=== PATIENT | female | born 1955 | race Caucasian/White ===

== ENCOUNTER 2020-04-16 13:37 | Outpatient (REF) | payer MEDICARE, MEDICAID, SELFPAY ==
[2020-04-16 15:30] LABS: Blood Urea Nitrogen 8 mg/dL (9-16); Estimated Glomerular Filt Rate > 60
== END 2020-04-16 13:38 | disposition home or self-care (01) ==
LOC: HO.LAB 13:37
PROVIDERS: PCP Pediatrics; Visit Provider Psychiatry & Neurology Neurology
DX: G50.0 Trigeminal neuralgia (principal)
CPT/HCPCS: 36415; 82565; 84520

== ENCOUNTER 2020-04-22 13:12 | Outpatient (REF) | payer MEDICARE, MEDICAID, SELFPAY ==
--- NOTE | ~2020-04-22 | MR_ITS ---
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 COMPARISON: None TECHNIQUE: Multiplanar, multisequence MRI of the brain was obtained before and after the intravenous administration of 6 mL Gadavist. FINDINGS: The brainstem is normal in morphology and signal intensity, with a normal appearance to the trigeminal root exit zones. The cisternal and cavernous portions of the trigeminal nerves are well visualized bilaterally and demonstrate no mass lesions or abnormal enhancement. Meckel's caves appear within normal limits. The cavernous sinuses enhance normally and symmetrically, with a normal appearance to the orbital apices and fissures, with a normal appearance to the pterygopalatine fossa bilaterally. The trigeminal fat pads are within normal limits. No abnormal enhancement. The jugular foramina demonstrate no evidence for mass lesion or abnormal enhancement. Flow artifact is noted in the jugular foramina bilaterally. No restricted diffusion is seen. Specifically, there is no evidence for recent or acute ischemic event. The brain parenchyma demonstrates normal morphology and signal intensity accounting for some artifacts on the FLAIR images with motion noted. There is a small developmental venous anomaly in the anterior right frontal lobe. Otherwise, there is no evidence for mass lesion, abnormal enhancement, space-occupying process, or mass effect. The ventricular system and subarachnoid spaces appear within normal limits without hydrocephalus. Normal signal voids are seen in the visualized major intracranial vessels. The included visualized upper neck soft tissues appear unremarkable. There is nasal septal deviation to the left with mild mucosal thickening and a small retention cyst in the left maxillary sinus. Bilateral lens removals are noted in the orbits. MR/MR head/brain wo/w con IMPRESSION: 1. Unremarkable appearance to the trigeminal nerve pathways and 9th cranial nerve pathways. No mass lesions or abnormal enhancement are identified. 2. Essentially unremarkable MRI of the brain without and with contrast. 3. Mild mucosal thickening and a small retention cyst in the left maxillary sinus and nasal septal deviation to the left.
== END 2020-04-22 13:13 | disposition home or self-care (01) ==
LOC: HO.MRI 13:12
PROVIDERS: Visit Provider Psychiatry & Neurology Neurology
DX: G50.0 Trigeminal neuralgia (principal); G52.1 Disorders of glossopharyngeal nerve
CPT/HCPCS: 70553; A9585

== ENCOUNTER 2020-11-06 11:44 | Outpatient (REF) | payer MEDICARE, MEDICAID, SELFPAY ==
--- NOTE | ~2020-11-06 | MM_ITS ---
EXAMINATION: MM SCREENING DIGITAL BREAST TOMOSYNTHESIS, BILATERAL CLINICAL INFORMATION: Screening. Asymptomatic. The lifetime risk of breast cancer based on the Tyrer-Cuzick Model is 5%. COMPARISON: Mammography: 09/27/2019, 09/11/2018, 08/02/2017 TECHNIQUE: Digital breast tomosynthesis is performed in both the craniocaudal and mediolateral oblique views along with computer-aided detection (CAD). Synthesized 2D images are generated from the tomosynthesis. FINDINGS: The breasts are extremely dense, which lowers the sensitivity of mammography (ACR BI-RADS breast composition Category d). There are no significant masses, abnormal calcifications, or other abnormalities. Parenchymal pattern is similar to prior studies and borders on heterogeneously dense. There is a biopsy clip marker again noted posterior 1:00 left breast. There is no developing density. The axilla and skin contours are unremarkable. No significant changes. MM/MM tomosynthesis screening BI IMPRESSION: No mammographic evidence of malignancy. ASSESSMENT: BI-RADS 1: Negative RECOMMENDATION: Routine annual mammography screening. This patient's information was entered into a reminder system with a target due date for their next mammogram.
== END 2020-11-06 11:45 | disposition home or self-care (01) ==
LOC: HO.MAMMO 11:44
PROVIDERS: PCP Pediatrics; Visit Provider Pediatrics
DX: Z12.31 Encounter for screening mammogram for malignant neoplasm of breast (principal)
CPT/HCPCS: 77063; 77067

== ENCOUNTER 2021-11-10 11:54 | Outpatient (REF) | payer MEDICARE, MEDICAID, SELFPAY ==
--- NOTE | ~2021-11-10 | MM_ITS ---
EXAMINATION: MM SCREENING DIGITAL BREAST TOMOSYNTHESIS, BILATERAL CLINICAL INFORMATION: Screening. Asymptomatic. The lifetime risk of breast cancer based on the Tyrer-Cuzick Model is 5%. COMPARISON: Mammography: 11/06/2020, 09/17/2019, 09/11/2018 TECHNIQUE: Digital breast tomosynthesis is performed in both the craniocaudal and mediolateral oblique views along with computer-aided detection (CAD). Synthesized 2D images are generated from the tomosynthesis. FINDINGS: The breasts are extremely dense, which lowers the sensitivity of mammography (ACR BI-RADS breast composition Category d). Breast tissue composition borders on heterogeneously dense. Parenchymal pattern is similar to prior studies. There is a biopsy clip marker again seen posterior 1:00 left breast. There is no developing density or architectural abnormality or abnormal calcifications. The axilla and skin contours are unremarkable. No significant changes. MM/MM tomosynthesis screening BI IMPRESSION: No mammographic evidence of malignancy. ASSESSMENT: BI-RADS 1: Negative RECOMMENDATION: Routine annual mammography screening. This patient's information was entered into a reminder system with a target due date for their next mammogram.
== END 2021-11-10 11:55 | disposition home or self-care (01) ==
LOC: HO.MAMMO 11:54
PROVIDERS: PCP Pediatrics; Visit Provider Pediatrics
DX: Z12.31 Encounter for screening mammogram for malignant neoplasm of breast (principal)
CPT/HCPCS: 77063; 77067

== ENCOUNTER 2021-11-16 09:36 | Outpatient (REF) | payer MEDICARE, MEDICAID, SELFPAY ==
--- NOTE | ~2021-11-16 | XR_ITS ---
EXAMINATION: XR FOOT, RIGHT CLINICAL INFORMATION: S90.31XA - Contusion of right foot, initial encounter COMPARISON: Radiographs right foot 01/01/2008 TECHNIQUE: AP, lateral, and oblique views of the right foot. FINDINGS: There is nondisplaced transverse fracture base fifth metatarsal. The remainder of the bony structures appear intact. There is no dislocation or destructive process. There are moderate posterior and plantar calcaneal spurs. Retrocalcaneal recess is preserved. Mild narrowing DIP joints. No erosive changes. XR/XR foot RT min 3V IMPRESSION: -Fracture base fifth metatarsal.
== END 2021-11-16 09:37 | disposition home or self-care (01) ==
LOC: HO.HMGCX 09:36
PROVIDERS: Visit Provider Internal Medicine
DX: S90.31XA Contusion of right foot, initial encounter (principal); X58.XXXA Exposure to other specified factors, initial encounter; Y93.9 Activity, unspecified; Y92.9 Unspecified place or not applicable; Y99.9 Unspecified external cause status
CPT/HCPCS: 73630

== ENCOUNTER 2022-04-06 10:39 | Outpatient (REF) | payer MEDICARE, MEDICAID, SELFPAY ==
--- NOTE | ~2022-04-06 | MM_ITS ---
EXAMINATION: BONE DENSITOMETRY CLINICAL INDICATION: Osteoporosis. COMPARISON: Previous BD dated 06/02/2015 and baseline BD dated 10/12/2007. TECHNIQUE: Using a [employer] DXA System (software version: 13.1) manufactured by [employer], dual-energy x-ray absorptiometry was performed of the lumbar spine and left hip. The images are of good technical quality. Summary results are attached. FINDINGS: AP SPINE L1-L4: Current: BMD 1.096 g/cm2, Z-score 1.0, T-score -0.7, normal, 6.2% increase from previous, 7.7% decrease from baseline (<5% change is not significant). Prior: BMD 1.032 g/cm2. Baseline: BMD 1.187 g/cm2. LEFT FEMUR, NECK: Current: BMD 0.762 g/cm2, Z-score -0.4, T-score -2.0, osteopenia. Prior: BMD 0.823 g/cm2. Baseline: BMD 0.815 g/cm2. LEFT FEMUR, TOTAL: Current: BMD 0.895 g/cm2, Z-score 0.4, T-score -0.9, normal, 0.9% decrease from previous, 7.2% decrease from baseline (<5% change is not significant). Prior: BMD 0.903 g/cm2. Baseline: BMD 0.964 g/cm2. IDENTIFIED RISK FACTORS: Low calcium intake. Secondary osteoporosis (early menopause). HISTORY OF FRACTURE: Elbow. MEDICATIONS: Calcium supplement or multivitamin. Vitamin D. MM/XR DEXA axial skeleton IMPRESSION: 1. DIAGNOSIS: Osteopenia based on the lowest T-score value of -2.0 in the femoral neck applying World Health Organization criteria. 2. 10-YEAR FRACTURE RISK PREDICTION, FRAX: Major osteoporotic fracture (clinical spine, forearm, hip or shoulder) 17.7%. Hip fracture 2.7%. 3. Treatment Recommendations: NOF guidelines recommend consideration for treatment in postmenopausal women and men age 50 and older presenting with the following: -A hip or vertebral (clinical or morphometric) fracture. -T-score less than or equal to -2.5 at the femoral neck or spine after appropriate evaluation to exclude secondary causes. -Low bone mass at the hip or spine and a 10-year fracture probability by FRAX of greater than or equal to 3% for hip fracture or greater than or equal to 20% for major osteoporotic fracture based on the [place] adapted WHO algorithm. 4. Other Recommendations: All treatment decisions require clinical judgment and consideration of individual patient factors, including patient preferences, comorbidities, previous drug use, risk factors not captured in the FRAX model (e.g. frailty, falls, vitamin D deficiency, increased bone turnover, interval significant decline in bone density) and possible under or overestimation of fracture risk by FRAX. Additional medical evaluation for secondary cause of low bone mineral density may be appropriate. FUTURE SCAN RECOMMENDATION: People with diagnosed cases of osteoporosis or at high risk for fracture should have regular bone mineral density tests. For patients eligible for Medicare, routine testing is allowed once every 2 years. The testing frequency can be increased to one year for patients who have rapidly progressing disease, those who are receiving or discontinuing medical therapy to restore bone mass, or have additional risk factors.
== END 2022-04-06 10:40 | disposition home or self-care (01) ==
LOC: HO.MAMMO 10:39
PROVIDERS: PCP Pediatrics; Visit Provider Pediatrics
DX: Z13.820 Encounter for screening for osteoporosis (principal); Z78.0 Asymptomatic menopausal state; M81.0 Age-related osteoporosis without current pathological fracture
CPT/HCPCS: 77080

== ENCOUNTER 2022-08-01 12:31 | Outpatient (REF) | payer OTHER, SELFPAY ==
--- NOTE | ~2022-08-01 | XR_ITS ---
EXAMINATION: XR CHEST CLINICAL INFORMATION: Shortness of breath and intermittent asthma COMPARISON: Previous chest x-ray December 2018 TECHNIQUE: 2 views of the chest were obtained. FINDINGS: The cardiac and mediastinal contours are normal. The lungs are clear. No pleural effusion or pneumothorax. Old left anterior sixth rib fracture. No acute bone abnormality. XR/XR chest 2V IMPRESSION: No evidence for acute disease in the chest.
== END 2022-08-01 12:32 | disposition home or self-care (01) ==
LOC: HO.HHCX 12:31
PROVIDERS: Visit Provider Nurse Practitioner Family
DX: J45.20 Mild intermittent asthma, uncomplicated (principal)
CPT/HCPCS: 71046

== ENCOUNTER 2022-11-16 11:34 | Outpatient (REF) | payer OTHER, SELFPAY ==
--- NOTE | ~2022-11-16 | MM_ITS ---
EXAMINATION: MM SCREENING DIGITAL BREAST TOMOSYNTHESIS, BILATERAL CLINICAL INFORMATION: Screening. Asymptomatic. COMPARISON: Mammography: This study is compared with prior exams dating back to 2018. TECHNIQUE: Digital breast tomosynthesis is performed in both the craniocaudal and mediolateral oblique views along with computer-aided detection (CAD). Synthesized 2D images are generated from the tomosynthesis. FINDINGS: The breasts are heterogeneously dense, which may obscure small masses (ACR BI-RADS breast composition Category c). There are no significant masses, abnormal calcifications, or other abnormalities. There is a tissue marker in the upper outer quadrant of the left breast from prior benign percutaneous biopsy. MM/MM tomosynthesis screening BI IMPRESSION: No mammographic evidence of malignancy. ASSESSMENT: BI-RADS BI-RADS 2 - Benign Findings RECOMMENDATION: Routine annual mammography screening. 1 year F/U This examination should not preclude the clinical evaluation of a suspicious palpable abnormality. This patient's information was entered into a reminder system with a target due date for their next mammogram.
== END 2022-11-16 11:35 | disposition home or self-care (01) ==
LOC: HO.MAMMO 11:34
PROVIDERS: PCP Pediatrics; Visit Provider Pediatrics
DX: Z12.31 Encounter for screening mammogram for malignant neoplasm of breast (principal)
CPT/HCPCS: 77063; 77067

== ENCOUNTER → 2022-11-16 11:45 | Outpatient (BNV) | payer OTHER, SELFPAY | PROVIDERS: PCP Pediatrics; Visit Provider Radiology Diagnostic Radiology | DX: Z12.31 Encounter for screening mammogram for malignant neoplasm of breast (principal) | CPT/HCPCS: 77063; 77067 ==

== ENCOUNTER 2023-02-22 11:32 | Outpatient (REF) | payer OTHER, SELFPAY ==
[2023-02-22 13:09] LABS: C Reactive Protein < 0.10 mg/dL (< or = 0.50)
[2023-02-22 13:25] LABS: TSH reflex Free T4 1.15 uIU/mL (0.32-4.0)
[2023-02-22 13:36] LABS: Vitamin B12 875 pg/mL (200-900)
[2023-02-26 15:44] LABS: Vitamin D 25-OH, D2 <4 ng/mL; Vitamin D 25-OH, D3 45 ng/mL; Vitamin D 25-OH, Total 45 ng/mL (30-100)
== END 2023-02-22 11:33 | disposition home or self-care (01) ==
LOC: HO.LAB 11:32
PROVIDERS: PCP Pediatrics; Visit Provider Nurse Practitioner Family
DX: K58.2 Mixed irritable bowel syndrome (principal); K59.1 Functional diarrhea; K59.02 Outlet dysfunction constipation; E55.9 Vitamin D deficiency, unspecified
CPT/HCPCS: 36415; 82306; 82607; 82746; 84443; 86140; 99202

== ENCOUNTER 2023-02-22 11:32 | Outpatient (AMB) | payer OTHER, SELFPAY ==
[2023-02-22 11:37] VITALS: BP 116/66; PULSE 91; BMI 20.5
--- NOTE | 2023-02-22 11:37 | MHC.OFFVIS ---
Intake Vital Signs 02/22/23 11:37 Height 5 ft 2 in Weight 111 lb 15.917 oz BMI 20.5 BP 116/66 Blood Pressure Location Lt brachial Position Sitting Pulse 91 Pulse Source Pulse Oximeter Intake Visit Reasons: Colonoscopy Screening Intake Note: Pt presents to the office today for a colonoscopy screening. Pt states she is feeling well but states she has a hiatal hernia, constipation and diarrhea.Pt states there are times where she has episodes of constipation and then will have episodes of diarrhea. Pt denies any nausea or vomiting. Allergies shellfish Allergy (Mild, Uncoded 02/22/23 11:39) Diarrhea, stomach problems HPI Colonoscopy Screening HPI Details 67 year old? female here today for pre colonoscopy screening.? Patient was sent to us by her PCP.? Patient reports that she had colonoscopy over 5 years ago at [facility]. Patient reports she had no polyps. Currently patient is suffering with symptoms of loose stools and occasionally she will be constipated. Recently treated for dental abscess with antibiotics. Patient believes that diarrhea was caused by antibiotics. ? Denies any personal or family history of gastrointestinal disease, colon polyps, or cancer.? Patient reports that she has been dealing with her bowels for sometimes. Patient states that she will be constipated and then she will have loose stools. Patient occasionally reports postprandial abdominal bloating. Unsure if any food is causing her having those symptoms. Patient denies any family history of inflammatory bowel disease. Patient denies any dyspepsia, dysphagia or odynophagia. Denies melena, hematochezia, unintentional weight loss or ribbon like stools. Denies history of difficulty with sedation or anesthesia in the past.? PFSH Surgical History (Updated 02/22/23 @ 11:46 by Xuan Pierre MA) H/O colonoscopy Family History Mother Lung cancer Father Diabetes Social History Household Members: None Housing: Condominium Alcohol intake: current Alcohol intake frequency: holidays/special occasions only Patient Tobacco Use Status: Former Tobacco user Substance Use Type: Marijuana Physical Exam Vital Signs: Last Vital Signs Pulse 91 02/22/23 11:37 BP 116/66 02/22/23 11:37 BMI result Body Mass Index 20.5 Const General: healthy appearing, no acute distress and well developed Nutritional Appearance: well nourished Orientation/consciousness: patient oriented x3 HEENT Head: Yes normal to inspection, Yes normocephalic and Yes atraumatic Face and sinus: Yes normal facial exam Mouth: Normal oral and palatal mucosa present Throat: Yes posterior oropharynx normal, Yes tonsils normal and Yes uvula midline Eyes General: appearance normal, both eyes and all related structures Neck Neck: Yes normal visual inspection, Yes full ROM and Yes trachea midline Thyroid: Thyroid normal Resp Effort & Inspection: normal respiratory effort, able to speak in complete sentences, no tracheal deviation and symmetric chest movement Auscultation: clear to auscultation bilaterally Cardio Rate: regular rate GI Inspection: Yes normal to inspection and No distended Palpation (GI): Soft to palpation, not firm, nontender and No hepatosplenomegaly present Auscultation: normal bowel sounds General: Yes no CVA tenderness Back/Spine/Pelvis Back: no CVA tenderness Skin General skin exam: elasticity normal, turgor normal and dry skin Neuro General: patient oriented x3 Psych Appearance: grossly normal Mental Status: mental status grossly normal Assessment & Plan Assessment & Plan (1) Screen for colon cancer: Code(s): Z12.11 - Encounter for screening for malignant neoplasm of colon (2) Irritable bowel syndrome with both constipation and diarrhea: Code(s): K58.2 - Mixed irritable bowel syndrome (3) Diarrhea: Code(s): R19.7 - Diarrhea, unspecified Qualifiers: Diarrhea type: functional diarrhea Qualified Code(s): K59.1 - Functional diarrhea (4) Constipation: Code(s): K59.00 - Constipation, unspecified Qualifiers: Constipation type: outlet dysfunction constipation Qualified Code(s): K59.02 - Outlet dysfunction constipation Plan Patient denies any cardiac or respiratory symptoms.? Denies any issues with anesthesia in the past.? Denies any history of sleep apnea.? No history infectious diseases in the past or present.? Not on any anticoagulation therapy.? No family or personal history of colon cancer or polyps.? Patient denies melena, hematochezia, unintentional weight loss or ribbon like stools.? Patient however reports to have alternating bowels with constipation then diarrhea. Patient denies any family history of IBD. However rule out with CRP, will check her thyroid study, vitamin-D, B12, folate. Patient will start taking Citrucel in the morning and senna in the evening. Patient will try to follow FODMAP diet. List of food recommended as well as list of food to avoid given to patient. Patient will return in 3 months, sooner on as needed basis. Please call [facility] for her last colonoscopy results. Patient believes she had one 5 years ago and had no polyps. Patient is agreeable to this plan and verbalizes understanding of instructions. She was given the opportunity to ask questions and all questions answered. Thank you for allowing me to participate in her care Orders: Orders Vitamin B12 and Folate Today R19.7 - Diarrhea, unspecified Vitamin D 25-OH (D2 and D3) Today E55.9 - Vitamin D deficiency, unspecified TSH reflex Free T4 Today K59.00 - Constipation, unspecified C Reactive Protein Today K58.9 - Irritable bowel syndrome without diarrhea Medications: New methylcellulose (laxative) (Citrucel) take it with full glass of water 500 mg PO DAILY 90 tabs 2RF K59.00 - Constipation, unspecified sennosides (Natural Senna Laxative) 17.2 mg (2 x 8.6 mg) PO BEDTIME 60 tabs 3RF constipation K59.00 - Constipation, unspecified Coding Level of Care Code New Pt Level 4 (12521) Diagnoses Screen for colon cancer Z12.11 Irritable bowel syndrome with both constipation and diarrhea K58.2 Functional diarrhea K59.1 Diarrhea type: functional diarrhea Constipation due to outlet dysfunction K59.02 Constipation type: outlet dysfunction constipation Time Spent (min) 45 Comment 30 minutes spent with patient and additional 15 minutes spent reviewing her records
== END 2023-02-22 13:06 | disposition home or self-care (01) ==
PROVIDERS: PCP Pediatrics; Visit Provider Nurse Practitioner Family
DX: K58.2 Mixed irritable bowel syndrome (principal); Z12.11 Encounter for screening for malignant neoplasm of colon
CPT/HCPCS: 99204

== ENCOUNTER 2023-04-24 09:35 | Outpatient (REF) | payer OTHER, SELFPAY ==
[2023-04-24 15:01] LABS: Alanine Aminotransferase 18 U/L (0-31); Albumin Level 4.2 g/dL (3.5-5.0); Alkaline Phosphatase 69 U/L (39-117); Aspartate Amino Transferase 19 U/L (5-31); Bilirubin Direct < 0.2 mg/dL (0.0-0.5); Bilirubin Total 0.2 mg/dL (0.0-1.0); Cholesterol 164 mg/dL (<200); HDL Cholesterol 45 mg/dL (>40); LDL Cholesterol Calculated 86 mg/dL (<100); Total Protein 6.7 g/dL (6.5-8.0); Triglycerides 169 mg/dL (<150)
== END 2023-04-24 09:36 | disposition home or self-care (01) ==
LOC: HO.CHCLDS 09:35
PROVIDERS: Visit Provider Pediatrics
DX: E78.5 Hyperlipidemia, unspecified (principal)
CPT/HCPCS: 36415; 80061; 80076; 82550

== ENCOUNTER 2023-06-05 11:19 | Outpatient (REF) | payer MEDICARE, SELFPAY ==
[2023-06-05 14:41] LABS: Hemoglobin 13.6 g/dl (12.0-16.0); Mean Corpuscular Hemoglobin 29.7 pg (27.0-33.0); Mean Corpuscular Volume 87.3 fL (80.0-98.0); Mean Platelet Volume 9.9 fL (9.4-12.3); Platelet Count 225 X10*3/uL (160-400); Red Blood Count 4.58 X10*6/uL (4.20-5.50); Red Cell Distribution Width 12.5 % (11.0-16.0); White Blood Count 7.6 X10*3/uL (4.8-10.8)
== END 2023-06-05 11:20 | disposition home or self-care (01) ==
LOC: HO.LAB 11:19
PROVIDERS: PCP Pediatrics; Visit Provider Nurse Practitioner Family
DX: K21.9 Gastro-esophageal reflux disease without esophagitis (principal); K58.2 Mixed irritable bowel syndrome; K59.1 Functional diarrhea; K59.01 Slow transit constipation; K44.9 Diaphragmatic hernia without obstruction or gangrene; R10.13 Epigastric pain
CPT/HCPCS: 36415; 85027; 99212

== ENCOUNTER 2023-06-05 11:19 | Outpatient (AMB) | payer OTHER, SELFPAY ==
--- NOTE | 2023-06-05 11:23 | MHC.OFFVIS ---
Intake Vital Signs 06/05/23 11:30 Height 5 ft 2 in Weight 110 lb BMI 20.1 BP 113/79 Blood Pressure Location Lt brachial Position Sitting Pulse 75 Pulse Source Pulse Oximeter Pulse Oximetry (%) 99 Oxygen Delivery Method Room Air Intake Visit Reasons: 2 month follow up Intake Note: Pt here for 2 months follow up, no concerns Information Interpreted: non-clinical & clinical Accompanied by: Self / Same As Patient Allergies shellfish Allergy (Mild, Uncoded 06/05/23 11:26) Diarrhea, stomach problems HPI 2 month follow up HPI Details LAST VISIT: Screen for colon cancer Irritable bowel syndrome with both constipation and diarrhea Diarrhea Constipation Plan Patient denies any cardiac or respiratory symptoms.? Denies any issues with anesthesia in the past.? Denies any history of sleep apnea.? No history infectious diseases in the past or present.? Not on any anticoagulation therapy.? No family or personal history of colon cancer or polyps.? Patient denies melena, hematochezia, unintentional weight loss or ribbon like stools.? Patient however reports to have alternating bowels with constipation then diarrhea. Patient denies any family history of IBD. However rule out with CRP, will check her thyroid study, vitamin-D, B12, folate. Patient will start taking Citrucel in the morning and senna in the evening. Patient will try to follow FODMAP diet. List of food recommended as well as list of food to avoid given to patient. Patient will return in 3 months, sooner on as needed basis. Please call [facility] for her last colonoscopy results. Patient believes she had one 5 years ago and had no polyps. Patient is agreeable to this plan and verbalizes understanding of instructions. She was given the opportunity to ask questions and all questions answered. ? Thank you for allowing me to participate in her care Orders Orders Vitamin B12 and Folate Today R19.7 Vitamin D 25-OH (D2 and D3) Today E55.9 TSH reflex Free T4 Today K59.00 C Reactive Protein Today K58.9 Medications New methylcellulose (laxative) (Citrucel) take it with full glass of water 500 mg PO DAILY 90 tabs 2RF K59.00 sennosides (Natural Senna Laxative) 17.2 mg (2 x 8.6 mg) PO BEDTIME 60 tabs 3RF constipation K59.00: TODAY'S VISIT Patient is here today for follow-up and to discuss going for colonoscopy. Patient reports that she is doing much better now that she is taking Citrucel and senna. However patient does report that occasionally she will still have postprandial loose stools. Reports occasional epigastric pain. Takes famotidine with good effect. Patient denies dyspepsia, dysphagia or odynophagia. Denies melena, hematochezia, unintentional weight loss or ribbon like stools. As mentioned above patient had colonoscopy at [facility] over 5 years ago. All of her lab work came back normal. Results discussed with patient. Patient denies any issues with anesthesia before. No history of sleep apnea. Not on any anticoagulation medication. Patient denies any cardiac or respiratory symptoms. FORMERLY [facility], [facility] Medical History (Updated 06/05/23 @ 11:56 by Jessica Patel [facility]) Hiatal hernia Surgical History H/O colonoscopy Family History Mother Lung cancer Father Diabetes Social History Household Members: None [facility] Alcohol intake: current Alcohol intake frequency: holidays/special occasions only Patient Tobacco Use Status: Former Tobacco user Substance Use Type: Marijuana Review of Systems Const Denies weight gain and Denies weight loss ENT Reports no additional complaints, Denies dysphagia and Denies odynophagia Card Reports no additional complaints Resp Reports no additional complaints GI Reports abdominal pain (Occasional abdominal cramping), Denies belching, Denies melena, Reports bloating, Denies change in bowel habits, Denies dysphagia, Denies excessive flatus, Denies dyspepsia, Denies heartburn, Denies diarrhea, Denies loose stools, Denies nausea, Denies odynophagia and Denies vomiting Reports no additional complaints Musc Reports no additional complaints Neuro Reports no additional complaints Psych Reports no additional complaints Endo Reports no additional complaints Physical Exam Vital Signs: Last Vital Signs Pulse 75 06/05/23 11:30 BP 113/79 06/05/23 11:30 Pulse Ox 99 06/05/23 11:30 Oxygen Delivery Method Room Air 06/05/23 11:30 BMI result Body Mass Index 20.1 Const General: healthy appearing, no acute distress and well developed Nutritional Appearance: well nourished Orientation/consciousness: patient oriented x3 Resp Effort & Inspection: normal respiratory effort, able to speak in complete sentences, no tracheal deviation and symmetric chest movement Auscultation: clear to auscultation bilaterally Cardio Rate: regular rate GI Inspection: Yes normal to inspection and No distended Palpation (GI): Soft to palpation, not firm, nontender and No hepatosplenomegaly present Auscultation: normal bowel sounds General: Yes no CVA tenderness Back/Spine/Pelvis Back: no CVA tenderness Skin General skin exam: elasticity normal, turgor normal and dry skin Neuro General: patient oriented x3 Psych Appearance: grossly normal Mental Status: mental status grossly normal Results Reviewed Results Reviewed: Laboratory Tests 02/22/23 02/22/23 04/24/23 12:31 12:31 09:36 AST 19 ALT 18 C-Reactive Protein < 0.10 Vitamin B12 875 25-OH Vitamin D Total 45 Folate 16.0 TSH 1.15 Assessment & Plan Assessment & Plan (1) Screen for colon cancer: Code(s): Z12.11 - Encounter for screening for malignant neoplasm of colon (2) Irritable bowel syndrome with both constipation and diarrhea: Code(s): K58.2 - Mixed irritable bowel syndrome (3) Diarrhea: Code(s): R19.7 - Diarrhea, unspecified Qualifiers: Diarrhea type: functional diarrhea Qualified Code(s): K59.1 - Functional diarrhea (4) Constipation: Code(s): K59.00 - Constipation, unspecified Qualifiers: Constipation type: slow transit constipation Qualified Code(s): K59.01 - Slow transit constipation (5) Hiatal hernia: Code(s): K44.9 - Diaphragmatic hernia without obstruction or gangrene (6) Postprandial epigastric pain: Code(s): R10.13 - Epigastric pain (7) GERD (gastroesophageal reflux disease): Code(s): K21.9 - Gastro-esophageal reflux disease without esophagitis Qualifiers: Esophagitis presence: esophagitis presence not specified Qualified Code(s): K21.9 - Gastro-esophageal reflux disease without esophagitis Plan Occasional postprandial epigastric pain. Patient can continue taking famotidine at bedtime. Avoid dietary triggers and late night snacking. Patient will be sent for upper endoscopy to rule out gastritis, esophagitis, duodenitis, gastric or peptic ulcers. Low FODMAP diet discussed with patient. List of food recommended as well as list of food to avoid given to patient. Patient had negative workup. Most likely IBS. I will send patient for ultrasound. Patient has pain in the upper right and left quadrant. Negative exam for tenderness or rebound tenderness. Patient will also go for colonoscopy. Last colonoscopy over 5 years ago. What to expect before during and after procedure discussed with patient. The importance of good bowel prep and clear liquid diet day before procedure discussed with her. Patient should stop Citrucel 1 week before the procedure. Split MiraLax prep with Dulcolax ordered. Orders: Orders US abdomen complete 06/05/23 R10.9 - Unspecified abdominal pain Complete Blood Count no Diff 06/05/23 K21.9 - Gastro-esophageal reflux disease without esophagitis Medications: New bisacodyl (Dulcolax (bisacodyl)) take 4 tabs at noon the day before your colonoscopy 20 mg (4 x 5 mg) PO ONCE 1 day 4 tabs 0RF Z12.11 - Encounter for screening for malignant neoplasm of colon polyethylene glycol 3350 (Miralax) As directed by gastroenterology department at [facility] 238 grams PO ONCE 238 grams 0RF Z12.11 - Encounter for screening for malignant neoplasm of colon Coding Level of Care Code Est Pt Level 4 (33701) Diagnoses Screen for colon cancer Z12.11 Irritable bowel syndrome with both constipation and diarrhea K58.2 Functional diarrhea K59.1 Diarrhea type: functional diarrhea Slow transit constipation K59.01 Constipation type: slow transit constipation Hiatal hernia K44.9 Postprandial epigastric pain R10.13 Gastroesophageal reflux disease, unspecified whether esophagitis present K21.9 Esophagitis presence: esophagitis presence not specified Time Spent (min) 35 Comment 20 minutes spent with patient and additional 15 minutes spent reviewing her records
[2023-06-05 11:30] VITALS: BP 113/79; PULSE 75; O2SAT 99; BMI 20.1
== END 2023-06-05 12:06 | disposition home or self-care (01) ==
PROVIDERS: PCP Pediatrics; Visit Provider Nurse Practitioner Family
DX: K21.9 Gastro-esophageal reflux disease without esophagitis (principal); K58.2 Mixed irritable bowel syndrome; K44.9 Diaphragmatic hernia without obstruction or gangrene; Z12.11 Encounter for screening for malignant neoplasm of colon
CPT/HCPCS: 99214

== ENCOUNTER 2023-06-15 07:47 | Outpatient (REF) | payer MEDICARE, SELFPAY ==
--- NOTE | ~2023-06-15 | US_ITS ---
EXAMINATION: US ABDOMEN COMPLETE CLINICAL INFORMATION: Unspecified abdominal pain. COMPARISON: None available. TECHNIQUE: Real-time imaging of the abdominal viscera. Limited visualization due to bowel gas. FINDINGS: PANCREAS: Limited visualization of pancreatic tail and head. Imaged portion of pancreatic body is unremarkable. ABDOMINAL AORTA: Atherosclerosis. INFERIOR VENA CAVA: Imaged portion is unremarkable LIVER: Mildly increased hepatic parenchymal heterogeneity could be associated with hepatocellular disease and limits visualization. Correlation with liver function tests and clinical exam recommended to determine further management. GALLBLADDER: No gallstones. No gallbladder wall thickening. COMMON BILE DUCT: Normal in caliber measuring 0.6 cm in diameter. RIGHT KIDNEY: Mild fullness right renal pelvis. Renal calculi. Limited visualization. The kidney measures 10.9 cm in maximum dimension. LEFT KIDNEY: No hydronephrosis. No renal calculi. Limited visualization. The kidney measures 10.1 cm in maximum dimension. SPLEEN: Normal. The spleen measures 8.5 cm in maximum dimension. FREE FLUID: None. US/US abdomen complete IMPRESSION: 1. Mildly increased hepatic parenchymal heterogeneity could be associated with hepatocellular disease and limits visualization. Correlation with liver function tests and clinical exam recommended to determine further management. 2. Mild fullness right renal pelvis. No renal calculi. 3. Atherosclerosis in the abdominal aorta.
== END 2023-06-15 07:48 | disposition home or self-care (01) ==
LOC: HO.US 07:47
PROVIDERS: PCP Pediatrics; Visit Provider Nurse Practitioner Family
DX: R10.9 Unspecified abdominal pain (principal)
CPT/HCPCS: 76700

== ENCOUNTER 2023-09-04 09:46 | Outpatient (REF) | payer MEDICARE, SELFPAY ==
[2023-09-04 10:59] LABS: MANUAL DIFF FLAG NO
[2023-09-04 12:41] LABS: Basophils Absolute Auto 0.1 X10*3/uL (0.0-0.2); Basophils Percent Auto 0.8 % (0-2); Eosinophils Absolute Auto 0.1 X10*3/uL (0.0-0.4); Eosinophils Percent Auto 1.6 % (0-4); Hemoglobin 14.8 g/dl (12.0-16.0); Imm Gran Abs Auto 0.02 X10*3/uL (0.00-0.03); Imm Gran Pct Auto 0.3 % (0.0-0.4); Lymphocytes Absolute Auto 2.4 X10*3/uL (1.2-4.9); Lymphocytes Percent Auto 31.4 % (20-40); Mean Corpuscular HGB Conc 34.4 g/dl (31.0-35.0); Mean Corpuscular Hemoglobin 30.1 pg (27.0-33.0); Mean Corpuscular Volume 87.4 fL (80.0-98.0); Mean Platelet Volume 9.9 fL (9.4-12.3); Monocytes Absolute Auto 0.6 X10*3/uL (0.1-1.2); Monocytes Percent Auto 7.2 % (2-11); Neutrophils Absolute Auto 4.5 x10*3/uL (2.0-8.3); Neutrophils Percent Auto 58.7 % (45-73); Platelet Count 216 X10*3/uL (160-400); Red Blood Count 4.92 X10*6/uL (4.20-5.50); Red Cell Distribution Width 12.3 % (11.0-16.0); White Blood Count 7.6 X10*3/uL (4.8-10.8)
[2023-09-04 13:08] LABS: Appearance Urine Clear; Color Urine Yellow; Glucose Urine UA Negative (Negative); Leukocyte Esterase Urine Small (1+) (Negative); Nitrite Urine Negative (Negative); PH 6.5 (5.0-9.0); Specific Gravity - Urine 1.025 (1.005-1.025); UMIC TRIGGER UA YES; Urine Blood Trace (Negative); Urine Ketones Trace mg/dL (Negative); Urine Protein 30 (1+) mg/dL (Neg-Trace)
[2023-09-04 13:23] LABS: Bacteria Urine Trace (None Seen); Hyaline Casts Urine 0-2 /LPF (0-2); RBC Urine 0-2 /HPF (0-2); Squamous Epithelial Cell Urine 0-2 /HPF (0-2); WBC Urine 0-5 /HPF (0-5)
[2023-09-04 13:37] LABS: Alanine Aminotransferase 22 U/L (0-31); Albumin Level 4.6 g/dL (3.5-5.0); Alkaline Phosphatase 82 U/L (39-117); Anion Gap 11 (12-20); Aspartate Amino Transferase 22 U/L (5-31); Bilirubin Total 0.2 mg/dL (0.0-1.0); Blood Urea Nitrogen 15 mg/dL (9-16); Calcium 9.9 mg/dL (8.4-10.2); Carbon Dioxide 29 mmol/L (22-29); Chloride 105 mmol/L (96-108); Estimated Glomerular Filt Rate > 60; Glucose Random 74 mg/dL (60-115); Potassium 3.8 mmol/L (3.3-5.1); Sodium 141 mmol/L (135-145); Total Protein 7.2 g/dL (6.5-8.0)
[2023-09-04 13:55] LABS: Creatinine Urine 155.27 mg/dL; Total Protein Urine Random 25 mg/dL (<12)
== END 2023-09-04 09:47 | disposition home or self-care (01) ==
LOC: HO.LAB 09:46
PROVIDERS: PCP Pediatrics; Referring Provider Nurse Practitioner Family; Visit Provider Internal Medicine Hypertension Specialist
DX: N18.9 Chronic kidney disease, unspecified (principal)
CPT/HCPCS: 36415; 80053; 81001; 82570; 84156; 85025; 99202

== ENCOUNTER 2023-09-04 09:46 | Outpatient (AMB) | payer MEDICARE, SELFPAY ==
[2023-09-04 09:45] VITALS: BP 120/78; PULSE 89; O2SAT 97; BMI 20.7
--- NOTE | 2023-09-04 09:45 | HO.NEPHOV ---
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 Accompanied by: Self / Same As Patient Allergies shellfish Allergy (Mild, Uncoded 06/05/23 11:26) Diarrhea, stomach problems Medication List - Last Reconciled 09/04/23 by Anurag Blanchard MD albuterol sulfate 90 mcg/actuation 2 puffs inhalation Q6H PRN albuterol sulfate 2.5 mg (3 mL) inhalation Q4-6H PRN atorvastatin 40 mg PO DAILY calcium carbonate 600 mg PO QAM calcium polycarbophil (Fiber Therapy (ca polycarbophil)) 625 mg PO DAILY carbamazepine 200 mg PO BID cetirizine 10 mg PO QAM cholecalciferol (vitamin D3) 50 mcg PO famotidine 20 mg PO fluticasone propionate 110 mcg/actuation (Flovent HFA) 0 mcg inhalation gabapentin 300 mg PO lidocaine 5% topical BID PRN meloxicam 7.5 mg PO DAILY PRN methylcellulose (laxative) (Citrucel) 500 mg PO DAILY montelukast 10 mg PO BEDTIME polyethylene glycol 3350 (Miralax) 238 grams PO ONCE sennosides (Natural Senna Laxative) 17.2 mg (2 x 8.6 mg) PO BEDTIME trazodone 50 mg PO BEDTIME HPI Comments Details: Zoey is a pleasant 68-year-old woman who has been referred for renal evaluation. 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 BUN was 109 creatinine 4.7 with a EGFR of 11 mL/minute. [place] [address]. She underwent plasmapheresis. No kidney biopsy was done. The renal function improved and did not require any dialysis. Since then renal function has been stable. Recently she was being evaluated for a colonoscopy. Abdominal ultrasonogram was done which showed mild fullness on the right side and the patient requested renal evaluation and hence this referral. At present she has no history of any nausea or vomiting. No hematuria. No polyuria polydipsia. She has weight loss. No history of smoking she uses occasional marijuana. [facility] Medical History (Updated 09/04/23 @ 10:07 by Anurag Blanchard MD) Hiatal hernia Surgical History H/O colonoscopy Family History Mother Lung cancer Father Diabetes Social History Household Members: None Housing: Condominium Alcohol intake: current Alcohol intake frequency: holidays/special occasions only Patient Tobacco Use Status: Former Tobacco user Substance Use Type: Marijuana Review of Systems Const Denies fever(s) Card Denies chest pain Resp Denies cough and Denies hemoptysis GI Denies abdominal pain, Denies diarrhea and Denies nausea Musc Denies back pain Neuro Denies focal weakness Physical Exam Vital Signs: Last Vital Signs Pulse 89 09/04/23 09:45 BP 120/78 09/04/23 09:45 Pulse Ox 97 09/04/23 09:45 Oxygen Delivery Method Room Air 09/04/23 09:45 BMI result Body Mass Index 20.7 Const General: comfortable; No acute distress Orientation/consciousness: patient oriented x3 Eyes General: appearance normal, both eyes and all related structures Visual Jaramillo: normal visual jaramillo by confrontation Neck Neck: Yes supple and Yes no JVD Resp Effort & Inspection: normal respiratory effort and respiratory effort not decreased Auscultation: rhonchi Cardio Palpation: no palpable S3 and no palpable S4 Heart sounds: no rubs GI Inspection: Yes normal to inspection Palpation (GI): Soft to palpation Percussion: Yes normal to percussion Auscultation: normal bowel sounds General: Yes no CVA tenderness Back/Spine/Pelvis Back: no CVA tenderness Skin General skin exam: no petechiae and no purpura Neuro General: patient oriented x3 and no focal motor deficits Extrem General: No clubbing and No edema Results Reviewed Nephrology Results: Hgb 13.6 g/dl (12.0-16.0) 06/05/23 WBC 7.6 X10*3/uL (4.8-10.8) 06/05/23 Plt Count 225 X10*3/uL (160-400) 06/05/23 Assessment & Plan Assessment & Plan (1) CKD (chronic kidney disease): Code(s): N18.9 - Chronic kidney disease, unspecified Category: Medical Plan: 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 She has a history of atypical HUS. History of MINISTERIO but did not require hemodialysis. History of plasmapheresis for atypical HS in 2009 At present renal function stable. I have initiated a basic screening workup including urine studies and urine protein creatinine ratio. Obtain renal ultrasonogram to re-evaluate the fullness on the right kidney. At this time blood pressure is well controlled. Renal function has been stable over the last 10 years. Continue to avoid nephrotoxic agents including NSAIDs. We will continue to monitor the renal function and hemoglobin platelet count periodically. I have reassured her. She will return to office once the basic workup is completed Orders: Orders Comprehensive Met. Panel Today N18.9 - Chronic kidney disease, unspecified Total Protein Urine Random Today N18.9 - Chronic kidney disease, unspecified US renal BI Today N18.9 - Chronic kidney disease, unspecified UA and rflx microscopic Today N18.9 - Chronic kidney disease, unspecified Creatinine Urine Today N18.9 - Chronic kidney disease, unspecified Complete Blood Count Auto Diff Today N18.9 - Chronic kidney disease, unspecified Coding Level of Care Code New Pt Level 4 (54289) Diagnoses CKD (chronic kidney disease) N18.9
== END 2023-09-04 10:11 | disposition home or self-care (01) ==
PROVIDERS: PCP Pediatrics; Referring Provider Nurse Practitioner Family; Visit Provider Internal Medicine Hypertension Specialist
DX: N18.9 Chronic kidney disease, unspecified (principal)
CPT/HCPCS: 99204

== ENCOUNTER 2023-09-11 13:21 | Outpatient (REF) | payer MEDICARE, SELFPAY ==
--- NOTE | ~2023-09-11 | US_ITS ---
EXAMINATION: US RETROPERITONEAL LIMITED (RENAL ONLY) CLINICAL INFORMATION: Chronic kidney disease, unspecified. COMPARISON: Ultrasound abdomen 06/15/2023. TECHNIQUE: Real-time imaging of the kidneys. FINDINGS: RIGHT KIDNEY: 9.9 x 3.5 x 5.8 cm (SAG x AP x TRV). The kidney is normal in size, contour, and echogenicity. Renal cortical thickness is normal. No renal calculi or focal parenchymal lesions. Mild hydronephrosis versus fullness of the renal pelvis, similar to the prior abdominal ultrasound of 06/15/2023. LEFT KIDNEY: 10.1 x 5.1 x 4.8 cm (SAG x AP x TRV). The kidney is normal in size, contour, and echogenicity. Renal cortical thickness is normal. No calculi or focal parenchymal lesions. No hydronephrosis. US/US renal BI IMPRESSION: 1. Mild hydronephrosis versus fullness of the right renal pelvis, similar to the prior abdominal ultrasound of . 2. Normal appearance of the left kidney.
== END 2023-09-11 13:22 | disposition home or self-care (01) ==
LOC: HO.US 13:21
PROVIDERS: PCP Pediatrics; Visit Provider Internal Medicine Hypertension Specialist
DX: N18.9 Chronic kidney disease, unspecified (principal)
CPT/HCPCS: 76775

== ENCOUNTER 2023-10-02 11:20 | Day surgery (SDC) | payer MEDICARE, SELFPAY ==
--- NOTE | 2023-10-02 12:47 | MHC.SHP ---
Pre-Procedural Eval Section A - 24 Hr Update-Section A only Date of Service: 10/02/23 The patient is an INPATIENT: No The patient has been examined within 24 hours of the surgical procedure. The History & Physical has been completed within 30 days and I have reviewed it.: No Section B - Complete if H&P > 30 days Chief Complaint: Screening, postprandial abd pain and diarrhea Relevant Family History (Specify if Yes): No Relevant Social History: Tobacco Use (Former smoker) Present Medications: see Short Stay Collaborative assessment Medical History: Significant History (Hiatal hernia) History of Previous Operations: Relevant previous surgery/procedure and date(s) (History of colonoscopy) Allergies: Allergies Allergy/AdvReac Type Severity Reaction Status Date / Time shellfish Allergy Mild Diarrhea, Uncoded 06/05/23 11:26 stomach problems Review of Systems Sugical H&P ROS: Negative: Constitution, Cardiovascular, Respiratory and Gastrointestinal Exam Surgical H&P Exam: Normal: Heart, Normal: Lungs, Normal: Extremities and Normal: Abdomen Plan Diagnosis/Plan: Unchanged I have reviewed the history and physical and performed a pertinent physical examination on my patient. No changes have occurred unless specified. Time Spent With Patient Time: Total time managing care of this patient today ____ minutes.
--- NOTE | 2023-10-02 12:54 | HO.ANESPROP2 ---
[facility] Active Problems Active Problems: All Active Problems CKD (chronic kidney disease) (Acute) Hiatal hernia (Acute) Acute viral bronchitis (Acute) Contusion of foot, right (Acute) Past Medical History Medical History (Updated 09/04/23 @ 10:07 by Anurag Blanchard MD) Hiatal hernia Family History Family History Mother Lung cancer Father Diabetes Family history of problems with anesthesia: No Surgical History Surgical History H/O colonoscopy History of Problems with Anesthesia: No Social History Social History [facility]hold Members: None [facility] Alcohol intake: current Alcohol intake frequency: holidays/special occasions only Patient Tobacco Use Status: Former Tobacco user Substance Use Type: Marijuana Advance Directives: No Advance Directives Information Provided: Yes Meds Allergies Allergy/AdvReac Type Severity Reaction Status Date / Time shellfish Allergy Mild Diarrhea, Uncoded 10/02/23 12:53 stomach problems Home Medications ?Medication ?Instructions ?Recorded ?Confirmed ?Last Taken ?Type atorvastatin 40 mg tablet 40 mg PO DAILY 11/16/21 09/04/23 Unknown History calcium carbonate 600 mg PO QAM 11/16/21 09/04/23 Unknown History carbamazepine 200 mg tablet 200 mg PO BID 11/16/21 09/04/23 Unknown History cetirizine 10 mg tablet 10 mg PO QAM 11/16/21 09/04/23 Unknown History cholecalciferol (vitamin D3) 50 50 mcg PO 11/16/21 09/04/23 Unknown History mcg (2,000 unit) capsule famotidine 20 mg tablet 20 mg PO 11/16/21 09/04/23 Unknown History fluticasone propionate 110 0 mcg inhalation 11/16/21 09/04/23 Unknown History mcg/actuation HFA aerosol inhaler (Flovent HFA) gabapentin 300 mg capsule 300 mg PO 11/16/21 09/04/23 Unknown History lidocaine 5 % topical ointment topical BID PRN 11/16/21 09/04/23 Unknown History montelukast 10 mg tablet 10 mg PO BEDTIME 11/16/21 09/04/23 Unknown History trazodone 50 mg tablet 50 mg PO BEDTIME 07/29/22 09/04/23 Unknown History calcium polycarbophil 625 mg 625 mg PO DAILY 09/04/23 09/04/23 Unknown History tablet (Fiber Therapy (ca polycarbophil)) meloxicam 7.5 mg tablet 7.5 mg PO DAILY PRN 09/04/23 09/04/23 Unknown History Exam Airway Mallampati Class: II TM Dist: >3cm Neck ROM: Full Heart: rrr Lungs: cts Assessment and Plan Assessment Anesthesia Assessment: Anesthesia Plan Discussed and Chart Reviewed Final Anesthetic Review Family History of Problems with Anesthesia: No History of Problems with Anesthesia: No NPO: Yes ASA Class: II Final Preanesthetic Review: No Changes in Pt Med Stat, Meds/Allgs Chart Reviewed and Consent Obtained/Reviewed Patient Risk: Intermediate Procedure Risk: Intermediate Anesthetic Plan Anesthetic Plan: MAC: Disposition: Standard PACU
[2023-10-02 13:14] VITALS: BP 111/66; PULSE 54; RESP 16; TEMP 36.7; O2SAT 97; BMI 20.3
--- NOTE | 2023-10-02 15:14 | P.OPN-COLO_ITS ---
Colonoscopy Operative Note Operative Note Date of Service: 10/02/23 Narrative: FLEXIBLE TRANSORAL UPPER GASTROINTESTINAL ENDOSCOPY WITH BIOPSIES AND COLONOSCOPY TILL CECUM WITH BIOPSIES AND SNARE POLYPECTOMY Pre-op diagnosis: Colon cancer screening, GERD, postprandial pain and diarrhea Post-op diagnosis: GERD, Gastritis, Duodenal nodule/polyp, Colon Polyps, Diverticulosis, hemorrhoids Endoscopist:? Sharif Ledesma MD Anesthesia:?MAC UPPER ENDOSCOPY Consent: Indications for the procedure and potential complications of bleeding, perforation, reaction to medications and missed diagnosis were discussed with the patient and informed consent was obtained. Instrument: Olympus GIF H 190 mid size upper endoscope Monitoring: Vital signs and clinical assessment, continuous EKG monitoring, Pulse oximetry, Carbon Dioxide monitoring and blood pressure monitoring were done throughout the procedure. Procedure: The patient was placed in the left lateral decubitis position and pre-procedure medications were administered and a bite block was placed. The endoscope was inserted into the mouth and advanced under direct vision to the third part of duodenum. A careful inspection was made as the upper endoscope was withdrawn including a retroflexed examination of the proximal stomach; Findings and interventions are described below. Findings: Larynx: Normal Esophagus: GE junction at 35 cms. Irregular Z line GE junction. No esophagitis or Keen's. Stomach: Moderate diffuse gastric erythema - biopsies were obtained from the body and antrum. Grade 2 flap valve on retroflexed examination of the cardia. Duodenum: Three 5 to 10 mm benign appearing nodules in the apex of the bulb - biopsied. Normal descending duodenum Biopsies were obtained from descending duodenum to check for celiac sprue Intervention: Biopsies as noted above COLONOSCOPY PROCEDURE NOTE Instrument: Olympus PCF H 190 L variable stiffness pediatric colonoscope Monitoring: Vital signs and clinical assessment, intermittent blood pressure monitoring, continuous EKG monitoring, Pulse oximetry and Carbon Dioxide monitoring were done throughout the procedure. Please see anesthesia flowsheet. Colon withdrawl time was 22 minutes. Procedure: The patient was placed in the left lateral decubitis position and pre-procedure medications were administered. After a digital rectal examination of the ano-rectum, the video colonoscope was inserted into the rectum and advanced through the colon to the cecum. The colonoscope was slowly withdrawn in a retrograde panoramic fashion and the colon mucosa was carefully examined including a retroflexed view of the rectum. Findings and interventions are described below. Procedure Difficulty: without difficulty Findings: Terminal Ileum: Not evaluated Cecum: Normal Ascending Colon: Normal Transverse Colon: Normal Descending Colon: Moderate diverticulosis Sigmoid Colon: A 12-15 mm sessile polyp - removed with a hot snare. A 10-12 mm sessile polyp - removed with a hot snare. Severe diverticulosis with luminal narrowing. Rectum: Normal Ano-rectum: Moderate internal hemorrhoids Colon preparation: Good after some irrigation. [place] Bowel Preparation Scale Right colon; 2 Transverse colon: 2 Left colon; 2 (0 = Unprepared colon segment with mucosa not seen due to solid stool that cannot be cleared. 1 = Portion of mucosa of the colon segment seen, but other areas of the colon segment not well seen due to staining, residual stool and/or opaque liquid. 2 = Minor amount of residual staining, small fragments of stool and/or opaque liquid, but mucosa of colon segment seen well. 3 = Entire mucosa of colon segment seen well with no residual staining, small fragments of stool or opaque liquid) Impression and Post Procedure Diagnosis: Endoscopy Findings: ESOPHAGUS: Irregular Z line GE junction - biopsied to check for Keen's. STOMACH: Moderate diffuse gastric erythema DUODENUM: Three benign appearing nodules in the apex of the bulb - biopsied. Normal descending duodenum - Biopsies were obtained from descending duodenum to check for celiac sprue Colonoscopy Findings: Two medium sized polyps were removed Moderate to severe diverticulosis seen in the left colon Moderate hemorrhoids on retroflexed exam. Plan: Pt has a FU appointment on 10/16/23 with Isadora Patel NP Repeat Colonoscopy in 3-5 years if polyps are adenomatous and 10 year if polyps are hyperplastic. Above findings were reviewed with the patient and relevant handouts were given and the discharge area. BIOPSIES SHOWED: A. Small bowel, biopsy: Duodenal mucosa within normal limits; negative for celiac disease. B. Duodenum, nodule, biopsy: Small superficial fragment of duodenal mucosa within normal limits. C. Stomach, antrum, biopsy: Antral-type and oxyntic mucosa with superficial hyperplastic changes; otherwise within normal limits; no Helicobacter organisms seen. D. Stomach, body, biopsy: Oxyntic mucosa within normal limits; no Helicobacter organisms seen. E. GE junction, biopsy: - Cardiofundic-type mucosa with moderate chronic, focally active, inflammation; no intestinal metaplasia seen. - Squamous mucosa within normal limits. F. Colon, right, biopsy: Colonic mucosa within normal limits; negative for microscopic colitis. G. Colon, sigmoid, polypectomies (2): - Tubular adenoma; negative for high-grade dysplasia or carcinoma. - Hyperplastic mucosal polyp. H. Colon, left, biopsy: Colonic mucosa within normal limits; negative for microscopic colitis.
[2023-10-02 15:17] VITALS: BP 129/65; PULSE 60; RESP 16; TEMP 36.1; O2SAT 100
[2023-10-02 15:32] VITALS: BP 136/64; PULSE 61; RESP 18; TEMP 36.1; O2SAT 100
== END 2023-10-02 16:07 | disposition home or self-care (01) ==
PROVIDERS: PCP Pediatrics; Visit Provider Internal Medicine Gastroenterology
PROC: (CPT 45385; principal; 2023-10-02 12:50)
DX: Z12.11 Encounter for screening for malignant neoplasm of colon (principal); D12.5 Benign neoplasm of sigmoid colon; K57.30 Diverticulosis of large intestine without perforation or abscess without bleeding; K64.8 Other hemorrhoids; K58.2 Mixed irritable bowel syndrome; K21.9 Gastro-esophageal reflux disease without esophagitis; K29.50 Unspecified chronic gastritis without bleeding; K31.7 Polyp of stomach and duodenum; K44.9 Diaphragmatic hernia without obstruction or gangrene; Z87.891 Personal history of nicotine dependence
CPT/HCPCS: 45385; 45380; 43239; 88305; 88313; 88342; J2704

== ENCOUNTER → 2023-10-02 11:20 | Outpatient (BNV) | payer MEDICARE, SELFPAY | PROVIDERS: PCP Pediatrics; Visit Provider Internal Medicine Gastroenterology | DX: Z12.11 Encounter for screening for malignant neoplasm of colon (principal); R19.7 Diarrhea, unspecified; D12.5 Benign neoplasm of sigmoid colon; K57.90 Diverticulosis of intestine, part unspecified, without perforation or abscess without bleeding; K64.8 Other hemorrhoids; K21.9 Gastro-esophageal reflux disease without esophagitis; R10.84 Generalized abdominal pain; K29.70 Gastritis, unspecified, without bleeding | CPT/HCPCS: 43239; 45380; 45385 ==

== ENCOUNTER 2023-10-03 12:46 | Outpatient (AMB) | payer MEDICARE, SELFPAY ==
--- NOTE | 2023-10-03 12:47 | A.OFFVIS_ITS ---
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 Required: No Allergies shellfish Allergy (Mild, Uncoded 10/02/23 12:53) Diarrhea, stomach problems Medication List - Last Reconciled 10/03/23 by Gilberto Villalobos MD albuterol sulfate 90 mcg/actuation 2 puffs inhalation Q6H PRN albuterol sulfate 2.5 mg (3 mL) inhalation Q4-6H PRN atorvastatin 40 mg PO DAILY calcium carbonate 600 mg PO QAM calcium polycarbophil (Fiber Therapy (ca polycarbophil)) 625 mg PO DAILY carbamazepine 200 mg PO BID cetirizine 10 mg PO QAM cholecalciferol (vitamin D3) 50 mcg PO DAILY famotidine 20 mg PO DAILY fluticasone propionate 110 mcg/actuation (Flovent HFA) 0 mcg inhalation gabapentin 300 mg PO BID lidocaine 5% topical BID PRN meloxicam 7.5 mg PO DAILY PRN methylcellulose (laxative) (Citrucel) 500 mg PO DAILY montelukast 10 mg PO BEDTIME sennosides (Natural Senna Laxative) 17.2 mg (2 x 8.6 mg) PO BEDTIME trazodone 50 mg PO BEDTIME HPI Comments Details: Zoey was referred here because of recent findings of abdominal aortic atherosclerosis on abdominal ultrasound done for GI symptoms. This was an incidental finding. Patient is referred here for further evaluation. She has significant risk factors with prior history of smoking, COPD, hyperlipidemia with last LDL of 86 mg/dL on 40 mg of atorvastatin. She was to have symptoms of severe retrosternal chest discomfort which was subsequently been treated with anti acids. She now sleeps in a reclining bed and says has not had chest pressure for a long time. She remains active would occasionally gets exertional shortness of breath. No orthopnea, PND, leg edema. Denies any claudication symptoms PFSH Medical History Hiatal hernia Surgical History H/O colonoscopy Family History Mother Lung cancer Father Diabetes Social History Household Members: None Housing: Condominium Alcohol intake: current Alcohol intake frequency: holidays/special occasions only Patient Tobacco Use Status: Former Tobacco user Substance Use Type: Marijuana Review of Systems Const Denies chills, Denies daytime sleepiness, Denies fatigue, Denies fever(s), Denies frequent falls, Denies poor appetite, Denies snoring, Denies stops breathing during sleep, Denies weakness, Denies weight gain and Denies weight loss Eyes Denies loss of vision ENT Denies dizziness and Denies hearing loss Card Denies chest pain, Denies claudication, Denies leg edema, Denies lightheade dness, Denies palpitations, Denies dyspnea, Denies dyspnea on exertion and Denies orthopnea Resp Denies cough, Denies excessive phlegm production, Denies dyspnea, Denies dyspnea on exertion, Denies snoring and Denies wheezing GI Denies abdominal pain, Denies hematochezia, Denies change in bowel habits, Denies nausea and Denies vomiting Denies urinary frequency and Denies dysuria Musc Denies arthralgias, Denies muscle weakness, Denies numbness and Denies other (frequent falls) Skin/Breast Denies nail changes and Denies rash Neuro Denies Abnormal speech present, Denies dizziness, Denies frequent falls, Denies loss of vision, Denies memory loss, Denies numbness and Denies weakness Psych Denies depression and Denies memory loss Endo Denies fatigue and Denies palpitations Bobby/Lymph Reports easy bruising and Reports other (anemia) Aller/Immun Denies wheezing Physical Exam Vital Signs: Last Vital Signs Pulse 69 10/03/23 12:51 BP 120/76 10/03/23 12:51 BMI result Body Mass Index 20.6 Const General: cooperative, comfortable, no acute distress, alert, awake and Physically active Nutritional Appearance: thin Orientation/consciousness: patient oriented x3 Limitations: no limitations HEENT Head: Yes normocephalic and Yes atraumatic Neck Neck: Yes trachea midline, Yes supple and Yes no JVD Resp Effort & Inspection: normal respiratory effort Auscultation: clear to auscultation bilaterally Cardio Jugular venous distension: no JVD Palpation: normal PMI Rate: regular rate Rhythm: regular rhythm Heart sounds: S1 normal heart sound present, S2 normal heart sound present, no click, no gallops, no murmurs and no rubs Bruits: no carotid bruits GI Auscultation: normal bowel sounds Skin General skin exam: no rashes or lesions noted Neuro General: patient oriented x3 and no focal motor deficits Speech: No Abnormal speech present Extrem General: Yes no clubbing, cyanosis or edema Psych Appearance: grossly normal Office Procedures EKG Details: EKG shows normal sinus rhythm with low-voltage QRS with nonspecific T-wave changes. [id number], Complete Assessment & Plan Assessment & Plan (1) Abdominal aortic atherosclerosis: Code(s): I70.0 - Atherosclerosis of aorta Category: Medical Plan: Abdominal aortic atherosclerosis which was noted as incidental finding but he is suggestive of systemic atherosclerosis. She does have exertional shortness of breath which to me appears to be related to a pulmonary issues although this is intermittent and atypical for myocardial ischemia would suggest given her multiple risk factors to evaluate with a treadmill stress test. If she has good workload capacity with negative EKG likelihood of obstructive CAD is low and this was discussed with her. I would continue aggressive medical management. LDL is not well optimized systemic atherosclerosis and would target goal LDL less than 70 mg/dL. Consider either increasing atorvastatin to 80 mg daily or adding Zetia 10 mg to regimen. Blood pressure is well optimized. Continue maintain activity level as tolerated. Will follow up in the clinic if need be. Thank you for allowing me to partake in the care Orders: Orders CA stress test Today I70.0 - Atherosclerosis of aorta, R06.02 - Shortness of breath Coding Level of Care Code New Pt Level 4 (97658) Diagnoses Abdominal aortic atherosclerosis I70.0 CPT Codes EKG - CPT: 56649-[id number], Complete ([id number])
[2023-10-03 12:51] VITALS: BP 120/76; PULSE 69; BMI 20.6
== END 2023-10-03 13:17 | disposition home or self-care (01) ==
PROVIDERS: PCP Pediatrics; Visit Provider Internal Medicine Cardiovascular Disease
DX: I70.0 Atherosclerosis of aorta (principal)
CPT/HCPCS: 93010; 99204

== ENCOUNTER → 2023-10-03 12:46 | Outpatient (BNVA) | payer MEDICARE, SELFPAY | PROVIDERS: PCP Pediatrics; Visit Provider Internal Medicine Cardiovascular Disease | DX: I70.0 Atherosclerosis of aorta (principal); Z79.899 Other long term (current) drug therapy | CPT/HCPCS: 93005; 99202 ==

== ENCOUNTER → 2023-10-09 13:36 | Outpatient (BNVA) | payer MEDICARE, SELFPAY | PROVIDERS: PCP Pediatrics; Visit Provider Internal Medicine Hypertension Specialist | DX: N18.9 Chronic kidney disease, unspecified (principal) | CPT/HCPCS: 99212 ==

== ENCOUNTER 2023-10-16 11:54 | Outpatient (AMB) | payer OTHER, SELFPAY ==
--- NOTE | 2023-10-16 12:09 | MHC.OFFVIS ---
Vital Signs 10/16/23 12:14 Height 5 ft 2 in Weight 112 lb BMI 20.5 BP 113/63 Blood Pressure Location Lt brachial Position Sitting Pulse 82 Intake Visit Reasons: s/p egd/colon Intake Note: Patient follow up for EGD/Colonoscopy results Patient cc: LLQ pain on and off, between diarrhea and constipation, acid reflex on and off. Denies any other GI issues. 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 Patient can continue taking famotidine at bedtime. Avoid dietary triggers and late night snacking. Patient will be sent for upper endoscopy to rule out gastritis, esophagitis, duodenitis, gastric or peptic ulcers. Low FODMAP diet discussed with patient. List of food recommended as well as list of food to avoid given to patient. Patient had negative workup. Most likely IBS. I will send patient for ultrasound. Patient has pain in the upper right and left quadrant. Negative exam for tenderness or rebound tenderness. Patient will also go for colonoscopy. Last colonoscopy over 5 years ago. What to expect before during and after procedure discussed with patient. The importance of good bowel prep and clear liquid diet day before procedure discussed with her. Patient should stop Citrucel 1 week before the procedure. Split MiraLax prep with Dulcolax ordered. Orders Orders US abdomen complete 06/05/23 R10.9 Complete Blood Count no Diff 06/05/23 K21.9 Medications New bisacodyl (Dulcolax (bisacodyl)) take 4 tabs at noon the day before your colonoscopy 20 mg (4 x 5 mg) PO ONCE 1 day 4 tabs 0RF Z12.11 polyethylene glycol 3350 (Miralax) As directed by gastroenterology department at [facility] 238 grams PO ONCE 238 grams 0RF Z12.11 UPPER ENDOSCOPY AND COLONOSCOPY Endoscopy Findings: Larynx: Normal Esophagus: GE junction at 35 cms. Irregular Z line GE junction. No esophagitis or Keen's. Stomach: Moderate diffuse gastric erythema - biopsies were obtained from the body and antrum. Grade 2 flap valve on retroflexed examination of the cardia. Duodenum: Three 5 to 10 mm benign appearing nodules in the apex of the bulb - biopsied. Normal descending duodenum Biopsies were obtained from descending duodenum to check for celiac sprue Intervention: Biopsies as noted above Colonoscopy Findings: Terminal Ileum: Not evaluated Cecum: Normal Ascending Colon: Normal Transverse Colon: Normal Descending Colon: Moderate diverticulosis Sigmoid Colon: A 12-15 mm sessile polyp - removed with a hot snare. A 10-12 mm sessile polyp - removed with a hot snare. Severe diverticulosis with luminal narrowing. Rectum: Normal Ano-rectum: Moderate internal hemorrhoids Colon preparation: Good after some irrigation. Furman Bowel Preparation Scale Right colon; 2 Transverse colon: 2 Left colon; 2 (0 = Unprepared colon segment with mucosa not seen due to solid stool that cannot be cleared. 1 = Portion of mucosa of the colon segment seen, but other areas of the colon segment not well seen due to staining, residual stool and/or opaque liquid. 2 = Minor amount of residual staining, small fragments of stool and/or opaque liquid, but mucosa of colon segment seen well. 3 = Entire mucosa of colon segment seen well with no residual staining, small fragments of stool or opaque liquid) Impression and Post Procedure Diagnosis: Endoscopy Findings: ESOPHAGUS: Irregular Z line GE junction - biopsied to check for Keen's. STOMACH: Moderate diffuse gastric erythema DUODENUM: Three benign appearing nodules in the apex of the bulb - biopsied. Normal descending duodenum - Biopsies were obtained from descending duodenum to check for celiac sprue Colonoscopy Findings: Two medium sized polyps were removed Moderate to severe diverticulosis seen in the left colon Moderate hemorrhoids on retroflexed exam. Plan: Pt has a FU appointment on 10/16/23 with Isadora Patel NP Repeat Colonoscopy in 3-5 years if polyps are adenomatous and 10 year if polyps are hyperplastic. Above findings were reviewed with the patient and relevant handouts were given and the discharge area. BIOPSIES SHOWED: A. Small bowel, biopsy: Duodenal mucosa within normal limits; negative for celiac disease. B. Duodenum, nodule, biopsy: Small superficial fragment of duodenal mucosa within normal limits. C. Stomach, antrum, biopsy: Antral-type and oxyntic mucosa with superficial hyperplastic changes; otherwise within normal limits; no Helicobacter organisms seen. D. Stomach, body, biopsy: Oxyntic mucosa within normal limits; no Helicobacter organisms seen. E. GE junction, biopsy: - Cardiofundic-type mucosa with moderate chronic, focally active, inflammation; no intestinal metaplasia seen. - Squamous mucosa within normal limits. F. Colon, right, biopsy: Colonic mucosa within normal limits; negative for microscopic colitis. G. Colon, sigmoid, polypectomies (2): - Tubular adenoma; negative for high-grade dysplasia or carcinoma. - Hyperplastic mucosal polyp. H. Colon, left, biopsy: Colonic mucosa within normal limits; negative for microscopic colitis. TODAY'S VISIT Patient is here today for follow-up to discuss upper endoscopy results as well as colonoscopy results. Patient also had ultrasound done which we discussed with patient over the phone after the results came back. Patient was found to have a hepatic steatosis right kidney fullness and aortic stenosis. 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 Patient denies any family history of liver disease. Patient is eating healthy. Upper endoscopy and colonoscopy results discussed with patient. Tubular adenoma without high-grade dysplasia or carcinoma found. No H pylori, moderate active inflammation in the GE junction. Currently patient is not taking any PPI. Patient denies any ill effects from the prep, anesthesia or procedure itself. Patient reports that she has been having occasional loose stools depending on what she eats and sometimes constipation. Occasional abdominal bloating. Patient denies any melena, hematochezia. Denies any family history of colorectal cancer [facility] Medical History (Updated 10/16/23 @ 20:49 by Jessica Patel, [facility]) Diverticulosis large intestine w/o perforation or abscess w/bleeding Tubular adenoma of colon Hiatal hernia Surgical History H/O colonoscopy Family History Mother Lung cancer Father Diabetes Social History Household Members: None Housing: Condominium Alcohol intake: current Alcohol intake frequency: holidays/special occasions only Patient Tobacco Use Status: Former Tobacco user Substance Use Type: Marijuana Review of Systems Const Denies weight gain and Denies weight loss ENT Reports no additional complaints, Denies dysphagia and Denies odynophagia Card Reports no additional complaints Resp Reports no additional complaints GI Denies abdominal pain, Denies belching, Denies melena, Reports bloating, Reports constipation, Denies dysphagia, Denies excessive flatus, Denies dyspepsia, Denies heartburn, Denies diarrhea, Reports loose stools, Denies nausea, Denies odynophagia and Denies vomiting Reports no additional complaints Musc Reports no additional complaints Neuro Reports no additional complaints Psych Reports no additional complaints Endo Reports no additional complaints Physical Exam Vital Signs: Last Vital Signs Pulse 82 10/16/23 12:14 BP 113/63 10/16/23 12:14 BMI result Body Mass Index 20.5 Const General: healthy appearing, no acute distress and well developed Nutritional Appearance: well nourished Orientation/consciousness: patient oriented x3 Resp Effort & Inspection: normal respiratory effort, able to speak in complete sentences, no tracheal deviation and symmetric chest movement Auscultation: clear to auscultation bilaterally Cardio Rate: regular rate GI Inspection: Yes normal to inspection and No distended Palpation (GI): Soft to palpation, not firm, nontender and No hepatosplenomegaly present Auscultation: normal bowel sounds General: Yes no CVA tenderness Back/Spine/Pelvis Back: no CVA tenderness Skin General skin exam: elasticity normal, turgor normal and dry skin Neuro General: patient oriented x3 Psych Appearance: grossly normal Mental Status: mental status grossly normal Results Reviewed Results Reviewed: US of ABDOMEN FINDINGS: PANCREAS: Limited visualization of pancreatic tail and head. Imaged portion of pancreatic body is unremarkable. ABDOMINAL AORTA: Atherosclerosis. INFERIOR VENA CAVA: Imaged portion is unremarkable LIVER: Mildly increased hepatic parenchymal heterogeneity could be associated with hepatocellular disease and limits visualization. Correlation with liver function tests and clinical exam recommended to determine further management. GALLBLADDER: No gallstones. No gallbladder wall thickening. COMMON BILE DUCT: Normal in caliber measuring 0.6 cm in diameter. RIGHT KIDNEY: Mild fullness right renal pelvis. Renal calculi. Limited visualization. The kidney measures 10.9 cm in maximum dimension. LEFT KIDNEY: No hydronephrosis. No renal calculi. Limited visualization. The kidney measures 10.1 cm in maximum dimension. SPLEEN: Normal. The spleen measures 8.5 cm in maximum dimension. FREE FLUID: None. US/US abdomen complete IMPRESSION: 1. Mildly increased hepatic parenchymal heterogeneity could be associated with hepatocellular disease and limits visualization. Correlation with liver function tests and clinical exam recommended to determine further management. 2. Mild fullness right renal pelvis. No renal calculi. 3. Atherosclerosis in the abdominal aorta. Assessment & Plan Assessment & Plan (1) Hiatal hernia: Code(s): K44.9 - Diaphragmatic hernia without obstruction or gangrene Category: Medical (2) Tubular adenoma of colon: Code(s): D12.6 - Benign neoplasm of colon, unspecified Category: Medical (3) Irritable bowel syndrome with both constipation and diarrhea: Code(s): K58.2 - Mixed irritable bowel syndrome (4) Diarrhea: Code(s): R19.7 - Diarrhea, unspecified Qualifiers: Diarrhea type: functional diarrhea Qualified Code(s): K59.1 - Functional diarrhea (5) Constipation: Code(s): K59.00 - Constipation, unspecified Qualifiers: Constipation type: slow transit constipation Qualified Code(s): K59.01 - Slow transit constipation (6) Postprandial epigastric pain: Code(s): R10.13 - Epigastric pain (7) GERD (gastroesophageal reflux disease): Code(s): K21.9 - Gastro-esophageal reflux disease without esophagitis Qualifiers: Esophagitis presence: without esophagitis Qualified Code(s): K21.9 - Gastro-esophageal reflux disease without esophagitis (8) Status post colonoscopy: Code(s): Z98.890 - Other specified postprocedural states (9) Diverticulosis large intestine w/o perforation or abscess w/bleeding: Code(s): K57.31 - Diverticulosis of large intestine without perforation or abscess with bleeding Category: Medical Plan Upper endoscopy and colonoscopy discussed with patient. Discuss results of the procedure and biopsies. Patient will increase fluid intake and activity to promote better bowel motility. Increase fiber and may take probiotics daily. Tubular adenoma colonoscopy in 3-5 years, sooner if clinically necessary. Patient has active inflammation at the GE junction will start her on pantoprazole. Kidney function stable. Avoid dietary triggers and late night snacking. Staying upright for minimum 3 hours after meals discussed with patient. Hiatal hernia not seen on upper endoscopy. Patient was reassured. Currently no symptoms. Patient will need to move her bowels better and eliminate them. Patient will follow-up in the office in 4 months, sooner on as needed basis. Patient is agreeable to this plan and verbalizes understanding of instructions. She was given the opportunity to ask questions and all questions answered. Thank you for allowing me to participate in her care Medications: New pantoprazole 20 mg PO DAILY 90 tabs 1RF Coding Level of Care Code Est Pt Level 4 (72876) Diagnoses Hiatal hernia K44.9 Tubular adenoma of colon D12.6 Irritable bowel syndrome with both constipation and diarrhea K58.2 Functional diarrhea K59.1 Diarrhea type: functional diarrhea Slow transit constipation K59.01 Constipation type: slow transit constipation Postprandial epigastric pain R10.13 Gastroesophageal reflux disease without esophagitis K21.9 Esophagitis presence: without esophagitis Status post colonoscopy Z98.890 Diverticulosis large intestine w/o perforation or abscess w/bleeding K57.31 Time Spent (min) 35 Comment 20 minutes spent with patient and additional 15 minutes spent reviewing her records
[2023-10-16 12:14] VITALS: BP 113/63; PULSE 82; BMI 20.5
== END 2023-10-16 12:38 | disposition home or self-care (01) ==
PROVIDERS: PCP Pediatrics; Visit Provider Nurse Practitioner Family
DX: K44.9 Diaphragmatic hernia without obstruction or gangrene (principal); D12.6 Benign neoplasm of colon, unspecified; K58.2 Mixed irritable bowel syndrome; K59.1 Functional diarrhea; K59.01 Slow transit constipation; R10.13 Epigastric pain; K21.9 Gastro-esophageal reflux disease without esophagitis; Z98.890 Other specified postprocedural states; K57.31 Diverticulosis of large intestine without perforation or abscess with bleeding
CPT/HCPCS: 99214

== ENCOUNTER → 2023-10-16 11:54 | Outpatient (BNVA) | payer OTHER, SELFPAY | PROVIDERS: PCP Pediatrics; Visit Provider Nurse Practitioner Family | DX: K21.9 Gastro-esophageal reflux disease without esophagitis (principal); K44.9 Diaphragmatic hernia without obstruction or gangrene; K57.31 Diverticulosis of large intestine without perforation or abscess with bleeding; K59.1 Functional diarrhea; K58.2 Mixed irritable bowel syndrome; D12.6 Benign neoplasm of colon, unspecified; K59.01 Slow transit constipation; R10.13 Epigastric pain; Z98.890 Other specified postprocedural states; Z79.899 Other long term (current) drug therapy | CPT/HCPCS: 99212 ==

== ENCOUNTER 2023-10-30 10:21 | Outpatient (REF) | payer OTHER, SELFPAY ==
[2023-10-30 14:43] LABS: Alanine Aminotransferase 19 U/L (0-31); Alkaline Phosphatase 71 U/L (39-117); Aspartate Amino Transferase 20 U/L (5-31); Bilirubin Direct < 0.2 mg/dL (0.0-0.5); Bilirubin Total 0.2 mg/dL (0.0-1.0); Cholesterol 167 mg/dL (<200); HDL Cholesterol 58 mg/dL (>40); LDL Cholesterol Calculated 80 mg/dL (<100); Total Protein 6.4 g/dL (6.5-8.0); Triglycerides 147 mg/dL (<150)
== END 2023-10-30 10:22 | disposition home or self-care (01) ==
LOC: HO.CHCLDS 10:21
PROVIDERS: Visit Provider Pediatrics
DX: E78.2 Mixed hyperlipidemia (principal)
CPT/HCPCS: 36415; 80061; 80076

== ENCOUNTER → 2023-11-17 09:18 | Outpatient (REF) | payer OTHER, SELFPAY ==
--- NOTE | 2023-11-17 09:21 | CA_ITS ---
Acquisition Time: 2023-11-17 09:21:17 Total Exercise Time: 00:08:29 Test Indications: Chest Pain Medications: Protocol: JAMEE Max HR: 131 BPM 85% of Pred: 154 BPM Max BP: 156/074 mmHG Max Work Load: 10.1 METS Exercise stress test with exercise 8 min 29 sec of Jamee protocol, achieving 85% MPHR, 10.1 METs, with mild sob, no chest discomfort, without arrythmia, with normotensive response to exercise, without EKG changes meeting criteria for ischemia. Test reviewed with Dr Gan Referred By: Gilberto Villalobos Overread By: AZIZA MONTES DE OCA
== END ==
LOC: HO.CARD 09:18
PROVIDERS: PCP Pediatrics; Visit Provider Internal Medicine Cardiovascular Disease
DX: I70.0 Atherosclerosis of aorta (principal); R06.02 Shortness of breath
CPT/HCPCS: 93017

== ENCOUNTER → 2023-11-17 09:21 | Outpatient (BNV) | payer OTHER, SELFPAY | PROVIDERS: PCP Pediatrics; Visit Provider Nurse Practitioner Family | DX: R06.02 Shortness of breath (principal) | CPT/HCPCS: 93016; 93018 ==

== ENCOUNTER 2023-11-22 11:16 | Outpatient (REF) | payer OTHER, SELFPAY ==
--- NOTE | ~2023-11-22 | MM_ITS ---
EXAMINATION: MM SCREENING DIGITAL BREAST TOMOSYNTHESIS, BILATERAL CLINICAL INFORMATION: Screening. Asymptomatic. COMPARISON: Mammography: Comparison is made with available priors TECHNIQUE: Digital breast mammography with tomosynthesis is performed in both the craniocaudal and mediolateral oblique views along with computer-aided detection (CAD). FINDINGS: The breasts are extremely dense, which lowers the sensitivity of mammography (ACR BI-RADS breast composition Category d). Left breast marker clip. There are no significant masses, abnormal calcifications, or other abnormalities. MM/MM tomosynthesis screening BI IMPRESSION: No mammographic evidence of malignancy. ASSESSMENT: BI-RADS BI-RADS 2 - Benign Findings RECOMMENDATION: Routine annual mammography screening. 1 year F/U This examination should not preclude the clinical evaluation of a suspicious palpable abnormality. This patient's information was entered into a reminder system with a target due date for their next mammogram. Electronically signed by: Yola Hanna DO 12/06/2023 10:21 AM EDT
== END 2023-11-22 11:17 | disposition home or self-care (01) ==
LOC: HO.MAMMO 11:16
PROVIDERS: PCP Pediatrics; Visit Provider Pediatrics
DX: Z12.31 Encounter for screening mammogram for malignant neoplasm of breast (principal)
CPT/HCPCS: 77063; 77067

== ENCOUNTER → 2023-11-22 11:30 | Outpatient (BNV) | payer OTHER, SELFPAY | PROVIDERS: PCP Pediatrics; Visit Provider Internal Medicine | DX: Z12.31 Encounter for screening mammogram for malignant neoplasm of breast (principal) | CPT/HCPCS: 77063; 77067 ==

== ENCOUNTER 2024-01-29 11:53 | Outpatient (REF) | payer OTHER, SELFPAY ==
--- NOTE | ~2024-01-29 | XR_ITS ---
EXAMINATION: XR CHEST CLINICAL INFORMATION: Chronic cough for over 8 weeks. CXR for further eval. COMPARISON: August 01, 2022 TECHNIQUE: 2 views of the chest were obtained. FINDINGS: No significant abnormality is noted involving the heart, lungs, mediastinum, bony thorax or soft tissues. XR/XR chest 2V IMPRESSION: Unremarkable examination. Electronically signed by: Josse Levi MD 01/29/2024 03:36 PM [facility] [place], [place]
[2024-01-29 13:06] LABS: TSH reflex Free T4 1.28 uIU/mL (0.32-4.0)
[2024-02-01 10:04] LABS: TS Negative Control Passed; TS Panel A 0; TS Panel B 0; TS Positive Control Passed; TSpotTB Negative (Negative)
== END 2024-01-29 11:54 | disposition home or self-care (01) ==
LOC: HO.XRAY 11:53
PROVIDERS: PCP Pediatrics; Visit Provider Registered Nurse
DX: R05.3 Chronic cough (principal)
CPT/HCPCS: 36415; 71046; 84443; 86481

== ENCOUNTER 2024-02-19 11:38 | Outpatient (AMB) | payer OTHER, SELFPAY ==
[2024-02-19 11:41] VITALS: BP 134/82; PULSE 86; O2SAT 98; BMI 20.8
--- NOTE | 2024-02-19 11:41 | A.OFFVIS_ITS ---
Vital Signs 02/19/24 11:41 Height 5 ft 2 in Weight 113 lb 12.136 oz BMI 20.8 BP 134/82 Blood Pressure Location Rt brachial Position Sitting Pulse 86 Pulse Source Pulse Oximeter Pulse Oximetry (%) 98 Oxygen Delivery Method Room Air Intake Visit Reasons: 4 month follow up Intake Note: ESTABLISHED PATIENT Zoey presents in office today for a scheduled 4 mos FUV. Meds reviewed? Y Allergies reviewed? Y No recent surgeries? None Any significant concerns or new changes? Pt would like to discuss effectiveness of pantoprazole. Pt has not noticed a great improvement. Pt would also like to discuss diet suggestions for fatty liver. Pt has previously seen church worker but has not seen them for a little while. Pharmacy verified? [facility] Sample Hand Required: No Allergies shellfish derived Adverse Reaction (Intermediate, Verified 02/19/24 11:42) Nausea and Vomiting HPI HPI 4 month follow up: Details: LAST VISIT Hiatal hernia Tubular adenoma of colon Irritable bowel syndrome with both constipation and diarrhea Diarrhea Constipation Postprandial epigastric pain GERD (gastroesophageal reflux disease) Status post colonoscopy Diverticulosis large intestine w/o perforation or abscess w/bleeding Plan Upper endoscopy and colonoscopy discussed with patient. Discuss results of the procedure and biopsies. Patient will increase fluid intake and activity to promote better bowel motility. Increase fiber and may take probiotics daily. Tubular adenoma colonoscopy in 3-5 years, sooner if clinically necessary. Patient has active inflammation at the GE junction will start her on pantoprazole. Kidney function stable. Avoid dietary triggers and late night snacking. Staying upright for minimum 3 hours after meals discussed with patient. Hiatal hernia not seen on upper endoscopy. Patient was reassured. Currently no symptoms. Patient will need to move her bowels better and eliminate them. Patient will follow-up in the office in 4 months, sooner on as needed basis. Patient is agreeable to this plan and verbalizes understanding of instructions. She was given the opportunity to ask questions and all questions answered. ? Thank you for allowing me to participate in her care Medications New pantoprazole 20 mg PO DAILY 90 tabs 1RF TODAY'S VISIT Patient is here today for follow-up. Patient reports that she continues to have occasional reflux. Currently on pantoprazole, not sure if it has good effect as patient continues to have acid reflux. Patient denies dyspepsia, dysphagia or odynophagia. Reports that she is moving her bowels better now, however she does not feel like she empties them completely. Currently taking Senokot. Patient tried taking probiotics with fiber and had looser stools. Patient denies melena, hematochezia, unintentional weight loss or ribbon like stools. Patient denies any other GI concerning symptoms. Patient is asking for diet sample or sample of a menu that she can follow for fatty liver [facility] Medical History (Updated 10/16/23 @ 20:49 by Jessica Patel, [facility]) Diverticulosis large intestine w/o perforation or abscess w/bleeding Tubular adenoma of colon Hiatal hernia Surgical History H/O colonoscopy Family History Mother Lung cancer Father Diabetes Social History Household Members: None Housing: Condominium Alcohol intake: current Alcohol intake frequency: holidays/special occasions only Patient Tobacco Use Status: Former Tobacco user Substance Use Type: Marijuana Review of Systems Const Denies weight gain and Denies weight loss ENT Reports no additional complaints, Reports dysphagia and Denies odynophagia Card Reports no additional complaints Resp Reports no additional complaints GI Denies abdominal pain, Denies belching, Denies melena, Denies bloating, Denies change in bowel habits, Reports constipation (occasional), Reports dysphagia, De nies excessive flatus, Denies dyspepsia, Reports heartburn, Denies diarrhea, Denies loose stools, Denies nausea, Denies odynophagia and Denies vomiting Reports no additional complaints Musc Reports no additional complaints Neuro Reports no additional complaints Psych Reports no additional complaints Endo Reports no additional complaints Physical Exam Vital Signs: Last Vital Signs Pulse 86 02/19/24 11:41 BP 134/82 02/19/24 11:41 Pulse Ox 98 12/09/24 11:41 Oxygen Delivery Method Room Air 12/09/24 11:41 BMI result Body Mass Index 20.8 Const General: healthy appearing, no acute distress and well developed Nutritional Appearance: well nourished Orientation/consciousness: patient oriented x3 Resp Effort & Inspection: normal respiratory effort, able to speak in complete sentences, no tracheal deviation and symmetric chest movement Auscultation: clear to auscultation bilaterally Cardio Rate: regular rate GI Inspection: Yes normal to inspection and No distended Palpation (GI): Soft to palpation, not firm, nontender and No hepatosplenomegaly present Auscultation: normal bowel sounds General: Yes no CVA tenderness Back/Spine/Pelvis Back: no CVA tenderness Skin General skin exam: elasticity normal, turgor normal and dry skin Neuro General: patient oriented x3 Psych Appearance: grossly normal Mental Status: mental status grossly normal Assessment & Plan Assessment & Plan (1) Hiatal hernia: Code(s): K44.9 - Diaphragmatic hernia without obstruction or gangrene Category: Medical (2) Tubular adenoma of colon: Code(s): D12.6 - Benign neoplasm of colon, unspecified Category: Medical (3) Diverticulosis large intestine w/o perforation or abscess w/bleeding: Code(s): K57.31 - Diverticulosis of large intestine without perforation or abscess with bleeding Category: Medical (4) Irritable bowel syndrome with both constipation and diarrhea: Code(s): K58.2 - Mixed irritable bowel syndrome (5) Constipation: Code(s): K59.00 - Constipation, unspecified Qualifiers: Constipation type: slow transit constipation Qualified Code(s): K59.01 - Slow transit constipation (6) Postprandial epigastric pain: Code(s): R10.13 - Epigastric pain (7) GERD (gastroesophageal reflux disease): Code(s): K21.9 - Gastro-esophageal reflux disease without esophagitis Qualifiers: Esophagitis presence: without esophagitis Qualified Code(s): K21.9 - Gastro-esophageal reflux disease without esophagitis (8) Nonalcoholic fatty liver: Code(s): K76.0 - Fatty (change of) liver, not elsewhere classified Plan Patient continues to have acid reflux at times. Will send her for upper GI series with barium swallow. Will change pantoprazole to Nexium. Patient will stop taking Senokot and will start taking Dulcolax. Increase fluid intake and activity to promote better bowel motility. Meal plan for patients with fatty liver given to patient. Discussed with her low-salt, low sugar and low-fat diet. Patient will follow-up in 4 months, sooner on as needed basis. She is agreeable to this plan of care and verbalizes understanding of instructions. She was given the opportunity to ask questions and all questions answered. Thank you for allowing me to participate in her care Orders: Orders [place] upper GI w Ba Swallow Today K21.9 - Gastro-esophageal reflux disease without esophagitis Medications: New esomeprazole magnesium (Nexium) 40 mg PO DAILY 30 caps 5RF K21.9 - Gastro- esophageal reflux disease without esophagitis bisacodyl (Dulcolax (bisacodyl)) 10 mg (2 x 5 mg) PO BEDTIME 180 tabs 4RF Discontinued methylcellulose (laxative) (Citrucel) take it with full glass of water Discontinued Reason: Doctor's Order 500 mg PO DAILY 90 tabs 2RF K59.00 - Constipation, unspecified pantoprazole Discontinued Reason: Doctor's Order 20 mg PO DAILY 90 tabs 1RF sennosides (Natural Senna Laxative) Discontinued Reason: Doctor's Order 17.2 mg (2 x 8.6 mg) PO BEDTIME 60 tabs 3RF constipation K59.00 - Constipation, unspecified Coding Level of Care Code Est Pt Level 4 (99358) Complex EM visit Add On G2211 Diagnoses Hiatal hernia K44.9 Tubular adenoma of colon D12.6 Diverticulosis large intestine w/o perforation or abscess w/bleeding K57.31 Irritable bowel syndrome with both constipation and diarrhea K58.2 Slow transit constipation K59.01 Constipation type: slow transit constipation Postprandial epigastric pain R10.13 Gastroesophageal reflux disease without esophagitis K21.9 Esophagitis presence: without esophagitis Nonalcoholic fatty liver K76.0 Time Spent (min) 35 Comment 25 minutes spent with patient and additional 10 minutes spent reviewing her records
== END 2024-02-19 12:19 | disposition home or self-care (01) ==
PROVIDERS: PCP Pediatrics; Visit Provider Nurse Practitioner Family
DX: K44.9 Diaphragmatic hernia without obstruction or gangrene (principal); D12.6 Benign neoplasm of colon, unspecified; K57.31 Diverticulosis of large intestine without perforation or abscess with bleeding; K58.2 Mixed irritable bowel syndrome; K59.01 Slow transit constipation; R10.13 Epigastric pain; K21.9 Gastro-esophageal reflux disease without esophagitis; K76.0 Fatty (change of) liver, not elsewhere classified
CPT/HCPCS: 99214; G2211

== ENCOUNTER → 2024-02-19 11:38 | Outpatient (BNVA) | payer OTHER, SELFPAY | PROVIDERS: PCP Pediatrics; Visit Provider Nurse Practitioner Family | DX: K44.9 Diaphragmatic hernia without obstruction or gangrene (principal); K57.31 Diverticulosis of large intestine without perforation or abscess with bleeding; K58.2 Mixed irritable bowel syndrome; K59.01 Slow transit constipation; K21.9 Gastro-esophageal reflux disease without esophagitis; K76.0 Fatty (change of) liver, not elsewhere classified; R10.13 Epigastric pain; D12.6 Benign neoplasm of colon, unspecified | CPT/HCPCS: 99212 ==

== ENCOUNTER 2024-05-03 07:56 | Outpatient (REF) | payer MEDICARE, MEDICAID, SELFPAY ==
--- NOTE | ~2024-05-03 | FL_ITS ---
EXAMINATION: XR FLUOROSCOPY UPPER GI WITH AIR CLINICAL INFORMATION: Dysphagia. Reflux. COMPARISON: None TECHNIQUE: Fluoroscopic air contrast upper GI examination was performed utilizing standard techniques with thin and thick barium and effervescent granules. Numerous spot images were obtained. FINDINGS: Lateral cine images of the oropharynx and hypopharynx demonstrate normal swallow mechanism with normal epiglottic inversion and soft palate elevation. No tracheal penetration, glottic or subglottic aspiration identified. No nasopharyngeal reflux present. Hypopharyngeal structures appear normal without evidence of mass or diverticulum. There is mild cricopharyngeal achalasia. Dual and single contrast images of the esophagus demonstrate a normal caliber and contour. The esophageal mucosa has a granular appearance, suggestive of esophagitis. No masses, or ulcerations are seen. There is mild narrowing of the GE junction, that likely represents achalasia or a benign stricture. There is to and fro motion of the barium column, with nonpropulsive tertiary contractions noted throughout the esophagus. A very small type I hiatal hernia is present. No significant gastroesophageal reflux was seen during the course of the examination and on reflux views. Dual contrast and single contrast images of the stomach demonstrated a normal contour. The areae gastricae in the gastric rugal folds have a thickened appearance, suggestive of gastritis. No masses or ulcerations are seen. Contrast freely passed into the gastric antrum and duodenal bulb without delay. Single and air-contrast images of the duodenal bulb demonstrate no abnormality. The duodenal sweep has a normal appearance, course, and mucosal fold appearance. The imaged proximal jejunum has a normal fold pattern and caliber. FLUOROSCOPY TIME: 3 minutes 54 seconds Number of Spot Images: 7 Number of Cine: 15 DOSE AREA PRODUCT: 1715 uGy-m2 (microgray-meter squared) FL/FL upper GI w air w Ba Swallow IMPRESSION: 1. Granular appearance of the esophageal mucosa, suggestive of esophagitis. 2. Mild narrowing of the GE junction that likely represents achalasia. A benign stricture cannot be ruled out. 3. Severe esophageal dysmotility. 4. Small type I hiatal hernia. 5. Thickened appearance of the gastric rugal folds and the areae gastricae, suggestive of gastritis. 6. Mild cricopharyngeal achalasia. This procedure was performed by Dominguez Blankenship PA-C, and supervised by Dr. Gatica Electronically signed by: Antonio Gatica MD 05/03/2024 03:16 PM FAITH
--- OUTSIDE RECORDS SUMMARY | 2024-05-03 08:00 | XMS_ITS | Encounter Summary ---
Author Organization [employer] Address [address] [facility] 7 [place] [address] Care Team Providers Care Mining Analyst Name Role Phone Charisma Stinson MD Primary Care Provider [phone] Reason for Visit * Reason Onset Date Comments Triage 08/05/2022 Encounter Details Date Type Department Care Team ([facility] Contact Info) Description 08/05/2022 Telephone C [facility] [address] [place], [place] [phone] Charisma Stinson MD [address] [place] [address] Triage Social History Tobacco Use Types Packs/Day Years Used Date Smoking Tobacco: Never Passive Smoke Exposure: Never Smokeless Tobacco: Never Alcohol Use Standard Drinks/Week Comments Yes 1 (1 standard drink = 0.6 oz pur e alcohol) Depression Answer Date Recorded Patient Health Questionnaire-9 Score 2 03/24/2022 Depression Answer Date Recorded Patient Health Questionnaire-2 Score 0 03/24/2022 Comments Unknown Sex and Gender Information Value Date Recorded Sex Assigned at Female 01/10/2022 10:17 AM EDT Legal Sex Female 10:17 AM EDT Gender Identity Female 01/10/2022 10:17 AM EDT Sexual Orientation Straight 01/10/2022 10 :17 AM EDT COVID-19 Exposure Response Date Recorded In the last 10 days, have yo u been in contact with someone who was confirmed or suspected to have Coronavirus/COVID-19? No / Unsure 08/04/2022 9:17 AM EDT documented as of this encounter Miscellaneous Notes * Telephone Encounter - Toya Shetty RN - 08/05/2022 12:52 PM EDT Consulted with PCP regarding below. Advised pt take one of the antibiotics. Call to pt. Per pt, experienced sharp abdominal pain and diarrhea after taking meds yesterday. RN informed pt of PCP recommendation. Per pt, stopped the amoxicillin. Took one tab of the azithromycin about 45 min ago. States she ate crackers which she has been able to keep down. Also toleratingfluids PO. Per pt, diarrhea stopped. States she will continue taking only the azithromycin. Pt reports experiencing a pain under the right rib cage and abd discomfort which started after taking the antibiotics. States that last night the pain was sharp and constant. Now only present when palpating. Per pt, unsure of pain related to her hernia. RN advised pt continue to monitor symptoms and f/u sooner if symptoms persist or worsen. Advised on s/s that require immediate medical attention.Pt agrees. * Telephone Encounter - Toya Shetty RN - 08/05/2022 9:46 AM EDT Please review triage note below and advise. Thank you. * Telephone Encounter - Vandana Antonio RN - 08/05/2022 9:32 AM EDT called pt to triage, spoke to pt. pt states has been having lung infection symptoms for a while now, almost 3 weeks. pt was seen in the walk in center, and then again yesterday with PCP for same. pt states prescribed two antibiotics and started yesterday. pt states since starting, has had strong stomach aches, mild loose stools and inability to eat much. pt denies fevers, vomiting, severe or constant diarrhea, or other associated symptoms. pt does not want to keep taking these antibiotics due to the side effects. advised will task to team nurses to follow up per PCP and call back with any recommendations. advised home care: rest, fluids, dry crackers, dry toast, clear soups, lie down, and call back as needed. pt understands and agrees with plan. Protocol Used: Medication Question Call (Adult) Protocol-Based Disposition: See in Office or Video Visit within 3 Days Positive Triage Question: * Prescription request for new medicine (not a refill) * All higher-acuity triage questions were negative Care Advice Discussed: * Reasons To Call Back - You become worse * Telephone Encounter - Josie Linder - 08/05/2022 8:41 AM EDT Symptom: Medication Reaction Outcome: Schedule an urgent appointment (within 1 hour) or talk to a nurse or provider soon Reason: Caller denied all higher acuity questions The caller accepted this outcome Please contact pt at [phone] documented in this encounter Plan of Treatment Upcoming Encounters Date Type Department Care Team ([facility] Contact Info) Description 05/15/2024 11:00 AM EST Office Visit [facility] [address] [place] [address] Troy Ruth documented as of this encounter Visit Diagnoses Not on filedocumented in this encounter Additional Health Concerns Assessment Noted Time PHQ-9 Depression Total Score: 2 03/24/19 23 9:26 AM EST documented as of this encounter Care Teams Mining Analyst Relationship Specialty Start Date End Date Charisma Stinson MD [address] [place] [address] PCP - General Family Medicine 03/13/18 documented as of this encounter
--- OUTSIDE RECORDS SUMMARY | 2024-05-03 08:00 | XMS_ITS | Data Portability ---
Author Organization [place] [facility], All[facility] Address [address] [place] [address] Care Team Providers Care Blood Bank Laboratory Professional Name Role Phone WILLY ARAUJO Primary Care Provider Assessment Encounter Date Assessment Date Assessment LastModified by Organization Details LastModified Time 03/14/2024 03/14/2024 68-year-old female presents for cerumen removal. Cerumen impaction removed bilaterally. Bilateral tympanic membranes are intact with aerated middle ear spaces. Updated audiometric testing was offered today, but patient declined. She will follow-up in 6 months for cerumen removal, or sooner with concerns. paola Not available 03/14/2024 12:19:57 Plan of Treatment Reminders Order Date Submit Date Provider Last Modified By Organization Details Last Modified Time Details Appointments Establish ed 15 2024 11:30A M CRISTINA DE JESUS PA-C Not available Not available Not available Lab None recorded. Referral None recorded. Procedures None recorded. Surgeries None recorded. Imaging None recorded. Medication Orders None recorded. Patient TargetsNo targets recorded. Patient InstructionsNo instructions recorded. Reason for Referral None Reported. 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; Note: Date Diagnosed : 2019 11:29 AM (J38.2) Not Available [facility] 4 02:48:01 Allergic rhinitis 71196281 Active 2015 Allergic rhinitis, unspecifi ed; Note: Date Diagnosed : 08/06/2015 2:15 PM (J30.9) Not Available [facility] 4 02:47:57 Impacted cerumen 52696113 Active 2018 Impacted cerumen; Note: Date Diagnosed : 11/21/2018 11:38 AM (380.4) Not Available [facility] 4 02:47:56 Dysphagia 75246159 Active 2019 Other dysphagia ; Note: Date Diagnosed : 2019 11:29 AM (R13.19) Not Available [facility] 4 02:48:01 Acute pharyngit is 725582797 Active 2020 Sore throat (acute) NOS; Note: Date Diagnosed : 10/01/2020 4:50 PM (J02.9) Not Available [facility] 4 02:47:56 Gastroeso phageal reflux disease without esophagit is 883391933 Active 2014 Gastro-es ophageal reflux disease without esophagit is; Note: Date Diagnosed : 5 2:46 PM (K21.9) Not Available [facility] 4 02:47:53 Impacted cerumen of bilateral ears [id number] 02335 Active 2018 Impacted cerumen, bilateral ; Note: Date Diagnosed : 11/08/2018 9:42 AM (H61.23) Not Available [facility] 4 02:47:59 Sensorine ural hearing loss of bilateral ears 361029529 Active 2018 Sensorine ural hearing loss, bilateral ; Note: Date Diagnosed : 01/16/2019 10:17 AM (H90.3) Not Available [facility] 4 02:47:59 Abnormal weight loss 943860608 Active 2020 Abnormal weight loss; Note: Date Diagnosed : 10/01/2020 4:50 PM (R63.4) Not Available [facility] 4 02:47:57 Problem Notes None recorded. Procedures Surgical History Date Name Laterality Status Provider Name and Address Organization Details Recorded Time 5 Cerumen removal without microscope bilat completed CRISTINA DE JESUS PA-C [address] [place] [address],[address], [phone], [facility] - [facility] 03/14/2024 12:19:25 Imaging Results None recorded. Procedure Notes None recorded. Medical Equipment None Reported. Allergies No known drug allergies Medications Name Sig Start Date Stop Date Status Note LastModified by Organization Details LastModified Time medbox status USE DIRECTED active Not Available Not Available No t Available atorvasta tin 40 mg tablet TAKE ONE TABLET EVERY NIGHT AT BEDTIME active Not Available Not Available No t Available cetirizin e 10 mg tablet TAKE ONE TABLET EVERY MORNING active Not Available Not Available No t Available azithromy jason 250 mg tablet 10/19 completed Medicati on ID: [id number] Du ration Value: 5 Reason: () Brand Name: cari ycin Sen d Method: E-Prescr ibed Sub s Allowed: subs OK Speci al Instruct ion: take 2 tablets by mouth today then take 1 tablet DAILY FOR 4 DAYS Med icationG enericNa me: azithrom ycin Not Available Not Available Not Available ranitidin e 300 mg tablet 11/26 completed Medicati on ID: [id number] Du ration Value: 30 Reason: () Brand Name: ranitidi ne HCl Send Method: E-Prescr ibed Sub s Allowed: subs OK Medic ationGen ericName : ranitidi ne HCl Not Available Not Available Not Available senna 8.6 mg tablet TAKE TWO TABLETS EVERY DAY AT BEDTIME FOR CONSTIPA TION active Not Available Not Available No t Available sucralfat e 1 gram tablet 03/13 completed Medicati on ID: [id number] D uration Value: 90 Brand Name: sucralfa te Send Method: E-Prescr ibed Sub s Allowed: subs OK Speci al Instruct ion: take 1 tablet by mouth three times a day ON AN EMPTY STOMACH 1 HOUR BE FORE MEALS AND AT BEDTIME Medicati onGeneri cName: sucralfa te Not Available Not Available Not Available prednison e 20 mg tablet 10/19 completed Medicati on ID: [id number] Du ration Value: 4 Reason: () Brand Name: predniso ne Send Method: E-Prescr ibed Sub s Allowed: subs OK Speci al Instruct ion: take 2 tablets by mouth once daily Me dication GenericN corrine: predniso ne Not Available Not Available Not Available fluoroura cil 5 % topical cream Apply twice daily to affected areas on nose, cheeks and temples/ forehead FOR TWO WEEKS,. MAY cause redness AND irritati on. AVOID sun exposure ] active Not Available Not Available No t Available aspirin 81 mg tablet,de layed release TAKE ONE TABLET EVERY MORNING active Not Available Not Available No t Available pantopraz ole 20 mg tablet,de layed release TAKE ONE TABLET EVERY MORNING active Not Available Not Available No t Available carbamaze pine 200 mg tablet TAKE ONE TABLET TWICE DAILY IN THE MORNING AND AT BEDTIME active Not Available Not Available No t Available calcium 600 mg (as calcium carbonate 1,500 mg) tablet TAKE ONE TABLET EVERY MORNING active Not Available Not Available No t Available famotidin e 20 mg tablet 1 tablet twice a day by oral route. active Not Available Not Available No t Available esomepraz ole magnesium 40 mg capsule,d elayed release TAKE ONE CAPSULE EVERY MORNING active Not Available Not Available No t Available ranitidin e 150 mg tablet 1 tablet by mouth 03/13 completed Medicati on ID: [id number] P rescribe d By Name: Toi Rodriguez MD Brand Name: ranitidi ne HCl Send Method: E-Prescr ibed Sub s Allowed: subs OK Medic ationGen ericName : ranitidi ne HCl Not Available Not Available Not Available Guaifenes in AC 10 mg-100 mg/5 mL oral liquid 10/19 completed Medicati on ID: [id number] Du ration Value: 1 Reason: () Brand Name: Guaifene sin AC Send Method: E-Prescr ibed Sub s Allowed: subs OK Speci al Instruct ion: take 10 millilit ers by mouth every 4 hours if needed M edicatio nGeneric Name: Guaifene sin AC Not Available Not Available Not Available gabapenti n 300 mg capsule TAKE ONE CAPSULE TWICE DAILY IN THE MORNING AND AT BEDTIME active Not Available Not Available No t Available monteluka st 10 mg tablet 1 tablet every day by oral route. active Not Available Not Available No t Available bisacodyl 5 mg tablet,de layed release TAKE TWO TABLETS EVERY DAY AT BEDTIME active Not Available Not Available No t Available ranitidin e 150 mg capsule 1 capsule by mouth 11/26 completed Medicati on ID: [id number] D uration Value: 30 Prescri bed By Name: Toi Rodriguez MD Brand Name: ranitidi ne HCl Send Method: E-Prescr ibed Sub s Allowed: subs OK Medic ationGen ericName : ranitidi ne HCl Not Available Not Available Not Available ibuprofen 600 mg tablet TAKE ONE TABLET THREE TIMES DAILY FOR 10 DAYS active Not Available Not Available No t Available polyethyl anthony glycol 3350 17 gram/dose oral powder MIX DIRECTED AND TAKE DIRECTED by gastroen terology active Not Available Not Available No t Available estradiol 0.01% (0.1 mg/gram) vaginal cream INSERT ONE gram VAGINALL Y EVERY THREE DAYS active Not Available Not Available No t Available fluticaso ne propionat e 50 mcg/actua tion nasal spray,iván pension INHALE 1 SPRAY IN EACH NOSTRIL ONCE DAILY active Not Available Not Available No t Available loratadin e 10 mg tablet 03/13 completed Medicati on ID: [id number] Du ration Value: 30 Brand Name: loratadi ne Send Method: E-Prescr ibed Sub s Allowed: subs OK Medic ationGen ericName : loratadi ne Not Available Not Available Not Available amoxicill in 875 mg-potass ium clavulana te 125 mg tablet TAKE ONE TABLET TWICE DAILY UNTIL FINISHED 03/14 completed Not Available Not Available Not Available Ventolin HFA 90 mcg/actua tion aerosol inhaler INHALE TWO PUFFS EVERY 6 HOURS NEEDED FOR WHEEZING active Not Available Not Available No t Available bisacodyl 5 mg tablet Take 2 tablets every day by oral route. 03/14 completed Not Available Not Available Not Available Flovent HFA 110 mcg/actua tion aerosol inhaler INHALE 1 PUFF TWICE DAILY. RINSE MOUTH AFTER USE active Not Available Not Available No t Available Fiber (calcium polycarbo dileep) 625 mg tablet TAKE ONE TABLET EVERY MORNING WITH a full GLASS of WATER active Not Available Not Available No t Available cholecalc iferol (vitamin D3) 50 mcg (2,000 unit) capsule TAKE ONE CAPSULE TWICE DAILY IN THE MORNING AND AT BEDTIME active Not Available Not Available No t Available Certavite -Antioxid ant 18 mg-400 mcg tablet 1 tablet every day by oral route. active Not Available Not Available No t Available Asmanex HFA 200 mcg/actua tion aerosol inhaler INHALE ONE PUFF TWICE DAILY, RINSE MOUTH AFTER USE active Not Available Not Available No t Available Fluarix Quad (PF) 60 mcg (15 mcg x 4)/0.5 mL IM syringe 10/19 completed Medicati on ID: [id number] Du ration Value: 1 Reason: () Brand Name: Fluarix Quad 6 (PF) Sen d Method: E-Prescr ibed Sub s Allowed: subs OK Speci al Instruct ion: inject 0.5 millilit er intramus cularly Medicati onGeneri cName: Fluarix Quad 6 (PF) Not Available Not Available Not Available Adult Aspirin Regimen active Not Available Not Available Not Available Vitals None Recorded Social History None recorded. Functional Status None recorded. Mental Status None recorded. Family History Nothing Reported. Medical History Condition Response High Cholesterol Y GERD/Reflux Y Gynecological HistoryNo gynecological history recorded. Obstetrics History GPAL:G 0 P 0 0 0 0 Past Encounters Encounter ID Performer Location Encounter Start Date Encounter Closed Date Diagnosis/Indication Diagnosis SNOMED-CT Code Diagnosis ICD10 Code Diagnosis Note [id number] STEVEN WOO MD [facility] [address] [phone] 03/14/2024 11:23:37 03/14/2024 12:18:10 Impacted cerumen of bilateral ears [id number] 900572 H61.23 Health Concerns Section Related Observation LastModified by Organization Detai ls LastModified Time None Recorded Concern Status LastModified by Organization Details LastModified Time None Recorded Advance Directives Directive None Recorded Payers Encounter Date Sequence Insurance Name Policy Number Policy Goodwin Covered Member ID Goodwin Member ID Guarantor Name 03/14/2024 1 [employer] - MEDICARE ADVANTAGE PLAN (MEDICARE REPLACEMENT HMO) [id number] Zoey Erwin Jillian [id number] Zoey Walsh 03/14/2024 2 [place] [id number] Zoey J Jillian [id number] Zoey Walsh Notes Date Note Type Note Provider Name and Address Organization Details Recorded Time 03/14/2024 text/html 68-year-old female presents for an ear cleaning. Feels like ears are blocked and hearing is decreased bilaterally. Denies otalgia and otorrhea. STEVEN WOO MD [address] [place] [address], [phone] - [facility] 03/14/2024 17:35:24 OBGyn Episode No OBEpisode recorded.
--- OUTSIDE RECORDS SUMMARY | 2024-05-03 08:00 | XMS_ITS | Encounter Summary ---
Author Organization [employer] Address [address] [place] [address] Care Team Providers Care Straight Slicing Machine Operator Name Role Phone Charisma Stinson MD Primary Care Provider [phone] Reason for Visit * Reason Onset Date Comments more medication 01/27/2023 Encounter Details Date Type Department Care Team ([facility] st Contact Info) Description 01/27/2023 Telephone C [facility] [address] [place] [address] Yordan Mcgowan, DDS [address] [place] [address] more medication Social History Tobacco Use Types Packs/Day Years [...] Orientation Straight 01/10/2022 10 :17 AM EDT documented as of this encounter Miscellaneous Notes * Telephone Encounter - Neha Infantes - 01/27/2023 8:49 AM EST Patient came in for RCT with Dr. Simon and was scripted amox for infection. She states the swelling has gone down but still feels infection and some dull ache. She states the Had told her that if the antibiotic doesn't work, a strong script can be sent in. She is concerned with weekend coming up she is going to be out by Monday which is her last day. Can another script be sent in? documented in this encounter Plan of Treatment Upcoming Encounters Date Type Department Care Team (Late st Contact Info) Description 05/15/2024 11:00 AM EST Office Visit [facility] ADULT DENTAL [address] [place] [address] Troy Ruth documented as of this encounter Visit Diagnoses Not on filedocumented in this encounter Additional Health Concerns Assessment Noted Time PHQ-9 Depression Total Score: 2 03/24/19 23 9:26 AM EST documented as of this encounter Care Teams Straight Slicing Machine Operator Relationship Specialty Start Date End Date Charisma Stinson MD [address] [place] [address] PCP - General Family Medicine 03/13/18 documented as of this encounter
--- OUTSIDE RECORDS SUMMARY | 2024-05-03 08:00 | XMS_ITS | Encounter Summary ---
Author Organization [employer] Address [address] [facility] 7t [place] [address] Care Team Providers Care Gang Tailer Name Role Phone Charisma Stinson MD Primary Care Provider [phone] Encounter Details Date Type Department Care Team (Late st Contact Info) Description 02/08/2023 Abstract [facility] ADULT DENTAL [address] [place] [address] Yordan Mcgowan DDS [address] [place], [place] [phone] Social History Tobacco Use Types Packs/Day Years [...] AM EDT documented as of this encounter Plan of Treatment Upcoming Encounters Date Type Department Care Team (Late st Contact Info) Description 05/15/2024 11:00 AM EST Office Visit [facility] [address] [place] [address] Troy Ruth documented as of this encounter Visit Diagnoses Not on filedocumented in this encounter Additional Health Concerns Assessment Noted Time PHQ-9 Depression Total Score: 2 03/24/19 23 9:26 AM EST documented as of this encounter Care Teams Gang Tailer Relationship Specialty Start Date End Date Charisma Stinson MD [address] [place] [address] PCP - General Family Medicine 03/13/18 documented as of this encounter
--- OUTSIDE RECORDS SUMMARY | 2024-05-03 08:00 | XMS_ITS | Clinical Summary ---
Author Organization [employer] Address 75 [facility] 7t [place] [address] Care Team Providers Care Communications Operator Name Role Phone Charisma Stinson MD Primary Care Provider [phone] Allergies Active Allergy Reactions Criticality Noted Date Comments Dust Mite Extract 08/12/2022 Gramineae Pollens 08/12/2022 Shellfish Allergy 08/12/2022 Other reaction(s): hives, puffy Shellfish-Derived Products 5 Medications gabapentin (Neurontin) 300 MG capsule 02/17/20 22 Active carBAMazepine (TEGretol) 200 MG tablet 02/17/20 22 Active estradiol (Estrace) 0.1 MG/GM vaginal creamIndications:P ostmenopausal atrophic vaginitis Apply 1 gm intra vaginally every 3 days 42.5 g 11 03/24/19 23 Active meloxicam (Mobic) 7.5 MG tabletIndications: Trigeminal neuralgia Take 1 tab orally twice a day as needed for joint pains 60 tablet 3 05/05/19 23 Active traZODone (Desyrel) 50 MG tabletIndications: Anxiety Take 1 tablet (50 mg) by mouth at bedtime. 30 tablet 11 05/05/19 23 Active albuterol (2.5 MG/3ML) 0.083% nebulizer solution Take 3 mL (2.5 mg) by nebulization every 6 (six) hours if needed for wheezing. 75 mL 11 08/05/19 23 Active atorvastatin (Lipitor) 40 MG tablet Take 40 mg by mouth. 01/03/20 15 Active montelukast (Singulair) 10 MG tablet Take 10 mg by mouth. 07/17/19 22 Active calcium carbonate 1500 (600 Ca) MG tablet Take 600 mg by mouth. 08/08/19 23 Active Mometasone Furoate (Asmanex HFA) 200 MCG/ACT aerosol Inhale 1 puff twice a day 13 g 04/13/19 24 Active albuterol 108 (90 Base) MCG/ACT inhaler Inhale 2 puffs every 6 (six) hours if needed for wheezing. 18 g 04/18/19 24 Active cholecalciferol 50 MCG (2000 UT) capsuleIndications :Age-related osteoporosis without current pathological fracture TAKE ONE CAPSULE BY MOUTH TWICE DAILY IN THE MORNING AND AT BEDTIME 60 capsule 05/08/19 24 Active Multiple Vitamins-Minerals (CertaVite/Antioxi dants) tablet TAKE ONE TABLET BY MOUTH EVERY MORNING 30 tablet 06/05/19 24 Active atorvastatin (Lipitor) 40 MG tablet TAKE ONE TABLET EVERY NIGHT AT BEDTIME 90 tablet 07/06/19 24 Active montelukast (Singulair) 10 MG tablet TAKE ONE TABLET EVERY NIGHT AT BEDTIME 30 tablet 07/06/19 24 Active calcium carbonate 1500 (600 Ca) MG tablet TAKE ONE TABLET EVERY MORNING 30 tablet 07/06/19 24 Active cetirizine (ZyrTEC) 10 MG tablet TAKE ONE TABLET EVERY MORNING 30 tablet 10/06/19 24 Active cetirizine (ZyrTEC) 2.5 MG chewable split tablet 10 mg. 11/17/19 22 Active estradiol (Estrace) 0.1 MG/GM vaginal cream Every 3 days 42.5 g 10/26/19 24 Active fluticasone (Flonase) 50 MCG/ACT nasal spray Administer 1 spray into each nostril Once per day. 16 g 10/26/19 24 Active aspirin 81 MG EC tabletIndications: Mixed hyperlipidemia Take 1 tablet (81 mg) by mouth Once per day. 30 tablet 10/26/19 24 025 Active pantoprazole (ProtoNix) 20 MG EC tablet Take 20 mg by mouth in the morning. 10/16/19 24 Active Calcium Polycarbophil (fiber) 625 MG tablet TAKE ONE TABLET EVERY MORNING WITH a full GLASS of WATER 08/14/19 24 Active famotidine (Pepcid) 20 MG tabletIndications: Gastroesophageal reflux disease without esophagitis TAKE ONE TABLET TWICE DAILY IN THE MORNING AND AT BEDTIME 60 tablet 5 12/11/19 24 Active Active Problems Problem Noted Date Diagnosed Date Viral syndrome 01/29/2024 Chronic cough 01/29/2024 Assessment & Plan (01/29/2024 9:29 PM EST): - Ddx: Post nasal drip vs asthma vs GERD vs med SE (not on ACEi) vs COPD vs bronchitis vs other - Plan: order CXR, labs: T-spot with night sweats, TSH - Rapid FluA&B, COVID negative in office - ED/urgent care precautions reviewed - Follow up with any persistent or worsening of symptoms. Hyperlipidemia 04/16/2015 Mild asthma 04/16/2015 Chronic gastritis 04/16/2015 04/18/2023 Trigeminal neuralgia 07/17/2013 Anxiety 02/06/2012 Dyslipidemia 02/06/2012 Gastroesophageal reflux disease without esophagi tis 02/06/2012 Encounters Date Type Department Care Team Description 04/18/2024 Patient Outreach [facility] [address] [place] [address] Charisma Stinson MD Pre-visit Planning (Pre visit planning LVM ) 04/18/2024 Travel 02/22/2024 2:00 PM EST Clinical Support [facility] [address] [place] [address] Chronic superficial gastritis without bleeding (Primary Dx) 02/22/2024 Travel 02/22/2024 Telephone [facility] [address] [place] [address] Charisma Stinson MD Nurse Triage from Last 3 Months Social History Tobacco Use Types Packs/Day Years Used Date Smoking Tobacco: Never Passive Smoke Exposure: Never Smokeless Tobacco: Never Tobacco Cessation:Counseling Given: Not Answered Alcohol Use Standard Drinks/Week Comments Yes 1 (1 standard drink = 0.6 oz pur e alcohol) Depression Answer Date Recorded Patient Health Questionnaire-9 Score 2 03/24/2022 Housing Stability Answer Date Recorded What is your housing situation today? I have vianca sing 10/19/[address] you li ve. Do you have problems with any of the following? None of the above 10/19/2023 Food Insecurity Answer Date Recorded Within the past 12 months, y ou worried that your food would run out before you got money to buy more: Never True 10/19/2023 Within the past 12 months,th e food you bought just didn't last and you didn't have enough money to get more: Never True 10/2023 Transportation Answer Date Recorded In the past 12 months, has l ack of transportation kept you from medical appts, meetings, work or from getting things needed for daily living? No 10/19/2023 Utilities Answer Date Recorded In the past 12 months, has t he electric, gas, oil or water company threatened to shut off services in your home? No 10/19/2023 Depression Answer Date Recorded Patient Health Questionnaire-2 Score 0 03/24/2022 Internet Access Answer Date Recorded Internet Access Q1 Yes 11/13/2023 Internet Access Q2 Not on file 11/13/2023 Comments Unknown Sex and Gender Information Value Date Recorded Sex Assigned at Female 01/10/2022 10:17 AM EDT Legal Sex Female 10:17 AM EDT Gender Identity Female 01/10/2022 10:17 AM EDT Sexual Orientation Straight 01/10/2022 10 :17 AM EDT Last Filed Vital Signs Vital Sign Reading Time Taken Comments Blood Pressure 124/81 01/29/2024 10:01 AM EST Pulse 81 01/29/2024 10:01 AM EST Temperature 36.8 ??C (98.2 ??F) 01/29/2024 10:[address] Respiratory Rate 18 01/29/2024 10:01 AM EST Oxygen Saturation 99% 01/29/2024 10:01 AM EST Inhaled Oxygen Concentration - - Weight 51.4 kg (113 lb 6.4 oz) 02/26/2024 10:16 AM EST Height 154.9 cm (5' 1 ) 02/26/2024 10:16 AM EST Body Mass Index 21.43 02/26/2024 10:16 AM EST Plan of Treatment Upcoming Encounters Date Type Department Care Team (Late st Contact Info) Description 05/15/2024 11:00 AM EST Office Visit [facility] ADULT DENTAL [address] [place] [address] Troy Ruth Health Maintenance Due Date Last Done Comments CT Colonography 1957 FIT DNA/Cologuard 1957 FIT 1957 FOBT 1955 Sigmoidoscopy 1957 Alcohol/Substance Use Screening 1969 Hepatitis C Screening 1975 Pneumococcal Vaccine: 50+ Years (1 of 2 - PCV) 1976 RSV Patients and Patients Aged 60 years or older (1 - Risk 60-74 years 1-dose series) 2017 Depression Screening 03/24/2023 03/24/2022, 03/24/19 COVID-19 Vaccine ( season) 2023 02/17/2021, 06/25/2020, 05/27/2020 Dental Oral Exam 05/11/2024 11/09/2023, 01/02/2023 Dental Prophylaxis 05/11/2024 11/09/2023, 1 , 07/12/2022 SDOH Screening 10/18/2024 10/19/2023 Dental X-Ray: Bitewings 11/09/2024 11/09/19 24, 07/06/2023, 01/02/2023, Additional history exists Tobacco Screening 01/28/2025 01/29/2024 Mammogram 11/21/2025 11/22/2023, 0908/2022, 11/10/2021, Additional history exists Dental X-Ray: Full Mouth 01/03/2026 01/02/2023 DTaP/Tdap/Td Vaccines (2 - Td or Tdap) 05/22/2027 05/21/2017, 11/06/2007 Colonoscopy 10/04/2033 10/05/2023 Colorectal Cancer Screening 10/04/2033 Hepatitis B Vaccines Completed 03/01/2017, 11/29/2016, 10/06/2016 Cervical Cancer Screening Discontinued Pap Smear Discontinued 06/30/2020 Zoster Vaccines Completed 09/06/2021, 05/12, 07/27/2017, Additional history exists Influenza Vaccine Completed 11/27/2023, , 12/31/2021, Additional history exists HIB Vaccines Aged Out No longer eligi ble based on patient's age to complete this topic HPV Vaccines Aged Out No longer eligi ble based on patient's age to complete this topic HPV/Cotest Discontinued Hepatitis A Vaccines Aged Out No long er eligible based on patient's age to complete this topic IPV Vaccines Aged Out No longer eligi ble based on patient's age to complete this topic Meningococcal Vaccine Aged Out No gonzalo arturo eligible based on patient's age to complete this topic RSV under 20 months Aged Out No longe r eligible based on patient's age to complete this topic Rotavirus Vaccines Aged Out No longer eligible based on patient's age to complete this topic Procedures Procedure Name Priority Date/Time Associated Diagnosis Comments BI MAMMOGRAM SCREENING TOMOSYNTHESIS BILATERAL Routine 11/22/2023 11:30 AM EDT PROPHYLAXIS - ADULT Routine 11/09/2023 1 0:00 AM EDT BITEWING - SINGLE RADIOGRAPHIC IMAGE Routine 11/09/2023 10:00 AM EDT PERIODIC ORAL EVALUATION - ESTABLISHED PATIENT Routine 11/09/2023 10:00 AM EDT HM COLONOSCOPY Routine 10/05/2023 INTRAORAL - COMPLETE SERIES OF RADIOGRAPHIC IMAGES Routine 01/02/2023 1:00 PM EDT THINPREP PAP Routine 06/30/2020 11:19 AM EDT from Last 3 Months or Most Recently Relevant to Health Maintenance Results * BI Mammogram Screening Tomosynthesis Bilateral (11/22/2023 11:30 AM EDT) Anatomical Region Laterality Modality Breast Bilateral Mammography 11/22/2023 11:3 0 AM EDT Narrative 12/06/2023 10:24 AM EDT ? [facility] [place] ? [address] ?[place] [address] ? Mammography Report ? Signed ? Patient: Zoey Walsh ?MR#: [id number] ?? [id number] ? : 1955 ?Acct:[id number] ? Age/Sex: 68 / F ?ADM Date: 11/21/24 ? Loc: HO.MAMMO ? Attending Dr: Charisma Stinson MD ? Ordering Physician: Charisma Stinson MD ?Results: 2Be ?? nign Findings ? Date of Service: 11/22/23 ?Follow Up: 1 Year From Orig ?? inal Mammogram ? Procedure(s): MM tomosynthesis screening BI ?? Accession Number(s): [id number] ? cc: Charisma Stinson MD ? EXAMINATION: ?? MM SCREENING DIGITAL BREAST TOMOSYNTHESIS, BILATERAL ? CLINICAL INFORMATION: ? Screening. Asymptomatic. ? COMPARISON: ?? Mammography: Comparison is made with available priors ? TECHNIQUE: ?? Digital breast mammography with tomosynthesis is performed in both the ?? craniocaudal and mediolateral oblique views along with computer-aided ?? detection (CAD). ? FINDINGS: ?? The breasts are extremely dense, which lowers the sensitivity of ?? mammography (ACR BI-RADS breast composition Category d). ?? Left breast marker clip. ?? There are no significant masses, abnormal calcifications, or other ?? abnormalities. ? MM/MM tomosynthesis screening BI ?? IMPRESSION: ?? No mammographic evidence of malignancy. ? ASSESSMENT: ? BI-RADS BI-RADS 2 - Benign Findings ? RECOMMENDATION: ?? Routine annual mammography screening. ? 1 year F/U ? This examination should not preclude the clinical evaluation of a ?? suspicious palpable abnormality. ? This patient's information was entered into a reminder system with a ?? target due date for their next mammogram. ? Electronically signed by: ??Yola Hanna DO ??12/06/2023 10:21 AM EDT ?? RP ? Dictated By: ?Yola Hanna DO ? Signed By: ?<Electronically signed by Yola Hanna, DO in OV> ? 12/06/23 1021 ? DD/ 1130 ? TD/TT: 11/22/23 1144 ? Billing Representative: ? Procedure Note Donotuseinterpreter, Image - 12/06/2023 [place] [facility] [address] [place] [address] Mammography Report Signed Patient: Zoey Walsh JMR#: [id number] : 8Acct:[id number] Age/Sex: 68 / FADM Date: 11/22/23 Loc: HO.MAMMO Attending Dr: Charisma Stinson MD Ordering Physician: Charisma Stinson MDResults: 2Be nign Findings Date of Service: 11/22/23Follow Up: 1 Year From Orig inal Mammogram Procedure(s): MM tomosynthesis screening BI Accession Number(s): [id number] cc: Charisma Stinson MD EXAMINATION: MM SCREENING DIGITAL BREAST TOMOSYNTHESIS, BILATERAL CLINICAL INFORMATION: Screening. Asymptomatic. COMPARISON: Mammography: Comparison is made with available priors TECHNIQUE: Digital breast mammography with tomosynthesis is performed in both the craniocaudal and mediolateral oblique views along with computer-aided detection (CAD). FINDINGS: The breasts are extremely dense, which lowers the sensitivity of mammography (ACR BI-RADS breast composition Category d). Left breast marker clip. There are no significant masses, abnormal calcifications, or other abnormalities. MM/MM tomosynthesis screening BI IMPRESSION: No mammographic evidence of malignancy. ASSESSMENT: BI-RADS BI-RADS 2 - Benign Findings RECOMMENDATION: Routine annual mammography screening. 1 year F/U This examination should not preclude the clinical evaluation of a suspicious palpable abnormality. This patient's information was entered into a reminder system with a target due date for their next mammogram. Electronically signed by: Yola Hanna DO 12/06/2023 10:21 AM EDT Dictated By: Yola Hanna DO Signed By: <Electronically signed by Yola Hanna DO in OV> 12/06/23 1021 DD/ 1130 TD/TT: 11/22/23 1144 Billing Representative: us Charisma Stinson MD IMG BI PROCEDURES Edited Resu lt - Final * (ABNORMAL) Hm Colonoscopy (10/05/2023) Colonoscopy Abnormal(A ) Normal Impressions Charisma Stinson MD - 10/05/2023 Needs repeat in 3 years us Charisma Stinson MD HEALTH MAINTENANCE Final Resu lt * THINPREP PAP (06/30/2020 11:19 AM EDT) Clinical Information: None given [facility] COMMENT SEE COMMENT [facility] Comment: EXPLANATORY NOTE: ? The Pap is a screening test for cervical cancer. It is ?? not a diagnostic test and is subject to false negative ?? and false positive results. It is most reliable when a ?? satisfactory sample, regularly obtained, is submitted ?? with relevant clinical findings and history, and when ?? the Pap result is evaluated along with historic and ?? current clinical information. ?? Advanced Nursing Professor : SEE COMMENT [facility] Comment: KN, CT(ASCP) CT screening location: [address] ??[address] Interpretation/R esult: Negative for intraepithelial lesion or malignancy. [facility] LMP: NONE GIVEN [facility] Prev. BX: NONE GIVEN [facility] Prev. PAP: NONE GIVEN [facility] SOURCE: None given [facility] Statement Of Adequacy: SEE COMMENT [facility] Comment: Satisfactory for evaluation. Endocervical/transformation zone component present. 06/30/2020 11:1 9 AM EDT us Liliana Zuñiga MD LAB PATHOLOGY ORDERABLES Final R esult [facility] [address] [place] [address], [place] from Last 3 Months or Most Recently Relevant to Health Maintenance Insurance [facility] , [address] [place] [address] [facility] Care Teams Communications Operator Relationship Specialty Start Date End Date Charisma Stinson MD [address] [place] [address] [place] [address] PCP - General Family Medicine 03/13/18
--- OUTSIDE RECORDS SUMMARY | 2024-05-03 08:00 | XMS_ITS | Encounter Summary ---
Author Organization [employer] Address [address] [facility] 7t [place] [address] Care Team Providers Care Structural Test Engineer Name Role Phone Charisma Stinson MD Primary Care Provider [phone] Encounter Details Date Type Department Care Team (Late st Contact Info) Description 01/13/2023 Abstract [facility] ADULT DENTAL [address] [place] [address] Yordan Mcgowan DDS [address] [place], [place] [phone] Social History Tobacco Use Types Packs/Day Years [...] Description 05/15/2024 11:00 AM EST Office Visit [facility] ADULT DENT[facility] [address] [place] [address] Troy Ruth documented as of this encounter Visit Diagnoses Not on filedocumented in this encounter Additional Health Concerns Assessment Noted Time PHQ-9 Depression Total Score: 2 03/24/19 23 9:26 AM EST documented as of this encounter Care Teams Structural Test Engineer Relationship Specialty Start Date End Date Charisma Stinson MD [address] [place] [address] PCP - General Family Medicine 03/13/18 documented as of this encounter
--- OUTSIDE RECORDS SUMMARY | 2024-05-03 08:01 | XMS_ITS | Encounter Summary ---
Author Organization [employer] Address 75 [facility] 7t [place] [address] Care Team Providers Care Painter Drum Name Role Phone Charisma Stinson MD Primary Care Provider [phone] Reason for Visit * Reason Comments Pre-visit Planning Pre visit planning L VM Encounter Details Date Type Department Care Team ([facility] st Contact Info) Description 04/18/2024 Patient Outreach [facility] [address] [place] [address] Charisma Stinson MD [address] [place] [address] Pre-visit Planning (Pre visit planning LVM ) Social History Tobacco Use Types Packs/Day Years Used Date Smoking Tobacco: Never Passive Smoke Exposure: Never Smokeless Tobacco: Never Alcohol Use Standard Drinks/Week Comments Yes 1 (1 standard drink = 0.6 oz pur e alcohol) Depression Answer Date Recorded Patient Health Questionnaire-9 Score 2 03/24/2022 Housing Stability Answer Date Recorded What is your housing situation today? I have vianca reeves 10/19/[address] you li [...] AM EDT documented as of this encounter Progress Notes * Shayy Wolfe - 04/18/2024 2:07 PM EST C Shayy Leo placed outbound call to patient to complete pre-visit planning. No answer at this time. Patient name and were not confirmed. CC left voicemail requesting return call. Direct contact information provided. documented in this encounter Plan of Treatment Upcoming Encounters Date Type Department Care Team ([facility] st Contact Info) Description 05/15/2024 11:00 AM EST Office Visit [facility]ULT [facility] [address] [place] [address] Troy Ruth documented as of this encounter Visit Diagnoses Not on filedocumented in this encounter Additional Health Concerns Assessment Noted Time PHQ-9 Depression Total Score: 2 03/24/19 23 9:26 AM EST documented as of this encounter Care Teams Painter Drum Relationship Specialty Start Date End Date Charisma Stinson MD [address] [place] [address] PCP - General Family Medicine 03/13/18 documented as of this encounter
--- OUTSIDE RECORDS SUMMARY | 2024-05-03 08:01 | XMS_ITS | Encounter Summary ---
Author Organization [employer] Address 75 [facility] 7t [place] [address] Care Team Providers Care Hiv Counselor Name Role Phone Charisma Stinson MD Primary Care Provider [phone] Encounter Details Date Type Department Care Team (Late st Contact Info) Description 01/16/2023 Abstract [facility] [address] [place] [address] Charisma Stinson MD [address] [place], [place] [phone] Social History Tobacco Use Types Packs/Day Years [...] Description 05/15/2024 11:00 AM EST Office Visit [facility] ADULT DENT[facility] [address] [place], [place] [phone] Troy Ruth documented as of this encounter Visit Diagnoses Not on filedocumented in this encounter Additional Health Concerns Assessment Noted Time PHQ-9 Depression Total Score: 2 03/24/19 23 9:26 AM EST documented as of this encounter Care Teams Hiv Counselor Relationship Specialty Start Date End Date Charisma Stinson MD [address] [place] [address] PCP - General Family Medicine 03/13/18 documented as of this encounter
--- OUTSIDE RECORDS SUMMARY | 2024-05-03 08:01 | XMS_ITS | Encounter Summary ---
Author Organization [email or web address] Address [address] [facility] 7t [place] [address] Care Team Providers Care Senior Policy Advisor Name Role Phone Charisma Stinson MD Primary Care Provider [phone] Encounter Details Date Type Department Care Team (Latest Contact Info) Description 12/13/2021 Abstract [facility] CONVERSIONS Dental, Provider, DDS Social History Tobacco Use Types Packs/Day Years Used Date Smoking Tobacco: Never Assessed Comments Unknown Sex and Gender Information Value [...] Description 05/15/2024 11:00 AM EST Office Visit [facility] ADULT DENTAL [address] [place] [address] Troy Ruth documented as of this encounter Visit Diagnoses Not on filedocumented in this encounter Care Teams Senior Policy Advisor Relationship Specialty Start Date End Date Charisma Stinson MD [address] [place] [address] PCP - General Family Medicine 03/13/18 documented as of this encounter
--- OUTSIDE RECORDS SUMMARY | 2024-05-03 08:01 | XMS_ITS | Encounter Summary ---
Author Organization [employer] Address [address] [facility] 7t [place] [address] Care Team Providers Care Director Energy Name Role Phone Charisma Stinson MD Primary Care Provider [phone] Encounter Details Date Type Department Care Team (Late st Contact Info) Description 02/20/2023 Abstract [facility] ADULT DENT[facility] [address] [place] [address] Yordan Mcgowan DDS [address] [place], [place] [phone] Social History Tobacco Use Types Packs/Day Years [...] 05/15/2024 11:00 AM EST Office Visit [facility] ADULT DENT[facility] [address] [place] [address] Troy Ruth documented as of this encounter Visit Diagnoses Not on filedocumented in this encounter Additional Health Concerns Assessment Noted Time PHQ-9 Depression Total Score: 2 03/24/19 23 9:26 AM EST documented as of this encounter Care Teams Director Energy Relationship Specialty Start Date End Date Charisma Stinson MD [address] [place] [address] PCP - General Family Medicine 03/13/18 documented as of this encounter
--- OUTSIDE RECORDS SUMMARY | 2024-05-03 08:01 | XMS_ITS | Encounter Summary ---
Author Organization [employer] Address [address] [facility] 7t [place] [address] Care Team Providers Care Job Training Specialist Name Role Phone Charisma Stinson MD Primary Care Provider [phone] Encounter Details Date Type Department Care Team (Latest Contact Info) Description 03/19/2020 Abstract [facility] CONVERSIONS Dental, Provider, DDS Social History Tobacco [...] 05/15/2024 11:00 AM EST Office Visit [facility] ADULT DENTAL [address] [place] [address] Troy Ruth documented as of this encounter Visit Diagnoses Not on filedocumented in this encounter Care Teams Job Training Specialist Relationship Specialty Start Date End Date Charisma Stinson MD [address] [place] [address] PCP - General Family Medicine 03/13/18 documented as of this encounter
--- OUTSIDE RECORDS SUMMARY | 2024-05-03 08:01 | XMS_ITS | Encounter Summary ---
Author Organization [employer] Address [address] [place] [address] Care Team Providers Care Decorating Inspector Name Role Phone Charisma Stinson MD Primary Care Provider [phone] Encounter Details Date Type Department Care Team (Latest Contact Info) Description 04/18/2024 Travel Social History Tobacco Use Types Packs/Day Years Used Date Smoking Tobacco: Never Passive Smoke Exposure: Never Smokeless Tobacco: Never Alcohol Use Standard Drinks/Week Comments Yes 1 (1 standard drink = 0.6 oz pur e alcohol) Depression Answer Date Recorded Patient Health Questionnaire-9 Score 2 03/24/2022 Housing Stability Answer Date Recorded What is your housing situation today? I have vianca lala 10/19/[address] you li [...] Description 05/15/2024 11:00 AM EST Office Visit [facility] [address] [place] [address] Troy Ruth documented as of this encounter Visit Diagnoses Not on filedocumented in this encounter Additional Health Concerns Assessment Noted Time PHQ-9 Depression Total Score: 2 03/24/19 23 9:26 AM EST documented as of this encounter Care Teams Decorating Inspector Relationship Specialty Start Date End Date Charisma Stinson MD [address] [place] [address] PCP - General Family Medicine 03/13/18 documented as of this encounter
--- OUTSIDE RECORDS SUMMARY | 2024-05-03 08:01 | XMS_ITS | Encounter Summary ---
Author Organization [employer] Address [address] [facility] [address] [place] [address] Care Team Providers Care Oncology Rep Specialist Name Role Phone Charisma Stinson MD Primary Care Provider [phone] Encounter Details Date Type Department Care Team (Latest Contact Info) Description 04/18/2018 Abstract [facility] Dental, Provider, DDS Social History Tobacco [...] Description 05/15/2024 11:00 AM EST Office Visit [facility]ULT [facility] [address] [place] [address] Troy Ruth documented as of this encounter Visit Diagnoses Not on filedocumented in this encounter Care Teams Oncology Rep Specialist Relationship Specialty Start Date End Date Charisma Stinson MD [address] [place] [address] PCP - General Family Medicine 03/13/18 documented as of this encounter
--- OUTSIDE RECORDS SUMMARY | 2024-05-03 08:01 | XMS_ITS | Encounter Summary ---
Author Organization [employer] Address [address] [facility] 7 [place] [address] Care Team Providers Care Looseleaf Binder Coverer Name Role Phone Charisma Stinson MD Primary Care Provider [phone] Reason for Visit * Reason Onset Date Comments Results 06/22/2023 Appointment Request 06/22/2023 Encounter Details Date Type Department Care Team ([facility] st Contact Info) Description 06/22/2023 Telephone [facility] [address] [place] [address] Charisma Stinson MD [address] [place] [address] Results; Appointment Request Social History Tobacco Use Types Packs/Day Years [...] encounter Miscellaneous Notes * Telephone Encounter - Wing Sam RN - 06/23/2023 12:06 PM EDT Tc to pt regarding US. Relayed to pt that US was done by external provider and pt would have to reach out to said provider. Pt stated external provider had called pt and briefly discussed results. Correct pt's misunderstanding when she said the results sowed abdominal aortic aneurysm, it actually said abdominal aortic atherosclerosis. When pt asked about what a fatty liver is, explained to pt that there are various causes and a healthy diet of fish, vegetables, and avocado with a reduction of fast food and red meat are recommended for a fatty liver. Pt st's she does have some abdominal discomfort but reassured that US does not show aneurysm. Advised pt to reach out to external provider if she has continuing concerns with abdominal pain and/or discomfort and then to reach out to us if she does not hear from the external provider. * Telephone Encounter - Jose Manuel Mungiua - 06/23/2023 9:32 AM EDT Tc from patient calling in regards to the message below would like a appt to discuss what are the next steps patient stated is very concerned with result and needs clarification on what is happening * Telephone Encounter - Jami Shetty - 06/22/2023 10:21 AM EDT TC from pt requesting call back regarding Results. (Results scanned into chart) pt reviewed resultson MyChart and has questions in regards to findings/impressions. Type of results: US abdomen complete Date when done: 06/19 Facility: [facility] Please contact pt at [phone] documented in this encounter Plan of Treatment Upcoming Encounters Date Type Department Care Team (Late st Contact Info) Description 05/15/2024 11:00 AM EST Office Visit [facility]ULT D[facility] [address] [place] [address] Troy Ruth documented as of this encounter Visit Diagnoses Not on filedocumented in this encounter Additional Health Concerns Assessment Noted Time PHQ-9 Depression Total Score: 2 03/24/19 23 9:26 AM EST documented as of this encounter Care Teams Looseleaf Binder Coverer Relationship Specialty Start Date End Date Charisma Stinson MD [address] [place] [id number] PCP - General Family Medicine 03/13/18 documented as of this encounter
== END 2024-05-03 07:57 | disposition home or self-care (01) ==
LOC: HO.XRAY 07:56
PROVIDERS: PCP Pediatrics; Visit Provider Nurse Practitioner Family
DX: K21.9 Gastro-esophageal reflux disease without esophagitis (principal)
CPT/HCPCS: 74246

== ENCOUNTER → 2024-05-03 07:58 | Outpatient (BNV) | payer MEDICARE, MEDICAID, SELFPAY | PROVIDERS: PCP Pediatrics; Visit Provider Physician Assistant Surgical | DX: R13.10 Dysphagia, unspecified (principal) | CPT/HCPCS: 74246; 74248 ==

== ENCOUNTER 2024-06-19 12:39 | Outpatient (AMB) | payer MEDICARE, MEDICAID, SELFPAY ==
--- NOTE | 2024-06-19 12:58 | MHC.OFFVIS ---
Vital Signs 06/19/24 12:59 Height 5 ft 2 in Weight 119 lb 7.849 oz BMI 21.9 BP 114/78 Blood Pressure Location Rt brachial Position Sitting Pulse 70 Pulse Source Pulse Oximeter Pulse Oximetry (%) 99 Oxygen Delivery Method Room Air Intake Visit Reasons: GERD,IBS 4 Mo f/u Intake Note: ESTABLISHED PATIENT for GERD + IBS mgmt. Imaging done. Chief Complaint; C/O difficulty with medication schedule. Pt had been taking laxative every day but had frequent loose stools. Pt took med out of med box to take PRN. Having intermittent constipation and regularity of BMs now. Reflux seems OK. No additional concerns. Engraver Seals Required: No Accompanied by: Self / Same As Patient Allergies shellfish derived Adverse Reaction (Intermediate, Verified 06/19/24 12:58) Nausea and Vomiting HPI HPI GERD,IBS 4 Mo f/u: Details: LAST VISIT Hiatal hernia Tubular adenoma of colon Diverticulosis large intestine w/o perforation or abscess w/bleeding Irritable bowel syndrome with both constipation and diarrhea Constipation Postprandial epigastric pain GERD (gastroesophageal reflux disease) Nonalcoholic fatty liver Plan Patient continues to have acid reflux at times. Will send her for upper GI series with barium swallow. Will change pantoprazole to Nexium. Patient will stop taking Senokot and will start taking Dulcolax. Increase fluid intake and activity to promote better bowel motility. Meal plan for patients with fatty liver given to patient. Discussed with her low-salt, low sugar and low-fat diet. Patient will follow-up in 4 months, sooner on as needed basis. She is agreeable to this plan of care and verbalizes understanding of instructions. She was given the opportunity to ask questions and all questions answered. ? Thank you for allowing me to participate in her care Orders Orders FL upper GI w Ba Swallow Today K21.9 Medications New esomeprazole magnesium (Nexium) 40 mg PO DAILY 30 caps 5RF K21.9 bisacodyl (Dulcolax (bisacodyl)) 10 mg (2 x 5 mg) PO BEDTIME 180 tabs 4RF Discontinued methylcellulose (laxative) (Citrucel) take it with full glass of water Discontinued Reason: Doctor's Order 500 mg PO DAILY 90 tabs 2RF K59.00 pantoprazole Discontinued Reason: Doctor's Order 20 mg PO DAILY 90 tabs 1RF sennosides (Natural Senna Laxative) Discontinued Reason: Doctor's Order 17.2 mg (2 x 8.6 mg) PO BEDTIME 60 tabs 3RF constipation K59.00 TODAY'S VISIT Patient is here today for follow-up and to discuss upper GI series results. Patient just recently had upper endoscopy and colonoscopy. Upper GI series with barium swallow showed disorganized esophageal peristalses, possible esophagitis. Patient recently switched to Nexium and reports that she is doing better. Denies having any acid reflux, dyspepsia, dysphagia or odynophagia. Overall patient reports that she has been doing well, however she states that recently was told that she has to change her insurance and her PCP is unable to take this insurance. Unable to see her dietitian. Patient reports that she gained few lb and fell off the wagon with diet. Patient finally was able to get a new PCP and has appointment in October. Was using Dulcolax 2 tablets daily and was causing too many loose stools. Currently patient is using as needed. Denies any melena, hematochezia. [facility] Medical History Diverticulosis large intestine w/o perforation or abscess w/bleeding Tubular adenoma of colon Hiatal hernia Surgical History H/O colonoscopy Family History Mother Lung cancer Father Diabetes Social History Household Members: None Housing: Condominium Alcohol intake: current Alcohol intake frequency: holidays/special occasions only Patient Tobacco Use Status: Former Tobacco user Substance Use Type: Marijuana Review of Systems Const Denies weight gain and Denies weight loss ENT Reports no additional complaints, Denies dysphagia and Denies odynophagia Card Reports no additional complaints Resp Reports no additional complaints GI Denies abdominal pain, Denies belching, Denies melena, Denies bloating, Denies change in bowel habits, Denies dysphagia, Denies excessive flatus, Denies dyspepsia, Denies heartburn, Denies diarrhea, Denies loose stools, Denies nausea, Denies odynophagia and Denies vomiting Musc Reports no additional complaints Neuro Reports no additional complaints Psych Reports no additional complaints Endo Reports no additional complaints Physical Exam Vital Signs: Last Vital Signs Pulse 70 06/19/24 12:59 BP 114/78 06/19/24 12:59 Pulse Ox 99 06/19/24 12:59 Oxygen Delivery Method Room Air 06/19/24 12:59 BMI result Body Mass Index 21.9 Const General: healthy appearing, no acute distress and well developed Nutritional Appearance: well nourished Orientation/consciousness: patient oriented x3 Resp Effort & Inspection: normal respiratory effort, able to speak in complete sentences, no tracheal deviation and symmetric chest movement Auscultation: clear to auscultation bilaterally Cardio Rate: regular rate GI Inspection: Yes normal to inspection and No distended Palpation (GI): Soft to palpation, not firm, nontender and No hepatosplenomegaly present Auscultation: normal bowel sounds General: Yes no CVA tenderness Back/Spine/Pelvis Back: no CVA tenderness Skin General skin exam: elasticity normal, turgor normal and dry skin Neuro General: patient oriented x3 Psych Appearance: grossly normal Mental Status: mental status grossly normal Results Reviewed Results Reviewed: UPPER GI SERIES IMPRESSION: 1. Granular appearance of the esophageal mucosa, suggestive of esophagitis. 2. Mild narrowing of the GE junction that likely represents achalasia. A benign stricture cannot be ruled out. 3. Severe esophageal dysmotility. 4. Small type I hiatal hernia. 5. Thickened appearance of the gastric rugal folds and the areae gastricae, suggestive of gastritis. 6. Mild cricopharyngeal achalasia. Assessment & Plan Assessment & Plan (1) Hiatal hernia: Code(s): K44.9 - Diaphragmatic hernia without obstruction or gangrene Category: Medical (2) Tubular adenoma of colon: Code(s): D12.6 - Benign neoplasm of colon, unspecified Category: Medical (3) Diverticulosis large intestine w/o perforation or abscess w/bleeding: Code(s): K57.31 - Diverticulosis of large intestine without perforation or abscess with bleeding Category: Medical (4) Irritable bowel syndrome with both constipation and diarrhea: Code(s): K58.2 - Mixed irritable bowel syndrome (5) Constipation: Code(s): K59.00 - Constipation, unspecified Qualifiers: Constipation type: slow transit constipation Qualified Code(s): K59.01 - Slow transit constipation (6) Postprandial epigastric pain: Code(s): R10.13 - Epigastric pain (7) GERD (gastroesophageal reflux disease): Code(s): K21.9 - Gastro-esophageal reflux disease without esophagitis Qualifiers: Esophagitis bleeding: without hemorrhage Esophagitis presence: with esophagitis Qualified Code(s): K21.00 - Gastro-esophageal reflux disease with esophagitis, without bleeding (8) Nonalcoholic fatty liver: Code(s): K76.0 - Fatty (change of) liver, not elsewhere classified Plan Patient will continue Nexium daily. Avoid dietary triggers and late night snacking. Staying upright for minimum 3 hours after meals discussed with patient. Patient will continue low FODMAP diet. Avoid dietary triggers and high FODMAP foods. Referral to dietitian sent. Patient gained few lb in the past couple months as she was not eating healthy. Follow-up in 3 months, sooner on as needed basis. Patient is agreeable to this plan and verbalizes understanding of instructions. She was given the opportunity to ask questions and all questions answered. Thank you for allowing me to participate in her care Orders: Referrals Healthcare Specialist Nutrition Referral R63.5 - Abnormal weight gain Coding Level of Care Code Est Pt Level 4 (63787) Complex EM visit Add On G2211 Diagnoses Hiatal hernia K44.9 Tubular adenoma of colon D12.6 Diverticulosis large intestine w/o perforation or abscess w/bleeding K57.31 Irritable bowel syndrome with both constipation and diarrhea K58.2 Slow transit constipation K59.01 Constipation type: slow transit constipation Postprandial epigastric pain R10.13 Gastroesophageal reflux disease with esophagitis without hemorrhage K21.00 Esophagitis bleeding: without hemorrhage Esophagitis presence: with esophagitis Nonalcoholic fatty liver K76.0 Time Spent (min) 35 Comment 20 minutes spent with patient and additional 15 minutes spent reviewing her records
[2024-06-19 12:59] VITALS: BP 114/78; PULSE 70; O2SAT 99; BMI 21.9
--- OUTSIDE RECORDS SUMMARY | 2024-06-19 14:36 | XMS_ITS | Encounter Summary ---
Author Organization [employer] Address [address] [place] [address] [address] [place] [address] Care Team Providers Care House Worker Name Role Phone Charisma Stinson MD Primary Care Provider [phone] Encounter Details Date Type Department Care Team (Late Contact Info) Description 01/13/2023 Abstract [facility] [address] [place], [place] [phone] Yordan Mcgowan DDS [address] [place], [place] [phone] Social History Tobacco Use Types Packs/Day Years [...] Encounters Date Type Department Care Team (Late Contact Info) Description 07/11/2024 2:00 PM EDT Office Visit [facility] [address] [place], [place] [phone] Be Arnold [address] [place], [place] [phone] documented as of this encounter Visit Diagnoses Not on filedocumented in this encounter Additional Health Concerns Assessment Noted Time PHQ-9 Depression Total Score: 2 03/24/19 23 9:26 AM EST documented as of this encounter Care Teams House Worker Relationship Specialty Start Date End Date Charisma Stinson MD [address] [place] [address] PCP - General Family Medicine 03/13/18 documented as of this encounter
--- OUTSIDE RECORDS SUMMARY | 2024-06-19 14:36 | XMS_ITS | Encounter Summary ---
Author Organization [employer] Address [address] [facility] 7t [place] [address] Care Team Providers Care Casing Crew Name Role Phone Charisma Stinson MD Primary Care Provider [phone] Reason for Visit * Reason Comments Med Refill Encounter Details Date Type Department Care Team ([facility] st Contact Info) Description 06/17/2024 Refill [facility] [address] [place], [place] [phone] Charisma Stinson MD [address] [place] [address] Gastroesophageal reflux disease without esophagitis Social History Tobacco Use Types Packs/Day Years [...] Upcoming Encounters Date Type Department Care Team ([facility] st Contact Info) Description 07/11/2024 2:00 PM EDT Office Visit [facility] [address] [place] [address] Be Arnold [address] [place] [address] documented as of this encounter Visit Diagnoses Diagnosis Gastroesophageal reflux disease without esophagitis Esophageal reflux documented in this encounter Additional Health Concerns Assessment Noted Time PHQ-9 Depression Total Score: 2 03/24/19 23 9:26 AM EST documented as of this encounter Care Teams Casing Crew Relationship Specialty Start Date End Date Charisma Stinson MD [address] [place] [address] PCP - General Family Medicine 03/13/18 documented as of this encounter
--- OUTSIDE RECORDS SUMMARY | 2024-06-19 14:36 | XMS_ITS | Encounter Summary ---
Author Organization [employer] Address [address] [facility] 7 [place] [address] Care Team Providers Care Whale Trainer Name Role Phone Charisma Stinson MD Primary Care Provider [phone] Reason for Visit * Reason Onset Date Comments Triage 08/05/2022 Encounter Details Date Type Department Care Team ([facility] Contact Info) Description 08/05/2022 Telephone [facility] [address] [place], [place] [phone] Charisma Stinson MD [address] [place] [address] Triage Social History Tobacco Use Types Packs/Day [...] accepted this outcome Please contact pt at [phone] documented in this encounter Plan of Treatment Upcoming Encounters Date Type Department Care Team ([facility] st Contact Info) Description 07/11/2024 2:00 PM EDT Office Visit [facility] ADULT D[facility] [address] [place] [address] Be Arnold [address] [place] [address] documented as of this encounter Visit Diagnoses Not on filedocumented in this encounter Additional Health Concerns Assessment Noted Time PHQ-9 Depression Total Score: 2 03/24/19 23 9:26 AM EST documented as of this encounter Care Teams Whale Trainer Relationship Specialty Start Date End Date Charisma Stinson MD [address] [place] [address] PCP - General Family Medicine 03/13/18 documented as of this encounter
--- OUTSIDE RECORDS SUMMARY | 2024-06-19 14:36 | XMS_ITS | Clinical Summary ---
Author Organization [employer] Address [address] [facility] 7t [place] [address] Care Team Providers Care Cloth Trimmer Hand Name Role Phone Charisma Stinson MD Primary Care Provider [phone] Allergies Active Allergy Reactions Criticality Noted Date Comments Dust Mite Extract 08/12/2022 Gramineae Pollens 08/12/2022 Shellfish Allergy 08/12/2022 Other reaction(s): hives, puffy Shellfish-Derived Products 5 Medications gabapentin (Neurontin) 300 MG capsule Active carBAMazepine (TEGretol) 200 MG tablet Active estradiol (Estrace) 0.1 MG/GM vaginal creamIndications: Postmenopausal atrophic vaginitis Apply 1 gm intra vaginally every 3 days 42.5 g 11 023 Active meloxicam (Mobic) 7.5 MG tabletIndications :Trigeminal neuralgia Take 1 tab orally twice a day as needed for joint pains 60 tablet 3 023 Active traZODone (Desyrel) 50 MG tabletIndications :Anxiety Take 1 tablet (50 mg) by mouth at bedtime. 30 tablet 11 023 Active albuterol (2.5 MG/3ML) 0.083% nebulizer solution Take 3 mL (2.5 mg) by nebulization every 6 (six) hours if needed for wheezing. 75 mL 11 023 Active atorvastatin (Lipitor) 40 MG tablet Take 40 mg by mouth. Active montelukast (Singulair) 10 MG tablet Take 10 mg by mouth. Active calcium carbonate 1500 (600 Ca) MG tablet Take 600 mg by mouth. Active albuterol 108 (90 Base) MCG/ACT inhaler Inhale 2 puffs every 6 (six) hours if needed for wheezing. 18 g Active Multiple Vitamins-Minerals (CertaVite/Antiox idants) tablet TAKE ONE TABLET BY MOUTH EVERY MORNING 30 tablet Active atorvastatin (Lipitor) 40 MG tablet TAKE ONE TABLET EVERY NIGHT AT BEDTIME 90 tablet Active montelukast (Singulair) 10 MG tablet TAKE ONE TABLET EVERY NIGHT AT BEDTIME 30 tablet Active calcium carbonate 1500 (600 Ca) MG tablet TAKE ONE TABLET EVERY MORNING 30 tablet Active cetirizine (ZyrTEC) 10 MG tablet TAKE ONE TABLET EVERY MORNING 30 tablet Active cetirizine (ZyrTEC) 2.5 MG chewable split tablet 10 mg. Active estradiol (Estrace) 0.1 MG/GM vaginal cream Every 3 days 42.5 g Active fluticasone (Flonase) 50 MCG/ACT nasal spray Administer 1 spray into each nostril Once per day. 16 g Active aspirin 81 MG EC tabletIndications :Mixed hyperlipidemia Take 1 tablet (81 mg) by mouth Once per day. 30 tablet 2024 Active pantoprazole (ProtoNix) 20 MG EC tablet Take 20 mg by mouth in the morning. Active Calcium Polycarbophil (fiber) 625 MG tablet TAKE ONE TABLET EVERY MORNING WITH a full GLASS of WATER Active cholecalciferol VITAMIN D (Vitamin D-3) 50 MCG (2000 UT) capsuleIndication s:Age-related osteoporosis without current pathological fracture TAKE ONE CAPSULE TWICE DAILY IN THE MORNING AND AT BEDTIME 60 capsule Active Mometasone Furoate (Asmanex HFA) 200 MCG/ACT aerosolIndication s:Moderate persistent asthma, unspecified whether complicated INHALE ONE PUFF TWICE DAILY, RINSE MOUTH AFTER USE 1 g Active esomeprazole (NexIUM) [address] capsule 025 Active famotidine (Pepcid) 20 MG tabletIndications :Gastroesophageal reflux disease without esophagitis TAKE ONE TABLET TWICE DAILY IN THE MORNING AND AT BEDTIME 60 tablet 5 025 Active Mometasone Furoate (Asmanex HFA) 200 MCG/ACT aerosol Inhale 1 puff twice a day 13 g 11 024 2024 Discontinued famotidine (Pepcid) 20 MG tabletIndications :Gastroesophageal reflux disease without esophagitis TAKE ONE TABLET TWICE DAILY IN THE MORNING AND AT BEDTIME 60 tablet 5 024 2024 Discontinued Active Problems Problem Noted Date Diagnosed Date [...] Encounters Date Type Department Care Team Description 06/18/2024 11:00 AM EDT Office Visit [facility] ADULT DENTAL [address] [place] [address] Gemma Arnoldricio 06/17/[address] [facility] [address] [place] [address] Charisma Stinson MD Gastroesophageal reflux disease without esophagitis 06/11/2024 Travel 05/27/2024 11:00 AM EDT Office Visit [facility] ADULT D[facility] [address] [place] [address] ClaytonBe gaona Dental calculus (Primary Dx) 05/23/[address] [facility] [address] [place] [address] Charisma Stinson MD Moderate persistent asthma, unspecified whether complicated 05/21/[address] [facility] [address] [facility] [place] [address] Charisma Stinson MD 05/10/[address] [facility] [address] [facility] [address] [facility] [address] [place] [phone] Charisma Stinson MD Age-related osteoporosis without current pathological fracture 05/03/2024 Orders Only [facility] External Provider, [facility] 04/18/[address] [facility] [address] [place], [place] [phone] Charisma Stinson MD Pre-visit Planning (Pre visit planning LVM ) 04/18/2024 Travel from Last 3 Months Social History Tobacco [...] Sign Reading Time Taken Comments Blood Pressure 128/74 06/18/2024 11:10 AM EDT Pulse 65 05/27/2024 11:34 AM EDT Temperature 36.8 ??C (98.2 ??F) 01/29/2024 10:01 [...] Care Team (Late st Contact Info) Description 07/11/2024 2:00 PM EDT Office Visit [facility] ADULT D[facility] [address] [place] [address] Be Arnold [address] [place] [address] Health Maintenance Due Date Last Done Comments CT Colonography 1957 FIT DNA/Cologuard 1957 FIT 1957 FOBT 1955 Sigmoidoscopy 1957 Alcohol/Substance Use Screening 1969 Hepatitis C Screening 1975 Pneumococcal Vaccine: 50+ Years (1 of 2 - PCV) 1976 RSV Patients and Patients Aged 60 years or older (1 - Risk 60-74 years 1-dose series) 2017 Depression Screening 03/24/2023 03/24/2022, 03/24/19 23 COVID-19 Vaccine ( season) 2023 02/17/2021, 06/25/2020, 05/27/2020 SDOH Screening 10/18/2024 10/19/2023 Dental Oral Exam 11/28/2024 05/27/2024, , 01/02/2023 Dental Prophylaxis 11/28/2024 05/27/2024, 0 11/09/2023, 01/02/2023, Additional history exists Dental X-Ray: Bitewings 05/28/2025 05/28/19, 11/09/2023, 07/06/2023, Additional history exists Tobacco Screening 06/18/2025 06/18/2024 Mammogram 11/21/2025 11/22/2023, 08/2022, 11/10/2021, Additional history exists Dental X-Ray: Full [...] Procedure Name Priority Date/Time Associated Diagnosis Comments CASE PRESENTATION, DETAILED AND EXTENSIVE TREATMENT PLANNING Routine 06/18/2024 11:00 AM EDT 4 MOD RESIN-BASED COMPOSITE - 3 SURF, POSTERIOR Routine 06/18/2024 11:00 AM EDT COMPREHENSIVE PERIODONTAL EVALUATION - NEW OR ESTABLISHED PATIENT Routine 05/27/2024 11:00 AM EDT PERIODIC ORAL EVALUATION - ESTABLISHED PATIENT Routine 05/27/2024 11:00 AM EDT INTRAORAL - PERIAPICAL EACH ADDITIONAL RADIOGRAPHIC IMAGE Routine 05/27/2024 11:00 AM EDT INTRAORAL - PERIAPICAL FIRST RADIOGRAPHIC IMAGE Routine 05/27/2024 11:00 AM EDT ORAL HYGIENE INSTRUCTIONS Routine 05/27/2024 11:00 AM EDT BITEWINGS - 4 RADIOGRAPHIC IMAGES Routine 05/27/2024 11:00 AM EDT Full PROPHYLAXIS - ADULT Routine 05/27/2024 11:00 AM EDT CASE PRESENTATION, DETAILED AND EXTENSIVE TREATMENT PLANNING Routine 05/27/2024 11:00 AM EDT FL UPPER GI W AIR W BARIUM SWALLOW Routine 05/03/2024 8:45 AM EST BI MAMMOGRAM SCREENING TOMOSYNTHESIS BILATERAL Routine 11/22/2023 11:30 AM EDT HM COLONOSCOPY Routine 10/05/2023 INTRAORAL - COMPLETE SERIES OF RADIOGRAPHIC IMAGES Routine 01/02/2023 1:00 PM EDT THINPREP PAP Routine 06/30/2020 11:19 AM EDT from Last 3 Months or Most Recently Relevant to Health Maintenance Results * FL Upper GI w/air w/Barium Swallow (05/03/2024 8:45 AM EST) Anatomical Region Laterality Modality Body Radiographic Kathie ging 05/03/2024 8:45 AM EST Narrative 05/03/2024 3:19 PM EST ? [facility] ?[address] ?[place] [address] ? Fluoroscopy Report ? Signed ? Patient: Barsmaryjou,Zoey J ?MR#: [id number] ?? 656 ? : 1955 ?Acct:[id number] ? Age/Sex: 69 / F ?ADM Date: 02/21/25 ? Loc: HO.XRAY ? Attending Dr: Jessica GODWIN ? Ordering Physician: Jessica Patel ?? Date of Service: 05/03/24 ?? Procedure(s): FL upper GI w air w Ba Swallow ?? Accession Number(s): [id number] ? cc: Charisma Stinson MD; Jessica Patel ? EXAMINATION: ?? XR FLUOROSCOPY UPPER GI WITH AIR ? CLINICAL INFORMATION: ?? Dysphagia. Reflux. ? COMPARISON: ?? None ? TECHNIQUE: ?? Fluoroscopic air contrast upper GI examination was performed utilizing ?? standard techniques with thin and thick barium and effervescent ?? granules. Numerous spot images were obtained. ? FINDINGS: ?? Lateral cine images of the oropharynx and hypopharynx demonstrate ?? normal swallow mechanism with normal epiglottic inversion and soft ?? palate elevation. No tracheal penetration, glottic or subglottic ?? aspiration identified. No nasopharyngeal reflux present. Hypopharyngeal ?? structures appear normal without evidence of mass or diverticulum. ?? There is mild cricopharyngeal achalasia. ? Dual and single contrast images of the esophagus demonstrate a normal ?? caliber and contour. The esophageal mucosa has a granular appearance, ?? suggestive of esophagitis. No masses, or ulcerations are seen. There is ?? mild narrowing of the GE junction, that likely represents achalasia or ?? a benign stricture. There is to and fro motion of the barium column, ?? with nonpropulsive tertiary contractions noted throughout the esophagus. ? A very small type I hiatal hernia is present. No significant ?? gastroesophageal reflux was seen during the course of the examination ?? and on reflux views. ? Dual contrast and single contrast images of the stomach demonstrated a ?? normal contour. The areae gastricae in the gastric rugal folds have a ?? thickened appearance, suggestive of gastritis. No masses or ulcerations ?? are seen. Contrast freely passed into the gastric antrum and duodenal ?? bulb without delay. ? Single and air-contrast images of the duodenal bulb demonstrate no ?? abnormality. The duodenal sweep has a normal appearance, course, and ?? mucosal fold appearance. The imaged proximal jejunum has a normal fold ?? pattern and caliber. ? FLUOROSCOPY TIME: ?? 3 minutes 54 seconds ? Number of Spot Images: 7 ?? Number of Cine: 15 ? DOSE AREA PRODUCT: ?? 1715 uGy-m2 (microgray-meter squared) ? FL/FL upper GI w air w Ba Swallow ?? IMPRESSION: ?? 1. Granular appearance of the esophageal mucosa, suggestive of ?? esophagitis. ?? 2. Mild narrowing of the GE junction that likely represents achalasia. ?? A benign stricture cannot be ruled out. ?? 3. Severe esophageal dysmotility. ?? 4. Small type I hiatal hernia. ?? 5. Thickened appearance of the gastric rugal folds and the areae ?? gastricae, suggestive of gastritis. ?? 6. Mild cricopharyngeal achalasia. ? This procedure was performed by Dominguez Blankenship PA-C, and supervised by ?? Dr. Gatica ? Electronically signed by: ??Antonio Gatica MD ??05/03/2024 03:16 PM EST RP ? Dictated By: ?Dominguez Blankenship ? Signed By: ?<Electronically signed by Dominguez Blankenship in OV> ? 05/03/24 1516 ?<Electronically signed by Antonio Gatica MD in OV> ? 05/03/24 1518 ? DD/ 0845 ? TD/TT: 05/03/24 0856 ? Steamer Operator: ? Procedure Note Fauzia, Niko - 05/03/2024 [place] [address] Fluoroscopy Report Signed Patient: Zoey Walsh R#: [id number] 656 : 8Acct:[id number] Age/Sex: 69 / FADM Date: 05/03/24 Loc: HO.XRAY Attending Dr: Jessica GODWIN Ordering Physician: Jessica Patel Date of Service: 05/03/24 Procedure(s): FL upper GI w air w Ba Swallow Accession Number(s): [id number] cc: Charisma Stinson MD; Jessica Patel EXAMINATION: XR FLUOROSCOPY UPPER GI WITH AIR CLINICAL INFORMATION: Dysphagia. Reflux. COMPARISON: None TECHNIQUE: Fluoroscopic air contrast upper GI examination was performed utilizing standard techniques with thin and thick barium and effervescent granules. Numerous spot images were obtained. FINDINGS: Lateral cine images of the oropharynx and hypopharynx demonstrate normal swallow mechanism with normal epiglottic inversion and soft palate elevation. No tracheal penetration, glottic or subglottic aspiration identified. No nasopharyngeal reflux present. Hypopharyngeal structures appear normal without evidence of mass or diverticulum. There is mild cricopharyngeal achalasia. Dual and single contrast images of the esophagus demonstrate a normal caliber and contour. The esophageal mucosa has a granular appearance, suggestive of esophagitis. No masses, or ulcerations are seen. There is mild narrowing of the GE junction, that likely represents achalasia or a benign stricture. There is to and fro motion of the barium column, with nonpropulsive tertiary contractions noted throughout the esophagus. A very small type I hiatal hernia is present. No significant gastroesophageal reflux was seen during the course of the examination and on reflux views. Dual contrast and single contrast images of the stomach demonstrated a normal contour. The areae gastricae in the gastric rugal folds have a thickened appearance, suggestive of gastritis. No masses or ulcerations are seen. Contrast freely passed into the gastric antrum and duodenal bulb without delay. Single and air-contrast images of the duodenal bulb demonstrate no abnormality. The duodenal sweep has a normal appearance, course, and mucosal fold appearance. The imaged proximal jejunum has a normal fold pattern and caliber. FLUOROSCOPY TIME: 3 minutes 54 seconds Number of Spot Images: 7 Number of Cine: 15 DOSE AREA PRODUCT: 1715 uGy-m2 (microgray-meter squared) FL/FL upper GI w air w Ba Swallow IMPRESSION: 1. Granular appearance of the esophageal mucosa, suggestive of esophagitis. 2. Mild narrowing of the GE junction that likely represents achalasia. A benign stricture cannot be ruled out. 3. Severe esophageal dysmotility. 4. Small type I hiatal hernia. 5. Thickened appearance of the gastric rugal folds and the areae gastricae, suggestive of gastritis. 6. Mild cricopharyngeal achalasia. This procedure was performed by Dominguez Blankenship PA-C, and supervised by Dr. Gatica Electronically signed by: Antonio Gatica MD 05/03/2024 03:16 PM EST RP Dictated By: Dominguez Blankenship Signed By: <Electronically signed by Dominguez Blankenship in OV> 05/03/24 1516 <Electronically signed by Antonio Gatica MD in OV> 05/03/24 1518 DD/ 0845 TD/TT: 05/03/24 0856 Steamer Operator: [facility] External Provider IMG FLU OROSCOPY PROCEDURES Final Result * BI Mammogram Screening Tomosynthesis Bilateral (11/22/2023 11:30 AM EDT) Anatomical Region Laterality Modality Breast Bilateral Mammography 11/22/2023 11:3 0 AM EDT Narrative 12/06/2023 10:24 AM EDT ? [facility] ? [address] ?[place] [address] ? Mammography Report ? Signed ? Patient: DanielmaryjozekeZoey ?MR#: [id number] ?? 656 ? : 1955 ?Acct:[id number] ? Age/Sex: 68 / F ?ADM Date: 11/22/23 ? Loc: HO.MAMMO ? Attending Dr: Charisma Stinson MD ? Ordering Physician: Charisma Stinson MD ?Results: 2Be ?? nign Findings ? Date of Service: 11/22/23 ?Follow Up: 1 Year From Orig ?? inal Mammogram ? Procedure(s): MM tomosynthesis screening BI ?? Accession Number(s): [id number] ? cc: Charisma Stinson MD ? EXAMINATION: [...] DD/ 1130 ? TD/TT: 11/22/23 1144 ? Steamer Operator: ? Procedure Note Niko Cage - 12/06/2023 [facility] [address] [place] [address] [place] [address] Mammography Report Signed Patient: Zoey Walsh R#: [id number] 656 : 8Acct:[id number] Age/Sex: 68 / FADM Date: 11/22/23 Loc: HO.MAMMO Attending Dr: Charisma Stinson MD Ordering Physician: Charisma Stinson MDResults: 2Be nign Findings Date of Service: 11/22/23Follow Up: 1 Year From Orig ina Mammogram Procedure(s): MM tomosynthesis screening BI Accession Number(s): [id number] cc: Charisma Stinson MD EXAMINATION: MM SCREENING [...] Yola Hanna DO 12/06/2023 10:21 AM EDT RP Dictated By: Yola Hanna DO Signed By: <Electronically signed by Yola Hanna DO in OV> 12/06/23 1021 DD/ 1130 TD/TT: 11/22/23 1144 Steamer Operator: us Charisma Stinson MD IMG BI PROCEDURES Edited Resu lt - Final * (ABNORMAL) Colonoscopy (10/05/2023) Colonoscopy Abnormal(A ) Normal Impressions [...] historic and ?? current clinical information. ?? Information Receptionist : [facility] Comment: KN, CT(ASCP) CT screening location: [address] ??[address] Interpretation/R esult: Negative for intraepithelial lesion or malignancy. [facility] LMP: NONE [facility]IVEN [facility] Prev. BX: NONE [facility] Prev. PAP: NONE [facility]IV[facility] SOURCE: None given [facility] Statement Of Adequacy: SEE COMMENT [facility] Comment: Satisfactory for evaluation. Endocervical/transformation zone component present. 06/30/2020 11:1 9 AM EDT Liliana Zuñiga MD LAB PATHOLOGY ORDERABLES Final R esult [facility] [address] from Last 3 Months or Most Recently Relevant to Health Maintenance Insurance [facility] D[facility] - HSN FULL (MEDICAID) Care Teams Cloth Trimmer Hand Relationship Specialty Start Date End Date Charisma Stinson MD [address] [place], [place] [address] [address] PCP - General Family Medicine 03/13/18
--- OUTSIDE RECORDS SUMMARY | 2024-06-19 14:36 | XMS_ITS | Encounter Summary ---
Author Organization [employer] Address [address] [place] [address] 7t [place] [address] Care Team Providers Care Retail Business Manager Name Role Phone Charisma Stinson MD Primary Care Provider [phone] Encounter Details Date Type Department Care Team (Late Contact Info) Description 02/08/2023 Abstract [facility] ADULT DENTAL [address] [place], [place] [phone] Yordan Mcgowan DDS [address] [place], [place] [phone] Social History Tobacco Use Types Packs/Day Years [...] Description 07/11/2024 2:00 PM EDT Office Visit [facility] ADULT DENTAL [address] [place], [place] [phone] Be Arnold [address] [place], [place] [phone] documented as of this encounter Visit Diagnoses Not on filedocumented in this encounter Additional Health Concerns Assessment Noted Time PHQ-9 Depression Total Score: 2 03/24/19 23 9:26 AM EST documented as of this encounter Care Teams Retail Business Manager Relationship Specialty Start Date End Date Charisma Stinson MD [address] [place] [address] PCP - General Family Medicine 03/13/18 documented as of this encounter
--- OUTSIDE RECORDS SUMMARY | 2024-06-19 14:36 | XMS_ITS | Encounter Summary ---
Author Organization [employer] Address [address] [facility] [address] [place] [address] Care Team Providers Care Manager Statistical Name Role Phone Charisma Stinson MD Primary Care Provider [phone] Reason for Visit * Reason Onset Date Comments more medication 01/27/2023 Encounter Details Date Type Department Care Team ([facility] st Contact Info) Description 01/27/2023 Telephone [facility] [address] [place] [address] Yordan Mcgowan, DDS [address] [place] [address] more medication Social History Tobacco Use Types [...] Description 07/11/2024 2:00 PM EDT Office Visit [facility] [address] [place] [address] Clayton Be [address] [place] [address] documented as of this encounter Visit Diagnoses Not on filedocumented in this encounter Additional Health Concerns Assessment Noted Time PHQ-9 Depression Total Score: 2 03/24/19 23 9:26 AM EST documented as of this encounter Care Teams Manager Statistical Relationship Specialty Start Date End Date Charisma Stinson MD [address] [place] [address] PCP - General Family Medicine 03/13/18 documented as of this encounter
--- OUTSIDE RECORDS SUMMARY | 2024-06-19 14:36 | XMS_ITS | Encounter Summary ---
Author Organization [employer] Address [address] [facility] 7t [place] [address] Care Team Providers Care Casting Trucker Name Role Phone Charisma Stinson MD Primary Care Provider [phone] Reason for Visit * Reason Comments Filling Encounter Details Date Type Department Care Team ([facility] Contact Info) Description 06/18/2024 11:00 AM EDT Office Visit [facility] ADULT D[facility] [address] [place], [place] [phone] Be Arnold [address] [place] [address] Social History Tobacco Use Types Packs/Day Years [...] AM EDT documented as of this encounter Last Filed Vital Signs Vital Sign Reading Time Taken Comments Blood Pressure 128/74 06/18/2024 11:10 AM EDT Pulse - - Temperature - - Respiratory Rate - - Oxygen Saturation - - Inhaled Oxygen Concentration - - Weight - - Height - - Body Mass Index - - documented in this encounter Progress Notes * Be Arnold - 06/18/2024 11:00 AM EDT Dental procedures in this visit D2393 - RESIN-BASED COMPOSITE - 3 SURF, POSTERIOR 4 MOD (Completed) Service provider: Be Arnold [employer] provider: Aisha Escobar DDS [id number] - CASE PRESENTATION, DETAILED AND EXTENSIVE TREATMENT PLANNING (Completed) Service provider: Be Arnold [employer] provider: Aisha Escobar DDS Patient ID: Zoey Walsh is a 69 y.o. female. Time Out: Date: 06/18/2024 Location: [facility] Tooth: #4 Procedure: Restorationism Verified the above with patient, dental ceramist assistant, and provider. Confirmed via patient's chart, intraorally and by radiographs. Reducing Salon Attendant: not applicable Composite caodaism done on # [address] Be Arnold Risk, benefits, and alternatives discussed with the patient. CONSENT FORM INITIALED & SIGNED BY THE PATIENT AND COUNTERSIGNED BY Dr. Be Arnold Medical history: Reviewed in EHR Vitals: Blood pressure 128/74. Allergies: Reviewed in EHR Medications: Reviewed in EHR ASA 2 - LA: 20% topical benzocaine; Local infiltration with 1 carpule 4% septocaine/articaine 1:100,000 epinephrine - Existing caodaism and recurrent decay removed - Matrix band and wedge used as needed - Desensitizer: Gluma - Etching done using 37% phosphoric acid. - livestock agent applied. - Composite caodaism done using Filtek body/flowable composite, shade A2 - Anatomy and margins adjusted - Proximal contact confirmed with floss. - Occlusion checked with articulating paper - Necessary reductions made. - Restorationism smoothed and polished. - Post op instructions given Patient satisfied, left in stable condition Patient made aware possible post op sensitivity NV: Jacky Provider: Dr. Be Arnold Blintze Roller: Ashley Woo Supervising dentist: Dr. Escobar * Aisha Escobar DDS - 06/18/2024 11:00 AM EDT I have reviewed the documentation and dental procedures completed by the rendering provider, Be Arnold DDS, and approve their chart entries for this visit. KIMBERLY Jones DDS documented in this encounter Plan of Treatment Upcoming Encounters Date Type Department Care Team (Late st Contact Info) Description 07/11/2024 2:00 PM EDT Office Visit [facility] ADULT D[facility] [address] [place] [address] Be Arnold [address] [place] [address] documented as of this encounter Procedures Procedure Name Priority Date/Time Associated Diagnosis Comments 4 MOD RESIN-BASED COMPOSITE - 3 SURF, POSTERIOR Routine 06/18/2024 11:00 AM EDT CASE PRESENTATION, DETAILED AND EXTENSIVE TREATMENT PLANNING Routine 06/18/2024 11:00 AM EDT documented in this encounter Visit Diagnoses Not on filedocumented in this encounter Additional Health Concerns Assessment Noted Time PHQ-9 Depression Total Score: 2 03/24/19 23 9:26 AM EST documented as of this encounter Care Teams Casting Trucker Relationship Specialty Start Date End Date Charisma Stinson MD [address] [place] [address] PCP - General Family Medicine 03/13/18 documented as of this encounter
--- OUTSIDE RECORDS SUMMARY | 2024-06-19 14:37 | XMS_ITS | Encounter Summary ---
Author Organization [employer] Address [address] [place] [address] 7t [place] [address] Care Team Providers Care Lift Manager Name Role Phone Charisma Stinson MD Primary Care Provider [phone] Encounter Details Date Type Department Care Team (Latest Contact Info) Description 12/13/[address] [facility] CONVERSIONS Dental, Provider, DDS Social History Tobacco [...] Description 07/11/2024 2:00 PM EDT Office Visit [facility] ADULT [facility] [address] [place] [address] Be Arnold 505 [place] [address] documented as of this encounter Visit Diagnoses Not on filedocumented in this encounter Care Teams Lift Manager Relationship Specialty Start Date End Date Charisma Stinson MD 505 [place] [address] PCP - General Family Medicine 03/13/18 documented as of this encounter
--- OUTSIDE RECORDS SUMMARY | 2024-06-19 14:37 | XMS_ITS | Encounter Summary ---
Author Organization [employer] Address [address] [facility] 7 [place] [address] Care Team Providers Care Stoker Erector And Servicer Name Role Phone Charisma Stinson MD Primary Care Provider [phone] Reason for Visit * Reason Onset Date Comments Results 06/22/2023 Appointment Request 06/22/2023 Encounter Details Date Type Department Care Team ([facility] st Contact Info) Description 06/22/2023 Telephone [facility] MEDICINE [address] [place] [address] Charisma Stinson MD 505 [place] [address] Results; Appointment Request Social History Tobacco Use [...] provider. * Telephone Encounter - Jose Manuel Munguia - 06/23/2023 9:32 AM EDT Tc from [...] abdomen complete Date when done: 06/19 Facility: [facility] Please contact pt at [phone] documented in this encounter Plan of Treatment Upcoming Encounters Date Type Department Care Team (Late st Contact Info) Description 07/11/2024 2:00 PM EDT Office Visit [facility] ADULT DENTAL 505 [place] [address] Be Arnold 505 [place] [address] documented as of this encounter Visit Diagnoses Not on filedocumented in this encounter Additional Health Concerns Assessment Noted Time PHQ-9 Depression Total Score: 2 03/24/19 23 9:26 AM EST documented as of this encounter Care Teams Stoker Erector And Servicer Relationship Specialty Start Date End Date Charisma Stinson MD [address] [place] [address] PCP - General Family Medicine 03/13/18 documented as of this encounter
--- OUTSIDE RECORDS SUMMARY | 2024-06-19 14:37 | XMS_ITS | Encounter Summary ---
Author Organization [employer] Address [address] [place] [address] 7t [place] [address] Care Team Providers Care Finish Photographer Name Role Phone Charisma Stinson MD Primary Care Provider [phone] Encounter Details Date Type Department Care Team (Late Contact Info) Description 02/20/2023 Abstract [facility] ADULT DENTAL 505 [place], [place] [phone] Yordan Mcgowan DDS 230 [place] [address] Social History Tobacco Use Types Packs/Day Years [...] Description 07/11/2024 2:00 PM EDT Office Visit [facility] ADULT DENTAL 505 [place], [place] [phone] Be Arnold 505 [place], [place] [phone] documented as of this encounter Visit Diagnoses Not on filedocumented in this encounter Additional Health Concerns Assessment Noted Time PHQ-9 Depression Total Score: 2 03/24/19 23 9:26 AM EST documented as of this encounter Care Teams Finish Photographer Relationship Specialty Start Date End Date Charisma Stinson MD 505 [place] [address] PCP - General Family Medicine 03/13/18 documented as of this encounter
--- OUTSIDE RECORDS SUMMARY | 2024-06-19 14:37 | XMS_ITS | Encounter Summary ---
Author Organization [employer] Address [address] [place] [address] 7t [place] [address] Care Team Providers Care Scrap Burner Name Role Phone Charisma Stinson MD Primary Care Provider [phone] Encounter Details Date Type Department Care Team (Latest Contact Info) Description 03/19/2020 Abstract [facility] CONVERSIONS Dental, Provider, DDS Social History Tobacco [...] Visit [facility] ADULT DENTAL 505 [place] [address] Be Arnold 505 [place] [address] documented as of this encounter Visit Diagnoses Not on filedocumented in this encounter Care Teams Scrap Burner Relationship Specialty Start Date End Date Charisma Stinson MD 505 [place] [address] PCP - General Family Medicine 03/13/18 documented as of this encounter
--- OUTSIDE RECORDS SUMMARY | 2024-06-19 14:37 | XMS_ITS | Encounter Summary ---
Author Organization [employer] Address [address] [facility] 7t [place] [address] Care Team Providers Care Watch Guard Gate Name Role Phone Charisma Stinson MD Primary Care Provider [phone] Encounter Details Date Type Department Care Team (Late Contact Info) Description 01/16/2023 Abstract [facility] MEDICINE 230 [place], [place] [phone] Charisma Stinson MD 505 [place], [place] [phone] Social History Tobacco Use Types Packs/Day Years [...] Description 07/11/2024 2:00 PM EDT Office Visit [facility] ADULT DENTAL 505 [place], [place] [phone] Be Arnold 505 [place], [place] [phone] documented as of this encounter Visit Diagnoses Not on filedocumented in this encounter Additional Health Concerns Assessment Noted Time PHQ-9 Depression Total Score: 2 03/24/19 23 9:26 AM EST documented as of this encounter Care Teams Watch Guard Gate Relationship Specialty Start Date End Date Charisma Stinson MD 505 [place] [address] PCP - General Family Medicine 03/13/18 documented as of this encounter
--- OUTSIDE RECORDS SUMMARY | 2024-06-19 14:37 | XMS_ITS | Encounter Summary ---
Author Organization [employer] Address [address] [place] [address] 7t [place] [address] Care Team Providers Care Contact Lens Manufacturer Name Role Phone Charisma Stinson MD Primary Care Provider [phone] Encounter Details Date Type Department Care Team (Latest Contact Info) Description 04/18/2018 Abstract [place] CONVERSIONS Dental, Provider, DDS Social History Tobacco [...] 2:00 PM EDT Office Visit [facility] ADULT DENTAL 505 [place] [address] Be Arnold 505 [place] [address] documented as of this encounter Visit Diagnoses Not on filedocumented in this encounter Care Teams Contact Lens Manufacturer Relationship Specialty Start Date End Date Charisma Stinson MD 505 [place] [address] PCP - General Family Medicine 03/13/18 documented as of this encounter
== END 2024-06-19 13:25 | disposition home or self-care (01) ==
LOC: HO.HGI 12:39
PROVIDERS: PCP Pediatrics; Visit Provider Nurse Practitioner Family
DX: K44.9 Diaphragmatic hernia without obstruction or gangrene (principal); D12.6 Benign neoplasm of colon, unspecified; K57.31 Diverticulosis of large intestine without perforation or abscess with bleeding; K58.2 Mixed irritable bowel syndrome; K59.01 Slow transit constipation; R10.13 Epigastric pain; K21.00 Gastro-esophageal reflux disease with esophagitis, without bleeding; K76.0 Fatty (change of) liver, not elsewhere classified
CPT/HCPCS: 99214; G2211

== ENCOUNTER → 2024-06-19 12:39 | Outpatient (BNVA) | payer MEDICARE, MEDICAID, SELFPAY | PROVIDERS: PCP Pediatrics; Visit Provider Nurse Practitioner Family | DX: K58.2 Mixed irritable bowel syndrome (principal); K57.31 Diverticulosis of large intestine without perforation or abscess with bleeding; K21.00 Gastro-esophageal reflux disease with esophagitis, without bleeding; K59.01 Slow transit constipation; K44.9 Diaphragmatic hernia without obstruction or gangrene; K76.0 Fatty (change of) liver, not elsewhere classified; R10.13 Epigastric pain; D12.6 Benign neoplasm of colon, unspecified | CPT/HCPCS: 99212 ==

== ENCOUNTER 2024-07-15 10:16 | Outpatient (AMB) | payer MEDICARE, MEDICAID, SELFPAY ==
--- NOTE | 2024-07-15 10:43 | A.OFFVIS_ITS ---
VS Expanded 07/15/24 10:47 07/15/24 10:50 Height 5 ft 2 in 5 ft 2 in Weight 121 lb 0.54 oz 121 lb BMI 22.1 22.1 Intake Visit Reasons: Abnormal weight gain Allergies shellfish derived Adverse Reaction (Intermediate, Verified 06/19/24 12:58) Nausea and Vomiting Nutrition Presentation Details: Pt presents for MNT for weight gain Pt reports having lost weight due to omitting foods reducing/cutting out a lot of high fat foods d/t concerns of fatty liver, reaching 104 lbs. She is gradually regaining weight but finds herself eating everything. food frequency fried foods 2-3x/wk fruit 0-1/d fish 2x/wk dairy: 3+ starches> 15 vegetables :2 x/wk eating out 1-2 x/wk beverages: water, low sugar beverages PA: ADL, planning to start exercise routine etoh: occ smoking--- BS Monitoring Most Recent Diabetes Results: Cholesterol 167 mg/dL (<200) 10/30/23 HDL Cholesterol 58 mg/dL (>40) 10/30/23 Triglycerides 147 mg/dL (<150) 10/30/23 AST 20 U/L (5-31) 10/30/23 ALT 19 U/L (0-31) 10/30/23 Total Protein 6.4 g/dL (6.5-8.0) L 10/30/23 Albumin 4.0 g/dL (3.5-5.0) 10/30/23 HGP-[id number]-Id.Jeor Equation Height: 5 ft 2 in Weight: 121 lb Resting Metabolic Rate: 1041.91 Calculated Activity Level: Mild Activity Calories Needed to Maintain Weight: 1432.63 Diagnosis Nutrition problem #1: other COUNTS INCLUDE 234 BEDS AT [facility] Medical History Diverticulosis large intestine w/o perforation or abscess w/bleeding Tubular adenoma of colon Hiatal hernia Surgical History H/O colonoscopy Family History Mother Lung cancer Father Diabetes Social History Household Members: None Housing: Condominium Alcohol intake: current Alcohol intake frequency: holidays/special occasions only Patient Tobacco Use Status: Former Tobacco user Substance Use Type: Marijuana Assessment & Plan Assessment & Plan (1) Weight gain: Code(s): R63.5 - Abnormal weight gain Category: Medical Plan: Nutr Dx: Increased intake of high fat foods as per food recall leading to Increased weight gain. Pt to work on having a variety of foods low in fat. Wt: 55Kg ( 08/04 ) Est kcal needs as per MSJ: 4857-0664 (40% carb, 30% protein/fat) Est fluid needs as per 25-30 ml/d: 1700 Est prot per day as per 1 g/kg bw: 55-60 Recommend fiber intake : 8-10 g per day and gradually increase to 25-28 g per day for women and 35-38 g for men or as tolerated Recommend sodium intake per day : less than 2000 mg Educated patient on: ( R = reviewed V = verbalizes understanding N/R = needs review N/A = not applicable * Food sources of carbohydrate, adequate serving sizes and its role in various health conditions: R V N/R * Differences between complex carbohydrates a simple carbohydrates, role of fiber in diet: R V N/R * Lean protein sources of foods: R V NR * Differences between types of fats and role in diet (mono on saturated fat fatty acids, saturated fatty acids, trans fats): R * Food sources of sodium in salt and healthy modifications for heart health in kidney health: R V R/V * Vitamins and minerals: R V N/R * Healthy plate method concept: R * Physical activity: Benefits a precaution: R * Patient Instructions: see [id number] kimberley meal plan choose low fat food options Coding Level of Care Code Nutr Indiv Intake (78039) Diagnoses Weight gain R63.5 Time Spent (min) 30
[2024-07-15 10:47] VITALS: BMI 22.1
[2024-07-15 10:50] VITALS: BMI 22.1
--- OUTSIDE RECORDS SUMMARY | 2024-07-15 11:34 | XMS_ITS | Encounter Summary ---
Author Organization [employer] Address [address] [facility] 7t [place] [address] Care Team Providers Care Boilermaker Fitter Name Role Phone Charisma Stinson MD Primary Care Provider [phone] Reason for Visit * Reason Comments Filling Encounter Details Date Type Department Care Team ([facility] Contact Info) Description 07/11/2024 2:00 PM EDT Office Visit [facility] ADULT D[facility]AL 505 [place], [place] [phone] Be Arnold 505 [place] [address] Social History Tobacco Use Types Packs/Day Years Used Date Smoking Tobacco: Never Passive Smoke Exposure: Never Smokeless Tobacco: Never Alcohol Use Standard Drinks/Week Comments Yes 1 (1 standard drink = 0.6 oz pur e alcohol) Depression Answer Date Recorded Patient Health Questionnaire-9 Score 2 03/24/2022 Housing Stability Answer Date Recorded What is your housing situation today? I have vianca ereves 10/19/[address] you li [...] Sign Reading Time Taken Comments Blood Pressure 119/74 07/11/2024 2:07 PM EDT Pulse - - Temperature - - Respiratory Rate - - Oxygen Saturation - - Inhaled Oxygen Concentration - - Weight - - Height - - Body Mass Index - - documented in this encounter Progress Notes * Be Arnold - 07/11/2024 2:00 PM EDT Dental procedures in this visit [id number] - RESIN-BASED COMPOSITE - 3 SURF, POSTERIOR 5 MOD (Completed) Service provider: Be Arnold Billing provider: Yordan Mcgowan DDS Patient ID: Zoey Walsh is a 69 y.o. female. Time Out: Date: 07/11/2024 Location: [facility] Tooth: #5 Procedure: Sikhism Verified the above with patient, assistant refinery operator, and provider. Confirmed via patient's chart, intraorally and by radiographs. Supervisor Electronics Inspection: not applicable Composite muslim done on # [address] Be Arnold Risk, benefits, and alternatives discussed with the patient. CONSENT FORM INITIALED & SIGNED BY THE PATIENT AND COUNTERSIGNED BY Dr. Be Arnold Medical history: Reviewed in EHR Vitals: Blood pressure 119/74. Allergies: Reviewed in EHR Medications: Reviewed in EHR ASA 1 - No local anesthetics used - Existing muslim and recurrent decay removed - Matrix band and wedge used as needed - Desensitizer: Gluma - Base: LimeLite - Etching done using 37% phosphoric acid. - revenue enforcement collection agent applied. - Composite muslim done using Filtek body/flowable composite, shade A2 - Anatomy and margins adjusted - Proximal contact confirmed with floss. - Occlusion checked with articulating paper - Necessary reductions made. - Sikhism smoothed and polished. - Post op instructions given Patient satisfied, left in stable condition Patient made aware possible post op sensitivity NV: Jacky Provider: Dr. Be Arnold Power Tong Operator: Ashley Woo Supervising dentist: Dr. Mcgowan * Yordan Mcgowan DDS - 07/11/2024 2:00 PM EDT Reviewed and signed. documented in this encounter Plan of Treatment Upcoming Encounters Date Type Department Care Team (Late st Contact Info) Description 08/06/2024 10:00 AM EDT Office Visit [facility] ADULT D[facility]AL [address] [place] [address] Be Arnold 505 [place] [address] documented as of this encounter Procedures Procedure Name Priority Date/Time Associated Diagnosis Comments 5 MOD RESIN-BASED COMPOSITE - 3 SURF, POSTERIOR Routine 07/11/2024 2:00 PM EDT documented in this encounter Visit Diagnoses Not on filedocumented in this encounter Additional Health Concerns Assessment Noted Time PHQ-9 Depression Total Score: 2 03/24/19 23 9:26 AM EST documented as of this encounter Care Teams Boilermaker Fitter Relationship Specialty Start Date End Date Charisma Stinson MD 505 [place] [address] PCP - General Family Medicine 03/13/18 documented as of this encounter
--- OUTSIDE RECORDS SUMMARY | 2024-07-15 11:34 | XMS_ITS | Encounter Summary ---
Author Organization [employer] Address [address] [facility] 7 [place] [address] Care Team Providers Care Siding Applicator Name Role Phone Charisma Stinson MD Primary Care Provider [phone] Reason for Visit * Reason Onset Date Comments Triage 08/05/2022 Encounter Details Date Type Department Care Team ([facility] Contact Info) Description 08/05/2022 Telephone [facility] [address] [place], [place] [phone] Charisma Stinson MD 505 [place] [address] Triage Social History Tobacco Use Types Packs/Day [...] accepted this outcome Please contact pt at [phone] documented in this encounter Plan of Treatment Upcoming Encounters Date Type Department Care Team ([facility] st Contact Info) Description 08/06/2024 10:00 AM EDT Office Visit [facility] ADULT DENTAL 505 [place] [address] Be Arnold 505 [place] [address] documented as of this encounter Visit Diagnoses Not on filedocumented in this encounter Additional Health Concerns Assessment Noted Time PHQ-9 Depression Total Score: 2 03/24/19 23 9:26 AM EST documented as of this encounter Care Teams Siding Applicator Relationship Specialty Start Date End Date Charisma Stinson MD 505 [place] [address] PCP - General Family Medicine 03/13/18 documented as of this encounter
--- OUTSIDE RECORDS SUMMARY | 2024-07-15 11:34 | XMS_ITS | Encounter Summary ---
Author Organization [email or web address] Address [address] [facility] [facility] [address] 7t [place] [address] Care Team Providers Care Manager Machine Name Role Phone Charisma Stinson MD Primary Care Provider [phone] Reason for Visit * Reason Onset Date Comments more medication 01/27/2023 Encounter Details Date Type Department Care Team ([facility] st Contact Info) Description 01/27/2023 Telephone [facility] ADULT DENTAL [address] [place] [address] Yordan Mcgowan, DDS [address] [place] [address] more medication Social History Tobacco Use Types [...] Miscellaneous Notes * Telephone Encounter - Neha Thomas - 01/27/2023 8:49 AM EST Patient came [...] Description 08/06/2024 10:00 AM EDT Office Visit [facility] ADULT DENTAL [address] [place] [address] Clayton Be 505 [place] [address] documented as of this encounter Visit Diagnoses Not on filedocumented in this encounter Additional Health Concerns Assessment Noted Time PHQ-9 Depression Total Score: 2 03/24/19 23 9:26 AM EST documented as of this encounter Care Teams Manager Machine Relationship Specialty Start Date End Date Charisma Stinson MD 505 [place] [address] PCP - General Family Medicine 03/13/18 documented as of this encounter
--- OUTSIDE RECORDS SUMMARY | 2024-07-15 11:34 | XMS_ITS | Encounter Summary ---
Author Organization [employer] Address [address] [place] [address] 7t [place] [address] Care Team Providers Care Sheet Fed Printer Name Role Phone Charisma Stinson MD Primary Care Provider [phone] Encounter Details Date Type Department Care Team (Late Contact Info) Description 02/20/2023 Abstract [facility] ADULT DENT[facility] 505 [place], [place] [phone] Yordan Mcgowan DDS 230 [place] [address] Social History Tobacco Use Types Packs/Day Years [...] Department Care Team (Late Contact Info) Description 08/06/2024 10:00 AM EDT Office Visit [facility] ADULT DENTAL 505 [place], [place] [phone] Be Arnold 505 [place], [place] [phone] documented as of this encounter Visit Diagnoses Not on filedocumented in this encounter Additional Health Concerns Assessment Noted Time PHQ-9 Depression Total Score: 2 03/24/19 23 9:26 AM EST documented as of this encounter Care Teams Sheet Fed Printer Relationship Specialty Start Date End Date Charisma Stinson MD 505 [place] [address] PCP - General Family Medicine 03/13/18 documented as of this encounter
--- OUTSIDE RECORDS SUMMARY | 2024-07-15 11:34 | XMS_ITS | Encounter Summary ---
Author Organization [employer] Address [address] [place] [address] 7t [place] [address] Care Team Providers Care Paper Cutter Operator Name Role Phone Charisma Stinson MD Primary Care Provider [phone] Encounter Details Date Type Department Care Team (Latest Contact Info) Description 04/18/2018 Abstract [facility] CONVERSIONS Dental, Provider, DDS Social History [...] Description 08/06/2024 10:00 AM EDT Office Visit [facility] ADULT DENTAL 505 [place] [address] Bryon Arnoldio 505 [place] [address] documented as of this encounter Visit Diagnoses Not on filedocumented in this encounter Care Teams Paper Cutter Operator Relationship Specialty Start Date End Date Charisma Stinson MD 505 [place] [address] PCP - General Family Medicine 03/13/18 documented as of this encounter
--- OUTSIDE RECORDS SUMMARY | 2024-07-15 11:34 | XMS_ITS | Encounter Summary ---
Author Organization [employer] Address [address] [place] [address] 7t [place] [address] Care Team Providers Care Farmworker Brooder Farm Name Role Phone Charisma Stinson MD Primary Care Provider [phone] Encounter Details Date Type Department Care Team (Late Contact Info) Description 02/08/2023 Abstract [facility] ADULT DENTAL 505 [place], [place] [phone] Yordan Mcgowan DDS 230 [place] [address] Social History Tobacco Use Types Packs/Day Years [...] Description 08/06/2024 10:00 AM EDT Office Visit [facility] ADULT DENTAL [address] [place], [place] [phone] Be Arnold 505 [place], [place] [phone] documented as of this encounter Visit Diagnoses Not on filedocumented in this encounter Additional Health Concerns Assessment Noted Time PHQ-9 Depression Total Score: 2 03/24/19 23 9:26 AM EST documented as of this encounter Care Teams Farmworker Brooder Farm Relationship Specialty Start Date End Date Charisma Stinson MD [address] [place] [address] PCP - General Family Medicine 03/13/18 documented as of this encounter
--- OUTSIDE RECORDS SUMMARY | 2024-07-15 11:34 | XMS_ITS | Encounter Summary ---
Author Organization [employer] Address [address] [facility] 7t [place] [address] Care Team Providers Care Train Driver Name Role Phone Charisma Stinson MD Primary Care Provider [phone] Encounter Details Date Type Department Care Team (Late Contact Info) Description 01/16/2023 Abstract [facility] MEDICINE [address] [place], [place] [phone] Charisma Stinson MD 505 [place], [place] [phone] Social History Tobacco Use Types Packs/Day Years [...] Description 08/06/2024 10:00 AM EDT Office Visit [facility] ADULT DENTAL 505 [place], [place] [phone] Be Arnold 505 [place], [place] [phone] documented as of this encounter Visit Diagnoses Not on filedocumented in this encounter Additional Health Concerns Assessment Noted Time PHQ-9 Depression Total Score: 2 03/24/19 23 9:26 AM EST documented as of this encounter Care Teams Train Driver Relationship Specialty Start Date End Date Charisma Stinson MD [address] [place] [address] PCP - General Family Medicine 03/13/18 documented as of this encounter
--- OUTSIDE RECORDS SUMMARY | 2024-07-15 11:34 | XMS_ITS | Encounter Summary ---
Author Organization [employer] Address [address] [place] [address] 7t [place] [address] Care Team Providers Care Work Distributor Name Role Phone Charisma Stinson MD Primary Care Provider [phone] Encounter Details Date Type Department Care Team (Late Contact Info) Description 01/13/2023 Abstract [facility] ADULT DENTAL [address] [place], [place] [phone] Yordan Mcgowan DDS 230 [place], [place] [phone] Social History Tobacco Use Types Packs/Day Years [...] Visit [facility] ADULT DENTAL [address] [place], [place] [phone] Be Arnold 505 [place], [place] [phone] documented as of this encounter Visit Diagnoses Not on filedocumented in this encounter Additional Health Concerns Assessment Noted Time PHQ-9 Depression Total Score: 2 03/24/19 23 9:26 AM EST documented as of this encounter Care Teams Work Distributor Relationship Specialty Start Date End Date Charisma Stinson MD 505 [place] [address] PCP - General Family Medicine 03/13/18 documented as of this encounter
--- OUTSIDE RECORDS SUMMARY | 2024-07-15 11:34 | XMS_ITS | Clinical Summary ---
Author Organization [employer] Address [address] [facility] 7t [place] [address] Care Team Providers Care Can Worker Name Role Phone Charisma Stinson MD Primary Care Provider [phone] Allergies Active Allergy Reactions Criticality Noted Date [...] AT BEDTIME 60 tablet 5 025 Active famotidine (Pepcid) 20 MG tabletIndications [...] Encounters Date Type Department Care Team Description 07/13/2024 Refill [facility] MED & PEDS [address] [place] [address] Charisma Stinson MD 07/11/2024 2:00 PM EDT Office Visit [facility] ADULT DENTAL [address] [place] [address] Be Arnold 06/18/2024 11:00 AM EDT Office Visit [facility] ADULT DENTAL [address] [place] [address] Be Arnold 06/17/2024 Refill [facility] MED & PEDS [address] [place] [address] Charisma Stinson MD Gastroesophageal reflux disease without esophagitis 06/11/2024 Travel 05/27/2024 11:00 AM EDT Office Visit [facility] ADULT DENTAL [address] [place] [address] Be Arnold Dental calculus (Primary Dx) 05/23/2024 Refill [facility] MED [facility] PEDS [address] [place] [address] Charisma Stinson MD Moderate persistent asthma, unspecified whether complicated 05/21/2024 Telephone [facility]EDS [address], [place] [phone] Charisma Stinson MD 05/10/2024 Refill [facility] [address], [place] [phone] Charisma Stinson MD Age-related osteoporosis without current pathological fracture 05/03/2024 Orders Only [facility] External Provider, [facility] 04/18/2024 Patient Outreach [facility] MEDICINE [address] [place], [place] [phone] Charisma Stinson MD Pre-visit Planning (Pre visit [...] Pressure 119/74 07/11/2024 2:07 PM EDT Pulse 65 05/27/2024 11:34 AM EDT [...] Description 08/06/2024 10:00 AM EDT Office Visit [facility] ADULT DENTAL [address] [place] [address] Be Arnold [address] [place] [address] Health Maintenance Due Date Last Done Comments [...] 11/09/2023, 07/06/2023, Additional history exists Tobacco Screening 07/11/2025 07/11/2024 Mammogram 11/21/2025 11/22/2023, 09/0 08/2022, 11/10/2021, Additional history exists Dental X-Ray: [...] this topic Meningococcal Vaccine Aged Out No ognzalo arturo eligible based on patient's age to [...] SURF, POSTERIOR Routine 07/11/2024 2:00 PM EDT CASE PRESENTATION, DETAILED AND EXTENSIVE TREATMENT [...] EST Narrative 05/03/2024 3:19 PM EST ? [facility] [place] [facility] ?[address] ?[place] [address] ? Fluoroscopy Report ? Signed ? Patient: Barsalou,Zoey J ?MR#: [id number] ?? 656 ? : 1955 ?Acct:[id number] ? Age/Sex: 69 / F ?ADM Date: 05/03/24 ? Loc: HO.XRAY ? Attending Dr: Jessica GODWIN ? Ordering Physician: Jessica Patel ?? Date of Service: 05/03/24 ?? Procedure(s): FL upper GI w air w Ba Swallow ?? Accession Number(s): [id number] ? cc: Charisma Stinson MD; Jessica Patel [...] Gatica MD ??05/03/2024 03:16 PM EST RP ?? Workstation: [id number] ? Dictated By: ?Dominguez Blankenship ? Signed By: ?<Electronically signed by Dominguez Blankenship in OV> ? 05/03/24 1516 ?<Electronically signed by Antonio Gatica MD in OV> ? 05/03/24 1518 ? DD/ 0845 ? TD/TT: 05/03/24 0856 ? Computer Hardware Designer: ? Procedure Note Niko Cage - 05/03/[address] [address] Fluoroscopy Report Signed Patient: Zoey Walsh JMR#: [id number] 656 : 8Acct:[id number] Age/Sex: 69 / FADM Date: 05/03/24 Loc: G[facility] Attending Dr: Jessica SCHMITT-NASIR Ordering Physician: Jessica Patel Date of Service: 05/03/24 Procedure(s): FL upper GI w air w Ba Swallow Accession Number(s): [id number] cc: Charisma Stinson MD; Jessica Patel [facility] EXAMINATION: XR FLUOROSCOPY UPPER GI WITH AIR [...] Antonio Gatica MD 05/03/2024 03:16 PM EST Dictated By: Dominguez Blankenship Signed By: <Electronically signed by Dominguez Blankenship in OV> 05/03/24 1516 <Electronically signed by Antonio Gatica MD in OV> 05/03/24 1518 DD/ 0845 TD/TT: 05/03/24 0856 Computer Hardware Designer: [facility] External Provider IMG FLU OROSCOPY PROCEDURES Final Result * BI Mammogram Screening Tomosynthesis Bilateral (11/22/2023 11:30 AM EDT) Anatomical Region Laterality Modality Breast Bilateral Mammography 11/22/2023 11:3 0 AM EDT Narrative 12/06/2023 10:24 AM EDT ? [facility] [place] ? [address] ?[place] [address] ? Mammography Report ? Signed ? Patient: Zoey Walsh ?MR#: [id number] ?? 656 ? : 1955 ?Acct:[id number] ? Age/Sex: 68 / F ?ADM Date: 11/21/ ? Loc: HO.MAMMO ? Attending Dr: Charisma Stinson MD ? Ordering Physician: Charisma Stinson MD ?Results: 2Be ?? nign Findings ? Date of Service: 11/22/23 ?Follow Up: 1 Year From Orig ?? inal Mammogram ? Procedure(s): MM tomosynthesis screening BI ?? Accession Number(s): [id number] ? cc: Charisma Stinson MD ? EXAMINATION: [...] DD/ 1130 ? TD/TT: 11/22/23 1144 ? Computer Hardware Designer: ? Procedure Note Fauzia, Image - 12/06/2023 [facility] [address] [place] [place] [address] Mammography Report Signed Patient: Zoey Walsh JMR#: [id number] 656 : 8Acct:[id number] Age/Sex: 68 / FADM Date: 11/22/23 Loc: HO.MAMMO Attending Dr: Charisma Stinson MD Ordering Physician: Charisma Stinson MDResults: 2Be nign Findings Date of Service: 11/22/23Follow Up: 1 Year From Orig inal Mammogram Procedure(s): MM tomosynthesis screening BI Accession Number(s): [id number] cc: Charisma Stinson MD EXAMINATION: MM SCREENING [...] 12/06/23 1021 DD/ 1130 TD/TT: 11/22/23 1144 Computer Hardware Designer: us Charisma Stinson MD IMG BI PROCEDURES [...] historic and ?? current clinical information. ?? Reformatory Attendant : [facility] Comment: KN, CT(ASCP) CT screening location: [address] ??[address] Interpretation/R esult: Negative for intraepithelial lesion or malignancy. [facility] LMP: NONE GIVEN [facility] Prev. BX: NONE [facility]IVEN [facility] Prev. PAP: NONE [facility]IVEN [facility] SOURCE: None given [facility] Statement Of Adequacy: [facility] Comment: Satisfactory for evaluation. Endocervical/transformation zone component present. 06/30/2020 11:1 9 AM EDT us Liliana Zuñiga MD LAB PATHOLOGY ORDERABLES Final R esult [facility] [address] from Last 3 Months or Most Recently Relevant to Health Maintenance Insurance Member Subscriber Plan / Payer (Ef fective 2024-Present) Name:Zoey Walsh Relation to Subscriber:Self Name:Zoey Walsh Payer ID:Not on file Type:Not on file Address: [address] [place] [address], [address] [place] [address] DENTAL - HSN FULL (MEDICAID) Care Teams Can Worker Relationship Specialty Start Date End Date Charisma Stinson MD [address] [place] [address] PCP - General Family Medicine 03/13/18
--- OUTSIDE RECORDS SUMMARY | 2024-07-15 11:34 | XMS_ITS | Encounter Summary ---
Author Organization [employer] Address [address] [facility] 7t [place] [address] Care Team Providers Care Sheet Metal Erector Name Role Phone Charisma Stinson MD Primary Care Provider [phone] Reason for Visit * Reason Comments Med Refill Encounter Details Date Type Department Care Team ([facility] Contact Info) Description 07/13/2024 Refill [facility] MED & PEDS [address] [place], [place] [phone] Charisma Stinson MD [address] [place] [address] Social History Tobacco Use Types Packs/Day Years [...] 10:00 AM EDT Office Visit [facility] [address] [place] [address] Be Arnold [address] [place] [address] documented as of this encounter Visit Diagnoses Not on filedocumented in this encounter Additional Health Concerns Assessment Noted Time PHQ-9 Depression Total Score: 2 03/24/19 23 9:26 AM EST documented as of this encounter Care Teams Sheet Metal Erector Relationship Specialty Start Date End Date Charisma Stinson MD [address] [place] [address] PCP - General Family Medicine 03/13/18 documented as of this encounter
--- OUTSIDE RECORDS SUMMARY | 2024-07-15 11:35 | XMS_ITS | Encounter Summary ---
Author Organization [employer] Address [address] [facility] [address] [place] [address] Care Team Providers Care Material Flow Engineer Name Role Phone Charisma Stinson MD Primary Care Provider [phone] Encounter Details Date Type Department Care Team (Latest Contact Info) Description 03/19/2020 Abstract [facility] CONVERSIONS Dental, Provider, DDS Social History [...] [facility] [address] [place] [address] Be Arnold [address] [place] [address] documented as of this encounter Visit Diagnoses Not on filedocumented in this encounter Care Teams Material Flow Engineer Relationship Specialty Start Date End Date Charisma Stinson MD [address] [place] [address] PCP - General Family Medicine 03/13/18 documented as of this encounter
--- OUTSIDE RECORDS SUMMARY | 2024-07-15 11:35 | XMS_ITS | Encounter Summary ---
Author Organization [employer] Address [address] [facility] 7 [place] [address] Care Team Providers Care English Tutor Name Role Phone Charisma Stinson MD Primary Care Provider Reason for Visit * Reason Onset Date Comments Results 06/22/2023 Appointment Request 06/22/2023 Encounter Details Date Type Department Care Team ([facility] st Contact Info) Description 06/22/2023 Telephone [facility] MEDICINE [address] [place] [address] Charisma Stinson MD [address] [place] [address] Results; Appointment Request Social History Tobacco Use [...] abdomen complete Date when done: 06/19 Facility: [facility] Please contact pt at [phone] documented in this encounter Plan of Treatment Upcoming Encounters Date Type Department Care Team (Late st Contact Info) Description 08/06/2024 10:00 AM EDT Office Visit [facility] ADULT DENTAL [address] [place], [place] [phone] Be Arnold [address] [place] [address] documented as of this encounter Visit Diagnoses Not on filedocumented in this encounter Additional Health Concerns Assessment Noted Time PHQ-9 Depression Total Score: 2 03/24/19 23 9:26 AM EST documented as of this encounter Care Teams English Tutor Relationship Specialty Start Date End Date Charisma Stinson MD [address] [place] [address] PCP - General Family Medicine 03/13/18 documented as of this encounter
--- OUTSIDE RECORDS SUMMARY | 2024-07-15 11:35 | XMS_ITS | Encounter Summary ---
Author Organization [employer] Address [address] [facility] 7t [place] [address] Care Team Providers Care Chute Loader Name Role Phone Charisma Stinson MD Primary Care Provider [phone] Encounter Details Date Type Department Care Team (Latest Contact Info) Description 12/13/2021 Abstract [facility] CONVERSIONS Dental, Provider, DDS Social History [...] 08/06/2024 10:00 AM EDT Office Visit [facility] AD[facility] [address] [place] [address] Bryon Arnoldio [address] [place] [address] documented as of this encounter Visit Diagnoses Not on filedocumented in this encounter Care Teams Chute Loader Relationship Specialty Start Date End Date Charisma Stinson MD [address] [place] [address] PCP - General Family Medicine 03/13/18 documented as of this encounter
== END 2024-07-15 11:24 | disposition home or self-care (01) ==
LOC: HO.ENCR 10:17
PROVIDERS: PCP Pediatrics; Visit Provider Dietitian, Registered
DX: R63.5 Abnormal weight gain (principal)

== ENCOUNTER → 2024-07-15 10:16 | Outpatient (BNVA) | payer MEDICARE, MEDICAID, SELFPAY | PROVIDERS: PCP Pediatrics; Visit Provider Dietitian, Registered | DX: R63.5 Abnormal weight gain (principal); Z71.3 Dietary counseling and surveillance | CPT/HCPCS: 97802 ==

== ENCOUNTER 2024-08-26 10:38 | Outpatient (AMB) | payer MEDICARE, MEDICAID, SELFPAY ==
[2024-08-26 11:15] VITALS: BMI 21.9
--- NOTE | 2024-08-26 11:15 | A.OFFVIS_ITS ---
VS Expanded 08/26/24 11:15 Height 5 ft 2 in Weight 119 lb 14.903 oz BMI 21.9 Intake Visit Reasons: unintentional weight gain Allergies shellfish derived Adverse Reaction (Intermediate, Verified 06/19/24 12:58) Nausea and Vomiting Nutrition Presentation Details: Pt presents for MNT f/u for weight gain Pt reports doing well, working on balancing meals following meal plan provided at last visit Pt has questions regarding sodium PFSH Medical History Diverticulosis large intestine w/o perforation or abscess w/bleeding Tubular adenoma of colon Hiatal hernia Surgical History H/O colonoscopy Family History Mother Lung cancer Father Diabetes Social History Household Members: None Housing: Condominium Alcohol intake: current Alcohol intake frequency: holidays/special occasions only Patient Tobacco Use Status: Former Tobacco user Substance Use Type: Marijuana Assessment & Plan Assessment & Plan (1) Weight gain: Code(s): R63.5 - Abnormal weight gain Category: Medical Plan: Nutr Dx: Increased intake of high fat foods as per food recall leading to Increased weight gain. Pt to work on having a variety of foods low in fat. Pt verbalizes doing well, maintaining wt at 118-121 lbs Wt: 55Kg ( 08/04 ), 54.5 kg (09/04) Est kcal needs as per MSJ: 8580-9544 (40% carb, 30% protein/fat) Est fluid needs as per 25-30 ml/d: 1700 Est prot per day as per 1 g/kg bw: 55-60 Recommend fiber intake : 8-10 g per day and gradually increase to 25-28 g per day for women and 35-38 g for men or as tolerated Recommend sodium intake per day : less than 2000 mg Educated patient on: ( R = reviewed V = verbalizes understanding N/R = needs review N/A = not applicable * Food sources of carbohydrate, adequate serving sizes and its role in various health conditions: R V N/R * Differences between complex carbohydrates a simple carbohydrates, role of fiber in diet: R V N/R * Lean protein sources of foods: R V NR * Differences between types of fats and role in diet (mono on saturated fat fatty acids, saturated fatty acids, trans fats): R * Food sources of sodium in salt and healthy modifications for heart health in kidney health: R * Vitamins and minerals: R V N/R * Healthy plate method concept: R * Physical activity: Benefits a precaution: R * Patient Instructions: Caution with salt /sodium intake - if choosing frozen meals choose those with less than 600 mg or AHA stamp approved) Choose low sodium snack choices (dry cereal vs chip, carrots, celery with low fat cream cheese, fruits , yogurt , unsalted nuts Coding Level of Care Code Nutr Indiv Subseq (85102) Diagnoses Weight gain R63.5 Time Spent (min) 25
--- OUTSIDE RECORDS SUMMARY | 2024-08-26 11:58 | XMS_ITS | Clinical Summary ---
Author Organization [employer] Address [address] [place] [address] 7t [place] [address] Care Team Providers Care Supervisor Esters And Emulsifiers Name Role Phone Charisma Stinson MD Primary Care Provider [phone] Allergies Active Allergy Reactions Criticality Noted Date [...] 600 mg by mouth. 08/08/19 23 Active albuterol 108 (90 Base) MCG/ACT inhaler Inhale 2 puffs every 6 (six) hours if needed for wheezing. 18 g 3 04/18/19 24 Active cetirizine (ZyrTEC) 10 MG tablet TAKE ONE TABLET EVERY MORNING 30 tablet 11 10/06/19 24 Active cetirizine (ZyrTEC) 2.5 MG chewable split tablet 10 mg. 11/17/19 22 Active estradiol (Estrace) 0.1 MG/GM vaginal cream Every 3 days 42.5 g 5 10/26/19 24 Active fluticasone (Flonase) 50 MCG/ACT nasal spray Administer 1 spray into each nostril Once per day. 16 g 10/26/19 24 Active aspirin 81 MG EC tabletIndications: Mixed hyperlipidemia Take 1 tablet (81 mg) by mouth Once per day. 30 tablet 11 10/26/19 24 025 Active pantoprazole (ProtoNix) 20 MG EC tablet Take 20 mg by mouth in the morning. 10/16/19 24 Active Calcium Polycarbophil (fiber) 625 MG tablet TAKE ONE TABLET EVERY MORNING WITH a full GLASS of WATER 08/14/19 24 Active cholecalciferol VITAMIN D (Vitamin D-3) 50 MCG (1999 UT) capsuleIndications :Age-related osteoporosis without current pathological fracture TAKE ONE CAPSULE TWICE DAILY IN THE MORNING AND AT BEDTIME 60 capsule 11 05/10/19 25 Active Mometasone Furoate (Asmanex HFA) 200 MCG/ACT aerosolIndications :Moderate persistent asthma, unspecified whether complicated INHALE ONE PUFF TWICE DAILY, RINSE MOUTH AFTER USE 1 g 1 05/25/19 25 Active esomeprazole (NexIUM) [address] capsule 05/24/19 25 Active famotidine (Pepcid) 20 MG tabletIndications: Gastroesophageal reflux disease without esophagitis TAKE ONE TABLET TWICE DAILY IN THE MORNING AND AT BEDTIME 60 tablet 5 06/18/19 25 Active atorvastatin (Lipitor) 40 MG tablet TAKE ONE TABLET EVERY NIGHT AT BEDTIME 90 tablet 3 07/16/19 25 Active montelukast (Singulair) 10 MG tablet TAKE ONE TABLET EVERY NIGHT AT BEDTIME 30 tablet 11 07/16/19 25 Active calcium carbonate 1500 (600 Ca) MG tablet TAKE ONE TABLET EVERY MORNING 30 tablet 11 07/16/19 25 Active Multiple Vitamins-Minerals (CertaVite/Antioxi dants) tablet TAKE ONE TABLET EVERY MORNING 90 tablet 3 07/18/19 25 Active Active Problems Problem Noted Date Diagnosed [...] Encounters Date Type Department Care Team Description 08/06/2024 10:00 AM EDT Office Visit [facility] ADULT DENTAL [address] [place] [address] Gemma Arnoldricio 07/16/2024 Refill [facility] MED & PEDS [address] [place] [address] Charisma Stinson MD 07/13/2024 Refill [facility] [address] [place] [address] Charisma Stinson MD 07/11/2024 2:00 PM EDT Office Visit [facility]ULT [facility] [address] [place] [address] ClaytonGemma gaonaricio 06/18/2024 11:00 AM EDT Office Visit [facility] [address] [place] [address] ClaytonGemma gaonaricio 06/17/2024 Refill [facility] [address] [place] [address] Charisma Stinson MD Gastroesophageal reflux disease without esophagitis 06/11/2024 Travel 05/27/2024 11:00 AM EDT Office Visit [facility] ADULT D[facility] [address] [place] [address] Be Arnold Dental calculus (Primary Dx) from Last 3 Months Social History Tobacco [...] Sign Reading Time Taken Comments Blood Pressure 118/81 08/06/2024 10:05 AM EDT Pulse 65 05/27/2024 11:34 AM [...] 02/26/2024 10:16 AM EST Plan of Treatment Health Maintenance Due Date Last Done Comments [...] Additional history exists Dental X-Ray: Bitewings 05/28/2025 05/28/19 25, 11/09/2023, 07/06/2023, Additional history exists Tobacco Screening 08/06/2025 08/06/2024 Mammogram 11/21/2025 11/22/2023, 09/0 08/2022, 11/10/2021, Additional [...] patient's age to complete this topic Meningococcal B Vaccine Aged Out No l onger eligible based on patient's age to complete [...] Procedure Name Priority Date/Time Associated Diagnosis Comments 29 MO RESIN-BASED COMPOSITE - 2 SURF, POSTERIOR Routine 08/06/2024 10:00 AM EDT 5 MOD RESIN-BASED COMPOSITE - 3 SURF, [...] TREATMENT PLANNING Routine 05/27/2024 11:00 AM EDT BI MAMMOGRAM SCREENING TOMOSYNTHESIS BILATERAL Routine 11/22/2023 [...] EDT Narrative 12/06/2023 10:24 AM EDT ? [facility] [place] ? [address] ?[place] [address] ? Mammography Report ? Signed ? Patient: Danielmaryjou,Zoey J ?MR#: [id number] ?? 656 ? : 1955 ?Acct:[id number] ? Age/Sex: 68 / F ?ADM Date: 11/22/23 ? Loc: HO.MAMMO ? Attending Dr: Charisma Stinson MD ? Ordering Physician: Charisma Stinson MD ?Results: 2Be ?? nign Findings ? Date of Service: 11/22/23 ?Follow Up: 1 Year From Orig ?? inal Mammogram ? Procedure(s): MM tomosynthesis screening BI ?? Accession Number(s): [id number] ? cc: Charisma Stinson MD ? EXAMINATION: [...] DD/ 1130 ? TD/TT: 11/22/23 1144 ? Assignment Manager: ? Procedure Note Niko Cage - 12/06/2023 [place] [facility] [address] [place] [address] Mammography Report Signed Patient: Zoey Walsh JMR#: [id number] 656 : 8Acct:[id number] Age/Sex: 68 / FADM Date: 11/22/23 Loc: HO.MAMMO Attending Dr: Charisma Stinson MD Ordering Physician: Charisma Stinson MDResults: 2Be nign Findings Date of Service: 11/22/23Follow Up: 1 Year From Orig inal Mammogram Procedure(s): MM tomosynthesis screening BI Accession Number(s): [id number] cc: Charisma Stinson MD EXAMINATION: MM SCREENING [...] 12/06/23 1021 DD/ 1130 TD/TT: 11/22/23 1144 Assignment Manager: Charisma Stinson MD IMG BI PROCEDURES Edited [...] historic and ?? current clinical information. ?? Geothermal Powerplant Mechanic : [facility] Comment: KN, CT(ASCP) CT screening location: [address] ??[address] Interpretation/R esult: Negative for intraepithelial lesion or malignancy. [facility] LMP: NONE GIVEN [facility] [...] R esult [facility] [address] from Last 3 Months or Most Recently Relevant to Health Maintenance Insurance [facility] DENTAL - HSN FULL (MEDICAID) Care Teams Supervisor Esters And Emulsifiers Relationship Specialty Start Date End Date Charisma Stinson MD [address] [place], [place] [address], [place] [address] PCP - General Family Medicine 03/13/18
== END 2024-08-26 11:51 | disposition home or self-care (01) ==
LOC: HO.ENCR 10:39
PROVIDERS: PCP Pediatrics; Visit Provider Dietitian, Registered
DX: R63.5 Abnormal weight gain (principal)

== ENCOUNTER → 2024-08-26 10:38 | Outpatient (BNVA) | payer MEDICARE, MEDICAID, SELFPAY | PROVIDERS: PCP Pediatrics; Visit Provider Dietitian, Registered | DX: Z71.3 Dietary counseling and surveillance (principal); R63.5 Abnormal weight gain | CPT/HCPCS: 97803 ==

== ENCOUNTER 2024-10-16 13:08 | Outpatient (AMB) | payer MEDICARE, MEDICAID, SELFPAY ==
--- NOTE | 2024-10-16 13:09 | A.OFFPC_ITS ---
Vital Signs 10/16/24 13:11 Height 5 ft 2 in Weight 116 lb 6 oz BMI 21.3 BP 130/72 Blood Pressure Location Lt brachial Position Sitting Pulse 88 Pulse Source Pulse Oximeter Pulse Oximetry (%) 98 Oxygen Delivery Method Room Air Intake Visit Reasons: establish care Full Stack Software Developer Required: No Accompanied by: Self / Same As Patient Allergies shellfish derived Adverse Reaction (Intermediate, Verified 10/16/24 13:22) Nausea and Vomiting Medication List - Last Reconciled 10/16/24 by Donna Bertrand PA-C albuterol sulfate 90 mcg/actuation 2 puffs inhalation Q6H PRN albuterol sulfate 2.5 mg (3 mL) inhalation Q4-6H PRN aspirin 81 mg PO DAILY atorvastatin 40 mg PO DAILY bisacodyl (Dulcolax (bisacodyl)) 10 mg (2 x 5 mg) PO BEDTIME calcium carbonate 600 mg PO QAM calcium polycarbophil (Fiber Therapy (ca polycarbophil)) 625 mg PO DAILY carbamazepine 200 mg PO BID cetirizine 10 mg PO QAM cholecalciferol (vitamin D3) 50 mcg PO DAILY esomeprazole magnesium 40 mg PO QAM estradiol 0.01%(0.1mg/gram) vaginal famotidine 20 mg PO BID fluticasone propionate 110 mcg/actuation (Flovent HFA) 0 mcg inhalation fluticasone propionate 50 mcg/actuation 1 spray intranasal DAILY gabapentin 300 mg PO BID lidocaine 5% topical BID PRN meloxicam 7.5 mg PO DAILY PRN mometasone 200 mcg/actuation (Asmanex HFA) inhalation montelukast 10 mg PO BEDTIME gprpyhxirqnn-dmeb-rthnc acid 18-400 mg-mcg (Certavite-Antioxidant) 1 tab PO QAM trazodone 50 mg PO BEDTIME Tobacco use date assessed: 10/16/24 Fall risk assessment: No Falls in past year Last assessed Fall Risk: 10/16/24 Dental Screening Dental Screen Date: 10/16/24 Did you have a dental visit in the last 12 months?: Yes Did you have a dental problem in the last 6 months where you did not have access to dental care?: No Was dental information given to patient?: Patient has dentist HPI establish care HPI Details 69-year-old female with past medical his tory of CKD, abdominal aortic atherosclerosis, diverticulosis coming to the office with the 1st time. In review of the notes, patient is following with environmental safety specialist for weight loss. She is also following with [facility] Gastroenterology last seen 06/2024 continued on Nexium daily and discussed low FODMAP diet with plans to follow up in 3 months. She was last seen by Nephrology 09/2023 stable kidney function with good blood pressure control advised to follow up as needed. She was also seen by Cardiology 09/2023 advised continued aggressive management of cholesterol with LDL goal less than 70 as well as good blood pressure control. Stress test 11/17/2023 within normal limits. Presenting for a comprehensive review of her chronic conditions and preventative care measures. Asthma is currently managed with albuterol inhaler and inhaled corticosteroids. She has a history of atherosclerotic heart disease and is followed yearly by Cardiology with LDL goal less than 70. She has a history of trigeminal neuralgia previously severe now in remission with carbamazepine and follows with neurologist routinely. She does also have a history of peripheral neuropathy particularly at night without clear etiology and improved with gabapentin. She follows with the current specialists:- [facility] Dr. Jean neurology Dr. Blanchard nephrology Dr. Yordan Maurice mammogram: due 11/2024 colonoscopy: UTD following with GI DEXA: due 03/2024 ordered today [facility] Medical History Actinic keratoses Squamous cell carcinoma, face Trigeminal neuralgia Diverticulosis large intestine w/o perforation or abscess w/bleeding Tubular adenoma of colon Hiatal hernia Surgical History H/O colonoscopy Family History Mother Lung cancer Father Diabetes Social History Household Members: None Housing: Condominium Alcohol intake: former Patient Tobacco Use Status: Former Tobacco user e-Cigarette/Vaping Use: Never Used Substance Use Type: Marijuana Female Reproductive History Menstrual control method: none Questionnaire PHQ-9 Over the last 2 weeks, how often have you been bothered by any of the following problems? 1. Little interest or pleasure in doing things: not at all 2. Feeling down, depressed, or hopeless: not at all 3. Trouble falling or staying asleep, or sleeping too much: several days 4. Feeling tired or having little energy: several days 5. Poor appetite or overeating: several days 6. Feeling bad about yourself - or that you are a failure or have let yourself or your family down: not at all 7. Trouble concentrating on things, such as reading the newspaper or watching television: not at all 8. Moving or speaking so slowly that other people could have noticed. Or the opposite - being so fidgety or restless that you have been moving around a lot more than usual: not at all 9. Thoughts that you would be better off or of hurting yourself in some way: not at all Total score: 3 Depression Screening Interpretation: Negative Depression Screening Done: Yes 84792 - PHQ-9 Billing: Yes Source: Developed by Drs. Willem Junior, Suri Crockett, Arturo Cowart and colleagues, with an educational lópez from [employer]. Thrive Questionnaire Date Thrive assessed: 10/16/24 I am a: Patient What is your living situation today?: I have a steady place to live Within the past 12 months, did the food you bought not last and you didn't have the money to get more?: I choose not to answer this question Within the past 12 months, did you worry whether your food would run out before you got money to buy more?: I choose not to answer this question Do you have trouble paying for medicines?: No Do you have trouble getting transportation to medical appointments?: No Do you have trouble paying your heating and electricity bill?: I choose not to answer this question Do you have trouble taking care of your child, family member or friend?: I choose not to answer this question Do you have trouble with day-to-day activities such as bathing, preparing meals, shopping, managing finances, etc.?: No Are you currently unemployed and looking for a job?: No Are you interested in more education?: No Please select the resources that you would like help with: None Currently or been in a relationship where the following occur: No concerns reported THRIVE Score: 0 AUDIT C Alcohol Use Questionnaire (AUDIT-C) 1. How often do you have a drink containing alcohol?: Monthly or less 2. How many drinks containing alcohol do you have on a typical day when you are drinking?: 1 or 2 3. How often do you have six or more drinks on one occasion?: Never Total Score: 1 CELESTE-7 AMB Questionnaire CELESTE-7 Date CELESTE - 7 assessed: 10/16/24 Feeling nervous, anxious, or on edge: 1 = Several days Not being able to stop or control worryin = Not at all Worrying too much about different things: 0 = Not at all Trouble relaxin = Not at all Being so restless that it is hard to sit still: 0 = Not at all Becoming easily annoyed or irritable: 0 = Not at all Feeling afraid as if something awful might happen: 0 = Not at all Total CELESTE-7 score (0-4 normal; 5-9 mild; 10-14 moderate; 15-21 severe): 1 Source: Developed by Drs. Willem Junior, Suri Crockett, Arturo Cowart and colleagues, with an educational lópez from [employer]. CELESTE-7 Assessment Billing CELESTE-7 Assessment Tool: CELESTE-7 Assessment 16270 Review of Systems Const Denies body aches, Denies chills, Denies fever(s), Denies headache(s) and Denies poor appetite Eyes Reports no additional complaints ENT Denies dysphagia, Denies dizziness, Denies headache(s) and Denies odynophagia Card Denies chest pain, Denies edema, Denies lightheadedness and Denies dyspnea Resp Denies cough and Denies dyspnea GI Reports abdominal pain, Reports constipation, Denies dysphagia, Reports diarrhea, Denies nausea, Denies odynophagia and Denies vomiting Reports no additional complaints Musc Reports no additional complaints and Denies abnormal gait Skin/Breast Reports system reviewed and no additional complaints, except as documented Neuro Denies abnormal gait, Denies dizziness and Denies headache(s) Psych Reports no additional complaints Physical exam (Primary Care) Vital Signs: Last Vital Signs Pulse 88 10/16/24 13:11 BP 130/72 10/16/24 13:11 Pulse Ox 98 10/16/24 13:11 Oxygen Delivery Method Room Air 10/16/24 13:11 BMI result Body Mass Index 21.3 Tobacco/Smoking Status: Tobacco use Status Tobacco use date assessed 10/16/24 10/16/24 13:19 Patient Tobacco Use Status Former Tobacco user 10/16/24 13:19 e-Cigarette/Vaping Use Never Used 10/16/24 13:19 PHQ-9: PHQ-9 Score PHQ-9: Total score 3 10/17/24 08:19 Depression Screening Interpretation: Negative Thrive Assessment: Date of Thrive Assessment Date Thrive assessed 10/16/24 10/16/24 13:19 Currently or been in a relationship where the following occur: No concerns reported Const General: cooperative, healthy appearing, comfortable and no acute distress Orientation/consciousness: patient oriented x3 HENMT Head: Yes normocephalic Ears: hearing grossly normal bilaterally General nose exam: Normal external nose present Eyes General: appearance normal, both eyes and all related structures Conjunctivae: conjunctivae normal Neck Neck: Yes full ROM and Yes no lymphadenopathy Resp Effort & Inspection: normal respiratory effort Auscultation: clear to auscultation bilaterally, no crackles, no rales, no rhonchi and no wheezes Cardio Rate: regular rate Rhythm: regular rhythm GI Palpation (GI): Soft to palpation, not firm, nontender, no guarding, not rigid and no masses Skin General skin exam: no rashes or lesions noted Neuro General: patient oriented x3 Gait exam (Neuro): Normal gait present Extrem General: Yes normal to inspection, Yes full ROM and No edema Psych Affect: normal affect Attitude: cooperative Insight: Good insight present (Psych) Judgement: Good judgement present (Psych) Coding Level of Care Code New Pt Level 4 (27627) Diagnoses Abdominal aortic atherosclerosis I70.0 Weight gain R63.5 Diverticulosis large intestine w/o perforation or abscess w/bleeding K57.31 Hiatal hernia K44.9 CKD (chronic kidney disease) N18.9 GERD (gastroesophageal reflux disease) K21.9 Asthma J45.909 Fatty liver K76.0 Neuropathy G62.9 Osteopenia M85.80 Trigeminal neuralgia G50.0 Additional Codes CELESTE-7 Assessment Billing - CELESTE-7 Assessment Tool: CELESTE-7 Assessment 49562 ([id number]) PHQ-9 - 54970 - PHQ-9 Billing: Yes ([id number]) Assessment & Plan Assessment & Plan (1) Abdominal aortic atherosclerosis: Comment: She was also seen by Cardiology 09/2023 advised continued aggressive management of cholesterol with LDL goal less than 70 as well as good blood pressure control. Stress test 11/17/2023 within normal limits. Code(s): I70.0 - Atherosclerosis of aorta Category: Medical Plan: Continue to follow with cardiology yearly. Continue with aggressive management of cholesterol with LDL goal less than 70 and good control of the blood pressure. Continue on aspirin daily as well (2) Weight gain: Code(s): R63.5 - Abnormal weight gain Category: Medical Plan: Healthy diet and regular exercise is encouraged. (3) Diverticulosis large intestine w/o perforation or abscess w/bleeding: Code(s): K57.31 - Diverticulosis of large intestine without perforation or abscess with bleeding Category: Medical Plan: Continue to follow with Gastroenterology up-to-date on colonoscopies (4) Hiatal hernia: Code(s): K44.9 - Diaphragmatic hernia without obstruction or gangrene Category: Medical Plan: Continue to follow with GI. Avoid trigger foods such as citrus, tomato products, soda, caffeine, spicy foods and other foods that may be irritating to your stomach. Avoid laying flat 3-4 hours after eating and elevate the head of the bed 30 degrees to prevent acid from moving into the esophagus. Continue on Nexium (5) CKD (chronic kidney disease): Code(s): N18.9 - Chronic kidney disease, unspecified Category: Medical Plan: Avoid kidney irritants such as ibuprofen and stay well hydrated. Continue to follow with Nephrology yearly (6) GERD (gastroesophageal reflux disease): Code(s): K21.9 - Gastro-esophageal reflux disease without esophagitis Category: Medical Plan: Avoid trigger foods such as citrus, tomato products, soda, caffeine, spicy foods and other foods that may be irritating to your stomach. Avoid laying flat 3-4 hours after eating and elevate the head of the bed 30 degrees to prevent acid from moving into the esophagus. Continue on Nexium (7) Asthma: Code(s): J45.909 - Unspecified asthma, uncomplicated Category: Medical Plan: Asthma currently controlled on present medications. Continue on inhalers. Avoid triggers such as allergies. (8) Fatty liver: Code(s): K76.0 - Fatty (change of) liver, not elsewhere classified Category: Medical Plan: Healthy diet and regular exercise is encouraged. (9) Neuropathy: Code(s): G62.9 - Polyneuropathy, unspecified Category: Medical Plan: Continue to follow with Neurology and continue on gabapentin 300 mg b.i.d. ordered for blood work to look for underlying cause as well (10) Osteopenia: Code(s): M85.80 - Other specified disorders of bone density and structure, unspecified site Category: Medical Plan: Continue with increase dietary intake of calcium and vitamin-D supplementation. (11) Trigeminal neuralgia: Comment: continued on Carbamazepine - Dr. Jean Code(s): G50.0 - Trigeminal neuralgia Category: Medical Plan: Currently following with Dr. Jean from Neurology in the oxcarbazepine has been beneficial for her. Plan The plan includes ordering comprehensive blood work to evaluate cholesterol, kidney and liver function, electrolytes, blood cell counts, thyroid, and vitamin levels, as the last tests were conducted in 2023. A bone density screening is scheduled to assess osteopenia, to be coordinated with the upcoming mammogram in November. The patient is advised to continue calcium and vitamin D supplementation to support bone health, and engage in weight-bearing exercises to maintain bone density. For asthma management, the patient should continue using the albuterol inhaler as needed, with a review of the current medication regimen to ensure optimal control. The patient is encouraged to follow up with her utility driver and neurologist as needed, and maintain regular appointments with her management associate for ongoing management of gastrointestinal issues. This note was constructed using voice recognition software. While every effort has been made to ensure accuracy and accident examiner, still areas may have been included sometimes these areas may affect the content or meeting of the given symptoms. Total time spent caring for the patient today was 30 minutes. This includes time spent before the visit reviewing the chart, time spent during the visit, and time spent after the visit and documentation. Patient was informed and verbally consented to the use of an ambient scribe for clinic note documentation during this visit. Orders: Orders Lipid Panel 10/16/24 E78.00 - Pure hypercholesterolemia, unspecified, I70.0 - Atherosclerosis of aorta Complete Blood Count Auto Diff 10/16/24 K21.9 - Gastro-esophageal reflux disease without esophagitis, Z00.00 - Encounter for general adult medical examination without abnormal findings TSH reflex Free T4 10/16/24 R63.5 - Abnormal weight gain, Z00.00 - Encounter for general adult medical examination without abnormal findings Vitamin D 25-OH Total 10/16/24 R63.5 - Abnormal weight gain, Z13.21 - Encounter for screening for nutritional disorder Vitamin B12 and Folate 10/16/24 R63.5 - Abnormal weight gain, Z13.21 - Encounter for screening for nutritional disorder Comprehensive Met. Panel 10/16/24 N18.9 - Chronic kidney disease, unspecified, Z00.00 - Encounter for general adult medical examination without abnormal findings Free T4 (Free Thyroxine) 10/16/24 R63.5 - Abnormal weight gain, Z00.00 - Encounter for general adult medical examination without abnormal findings XR DEXA axial skeleton 10/16/24 R63.5 - Abnormal weight gain, Z78.0 - Asymptomatic menopausal state
[2024-10-16 13:11] VITALS: BP 130/72; PULSE 88; O2SAT 98; BMI 21.3
--- OUTSIDE RECORDS SUMMARY | 2024-10-16 13:43 | XMS_ITS | Clinical Summary ---
Author Organization [employer] Address [address] [place] [address] [address] [place] [address] Care Team Providers Care Wood Bucker Name Role Phone Unavailable Primary Care Provider Unavailabl e Allergies Active Allergy Reactions Criticality Noted Date [...] each nostril Once per day. 16 g 5 10/26/19 24 Active aspirin 81 MG EC [...] D (Vitamin D-3) 50 MCG (2000 UT) capsuleIndications :Age-related osteoporosis [...] Encounters Date Type Department Care Team Description 10/15/2024 Refill [facility] [address] [place] [address] Charisma Stinson MD Mixed hyperlipidemia 10/11/2024 Refill [facility] [address] [place] [address] Charisma Stinson MD Mixed hyperlipidemia 10/10/2024 Refill [facility] [address] [place] [address] Charisma Stinson MD Moderate persistent asthma, unspecified whether complicated 08/06/2024 10:00 AM EDT Office Visit [facility] ADULT DENTAL [address] [place] [address] Be Arnold 07/16/2024 Refill [facility] [address] [place] [address] Charisma Stinson MD from Last 3 Months Social History Tobacco [...] 67 05/27/2024 11:34 AM EDT Temperature 36.8 C (98.2 F) 01/29/2024 10:01 AM EST Respiratory Rate 18 01/29/2024 10:01 AM EST [...] 02/17/2021, 06/25/2020, 05/27/2020 SDOH Screening 10/18/2024 10/19/2023 Influenza Vaccine (#1) 2024 , 11/22/2022, 12/31/2021, Additional history exists Dental Oral Exam 11/28/2024 05/27/2024, , 01/02/2023 [...] Completed 09/06/2021, 05/12, 07/27/2017, Additional history exists HIB Vaccines Aged Out [...] SURF, POSTERIOR Routine 08/06/2024 10:00 AM EDT Full PROPHYLAXIS - ADULT Routine 05/27/2024 11:00 AM EDT BITEWINGS - 4 RADIOGRAPHIC IMAGES Routine 05/27/2024 11:00 AM EDT PERIODIC ORAL EVALUATION - ESTABLISHED PATIENT Routine 05/27/2024 11:00 AM EDT BI MAMMOGRAM [...] AM EDT Narrative 12/06/2023 10:24 AM EDT [facility] [address] [place] [address] Mammography Report Signed Patient: Zoey Walsh MR#: [id number] 656 : 1955 Acct:[id number] Age/Sex: 68 / F ADM Date: 11/22/23 Loc: HO.MAMMO Attending Dr: Charisma Stinson MD Ordering Physician: Charisma Stinson MD Results: 2Be nign Findings Date of Service: 11/22/23 Follow Up: 1 Year From Orig inal Mammogram Procedure(s): MM tomosynthesis screening BI Accession Number(s): [id number] cc: Charisma Stinson MD EXAMINATION: MM SCREENING [...] 12/06/23 1021 DD/ 1130 TD/TT: 11/22/23 1144 Clinical Quality Assurance Associate: Procedure Note Donotuseinterpreter, Image - 12/06/2023 [facility] [address] [place] [address] Mammography Report Signed Patient: Zoey Walsh JMR#: [id number] 656 : 8Acct:[id number] Age/Sex: 68 / FADM Date: 11/22/23 Loc: HO.MAMMO Attending Dr: Charisma Stinson MD Ordering Physician: Charisma Stinson MDResults: 2Be nign Findings Date of Service: 11/22/23Follow Up: 1 Year From [facility] ina Mammogram Procedure(s): MM tomosynthesis screening BI Accession Number(s): [id number] cc: Charisma Stinson MD EXAMINATION: MM SCREENING [...] 12/06/23 1021 DD/ 1130 TD/TT: 11/22/23 1144 Clinical Quality Assurance Associate: us Charisma Stinson MD IMG BI PROCEDURES [...] [facility] Comment: EXPLANATORY NOTE: The Pap is a screening test for cervical cancer. It is not a diagnostic test and is subject to false negative and false positive results. It is most reliable when a satisfactory sample, regularly obtained, is submitted with relevant clinical findings and history, and when the Pap result is evaluated along with historic and current clinical information. [facility] : SEE COMMENT [facility] Comment: KN, CT(ASCP) CT screening location: [place] [address] Interpretation/R esult: Negative for intraepithelial lesion or malignancy. [facility] LMP: NONE GIVEN [facility] Prev. BX: NONE GIVEN [facility] Prev. PAP: NONE GIVEN [facility] SOURCE: None given [facility] Statement Of Adequacy: SEE COMMENT [facility] Comment: Satisfactory for evaluation. Endocervical/transformation zone component present. 06/30/2020 11:1 9 AM EDT us Liliana Zuñiga MD LAB PATHOLOGY ORDERABLES Final R esult [facility] [address] from Last 3 Months or Most Recently Relevant to Health Maintenance Insurance [facility] , [address] [place] [address] [address] [facility] [address] [facility] [place] [facility] (MEDICAID)
== END 2024-10-16 14:13 | disposition home or self-care (01) ==
LOC: HO.HMCH 13:08
PROVIDERS: PCP Pediatrics
DX: I70.0 Atherosclerosis of aorta (principal); R63.5 Abnormal weight gain; K57.31 Diverticulosis of large intestine without perforation or abscess with bleeding; K44.9 Diaphragmatic hernia without obstruction or gangrene; N18.9 Chronic kidney disease, unspecified; K21.9 Gastro-esophageal reflux disease without esophagitis; J45.909 Unspecified asthma, uncomplicated; K76.0 Fatty (change of) liver, not elsewhere classified; G62.9 Polyneuropathy, unspecified; M85.80 Other specified disorders of bone density and structure, unspecified site; G50.0 Trigeminal neuralgia

== ENCOUNTER → 2024-10-16 13:08 | Outpatient (BNVA) | payer MEDICARE, MEDICAID, SELFPAY | PROVIDERS: PCP Pediatrics | DX: K57.31 Diverticulosis of large intestine without perforation or abscess with bleeding (principal); I70.0 Atherosclerosis of aorta; R63.5 Abnormal weight gain; K44.9 Diaphragmatic hernia without obstruction or gangrene; N18.9 Chronic kidney disease, unspecified; K21.9 Gastro-esophageal reflux disease without esophagitis; J45.909 Unspecified asthma, uncomplicated; K76.0 Fatty (change of) liver, not elsewhere classified; G62.9 Polyneuropathy, unspecified; M85.80 Other specified disorders of bone density and structure, unspecified site; G50.0 Trigeminal neuralgia | CPT/HCPCS: 96127; 99202 ==

== ENCOUNTER 2024-10-18 10:05 | Outpatient (REF) | payer MEDICARE, MEDICAID, SELFPAY ==
--- OUTSIDE RECORDS SUMMARY | 2024-10-18 10:09 | XMS_ITS | Clinical Summary ---
Author Organization [employer] Address [address] [place] [address] 7[address] [place] [address] Care Team Providers Care Bariatric Nurse Name Role Phone Unavailable Primary Care Provider [...] Type Department Care Team Description 10/15/2024 Refill [facility] [address] [place] [address] Charisma Stinson MD Mixed hyperlipidemia 10/11/2024 Refill [facility] [address] [place] [address] Charisma Stinson MD Mixed hyperlipidemia 10/10/2024 Refill [facility] [address] [place] [address] Charisma Stinson MD Moderate persistent asthma, unspecified whether complicated 08/06/2024 10:00 AM EDT Office Visit [facility] AD[facility] [address] [place] [address] Be Arnold from Last 3 Months Social History Tobacco [...] AM EDT Narrative 12/06/2023 10:24 AM EDT [place] [facility] [address] [place] [address] Mammography Report Signed Patient: Zoey Walsh MR#: [id number] 656 : 1955 Acct:[id number] Age/Sex: 68 / F ADM Date: 11/22/23 Loc: HO.MAMMO Attending Dr: Charisma Stinson MD Ordering Physician: Charisma Stinson MD Results: 2Be nign Findings Date of Service: 11/22/23 Follow Up: 1 Year From Orig inal Mammogram Procedure(s): MM tomosynthesis screening BI Accession Number(s): [id number] cc: Charisma Stinson MD EXAMINATION: MM SCREENING [...] 12/06/23 1021 DD/ 1130 TD/TT: 11/22/23 1144 Automotive Lube Technician: Procedure Note Donotuseinterpreter, Image - 12/06/2023 [place] [facility] [address] [place] [address] Mammography Report Signed Patient: Zoey Walsh JMR#: [id number] 656 : 8Acct:[id number] Age/Sex: 68 / FADM Date: 11/22/23 Loc: HO.MAMMO Attending Dr: Charisma Stinson MD Ordering Physician: Charisma Stinson MDResults: 2Be nign Findings Date of Service: 11/22/23Follow Up: 1 Year From Orig ina Mammogram Procedure(s): MM tomosynthesis screening BI Accession Number(s): [id number] cc: Charisma Stinson MD EXAMINATION: MM SCREENING [...] 12/06/23 1021 DD/ 1130 TD/TT: 11/22/23 1144 Automotive Lube Technician: us Charisma Stinson MD IMG BI PROCEDURES [...] along with historic and current clinical information. [employer]ender : SEE COMMENT [facility] Comment: KN, CT(ASCP) CT screening location: [place] [address] Interpretation/R esult: Negative for intraepithelial lesion or malignancy. [facility] LMP: NONE GIVEN [facility] Prev. BX: NONE GIVEN [facility] Prev. PAP: NONE GIVEN [facility] SOURCE: None given [facility] Statement Of Adequacy: SEE COMMENT [facility] Comment: Satisfactory for evaluation. Endocervical/transformation zone component present. 06/30/2020 11:1 9 AM EDT us Liliana Zuñiga MD LAB PATHOLOGY ORDERABLES Final R esult Performing Organization Address City/State/[facility] Co de Phone Number [facility] [address] from Last 3 Months or Most Recently Relevant to Health Maintenance Insurance [facility] , [address] [place] [address] DENTAL - HSN FULL (MEDICAID)
[2024-10-18 10:18] LABS: MANUAL DIFF FLAG NO
[2024-10-18 10:58] LABS: Hematocrit 41.2 % (37.0-47.0); Hemoglobin 14.2 g/dl (12.0-16.0); Imm Gran Abs Auto 0.00 X10*3/uL (0.00-0.03); Imm Gran Pct Auto 0.0 % (0.0-0.4); Lymphocytes Absolute Auto 2.5 X10*3/uL (1.2-4.9); Mean Corpuscular HGB Conc 34.5 g/dl (31.0-35.0); Mean Corpuscular Hemoglobin 30.1 pg (27.0-33.0); Mean Corpuscular Volume 87.3 fL (80.0-98.0); NRBC Abs Auto 0.000 X10*3/uL (0.0-0.012); NRBC Pct Auto 0.0 /100WBC (0.0-0.2); Platelet Count 207 X10*3/uL (160-400); Red Blood Count 4.72 X10*6/uL (4.20-5.50); White Blood Count 5.9 X10*3/uL (4.8-10.8)
[2024-10-18 11:41] LABS: Alanine Aminotransferase 28 U/L (0-31); Albumin Level 4.9 g/dL (3.5-5.0); Alkaline Phosphatase 99 U/L (39-117); Anion Gap 12 (12-20); Aspartate Amino Transferase 30 U/L (5-31); Blood Urea Nitrogen 13 mg/dL (9-16); Calcium 9.5 mg/dL (8.4-10.2); Carbon Dioxide 31 mmol/L (22-29); Chloride 101 mmol/L (96-108); Cholesterol 192 mg/dL (<200); Estimated Glomerular Filt Rate > 60; HDL Cholesterol 59 mg/dL (>40); Potassium 4.1 mmol/L (3.3-5.1); Sodium 140 mmol/L (135-145); Total Protein 7.3 g/dL (6.5-8.0); Triglycerides 119 mg/dL (<150)
[2024-10-18 11:56] LABS: Free T4 (Free Thyroxine) 0.96 ng/dL (0.71-1.85)
[2024-10-18 12:06] LABS: Folate 14.4 ng/mL (> or = 4.0); Vitamin B12 763 pg/mL (200-900)
== END 2024-10-18 10:06 | disposition home or self-care (01) ==
LOC: HO.LAB 10:05
DX: Z00.00 Encounter for general adult medical examination without abnormal findings (principal); E78.00 Pure hypercholesterolemia, unspecified; I70.0 Atherosclerosis of aorta; K21.9 Gastro-esophageal reflux disease without esophagitis; N18.9 Chronic kidney disease, unspecified; Z13.21 Encounter for screening for nutritional disorder; R63.5 Abnormal weight gain
CPT/HCPCS: 36415; 80053; 80061; 82306; 82607; 82746; 84439; 84443; 85025

== ENCOUNTER 2024-11-27 09:00 | Outpatient (AMB) | payer MEDICARE, MEDICAID, SELFPAY ==
[2024-11-27 09:04] VITALS: BP 104/60; PULSE 76; O2SAT 100; BMI 21.4
--- NOTE | 2024-11-27 09:04 | MHC.OFFVIS ---
Vital Signs 11/27/24 09:04 Height 5 ft 2 in Weight 117 lb BMI 21.4 BP 104/60 Blood Pressure Location Rt brachial Position Sitting Pulse 76 Pulse Source Pulse Oximeter Pulse Oximetry (%) 100 Oxygen Delivery Method Room Air Intake Visit Reasons: gerd ibs Intake Note: ESTABLISHED PATIENT for GERD + IBS mgmt. Chief Complaint; C.O. constipation and diarrhea intermittently, BRB per rectum, LLQ pain, and night time reflux and difficulty with sleeping. Advanced Practice Psychiatric Nurse Required: No Accompanied by: Self / Same As Patient Allergies shellfish derived Adverse Reaction (Intermediate, Verified 11/27/24 09:04) Nausea and Vomiting HPI HPI gerd ibs: Details: LAST VISIT: Hiatal hernia Tubular adenoma of colon Diverticulosis large intestine w/o perforation or abscess w/bleeding Irritable bowel syndrome with both constipation and diarrhea Constipation Postprandial epigastric pain GERD (gastroesophageal reflux disease) Nonalcoholic fatty liver Plan Patient will continue Nexium daily. Avoid dietary triggers and late night snacking. Staying upright for minimum 3 hours after meals discussed with patient. Patient will continue low FODMAP diet. Avoid dietary triggers and high FODMAP foods. Referral to dietitian sent. Patient gained few lb in the past couple months as she was not eating healthy. Follow-up in 3 months, sooner on as needed basis. Patient is agreeable to this plan and verbalizes understanding of instructions. She was given the opportunity to ask questions and all questions answered. ? Thank you for allowing me to participate in her care Referrals [employer] [facility] Referral R63. TODAY'S VISIT: Patient is here today for follow-up. Patient reports that she has been having occasional loose stools then constipation on and off. Patient reports that she was taking fiber and it was helping her, however became too costly and then her pharmacy did not have it in stock. Patient was going to see dietitian, however she is unable to eat some of the recommended food as it is too salty. Patient denies melena, hematochezia, unintentional weight loss or ribbon like stools. Patient does admit occasionally when she has constipation she might have blood when wiping. Patient reports occasional acid reflux, however for the most part patient reports that her symptoms of acid reflux are suppressed. Patient reports chest pressure not sure if it is cardiac or its her anxiety. Patient will be going for stress test. [facility] Medical History Actinic keratoses Squamous cell carcinoma, face Trigeminal neuralgia Diverticulosis large intestine w/o perforation or abscess w/bleeding Tubular adenoma of colon Hiatal hernia Surgical History H/O colonoscopy Family History Mother Lung cancer Father Diabetes Social History Household Members: [facility] Alcohol intake: former Patient Tobacco Use Status: Former Tobacco user e-Cigarette/Vaping Use: Never Used Substance Use Type: Marijuana Review of Systems Const Denies weight gain and Denies weight loss ENT Reports no additional complaints, Denies dysphagia and Denies odynophagia Card Reports no additional complaints Resp Reports no additional complaints GI Denies abdominal pain, Denies belching, Denies melena, Reports bloating, Denies change in bowel habits, Reports constipation, Denies dysphagia, Denies excessive flatus, Denies dyspepsia, Reports heartburn (Occasional), Denies diarrhea, Reports loose stools, Denies nausea, Denies odynophagia and Denies vomiting Musc Reports no additional complaints Neuro Reports no additional complaints Psych Reports no additional complaints Endo Reports no additional complaints Physical Exam Vital Signs: Last Vital Signs Pulse 76 11/27/24 09:04 BP 104/60 11/27/24 09:04 Pulse Ox 100 11/27/24 09:04 Oxygen Delivery Method Room Air 11/27/24 09:04 BMI result Body Mass Index 21.4 Const General: healthy appearing, no acute distress and well developed Nutritional Appearance: well nourished Orientation/consciousness: patient oriented x3 Resp Effort & Inspection: normal respiratory effort, able to speak in complete sentences, no tracheal deviation and symmetric chest movement Auscultation: clear to auscultation bilaterally Cardio Rate: regular rate GI Inspection: Yes normal to inspection and No distended Palpation (GI): Soft to palpation, not firm, nontender and No hepatosplenomegaly present Auscultation: normal bowel sounds General: Yes no CVA tenderness Back/Spine/Pelvis Back: no CVA tenderness Skin General skin exam: elasticity normal, turgor normal and dry skin Neuro General: patient oriented x3 Psych Appearance: grossly normal Mental Status: mental status grossly normal Assessment & Plan Assessment & Plan (1) GERD (gastroesophageal reflux disease): Code(s): K21.9 - Gastro-esophageal reflux disease without esophagitis Category: Medical Qualifiers: Esophagitis presence: esophagitis presence not specified Qualified Code(s): K21.9 - Gastro-esophageal reflux disease without esophagitis (2) Fatty liver: Code(s): K76.0 - Fatty (change of) liver, not elsewhere classified Category: Medical (3) Diverticulosis large intestine w/o perforation or abscess w/bleeding: Code(s): K57.31 - Diverticulosis of large intestine without perforation or abscess with bleeding Category: Medical (4) Hiatal hernia: Code(s): K44.9 - Diaphragmatic hernia without obstruction or gangrene Category: Medical (5) IBS (irritable bowel syndrome): Code(s): K58.9 - Irritable bowel syndrome, unspecified Qualifiers: Irritable bowel syndrome type: with both diarrhea and constipation Qualified Code(s): K58.2 - Mixed irritable bowel syndrome Plan Patient will continue taking Nexium in the morning. Avoid dietary triggers and late night snacking. Staying upright for minimum 3 hours after meals discussed with patient. Patient can take famotidine as needed. Follow low FODMAP diet. Patient will try dpri-hzi-cunxidr fiber gummies. Able to find bread on [employer]. Patient will take Dulcolax as needed for constipation. Patient will follow-up in 3-4 months, sooner on as needed basis. She is agreeable to this plan and verbalizes understanding of instructions. She was given the opportunity to ask questions and all questions answered. Thank you for allowing me to participate in her care Coding Level of Care Code Est Pt Level 4 (30134) Complex EM visit Add On G2211 Diagnoses Gastroesophageal reflux disease, unspecified whether esophagitis present K21.9 Esophagitis presence: esophagitis presence not specified Fatty liver K76.0 Diverticulosis large intestine w/o perforation or abscess w/bleeding K57.31 Hiatal hernia K44.9 Irritable bowel syndrome with both constipation and diarrhea K58.2 Irritable bowel syndrome type: with both diarrhea and constipation Time Spent (min) 40 Comment 25 minutes spent with patient and additional 15 minutes spent reviewing her records
--- OUTSIDE RECORDS SUMMARY | 2024-11-27 10:32 | XMS_ITS | Encounter Summary ---
Author Organization [employer] Address [address] [place] [address] 7 [place] [address] Care Team Providers Care Sales Office Assistant Name Role Phone Charisma Stinson MD Primary Care Provider [phone] Encounter Details Date Type Department Care Team (Latest Contact Info) Description 12/13/2021 Abstract [facility] CONVERSIONS Dental, Provider, DDS Social History [...] as of this encounter Plan of Treatment Not on file documented as of this encounter Visit Diagnoses Not on filedocumented in this encounter Care Teams Sales Office Assistant Relationship Specialty Start Date End Date Charisma Stinson MD [address] [place] [address] PCP - General Family Medicine 03/13/18 09/05/24 documented as of this encounter
--- OUTSIDE RECORDS SUMMARY | 2024-11-27 10:32 | XMS_ITS | Encounter Summary ---
Author Organization [employer] Address [address] [place] [address] 7 [place] [address] Care Team Providers Care Display Associate Name Role Phone Unavailable Primary Care Provider Unavailabl e Reason for Visit * Reason Comments Med Refill Encounter Details Date Type Department Care Team ([facility] Contact Info) Description 10/10/2024 Refill [facility] [address] [place] [address] Charisma Stinson MD [address] [place] [address] Moderate persistent asthma, unspecified whether complicated Social History Tobacco Use Types Packs/Day Years [...] as of this encounter Visit Diagnoses Diagnosis Moderate persistent asthma, unspecified whether complicated documented in this encounter Additional Health Concerns Assessment Noted Time PHQ-9 Depression Total Score: 2 03/24/19 23 9:26 AM EST documented as of this encounter
--- OUTSIDE RECORDS SUMMARY | 2024-11-27 10:32 | XMS_ITS | Clinical Summary ---
Author Organization [employer] Address [address] [place] [address] 7t [place] [address] Care Team Providers Care Chart Snatcher Name Role Phone Unavailable Primary Care Provider Unavailabl e Allergies Active Allergy Reactions Criticality Noted Date Comments Dust Mite Extract 08/12/2022 Gramineae Pollens 08/12/2022 Shellfish Allergy 08/12/2022 Other reaction(s): hives, puffy Shellfish-Derived Products 5 Medications gabapentin (Neurontin) 300 MG capsule 02/17/20 22 Active carBAMazepine (TEGretol) 200 MG tablet 02/17/20 22 Active estradiol (Estrace) 0.1 MG/GM vaginal creamIndications: Postmenopausal atrophic vaginitis Apply 1 gm intra vaginally every 3 days 42.5 g 11 03/24/19 23 Active meloxicam (Mobic) 7.5 MG tabletIndications :Trigeminal neuralgia Take 1 tab orally twice a day as needed for joint pains 60 tablet 3 05/05/19 23 Active traZODone (Desyrel) 50 MG tabletIndications :Anxiety [...] day. 16 g 5 10/26/19 24 Active pantoprazole (ProtoNix) 20 MG EC tablet [...] 05/24/19 25 Active famotidine (Pepcid) 20 MG tabletIndications :Gastroesophageal [...] tablet 11 07/16/19 25 Active Multiple Vitamins-Minerals (CertaVite/Antiox idants) tablet TAKE ONE TABLET EVERY MORNING 90 [...] Encounters Date Type Department Care Team Description 11/21/2024 Refill [facility] [address] [place] [address] Charisma Stinson MD 10/15/2024 Refill [facility] [address] [place] [address] Charisma Stinson MD Mixed hyperlipidemia 10/11/2024 Refill [facility] [address] [place] [address] Charisma Stinson MD Mixed hyperlipidemia 10/10/2024 Refill [facility] [address] [place] [address] Charisma Stinson MD Moderate persistent asthma, unspecified whether complicated from Last 3 Months Social History Tobacco [...] 2017 Depression Screening 03/24/2023 03/24/2022, 03/24/19 23 SDOH Screening 10/18/2024 10/19/2023 COVID-19 Vaccine ( - season) 2024 02/17/2021, 06/25/2020, 05/27/2020 Influenza Vaccine (#1) 2024 , 11/22/2022, 12/31/2021, Additional history exists Dental Oral Exam 11/28/2024 05/27/2024, , 01/02/2023 Dental Prophylaxis 11/28/2024 05/27/2024, 0 11/09/2023, 01/02/2023, Additional history exists Dental X-Ray: Bitewings 05/28/2025 05/28/19, 11/09/2023, 07/06/2023, Additional history exists Tobacco Screening 08/06/2025 08/06/2024 Mammogram 11/21/2025 11/22/2023, 09/08/2022, 11/10/2021, Additional history exists Dental X-Ray: Full [...] Procedure Name Priority Date/Time Associated Diagnosis Comments Full PROPHYLAXIS - ADULT Routine 05/27/2024 11:00 [...] AM EDT Narrative 12/06/2023 10:24 AM EDT [facility] [address] [place] [address] Mammography Report Signed Patient: Zoey Walsh MR#: [id number] : 1955 Acct:[id number] Age/Sex: 68 / F ADM Date: 11/22/23 Loc: [facility] Attending Dr: Charisma Stinson MD Ordering Physician: Charisma Stinson MD Results: 2Be nign Findings Date of Service: 11/22/23 Follow Up: 1 Year From Orig inal Mammogram Procedure(s): MM tomosynthesis screening BI Accession Number(s): [id number] cc: Charisma Stinson MD EXAMINATION: MM SCREENING [...] 12/06/23 1021 DD/ 1130 TD/TT: 11/22/23 1144 Patient Information Coordinator: Procedure Note Donotuseinterpreter, Image - 12/06/2023 [facility] [address] [place] [address] Mammography Report Signed Patient: Zoey Walsh JMR#: [id number] : 8Acct:[id number] Age/Sex: 68 / FADM Date: 11/22/23 Loc: HO.MAMMO Attending Dr: Charisma Stinson MD Ordering Physician: Charisma Stinson MDResults: 2Be nign Findings Date of Service: 11/22/23Follow Up: 1 Year From Orig inal Mammogram Procedure(s): MM tomosynthesis screening BI Accession Number(s): [id number] cc: Charisma Stinson MD EXAMINATION: MM SCREENING [...] 12/06/23 1021 DD/ 1130 TD/TT: 11/22/23 1144 Patient Information Coordinator: Charisma Stinson MD IM BI PROCEDURES Edited Resu lt - Final * (ABNORMAL) Hm Colonoscopy (10/05/2023) Colonoscopy Abnormal(A ) Normal Impressions Charisma Stinson MD - 10/05/2023 Needs repeat in 3 years us Charisma Stinson MD [facility] Final Resu lt * THINPREP PAP (06/30/2020 11:19 AM EDT) Clinical Information: None given [facility] COMMENT SEE COMMENT FOUNDATI ON [...] along with historic and current clinical information. Central Supply Worker : SEE COMMENT [facility] Comment: KN, CT(ASCP) CT screening location: [place] [address] Interpretation/R esult: Negative for intraepithelial lesion or malignancy. [facility] LMP: NONE GIVEN FOUNDATIO N LAB SYSTEM Prev. BX: NONE GIVEN [facility]OUND[facility] LAB SYSTEM Prev. PAP: NONE GIVEN FOUNDATI ON LAB SYSTEM SOURCE: None given [facility] N LAB SYSTEM Statement Of Adequacy: SEE COMMENT [facility] Comment: Satisfactory for evaluation. Endocervical/transformation zone component present. 06/30/2020 11:1 9 AM EDT us Liliana Zuñiga MD LAB PATHOLOGY ORDERABLES Final R esult Performing Organization Address City/State/[facility] Co de Phone Number [facility] [address] from Last 3 Months or Most Recently Relevant to Health Maintenance Insurance [facility] , [address] [place] [address] DENTAL - HSN FULL (MEDICAID)
--- OUTSIDE RECORDS SUMMARY | 2024-11-27 10:32 | XMS_ITS | Encounter Summary ---
Author Organization [employer] Address [address] [facility] 7 [place] [address] Care Team Providers Care Project Economist Name Role Phone Unavailable Primary Care Provider Unavailabl e Reason for Visit * Reason Comments Med Refill Encounter Details Date Type Department Care Team ([facility] Contact Info) Description 11/21/2024 Refill [facility] PEDS [address] [place] [address] Charisma Stinson MD [address] [place] [address] Social History Tobacco Use Types Packs/Day Years Used Date Smoking Tobacco: Never Passive Smoke Exposure: Never Smokeless Tobacco: Never Alcohol Use Standard Drinks/Week Comments Yes 1 (1 standard drink = 0.6 oz pur e alcohol) Depression Answer Date Recorded Patient Health Questionnaire-9 Score 2 03/24/2022 Housing Stability Answer Date Recorded What is your housing situation today? I have viancazeke reeves 10/19/[address] you [...]
--- OUTSIDE RECORDS SUMMARY | 2024-11-27 10:32 | XMS_ITS | Encounter Summary ---
Author Organization [employer] Address [address] [facility] 7 [place] [address] Care Team Providers Care Surgery Scheduler Name Role Phone Charisma Stinson MD Primary Care Provider [phone] Reason for Visit * Reason Onset Date Comments Triage 08/05/2022 Encounter Details Date Type Department Care Team ([facility] Contact Info) Description 08/05/2022 Telephone [facility] MED & PEDS [address] [place], [place] [phone] Charisma Stinson MD [address] [place] [address] Triage Social History Tobacco Use Types Packs/Day [...] accepted this outcome Please contact pt at [phone] documented in this encounter Plan of Treatment Not on file documented as of this encounter Visit Diagnoses Not on filedocumented in this encounter Additional Health Concerns Assessment Noted Time PHQ-9 Depression Total Score: 2 03/24/19 23 9:26 AM EST documented as of this encounter Care Teams Surgery Scheduler Relationship Specialty Start Date End Date Charisma Stinson MD [address] [place] [address] PCP - General Family Medicine 03/13/18 09/05/24 documented as of this encounter
--- OUTSIDE RECORDS SUMMARY | 2024-11-27 10:32 | XMS_ITS | Encounter Summary ---
Author Organization [employer] Address [address] [place] [address] 7 [place] [address] Care Team Providers Care Balloon Pilot Name Role Phone Charisma Stinson MD Primary Care Provider [phone] Encounter Details Date Type Department Care Team (Latest Contact Info) Description 03/19/[address] [facility] CONVERSIONS Dental, Provider, DDS Social History [...] on filedocumented in this encounter Care Teams Balloon Pilot Relationship Specialty Start Date End Date Charisma Stinson MD [address] [place] [address] PCP - General Family Medicine 03/13/18 09/05/24 documented as of this encounter
--- OUTSIDE RECORDS SUMMARY | 2024-11-27 10:32 | XMS_ITS | Encounter Summary ---
Author Organization [employer] Address [address] [place] [address] [place] [address] Care Team Providers Care Dye Room Helper Name Role Phone Charisma Stinson MD Primary Care Provider [phone] Encounter Details Date Type Department Care Team ([facility] st Contact Info) Description 01/16/2023 Abstract [facility] MEDIC[facility] [address] [place], [place] [phone] Charisma Stinson MD [address] [place], [place] [phone] Social History Tobacco Use Types Packs/Day Years [...] documented as of this encounter Care Teams Dye Room Helper Relationship Specialty Start Date End Date Charisma Stinson MD [address] [place], [place] [phone] PCP - General Family Medicine 03/13/18 09/05/24 documented as of this encounter
--- OUTSIDE RECORDS SUMMARY | 2024-11-27 10:32 | XMS_ITS | Encounter Summary ---
Author Organization [employer] Address [address] [facility] 7 [place] [address] Care Team Providers Care Mechanical Maintenance Name Role Phone Charisma Stinson MD Primary Care Provider [phone] Reason for Visit * Reason Onset Date Comments Results 06/22/2023 Appointment Request 06/22/2023 Encounter Details Date Type Department Care Team ([facility] st Contact Info) Description 06/22/2023 Telephone [facility] MEDICINE [address] [place] [address] Charisma Stinson MD [address] [place] [address] Results; Appointment Request Social History Tobacco Use [...] abdomen complete Date when done: 06/19 Facility: [facility] Please contact pt at [phone] documented in this encounter Plan of Treatment Not on file documented as of this encounter Visit Diagnoses Not on filedocumented in this encounter Additional Health Concerns Assessment Noted Time PHQ-9 Depression Total Score: 2 03/24/19 23 9:26 AM EST documented as of this encounter Care Teams Mechanical Maintenance Relationship Specialty Start Date End Date Charisma Stinson MD [address] [place] [address] PCP - General Family Medicine 03/13/18 09/05/24 documented as of this encounter
--- OUTSIDE RECORDS SUMMARY | 2024-11-27 10:32 | XMS_ITS | Encounter Summary ---
Author Organization [employer] Address [address] [place] [address] 7t [place] [address] Care Team Providers Care French Teacher Name Role Phone Charisma Stinson MD Primary Care Provider [phone] Encounter Details Date Type Department Care Team ([facility] st Contact Info) Description 02/08/2023 Abstract [facility] ADULT DENTAL [address] [place], [place] [phone] Yordan Mcgowan DDS [address] [place], [place] [phone] Social History Tobacco Use Types Packs/Day Years [...] documented as of this encounter Care Teams French Teacher Relationship Specialty Start Date End Date Charisma Stinson MD [address] [place], [place] [phone] PCP - General Family Medicine 03/13/18 09/05/24 documented as of this encounter
--- OUTSIDE RECORDS SUMMARY | 2024-11-27 10:32 | XMS_ITS | Encounter Summary ---
Author Organization [employer] Address [address] [facility] 7t [place] [address] Care Team Providers Care Electrostatic Paint Operator Name Role Phone Charisma Stinson MD Primary Care Provider [phone] Reason for Visit * Reason Onset Date Comments more medication 01/27/2023 Encounter Details Date Type Department Care Team ([facility] Contact Info) Description 01/27/2023 Telephone [facility] ADULT DENTAL [address] [place] [address] Yordan Mcgowan DDS [address] [place] [address] more medication Social History Tobacco Use Types [...] documented as of this encounter Care Teams Electrostatic Paint Operator Relationship Specialty Start Date End Date Charisma Stinson MD [address] [place] [address] PCP - General Family Medicine 03/13/18 09/05/24 documented as of this encounter
--- OUTSIDE RECORDS SUMMARY | 2024-11-27 10:32 | XMS_ITS | Encounter Summary ---
Author Organization [employer] Address [address] [facility] 7 [place] [address] Care Team Providers Care Meterman Name Role Phone Unavailable Primary Care Provider Unavailabl e Reason for Visit * Reason Comments Med Refill Encounter Details Date Type Department Care Team ([facility] Contact Info) Description 10/15/2024 Refill [facility] MED & PEDS [address] [place] [address] Charisma Stinson MD [address] [place] [address] Mixed hyperlipidemia Social History Tobacco Use Types Packs/Day Years [...] t he electric, gas, oil or water [employer] threatened to shut off services in your [...] as of this encounter Visit Diagnoses Diagnosis Mixed hyperlipidemia documented in this encounter Additional Health Concerns Assessment Noted Time PHQ-9 Depression Total Score: 2 03/24/19 23 9:26 AM EST documented as of this encounter
--- OUTSIDE RECORDS SUMMARY | 2024-11-27 10:32 | XMS_ITS | Encounter Summary ---
Author Organization [employer] Address [address] [place] [address] 7t [place] [address] Care Team Providers Care Trade Sales Assistant Name Role Phone Charisma Stinson MD Primary Care Provider [phone] Encounter Details Date Type Department Care Team ([facility] st Contact Info) Description 02/20/2023 Abstract [facility] ADULT D[facility]AL [address] [place], [place] [phone] Yordan Mcgowan DDS [address] [place], [place] [phone] Social History Tobacco Use Types Packs/Day Years [...] documented as of this encounter Care Teams Trade Sales Assistant Relationship Specialty Start Date End Date Charisma Stinson MD [address] [place], [place] [phone] PCP - General Family Medicine 03/13/18 09/05/24 documented as of this encounter
--- OUTSIDE RECORDS SUMMARY | 2024-11-27 10:32 | XMS_ITS | Encounter Summary ---
Author Organization [employer] Address [address] [place] [address] 7 [place] [address] Care Team Providers Care Gravity Meter Operator Name Role Phone Charisma Stinson MD Primary Care Provider [phone] Encounter Details Date Type Department Care Team (Latest Contact Info) Description 04/18/2018 Abstract [facility] CONVERSIONS Dental, Provider, DDS Social History Tobacco [...] on filedocumented in this encounter Care Teams Gravity Meter Operator Relationship Specialty Start Date End Date Charisma Stinson MD [address] [place] [address] PCP - General Family Medicine 03/13/18 09/05/24 documented as of this encounter
--- OUTSIDE RECORDS SUMMARY | 2024-11-27 10:32 | XMS_ITS | Encounter Summary ---
Author Organization [employer] Address [address] [facility] 7 [place] [address] Care Team Providers Care Records Section Supervisor Name Role Phone Unavailable Primary Care Provider Unavailabl e Reason for Visit * Reason Comments Med Refill Encounter Details Date Type Department Care Team ([facility] Contact Info) Description 10/11/2024 Refill [facility] CHC MED & PEDS [address] [place] [address] Charisma Stinson MD 505 [place] [address] Mixed hyperlipidemia Social History Tobacco Use Types [...] t he electric, gas, oil or water [email or web address] threatened to shut off services in your [...]
--- OUTSIDE RECORDS SUMMARY | 2024-11-27 10:32 | XMS_ITS | Encounter Summary ---
Author Organization [employer] Address [address] [place] [address] 7t [place] [address] Care Team Providers Care Inspector Of Dredging Name Role Phone Charisma Stinson MD Primary Care Provider [phone] Encounter Details Date Type Department Care Team ([facility] st Contact Info) Description 01/13/2023 Abstract [facility] ADULT DENTAL 505 [place], [place] [phone] Yordan Mcgowan DDS [address] [place], [place] [phone] Social History Tobacco Use Types Packs/Day Years [...] documented as of this encounter Care Teams Inspector Of Dredging Relationship Specialty Start Date End Date Charisma Stinson MD 505 [place], [place] [phone] PCP - General Family Medicine 03/13/18 09/05/24 documented as of this encounter
== END 2024-11-27 09:49 | disposition home or self-care (01) ==
LOC: HO.HGI 09:01
PROVIDERS: PCP Pediatrics; Visit Provider Nurse Practitioner Family
DX: K21.9 Gastro-esophageal reflux disease without esophagitis (principal); K76.0 Fatty (change of) liver, not elsewhere classified; K57.31 Diverticulosis of large intestine without perforation or abscess with bleeding; K44.9 Diaphragmatic hernia without obstruction or gangrene; K58.2 Mixed irritable bowel syndrome
CPT/HCPCS: 99214; G2211

== ENCOUNTER → 2024-11-27 09:00 | Outpatient (BNVA) | payer MEDICARE, MEDICAID, SELFPAY | PROVIDERS: PCP Pediatrics; Visit Provider Nurse Practitioner Family | DX: K21.9 Gastro-esophageal reflux disease without esophagitis (principal); K76.0 Fatty (change of) liver, not elsewhere classified; K57.31 Diverticulosis of large intestine without perforation or abscess with bleeding; K44.9 Diaphragmatic hernia without obstruction or gangrene; K58.2 Mixed irritable bowel syndrome | CPT/HCPCS: 99212 ==

== ENCOUNTER 2024-12-06 13:07 | Outpatient (REF) | payer MEDICARE, MEDICAID, SELFPAY ==
--- NOTE | ~2024-12-06 | MM_ITS ---
EXAMINATION: DXA BONE DENSITY AXIAL HISTORY: Z78.0 - Asymptomatic menopausal state TECHNIQUE: [employer] Dual energy absorptiometry (DEXA) of the lumbar spine, total left hip, and femoral neck was performed. COMPARISON: Comparison is made with the prior examination dated 04/06/2022. FINDINGS: The bone mineral density of the lumbar spine is 1.129 g/cm2, corresponding to a T-score of -0.6, and a Z-score of 1.4. This is indicative of normal bone mineral density. This represents a BMD change of 0.4% compared to the prior exam. This is not statistically significant. The bone mineral density of the left total hip is 0.857 g/cm2, corresponding to a T-score of -1.2, and a Z-score of 0.4. This is indicative of osteopenia. This represents a BMD change of -4.2% compared to the prior exam. This is statistically significant. The bone mineral density of the left femoral neck is 0.735 g/cm2, corresponding to a T-score of -2.2, and a Z-score of -0.4. This is indicative of osteopenia. This represents a BMD change of -3.5% compared to the prior exam. FRACTURE RISK: The FRAX index suggests a ten year probability of major osteoporotic fracture of 18.5%, and of hip fracture 3.7%. MM/XR DEXA axial skeleton IMPRESSION: Based on bone mineral density, and according to World Health Organization (WHO) criteria, the diagnosis is consistent with osteopenia. Statistically, 68% of repeat scans fall within 1 SD (+/- 0.010 g/cm2 for AP spine L1-L4) and 1 SD (+/- 0.012 g/cm2 for femur total) FRAX is a trademark of the [employer] [place] [facility] Metabolic Bone Disease, a World Health Organization (WHO) Collaborating Center. Electronically signed by: Willem Gagnon MD 12/06/2024 02:08 PM EDT
--- NOTE | ~2024-12-06 | MM_ITS ---
EXAMINATION: MM SCREENING DIGITAL BREAST TOMOSYNTHESIS, BILATERAL CLINICAL INFORMATION: Screening. Asymptomatic. COMPARISON: Mammography: Comparison is made with available priors TECHNIQUE: Digital breast mammography with tomosynthesis is performed in both the craniocaudal and mediolateral oblique views along with computer-aided detection (CAD). FINDINGS: The breasts are extremely dense, which lowers the sensitivity of mammography. Left marker clip. There are no significant masses, abnormal calcifications, or other abnormalities. MM/MM tomosynthesis screening BI IMPRESSION: No mammographic evidence of malignancy. ASSESSMENT: BI-RADS Category 2: Benign RECOMMENDATION: Routine annual mammography screening. 1 year F/U This examination should not preclude the clinical evaluation of a suspicious palpable abnormality. This patient's information was entered into a reminder system with a target due date for their next mammogram. Electronically signed by: Yola Hanna DO 12/10/2024 12:23 PM EDT
--- OUTSIDE RECORDS SUMMARY | 2024-12-06 14:27 | XMS_ITS | Encounter Summary ---
Author Organization [employer] Address [address] [facility] 7 [place] [address] Care Team Providers Care Channel Rougher Name Role Phone Unavailable Primary Care Provider Unavailabl e Reason for Visit * Reason Comments Med Refill Encounter Details Date Type Department Care Team ([facility] Contact Info) Description 11/21/2024 Refill [facility] CHC MED & PEDS 505 [place] [address] Charisma Stinson MD 505 [place] [address] Social History Tobacco Use Types Packs/Day Years [...]
--- OUTSIDE RECORDS SUMMARY | 2024-12-06 14:27 | XMS_ITS | Encounter Summary ---
Author Organization [employer] Address [address] [facility] 7t [place] [address] Care Team Providers Care Can Sealer Name Role Phone Charisma Stinson MD Primary Care Provider [phone] Reason for Visit * Reason Onset Date Comments more medication 01/27/2023 Encounter Details Date Type Department Care Team ([facility] Contact Info) Description 01/27/2023 Telephone [facility] CHC ADULT DENTAL [address] [place] [address] Yordan Mcgowan DDS [address] [place] [address] more medication Social History Tobacco Use Types [...] documented as of this encounter Care Teams Can Sealer Relationship Specialty Start Date End Date Charisma Stinson MD [address] [place] [address] PCP - General Family Medicine 03/13/18 09/05/24 documented as of this encounter
--- OUTSIDE RECORDS SUMMARY | 2024-12-06 14:27 | XMS_ITS | Encounter Summary ---
Author Organization [employer] Address [address] [place] [address] 7 [place] [address] Care Team Providers Care Fruit I Farmworker Name Role Phone Charisma Stinson MD Primary Care Provider [phone] Encounter Details Date Type Department Care Team (Latest Contact Info) Description 03/19/2020 Abstract [facility] CONVERSIONS Dental, Provider, DDS Social History [...] on filedocumented in this encounter Care Teams Fruit I Farmworker Relationship Specialty Start Date End Date Charisma Stinson MD 505 [place] [address] PCP - General Family Medicine 03/13/18 09/05/24 documented as of this encounter
--- OUTSIDE RECORDS SUMMARY | 2024-12-06 14:27 | XMS_ITS | Encounter Summary ---
Author Organization [employer] Address [address] [facility] 7 [place] [address] Care Team Providers Care Sheet Metal Worker Name Role Phone Charisma Stinson MD Primary Care Provider [phone] Reason for Visit * Reason Onset Date Comments Results 06/22/2023 Appointment Request 06/22/2023 Encounter Details Date Type Department Care Team ([facility] st Contact Info) Description 06/22/2023 Telephone [facility] MEDICINE [address] [place] [address] Charisma Stinson MD 505 [place] [address] Results; Appointment Request Social History Tobacco Use [...] abdomen complete Date when done: 06/19 Facility: [facility] Please contact pt at [phone] documented in this encounter Plan of Treatment Not on file documented as of this encounter Visit Diagnoses Not on filedocumented in this encounter Additional Health Concerns Assessment Noted Time PHQ-9 Depression Total Score: 2 03/24/19 23 9:26 AM EST documented as of this encounter Care Teams Sheet Metal Worker Relationship Specialty Start Date End Date Charisma Stinson MD 505 [place] [address] PCP - General Family Medicine 03/13/18 09/05/24 documented as of this encounter
--- OUTSIDE RECORDS SUMMARY | 2024-12-06 14:27 | XMS_ITS | Encounter Summary ---
Author Organization [employer] Address [address] [place] [address] 7t [place] [address] Care Team Providers Care Rail Filler Name Role Phone Charisma Stinson MD Primary Care Provider [phone] Encounter Details Date Type Department Care Team ([facility] st Contact Info) Description 02/08/2023 Abstract [facility] ADULT D[facility]AL 505 [place], [place] [phone] Yordan Mcgowan DDS 230 [place], [place] [phone] Social History Tobacco Use Types Packs/Day Years [...] documented as of this encounter Care Teams Rail Filler Relationship Specialty Start Date End Date Charisma Stinson MD 505 [place], [place] [phone] PCP - General Family Medicine 03/13/18 09/05/24 documented as of this encounter
--- OUTSIDE RECORDS SUMMARY | 2024-12-06 14:27 | XMS_ITS | Encounter Summary ---
Author Organization [employer] Address [address] [place] [address] 7t [place] [address] Care Team Providers Care Trial Manager Name Role Phone Charisma Stinson MD Primary Care Provider [phone] Encounter Details Date Type Department Care Team ([facility] st Contact Info) Description 01/13/2023 Abstract [facility] ADULT DENTAL [address] [place], [place] [phone] Yordan Mcgowan DDS 230 [place], [place] [phone] Social History Tobacco Use Types Packs/Day Years [...] documented as of this encounter Care Teams Trial Manager Relationship Specialty Start Date End Date Charisma Stinson MD 505 [place], [place] [phone] PCP - General Family Medicine 03/13/18 09/05/24 documented as of this encounter
--- OUTSIDE RECORDS SUMMARY | 2024-12-06 14:27 | XMS_ITS | Encounter Summary ---
Author Organization [employer] Address [address] [place] [address] 7 [place] [address] Care Team Providers Care Banana Handler Name Role Phone Unavailable Primary Care Provider Unavailabl e Reason for Visit * Reason Comments Med Refill Encounter Details Date Type Department Care Team ([facility] Contact Info) Description 10/15/2024 Refill [facility] CHC MED & PEDS [address] [place] [address] Charisma Stinson MD 505 [place] [address] Mixed hyperlipidemia Social History Tobacco Use Types [...] t he electric, gas, oil or water [employer] threatened to shut off services in your [...]
--- OUTSIDE RECORDS SUMMARY | 2024-12-06 14:27 | XMS_ITS | Encounter Summary ---
Author Organization [employer] Address [address] [facility] 7 [place] [address] Care Team Providers Care Raw Sampler Name Role Phone Charisma Stinson MD Primary Care Provider [phone] Reason for Visit * Reason Onset Date Comments Triage 08/05/2022 Encounter Details Date Type Department Care Team ([facility] Contact Info) Description 08/05/2022 Telephone [facility] CHC MED & PEDS [address] [place], [place] [phone] Charisma Stinson MD [address] [place] [address] Triage Social History Tobacco Use Types Packs/Day [...] accepted this outcome Please contact pt at [phone] documented in this encounter Plan of Treatment Not on file documented as of this encounter Visit Diagnoses Not on filedocumented in this encounter Additional Health Concerns Assessment Noted Time PHQ-9 Depression Total Score: 2 03/24/19 23 9:26 AM EST documented as of this encounter Care Teams Raw Sampler Relationship Specialty Start Date End Date Charisma Stinson MD [address] [place] [address] PCP - General Family Medicine 03/13/18 09/05/24 documented as of this encounter
--- OUTSIDE RECORDS SUMMARY | 2024-12-06 14:27 | XMS_ITS | Encounter Summary ---
Author Organization [employer] Address [address] [place] [address] [place] [address] Care Team Providers Care Customer Services Supervisor Name Role Phone Charisma Stinson MD Primary Care Provider [phone] Encounter Details Date Type Department Care Team ([facility] st Contact Info) Description 01/16/2023 Abstract [facility] MEDICINE 230 [place], [place] [phone] Charisma Stinson MD 505 [place], [place] [phone] Social History Tobacco Use Types Packs/Day Years [...] documented as of this encounter Care Teams Customer Services Supervisor Relationship Specialty Start Date End Date Charisma Stinson MD 505 [place], [place] [phone] PCP - General Family Medicine 03/13/18 09/05/24 documented as of this encounter
--- OUTSIDE RECORDS SUMMARY | 2024-12-06 14:27 | XMS_ITS | Encounter Summary ---
Author Organization [employer] Address [address] [place] [address] 7 [place] [address] Care Team Providers Care Telegraph Service Rater Name Role Phone Charisma Stinson MD Primary Care Provider [phone] Encounter Details Date Type Department Care Team (Latest Contact Info) Description 12/13/2021 Abstract [facility] CONVERSIONS Dental, Provider, DDS Social History Tobacco [...] on filedocumented in this encounter Care Teams Telegraph Service Rater Relationship Specialty Start Date End Date Charisma Stinson MD [address] [place] [address] PCP - General Family Medicine 03/13/18 09/05/24 documented as of this encounter
--- OUTSIDE RECORDS SUMMARY | 2024-12-06 14:27 | XMS_ITS | Encounter Summary ---
Author Organization [employer] Address [address] [place] [address] 7 [place] [address] Care Team Providers Care Ethanol Quality Leader Name Role Phone Unavailable Primary Care Provider Unavailabl e Reason for Visit * Reason Comments Med Refill Encounter Details Date Type Department Care Team ([facility] Contact Info) Description 10/10/2024 Refill [facility] CHC MED & PEDS [address] [place] [address] Charisma Stinson MD [address] [place] [address] Moderate persistent asthma, unspecified whether complicated Social [...]
--- OUTSIDE RECORDS SUMMARY | 2024-12-06 14:27 | XMS_ITS | Clinical Summary ---
Author Organization [employer] Address [address] [place] [address] 7t [place] [address] Care Team Providers Care Shell Coremaker Name Role Phone Unavailable Primary Care Provider [...] Refill [facility] CHC MED & PEDS [address] [place] [address] Charisma Stinson MD 10/15/2024 Refill [facility] CHC MED & PEDS [address] [place] [address] Charisma Stinson MD Mixed hyperlipidemia 10/11/2024 Refill [facility] CHC MED & PEDS [address] [place] [address] Charisma Stinson MD Mixed hyperlipidemia 10/10/2024 Refill C CHC MED & PEDS [address] [place] [address] Charisma Stinson MD Moderate persistent asthma, unspecified [...] AM EDT Narrative 12/06/2023 10:24 AM EDT [facility] [address] [place] [address] Mammography Report Signed Patient: Zoey Walsh MR#: [id number] : 1955 Acct:[id number] Age/Sex: 68 / F ADM Date: 11/22/23 Loc: [facility] Attending Dr: Charisma Stinson MD Ordering Physician: Charisma Stinson MD Results: 2Be nign Findings Date of Service: 11/22/23 Follow Up: 1 Year From Orig inal Mammogram Procedure(s): MM tomosynthesis screening BI Accession Number(s): [id number] cc: Charisma Stinson MD EXAMINATION: MM SCREENING [...] 12/06/23 1021 DD/ 1130 TD/TT: 11/22/23 1144 International Project Engineer: Procedure Note Donotuseinterpreter, Image - 12/06/2023 [facility] [address] [place] [address] Mammography Report Signed Patient: Zoey Walsh JMR#: [id number] : [id number]:[id number] Age/Sex: 68 / FADM Date: 11/22/23 Loc: HO.MAMMO Attending Dr: Charisma Stinson MD Ordering Physician: Charisma Stinson MDResults: 2Be nign Findings Date of Service: 11/22/23Follow Up: 1 Year From Orig inal Mammogram Procedure(s): MM tomosynthesis screening BI Accession Number(s): [id number] cc: Charisma Stinson MD EXAMINATION: MM SCREENING [...] 12/06/23 1021 DD/ 1130 TD/TT: 11/22/23 1144 International Project Engineer: Charisma Stinson MD IM BI PROCEDURES Edited Resu lt - Final * (ABNORMAL) Hm Colonoscopy (10/05/2023) Colonoscopy Abnormal(A ) Normal Impressions Charisma Stinson MD - 10/05/2023 Needs repeat in 3 years us Charisma Stinson MD [facility] Final Resu lt * THINPREP PAP (06/30/2020 11:19 AM EDT) Clinical Information: None given [facility] COMMENT SEE COMMENT [facility]OUNDAT[facility] ON [...] along with historic and current clinical information. Traffic I Manager : SEE COMMENT [facility] Comment: KN, CT(ASCP) CT screening location: [place] [address] Interpretation/R esult: Negative for intraepithelial lesion or malignancy. [facility] LMP: NONE GIVEN [facility] Prev. BX: NONE GIVEN [facility] Prev. PAP: NONE GIVEN [facility] SOURCE: None given [facility] Statement Of Adequacy: SEE COMMENT [facility] Comment: Satisfactory for evaluation. Endocervical/transformation zone component present. 06/30/2020 11:1 9 AM EDT us Liliana Zuñiga MD LAB PATHOLOGY ORDERABLES Final R esult Performing Organization Address City/State/[facility] Co de Phone Number [facility] [address] from Last 3 Months or Most Recently Relevant to Health Maintenance Insurance [facility] , [address] [place] [address] DENTAL - HSN FULL (MEDICAID)
--- OUTSIDE RECORDS SUMMARY | 2024-12-06 14:27 | XMS_ITS | Encounter Summary ---
Author Organization [employer] Address [address] [place] [address] 7 [place] [address] Care Team Providers Care Card Punching Machine Operator Name Role Phone Charisma Stinson MD Primary Care Provider [phone] Encounter Details Date Type Department Care Team (Latest Contact Info) Description 04/18/2018 Abstract [facility] CONVERSIONS Dental, Provider, DDS Social History [...] on filedocumented in this encounter Care Teams Card Punching Machine Operator Relationship Specialty Start Date End Date Charisma Stinson MD [address] [place] [address] PCP - General Family Medicine 03/13/18 09/05/24 documented as of this encounter
--- OUTSIDE RECORDS SUMMARY | 2024-12-06 14:27 | XMS_ITS | Encounter Summary ---
Author Organization [employer] Address [address] [place] [address] 7t [place] [address] Care Team Providers Care Manager Actuarial Name Role Phone Charisma Stinson MD Primary Care Provider [phone] Encounter Details Date Type Department Care Team ([facility] st Contact Info) Description 02/20/2023 Abstract [facility] 505 [place], [place] [phone] Yordan Mcgowan DDS [address] [place], [place] [phone] Social History Tobacco Use Types Packs/Day Years [...] as of this encounter Care Teams Manager Actuarial Relationship Specialty Start Date End Date Charisma Stinson MD 505 [place], [place] [phone] PCP - General Family Medicine 03/13/18 09/05/24 documented as of this encounter
--- OUTSIDE RECORDS SUMMARY | 2024-12-06 14:27 | XMS_ITS | Data Portability ---
Author Organization [place] - [facility], Allergy Address [address] [address] Care Team Providers Care Collar Pointer Name Role Phone WILLY ARAUJO Primary Care Provider [phone] Assessment Encounter Date Assessment Date Assessment LastModified by Organization Details LastModified Time 03/14/2024 03/14/2024 68-year-old female presents for cerumen removal. Cerumen impaction removed bilaterally. Bilateral tympanic membranes are intact with aerated middle ear spaces. Updated audiometric testing was offered today, but patient declined. She will follow-up in 6 months for cerumen removal, or sooner with concerns. [email or web address] Not available 03/14/2024 12:19:57 Plan of Treatment Reminders Order Date Submit Date Provider Last Modified By Organization Details Last Modified Time Details Appointments Establish ed 15 2024 03:30P M CRISTINA DE JESUS PA-C Not available Not available Not available Lab None recorded. Referral None recorded. Procedures None recorded. Surgeries None recorded. Imaging None recorded. Medication Orders None recorded. Patient TargetsNo targets recorded. Patient Instructions Encounter Date Encounter Id Patient Instructions Last Modified By Organization Details Last Modified Time 09/06/2024 [id number] Reviewed results with patient. She is pleased that there are no significant changes in her hearing. CC of hearing test given to patient. [email or web address] Not available 09/06/2024 11:32:59 Reason for Referral None Reported. Results Created Date Observation Date Name Description Value Unit Range Abnormal Flag Note LastModifiedBy Organization Detail LastModifiedTime 09/07/19 25 audio gram No observ ation record ed. [email or web address] Not Available 08/12 11:42:12 Result Notes None recorded. Problems Name Problem SNOMED Code Status Onset Date Resolution Date Notes Provider Name and Address Organization Details Recorded Time Finding of resonance of voice 055297086 Active 2014 Other voice and resonance disorders ; Note: Date Diagnosed : 5 2:46 PM (R49.8) Not Available [facility] 4 02:47:55 Gastroeso phageal reflux disease without esophagit is 649913543 Active 2014 Gastro-es ophageal reflux disease without esophagit is; Note: Date Diagnosed : 5 2:46 PM (K21.9) Not Available [facility] 4 02:47:53 Allergic rhinitis 30603913 Active 2015 Allergic rhinitis, unspecifi ed; Note: Date Diagnosed : 08/06/2015 2:15 PM (J30.9) Not Available [facility] 4 02:47:57 Dysphonia 33879644 Active 2015 Dysphonia ; Note: Date Diagnosed : 08/16/2015 7:21 PM (R49.0) Not Available [facility] 4 02:48:01 Impacted cerumen of bilateral ears 78235125177 73890 Active 2018 Impacted cerumen, bilateral ; Note: Date Diagnosed : 11/08/2018 9:42 AM (H61.23) Not Available [facility] 4 02:47:59 Impacted cerumen 66938329 Active 2018 Impacted cerumen; Note: Date Diagnosed : 11/21/2018 11:38 AM (380.4) Not Available [facility] 4 02:47:56 Sensorine ural hearing loss of bilateral ears 462969683 Active 2018 Sensorine ural hearing loss, bilateral ; Note: Date Diagnosed : 01/16/2019 10:17 AM (H90.3) Not Available [facility] 4 02:47:59 Singers' nodes 37177999 Active 2019 Nodules of vocal cords; Note: Date Diagnosed : 2019 11:29 AM (J38.2) Not Available [facility] 4 02:48:01 Dysphagia 57997906 Active 2019 Other dysphagia ; Note: Date Diagnosed : 2019 11:29 AM (R13.19) Not Available [facility] 4 02:48:01 Acute pharyngit is 909352980 Active 2020 Sore throat (acute) NOS; Note: Date Diagnosed : 10/01/2020 4:50 PM (J02.9) Not Available [facility] 4 02:47:56 Abnormal weight loss 777091218 Active 2020 Abnormal weight loss; Note: Date Diagnosed : 10/01/2020 4:50 PM (R63.4) Not Available [facility] 4 02:47:57 Problem Notes None recorded. Procedures Surgical History Date Name Laterality Status Provider Name and Address Organization Details Recorded Time 5 Comp Audio with Tymps - 41462 & 91827 completed THANIA ARROYO 100 [facility],[address], [address], [facility] 09/06/2024 11:30:22 5 Cerumen removal without microscope bilat completed CRISTINA DE JESUS PA-C 100 [facility],[address], [address], [facility] 03/14/2024 12:19:25 Imaging Results None recorded. Procedure [...] mg tablet 10/19 completed Medicati on ID: [id number] Du ration Value: 5 Reason: () Brand Name: azithrom ycin Sen d Method: E-Prescr ibed Sub s Allowed: subs OK Speci al Instruct ion: take 2 tablets by mouth today then take 1 tablet DAILY FOR 4 DAYS Med icationG enericNa me: azithrom ycin Not Available Not Available Not Available ranitidin e 300 mg tablet 11/26 completed Medicati on ID: [id number] Du ration Value: 30 Reason: () Brand Name: ranitidi ne HCl Send Method: E-Prescr ibed Sub s Allowed: subs OK Medic ationGen ericName : ranitidi ne HCl Not Available Not Available Not Available senna 8.6 mg tablet TAKE TWO TABLETS EVERY DAY AT BEDTIME FOR CONSTIPA TION 08/02 completed Not Available Not Available Not Available sucralfat e 1 gram tablet 03/13 completed Medicati on ID: [id number] D uration Value: 90 Brand Name: sucralfa te Send Method: E-Prescr ibed Sub s Allowed: subs OK Speci al Instruct ion: take 1 tablet by mouth three times a day ON AN EMPTY STOMACH 1 HOUR BE FORE MEALS AND AT BEDTIME Medicati onGeneri cName: sucralfa te Not Available Not Available Not Available prednison e 20 mg tablet 10/19 completed Medicati on ID: [id number] Du ration Value: 4 Reason: () Brand [...] AND irritati on. AVOID sun exposure ] 08/02 completed Not Available Not Available Not Available aspirin 81 mg tablet,de layed release [...] t Available famotidin e 20 mg tablet TAKE ONE TABLET TWICE DAILY IN THE MORNING AND AT BEDTIME active Not Available Not Available No t Available esomepraz ole magnesium 40 mg capsule,d elayed release TAKE ONE CAPSULE EVERY MORNING active Not Available Not Available No t Available ranitidin e 150 mg tablet 1 tablet by mouth 03/13 completed Medicati on ID: [id number] P venturadutch d By Name: Toi Rodriguez MD Brand Name: ranitidi ne HCl Send Method: E-Prescr ibed Sub s Allowed: subs OK Medic ationGen ericName : ranitidi ne HCl Not Available Not Available Not Available Guaifenes in AC 10 mg-100 mg/5 mL oral liquid 10/19 completed Medicati on ID: [id number] Du ration Value: 1 Reason: () Brand [...] t Available monteluka st 10 mg tablet TAKE ONE TABLET EVERY NIGHT AT BEDTIME active Not Available Not Available No t Available bisacodyl 5 mg tablet,de layed release TAKE TWO TABLETS EVERY DAY AT BEDTIME 08/02 completed Not Available Not Available Not Available ranitidin e 150 mg capsule 1 capsule by mouth 11/26 completed Medicati on ID: [id number] D uration Value: 30 Prescri bed By Name: Toi Rodriguez MD Brand Name: ranitidi ne HCl Send Method: E-Prescr ibed Sub s Allowed: subs OK Medic ationGen ericName : ranitidi ne HCl Not Available Not Available Not Available ibuprofen 600 mg tablet TAKE ONE TABLET THREE TIMES DAILY FOR 10 DAYS 08/02 completed Not Available Not Available Not Available polyethyl anthony glycol 3350 17 gram/dose oral powder MIX DIRECTED AND TAKE DIRECTED by gastroen terology 08/02 completed Not Available Not Available Not Available estradiol 0.01% (0.1 mg/gram) vaginal cream INSERT ONE gram VAGINALL Y EVERY THREE DAYS active Not Available Not Available No t Available fluticaso ne propionat e 50 mcg/actua tion nasal spray,iván pension INHALE 1 SPRAY IN EACH NOSTRIL ONCE DAILY active Not Available Not Available No t Available loratadin e 10 mg tablet 03/13 completed Medicati on ID: [id number] Du ration Value: 30 Brand Name: lupe sawant Send Method: E-Prescr ibed Sub s Allowed: subs OK Medic ationGen ericName : lupe sawant Not Available Not Available Not Available amoxicill [...] MORNING WITH a full GLASS of WATER 08/02 completed Not Available Not Available Not Available cholecalc iferol (vitamin D3) 50 mcg (2,000 unit) capsule TAKE ONE CAPSULE TWICE DAILY IN THE MORNING AND AT BEDTIME active Not Available Not Available No t Available Certavite -Antioxid ant 18 mg-400 mcg tablet TAKE ONE TABLET EVERY MORNING active Not Available Not Available No t Available Asmanex HFA 200 mcg/actua tion aerosol inhaler INHALE ONE PUFF TWICE DAILY, RINSE MOUTH AFTER USE active Not Available Not Available No t Available Fluarix Quad (PF) 60 mcg (15 mcg x 4)/0.5 mL IM syringe 10/19 completed Medicati on ID: [id number] Du ration Value: 1 Reason: () Brand Name: Fluarix Quad 6 (PF) Sen d Method: E-Prescr ibed Sub s Allowed: subs OK Speci al Instruct ion: inject 0.5 millilit er intramus cularly Medicati onGeneri cName: Fluarix Quad 6 (PF) Not Available Not Available Not Available Adult Aspirin Regimen 08/02 completed Not Available Not Available Not Available Vitals Date Recorded Body height Body mass index (BMI) Body weight Provider Name and Address Organization Details Last Updated DateTime 08/02/2024 154.94 cm 22.7 kg/m2 70085.08 g Rosmery Figueroa [place] - [facility] 08/02/2024 11:36:17 Social History None recorded. Functional Status None recorded. Mental Status None recorded. Family History Nothing Reported. Medical History Condition Response High Cholesterol Y GERD/Reflux Y Gynecological HistoryNo gynecological history recorded. Obstetrics History GPAL:G 0 P 0 0 0 0 Past Encounters Encounter ID Performer Location Encounter Start Date Encounter Closed Date Diagnosis/Indication Diagnosis SNOMED-CT Code Diagnosis ICD10 Code Diagnosis IMO Codes Diagnosis Note [id number] CRISTINA DE JESUS PA-C [facility] [address] [address] 03/14/2024 11:23:37 03/14/2024 12:18:10 Impacted cerumen of bilateral ears 4243632823 747188 H61.23 [id number] TIFFANY BRENNER MD [facility] [address] [address] 08/02/2024 11:26:27 08/02/2024 11:45:51 Impacted cerumen of bilateral ears 5408467217 594031 H61.23 Cerumen was removed and tolerated well. She still feels a little blockage. No middle ear effusion. Her last audiogram was in 2019 showing moderate HF loss. I recommende d updated testing at her next cleaning. [id number] TIFFANY BRENNER MD [facility] [address] [address] 09/06/2024 10:45:28 09/06/2024 11:41:05 Sensorineural hearing loss of bilateral ears 646702894 H90.3 Audiologic al evaluation results: Right ear: Normal through 2 kHz sloping to severe sensorineu ral hearing loss with excellent word recognitio n. Left ear: Normal through 2 kHz sloping to moderately severe sensorineu ral hearing loss with excellent word recognitio n. Tympanomet ry: Right Ear:Type A Left Ear:Type A Health Concerns Section Related Observation LastModified by Organization Detai ls LastModified Time None Recorded Concern Status LastModified by Organization Details LastModified Time None Recorded Advance Directives Directive None Recorded Payers Insurance Date Sequence Insurance Name Policy Number Policy Goodwin Covered Member ID Goodwin Member ID Guarantor Name 03/14/2024 1 [facility] - DOS ON OR AFTER 2022 - MEDICARE [place]VANTAGE [place] (MED[place]ARE REPLACEMENT/AD VANTAGE - PPO) Zoeylisa Walsh [id number] Zoey Walsh 09/11/2024 1 [facility] - MEDICARE ADVANTAGE PLAN (MEDICARE REPLACEMENT HMO) [id number] Zoey Yaima Yaima Walsh [id number] Zoey Walsh 09/11/2024 2 [place] [facility] Zoey Walsh [id number] Zoey Walhs Notes Date Note Type Note Provider Name and Address Organization Details Recorded Time 03/14/2024 text/html ROS as noted in the [facility] 68-year-old female presents for an ear cleaning. Feels like ears are blocked and hearing is decreased bilaterally. Denies otalgia and otorrhea. STEVEN WOO MD [address] [place] [address], [phone], [facility] 03/14/2024 17:35:24 08/02/2024 text/html ROS as noted in the [facility] 69-year-old female presents for an ear cleaning. Feels like ears are blocked. Feels she gets a better cleaning with the suction. TIFFANY BRENNER MD [address] [place] [address], [phone], [facility] 08/02/2024 11:46:11 OBGyn Episode No OBEpisode recorded.
--- OUTSIDE RECORDS SUMMARY | 2024-12-06 14:27 | XMS_ITS | Encounter Summary ---
Author Organization [employer] Address [address] [facility] 7 [place] [address] Care Team Providers Care Investment Recovery Technician Name Role Phone Unavailable Primary Care Provider Unavailabl e Reason for Visit * Reason Comments Med Refill Encounter Details Date Type Department Care Team ([facility] Contact Info) Description 10/11/2024 Refill [facility] MED & PEDS [address] [place] [address] Charisma Stinson MD [address] [place] [address] Mixed hyperlipidemia Social History Tobacco Use Types [...] t he electric, gas, oil or water [employer] threatened to shut off services in your [...]
== END 2024-12-06 13:08 | disposition home or self-care (01) ==
LOC: HO.MAMMO 13:07
DX: Z12.31 Encounter for screening mammogram for malignant neoplasm of breast (principal); Z13.820 Encounter for screening for osteoporosis; Z78.0 Asymptomatic menopausal state; R63.5 Abnormal weight gain
CPT/HCPCS: 77063; 77067; 77080

== ENCOUNTER → 2024-12-06 13:30 | Outpatient (BNV) | payer MEDICARE, MEDICAID, SELFPAY | PROVIDERS: Visit Provider Radiology Diagnostic Radiology | DX: E28.39 Other primary ovarian failure (principal) | CPT/HCPCS: 77080 ==

== ENCOUNTER 2024-12-17 10:52 | Outpatient (AMB) | payer MEDICARE, MEDICAID, SELFPAY ==
--- NOTE | 2024-12-17 11:14 | A.OFFVIS_ITS ---
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 An MRI of brain with and without contrast in 2021 did not reveal any significant abnormality. Pain has been treated with gabapentin and carbamazepine with reasonable relief. She is presenting with persistent leg and knee pain localized to the right calf, right knee, and medial thigh up to the groin, exacerbated by descending stairs. This issue has been ongoing for five months, with the patient having undergone a test five years ago revealing no new findings. Despite the absence of numbness or tingling, she suspects arthritis as a potential cause. Due to chronic kidney disease, she avoids ibuprofen, instead using carbamazepine, which aids marginally. Trigeminal neuralgia, although infrequent, is currently in remission, except for occasional episodes where she experiences a sensation of throat constriction during specific postures. A prior MRI suggests no new developments, proposing another nerve?s involvement. Historically, she dealt with peripheral neuropathy that affected her walking, formerly linked to a viral infection, and recalls left-sided facial pain linked to trigeminal neuralgia. [facility] Medical History Actinic keratoses Squamous cell carcinoma, face Trigeminal neuralgia Diverticulosis large intestine w/o perforation or abscess w/bleeding Tubular adenoma of colon Hiatal hernia Surgical History H/O colonoscopy Family History Mother Lung cancer Father Diabetes Social History Household Members: None Housing: Condominium Alcohol intake: former Patient Tobacco Use Status: Former Tobacco user e-Cigarette/Vaping Use: Never Used Substance Use Type: Marijuana Review of Systems Const Details: - Musculoskeletal: Reports persistent right leg and knee pain. Denies ability to carry out heavy activities. - Neurological: Denies numbness or tingling; reports occasional trigeminal neuralgia pain; describes throat constricting sensation. - Renal/Urinary: Aware of chronic kidney disease. - Medication Allergies: Unable to take ibuprofen. Physical Exam Neuro Other: Mental Status: Alert and oriented to person, place, and time. Normal attention. Normal spontaneous speech, fluency, and comprehension. No obvious issues with mood and memory. Affect is appropriate. Cranial Nerves: CN II: Visual mack full to confrontation, visual acuity intact. CN III, IV, : Pupils equal, round, reactive to light and accommodation. Extraocular movements are normal. CN V: Facial sensation is normal. CN VII: Facial movements symmetrical. CN VIII: Hearing intact to bedside conversation is normal. CN IX, X: Palate elevates symmetrically. CN XI: Shoulder shrug and head turn symmetrical. CN XII: Tongue midline without atrophy or fasciculations. Knee and ankle reflexes are trace to 1+ with no obvious weakness. Extrapyramidal: Full facial expressions and blinking. No rigidity. Movements are appropriate with no tremor or abnormality. Speech: Normal; no dysarthria or tremor. Assessment & Plan Assessment & Plan (1) Trigeminal neuralgia: Comment: MRI brain WWO at [facility] in Apr 2020: WNL XR both hands at [facility] in 2019: OA NCV/EMG RTUE 08/14/19 THIS IS A NORMAL STUDY. MRI brain WWO at [facility] in 2009: WNL Routine EEG at office in May 2015: OK. Code(s): G50.0 - Trigeminal neuralgia Category: Medical (2) Glossopharyngeal neuralgia: Code(s): G52.1 - Disorders of glossopharyngeal nerve Category: Medical (3) Right leg pain: Code(s): M79.604 - Pain in right leg Category: Medical Plan Impression: a: Left trigeminal neuralgia b: Left glossopharangeal neuralgia c: Right leg pain, probably musculoskelatal Rec: a: EMG/NCS R leg to r/o radiculapathy b: ESR, Lyme test c: Gabapentin 300mg bid d: Carbamazepine 200mg bid Orders: Orders NE nerve conduction velocity Today M79.604 - Pain in right leg NE electromyogram (EMG) Today M79.604 - Pain in right leg Erythrocyte Sedimentation Rate Today G50.0 - Trigeminal neuralgia, G52.1 - Disorders of glossopharyngeal nerve Lyme IgG/IgM w/reflex to WB Today G50.0 - Trigeminal neuralgia, G52.1 - Disorders of glossopharyngeal nerve Medications: New carbamazepine 200 mg PO BID 180 tabs 1RF gabapentin 300 mg PO BID 180 caps 1RF Coding Level of Care Code Est Pt Level 4 (08514) Diagnoses Trigeminal neuralgia G50.0 Glossopharyngeal neuralgia G52.1 Right leg pain M79.604
--- OUTSIDE RECORDS SUMMARY | 2024-12-17 13:25 | XMS_ITS | Encounter Summary ---
Author Organization [employer] Address [address] [place] [address] 7 [place] [address] Care Team Providers Care Multiple Slide Operator Name Role Phone Unavailable Primary Care Provider Unavailabl e Reason for Visit * Reason Comments Med Refill Encounter Details Date Type Department Care Team ([facility] Contact Info) Description 10/10/2024 Refill [facility] MED & PEDS [address] [place] [address] Charisma Stinson MD [address] [place] [address] Moderate persistent asthma, unspecified whether complicated Social [...] Care Team (Late st Contact Info) Description 02/05/2025 1:00 PM EST Office Visit [facility] [address] [place] [address] Kary Reyes documented as of this encounter Visit Diagnoses Diagnosis Moderate persistent asthma, unspecified whether complicated documented in this encounter Additional Health Concerns Assessment Noted Time PHQ-9 Depression Total Score: 2 03/24/19 23 9:26 AM EST documented as of this encounter
--- OUTSIDE RECORDS SUMMARY | 2024-12-17 13:25 | XMS_ITS | Encounter Summary ---
Author Organization [employer] Address [address] [facility] 7 [place] [address] Care Team Providers Care Wax Molder Name Role Phone Unavailable Primary Care Provider Unavailabl e Reason for Visit * Reason Comments Med Refill Encounter Details Date Type Department Care Team ([facility] Contact Info) Description 10/15/2024 Refill [facility] MED & PEDS [address] [place] [address] Charisma Stinson MD [address] [place] [address] Mixed hyperlipidemia Social History Tobacco Use Types [...] t he electric, gas, oil or water [employer] threatened to shut off services in your [...] Description 02/05/2025 1:00 PM EST Office Visit [facility]ULT [facility] [address] [place] [address] Kary Reyes documented as of this encounter Visit Diagnoses Diagnosis Mixed hyperlipidemia documented in this encounter Additional Health Concerns Assessment Noted Time PHQ-9 Depression Total Score: 2 03/24/19 23 9:26 AM EST documented as of this encounter
--- OUTSIDE RECORDS SUMMARY | 2024-12-17 13:25 | XMS_ITS | Encounter Summary ---
Author Organization [employer] Address [address] [place] [address] 7 [place] [address] Care Team Providers Care Job Training Supervisor Name Role Phone Charisma Stinson MD Primary Care Provider [phone] Encounter Details Date Type Department Care Team (Late Contact Info) Description 01/13/2023 Abstract [facility] [address] [place] [address] Yordan Mcgowan DDS [address] [place], [place] [phone] Social History Tobacco Use Types Packs/Day Years [...] Department Care Team (Late Contact Info) Description 02/05/2025 1:00 PM EST Office Visit [facility] [address] [place] [address] Kary Reyes documented as of this encounter Visit Diagnoses Not on filedocumented in this encounter Additional Health Concerns Assessment Noted Time PHQ-9 Depression Total Score: 2 03/24/19 23 9:26 AM EST documented as of this encounter Care Teams Job Training Supervisor Relationship Specialty Start Date End Date Charisma Stinson MD [address] [place] [id number] PCP - General Family Medicine 03/13/18 09/05/24 documented as of this encounter
--- OUTSIDE RECORDS SUMMARY | 2024-12-17 13:25 | XMS_ITS | Clinical Summary ---
Author Organization [employer] Address [address] [place] [address] 7t [place] [address] Care Team Providers Care Machine Ii Cutter Name Role Phone Unavailable Primary Care Provider [...] Encounters Date Type Department Care Team Description 12/16/2024 Refill [facility] [address] [place] [address] Charisma Stinson MD Gastroesophageal reflux disease without esophagitis 12/10/2024 1:30 PM EDT Office Visit [facility] [address] [place] [address] Be Arnold 11/21/2024 Refill [facility] [address] [place] [address] Charisma Stinson MD 10/15/2024 Refill [facility] [address] [place] [address] Charisma Stinson MD Mixed hyperlipidemia 10/11/2024 Refill [facility] [address] [place] [address] Charisma Stinson MD Mixed hyperlipidemia 10/10/2024 Refill [facility] [address] [place] [address] Charisma Stinson MD Moderate persistent asthma, unspecified [...] Visit [facility] [address] [place] [address] Kary Reyes Health Maintenance Due Date Last Done Comments CT Colonography 1957 FIT DNA/Cologuard 1957 FIT 1957 FOBT 1955 Sigmoidoscopy 1957 Alcohol/Substance Use Screening 1969 Hepatitis C Screening 1975 Depression Screening 03/24/2023 03/24/2022, 03/24/19 SDOH Screening 10/18/2024 10/19/2023 COVID-19 Vaccine ( season) 2024 02/17/2021, 06/25/2020, 05/27/2020 Dental Oral Exam 11/28/2024 05/27/2024, , 01/02/2023 Dental Prophylaxis 11/28/2024 05/27/2024, 0 11/09/2023, 01/02/2023, Additional history exists Mammogram 11/21/2025 11/22/2023, 09/0 08/2022, 11/10/2021, Additional history exists Tobacco Screening 12/10/2025 12/10/2024 Dental X-Ray: Bitewings 12/11/2025 12/11/19, 05/27/2024, 11/09/2023, Additional history exists Dental X-Ray: Full Mouth 01/03/2026 01/02/2023 DTaP/Tdap/Td Vaccines (2 - Td or Tdap) 05/22/2027 05/21/2017, 11/06/2007 Colonoscopy 10/04/2033 10/05/2023 Colorectal Cancer Screening 10/04/2033 Hepatitis B Vaccines Completed 03/01/2017, 11/29/2016, 10/06/2016 Cervical Cancer Screening Discontinued Pap Smear Discontinued 06/30/2020 Zoster Vaccines Completed 09/06/2021, 05/12, 07/27/2017, Additional history exists Influenza Vaccine Completed 11/26/2024, , 11/22/2022, Additional history exists Pneumococcal Vaccine: 50+ Years Completed 11/26/2024 RSV Patients and Patients Aged 60 years or older Completed 11/26/2024 HIB Vaccines Aged Out No longer eligi [...] Procedure Name Priority Date/Time Associated Diagnosis Comments INTRAORAL - PERIAPICAL FIRST RADIOGRAPHIC IMAGE Routine 12/10/2024 1:30 PM EDT BITEWING - SINGLE RADIOGRAPHIC IMAGE Routine 12/10/2024 1:30 PM EDT 19 RE-CEMENT OR RE-ZULETA CROWN Routine 12/10/2024 1:30 PM EDT Full PROPHYLAXIS - ADULT Routine 05/27/2024 11:00 AM EDT PERIODIC ORAL [...] AM EDT Narrative 12/06/2023 10:24 AM EDT [address] [place] [address] Mammography Report Signed Patient: Zoey Walsh MR#: [id number] : 1955 Acct:[id number] Age/Sex: 68 / F ADM Date: 11/22/23 Loc: HO.MAMMO Attending Dr: Charisma Stinson MD Ordering Physician: Charisma Stinson MD Results: 2Be nign Findings Date of Service: 11/22/23 Follow Up: 1 Year From Orig ina Mammogram Procedure(s): MM tomosynthesis screening BI Accession Number(s): [id number] cc: Charisma Stinson MD EXAMINATION: MM SCREENING [...] 12/06/23 1021 DD/ 1130 TD/TT: 11/22/23 1144 Housekeeping Assistant: Procedure Note Donotuseinterpreter, Image - 12/06/[address] [place] [address] Mammography Report Signed Patient: Zoey Walsh R#: [id number] : 8Acct:[id number] Age/Sex: 68 / FADM Date: 11/22/23 Loc: HO.MAMMO Attending Dr: Charisma Stinson MD Ordering Physician: Charisma Stinson MDResults: 2Be nign Findings Date of Service: 11/22/23Follow Up: 1 Year From Orig ina Mammogram Procedure(s): MM tomosynthesis screening BI Accession Number(s): [id number] cc: Charisma Stinson MD EXAMINATION: MM SCREENING [...] 12/06/23 1021 DD/ 1130 TD/TT: 11/22/23 1144 Housekeeping Assistant: us Charisma Stinson MD IMG BI PROCEDURES [...] along with historic and current clinical information. Relocation Director : SEE COMMENT [facility] Comment: KN, CT(ASCP) CT screening location: [place] [address] Interpretation/R esult: Negative for intraepithelial lesion or malignancy. [facility] LMP: NONE GIVEN [facility] Prev. BX: NONE GIVEN [facility] Prev. PAP: NONE GIVEN [facility] SOURCE: None given [facility] Statement Of Adequacy: SEE COMMENT [facility] Comment: Satisfactory for evaluation. Endocervical/transformation zone component present. 06/30/2020 11:1 9 AM EDT us Liliana Zuñiga MD LAB PATHOLOGY ORDERABLES Final R esult [facility] [address] from Last 3 Months or Most Recently Relevant to Health Maintenance Insurance [facility] - HSN FULL (MEDICAID)
--- OUTSIDE RECORDS SUMMARY | 2024-12-17 13:25 | XMS_ITS | Encounter Summary ---
Author Organization [employer] Address [address] [facility] 7 [place] [address] Care Team Providers Care Sueding Machine Tender Name Role Phone Unavailable Primary Care Provider Unavailabl e Reason for Visit * Reason Comments Med Refill Encounter Details Date Type Department Care Team ([facility] [address] Contact Info) Description 12/16/2024 Refill [facility] PED[facility] [address] [place] [address] Charisma Stinson MD [address] [place] [address] Gastroesophageal reflux disease without esophagitis Social History [...] Description 02/05/2025 1:00 PM EST Office Visit [facility]ULT [facility] [address] [place] [address] Kary Reyes documented as of this encounter Visit Diagnoses Diagnosis Gastroesophageal reflux disease without esophagitis Esophageal reflux documented in this encounter Additional Health Concerns Assessment Noted Time PHQ-9 Depression Total Score: 2 03/24/19 23 9:26 AM EST documented as of this encounter
--- OUTSIDE RECORDS SUMMARY | 2024-12-17 13:25 | XMS_ITS | Encounter Summary ---
Author Organization [employer] Address [address] [facility] 7 [place] [address] Care Team Providers Care Hoistman Name Role Phone Unavailable Primary Care Provider Unavailabl e Reason for Visit * Reason Comments Med Refill Encounter Details Date Type Department Care Team ([facility] Contact Info) Description 10/11/2024 Refill [facility] [address] [place] [address] Charisma Stinson MD [address] [place] [address] Mixed hyperlipidemia Social History Tobacco Use Types [...] t he electric, gas, oil or water [employer] threatened to shut off services in your [...] Description 02/05/2025 1:00 PM EST Office Visit [facility] ADULT DENTAL 505 [place] [address] Kary Reyes documented as of this encounter Visit Diagnoses Diagnosis Mixed hyperlipidemia documented in this encounter Additional Health Concerns Assessment Noted Time PHQ-9 Depression Total Score: 2 03/24/19 23 9:26 AM EST documented as of this encounter
--- OUTSIDE RECORDS SUMMARY | 2024-12-17 13:25 | XMS_ITS | Encounter Summary ---
Author Organization [employer] Address [address] [facility] 7 [place] [address] Care Team Providers Care Clinical Staff Anesthesiologist Name Role Phone Charisma Stinson MD Primary Care Provider [phone] Reason for Visit * Reason Onset Date Comments Triage 08/05/2022 Encounter Details Date Type Department Care Team ([facility] Contact Info) Description 08/05/2022 Telephone [facility] MED & PEDS [address] [place], [place] [phone] Charisma Stinson MD [address] [place] [address] Triage Social History Tobacco Use Types Packs/Day [...] accepted this outcome Please contact pt at [phone] documented in this encounter Plan of Treatment Upcoming Encounters Date Type Department Care Team ([facility] st Contact Info) Description 02/05/2025 1:00 PM EST Office Visit [facility] ADULT D[facility] [address] [place] [address] Kary Reyes documented as of this encounter Visit Diagnoses Not on filedocumented in this encounter Additional Health Concerns Assessment Noted Time PHQ-9 Depression Total Score: 2 03/24/19 23 9:26 AM EST documented as of this encounter Care Teams Clinical Staff Anesthesiologist Relationship Specialty Start Date End Date Charisma Stinson MD [address] [place] [address] PCP - General Family Medicine 03/13/18 09/05/24 documented as of this encounter
--- OUTSIDE RECORDS SUMMARY | 2024-12-17 13:26 | XMS_ITS | Encounter Summary ---
Author Organization [employer] Address [address] [place] [address] 7 [place] [address] Care Team Providers Care Hadoop Software Engineer Name Role Phone Charisma Stinson MD Primary Care Provider [phone] Encounter Details Date Type Department Care Team (Latest Contact Info) Description 03/19/[address] [facility] CONVERSIONS Dental, Provider, DDS Social History [...] Description 02/05/2025 1:00 PM EST Office Visit [facility] ADULT D[facility] [address] [place] [address] Kary Reyes documented as of this encounter Visit Diagnoses Not on filedocumented in this encounter Care Teams Hadoop Software Engineer Relationship Specialty Start Date End Date Charisma Stinson MD [address] [place] [address] PCP - General Family Medicine 03/13/18 09/05/24 documented as of this encounter
--- OUTSIDE RECORDS SUMMARY | 2024-12-17 13:26 | XMS_ITS | Encounter Summary ---
Author Organization [employer] Address [address] [facility] 7t [place] [address] Care Team Providers Care Distance Learning Program Coordinator Name Role Phone Charisma Stinson MD Primary Care Provider [phone] Reason for Visit * Reason Onset Date Comments more medication 01/27/2023 Encounter Details Date Type Department Care Team ([facility] Contact Info) Description 01/27/2023 Telephone [facility] ADULT DENTAL [address] [place] [address] Yordan Mcgowan DDS [address] [place] [address] more medication Social History Tobacco Use Types [...] Description 02/05/2025 1:00 PM EST Office Visit [facility] ADULT DENTAL 505 [place] [address] Kary Reyes documented as of this encounter Visit Diagnoses Not on filedocumented in this encounter Additional Health Concerns Assessment Noted Time PHQ-9 Depression Total Score: 2 03/24/19 23 9:26 AM EST documented as of this encounter Care Teams Distance Learning Program Coordinator Relationship Specialty Start Date End Date Charisma Stinson MD [address] [place] [address] PCP - General Family Medicine 03/13/18 09/05/24 documented as of this encounter
--- OUTSIDE RECORDS SUMMARY | 2024-12-17 13:26 | XMS_ITS | Encounter Summary ---
Author Organization [employer] Address [address] [place] [address] 7 [place] [address] Care Team Providers Care Wall Attendant Name Role Phone Charisma Stinson MD Primary Care Provider [phone] Encounter Details Date Type Department Care Team (Late Contact Info) Description 02/08/2023 Abstract [facility] ADULT DENTAL [address] [place] [address] Yordan Mcgowan DDS [address] [place], [place] [phone] Social History Tobacco Use Types Packs/Day Years [...] [facility]ULT [facility] [address] [place] [address] Kary Reyes documented as of this encounter Visit Diagnoses Not on filedocumented in this encounter Additional Health Concerns Assessment Noted Time PHQ-9 Depression Total Score: 2 03/24/19 23 9:26 AM EST documented as of this encounter Care Teams Wall Attendant Relationship Specialty Start Date End Date Charisma Stinson MD [address] [place] [address] PCP - General Family Medicine 03/13/18 09/05/24 documented as of this encounter
--- OUTSIDE RECORDS SUMMARY | 2024-12-17 13:26 | XMS_ITS | Encounter Summary ---
Author Organization [employer] Address [address] [place] [address] 7 [place] [address] Care Team Providers Care Ornamental Ironworker Helper Name Role Phone Charisma Stinson MD Primary Care Provider [phone] Encounter Details Date Type Department Care Team ([facility] Contact Info) Description 01/16/2023 Abstract [facility] MEDICINE [address] [place], [place] [phone] Charisma Stinson MD 505 [place], [place] [phone] Social History Tobacco Use Types Packs/Day Years [...] Description 02/05/2025 1:00 PM EST Office Visit [facility]C ADULT DENTAL [address] [place], [place] [phone] Kary Reyes documented as of this encounter Visit Diagnoses Not on filedocumented in this encounter Additional Health Concerns Assessment Noted Time PHQ-9 Depression Total Score: 2 01/12/20 23 9:26 AM EST documented as of this encounter Care Teams Ornamental Ironworker Helper Relationship Specialty Start Date End Date Charisma Stinson MD [address] [place] [address] PCP - General Family Medicine 03/13/18 09/05/24 documented as of this encounter
--- OUTSIDE RECORDS SUMMARY | 2024-12-17 13:26 | XMS_ITS | Encounter Summary ---
Author Organization [employer] Address [address] [place] [address] 7 [place] [address] Care Team Providers Care Marketing Sales Consultant Name Role Phone Charisma Stinson MD Primary Care Provider [phone] Encounter Details Date Type Department Care Team (Latest Contact Info) Description 04/18/2018 Abstract [facility] CONVERSIONS Dental, Provider, DDS Social History [...] Description 02/05/2025 1:00 PM EST Office Visit [facility] ADULT DENTAL [address] [place] [address] Kary Reyes documented as of this encounter Visit Diagnoses Not on filedocumented in this encounter Care Teams Marketing Sales Consultant Relationship Specialty Start Date End Date Charisma Stinson MD [address] [place] [address] PCP - General Family Medicine 03/13/18 09/05/24 documented as of this encounter
--- OUTSIDE RECORDS SUMMARY | 2024-12-17 13:26 | XMS_ITS | Encounter Summary ---
Author Organization [employer] Address [address] [place] [address] 7 [place] [address] Care Team Providers Care Tumble Tailstock Turret Lathe Operator Name Role Phone Charisma Stinson MD Primary Care Provider [phone] Encounter Details Date Type Department Care Team (Latest Contact Info) Description 12/13/2021 Abstract [facility] CONVERSIONS Dental, Provider, DDS Social History Tobacco [...] Description 02/05/2025 1:00 PM EST Office Visit [facility] ADULT DENT[facility] [address] [place] [address] Kary Reyes documented as of this encounter Visit Diagnoses Not on filedocumented in this encounter Care Teams Tumble Tailstock Turret Lathe Operator Relationship Specialty Start Date End Date Charisma Stinson MD [address] [place] [address] PCP - General Family Medicine 03/13/18 09/05/24 documented as of this encounter
--- OUTSIDE RECORDS SUMMARY | 2024-12-17 13:26 | XMS_ITS | Encounter Summary ---
Author Organization [employer] Address [address] [place] [address] 7 [place] [address] Care Team Providers Care Supervisor Dimension Warehouse Name Role Phone Charisma Stinson MD Primary Care Provider [phone] Encounter Details Date Type Department Care Team (Late Contact Info) Description 02/20/2023 Abstract [facility]ULT [facility] [address] [place] [address] Yordan Mcgowan DDS [address] [place], [place] [phone] Social History Tobacco Use Types Packs/Day Years [...] 02/05/2025 1:00 PM EST Office Visit [facility] [address] [place] [address] Kary Reyes documented as of this encounter Visit Diagnoses Not on filedocumented in this encounter Additional Health Concerns Assessment Noted Time PHQ-9 Depression Total Score: 2 03/24/19 23 9:26 AM EST documented as of this encounter Care Teams Supervisor [employer]ension Warehouse Relationship Specialty Start Date End Date Charisma Stinson MD [address] [place] [address] PCP - General Family Medicine 03/13/18 09/05/24 documented as of this encounter
--- OUTSIDE RECORDS SUMMARY | 2024-12-17 13:26 | XMS_ITS | Encounter Summary ---
Author Organization [employer] Address [address] [facility] 7 [place] [address] Care Team Providers Care Director Of Tax Services Name Role Phone Unavailable Primary Care Provider Unavailabl e Reason for Visit * Reason Comments Med Refill Encounter Details Date Type Department Care Team ([facility] Contact Info) Description 11/21/2024 Refill [facility] CHC MED & PEDS [address] [place] [address] Charisma Stinson MD [address] [place] [address] Social History Tobacco Use Types Packs/Day Years [...] Description 02/05/2025 1:00 PM EST Office Visit [facility] ADULT DENTAL [address] [place] [address] Kary Reyes documented as of this encounter Visit Diagnoses Not on filedocumented in this encounter Additional Health Concerns Assessment Noted Time PHQ-9 Depression Total Score: 2 03/24/19 23 9:26 AM EST documented as of this encounter
--- OUTSIDE RECORDS SUMMARY | 2024-12-17 13:26 | XMS_ITS | Encounter Summary ---
Author Organization [employer] Address [address] [facility] 7 [place] [address] Care Team Providers Care Water Resource Consultant Name Role Phone Charisma Stinson MD Primary Care Provider [phone] Reason for Visit * Reason Onset Date Comments Results 06/22/2023 Appointment Request 06/22/2023 Encounter Details Date Type Department Care Team ([facility] st Contact Info) Description 06/22/2023 Telephone [facility] MED[facility]INE [address] [place] [address] Charisma Stinson MD [address] [place] [address] Results; Appointment Request Social History Tobacco Use [...] abdomen complete Date when done: 06/19 Facility: [facility] Please contact pt at [phone] documented in this encounter Plan of Treatment Upcoming Encounters Date Type Department Care Team (Late st Contact Info) Description 02/05/2025 1:00 PM EST Office Visit [facility] ADULT DENTAL [address] [place] [address] Kary Reyes documented as of this encounter Visit Diagnoses Not on filedocumented in this encounter Additional Health Concerns Assessment Noted Time PHQ-9 Depression Total Score: 2 03/24/19 23 9:26 AM EST documented as of this encounter Care Teams Water Resource Consultant Relationship Specialty Start Date End Date Charisma Stinson MD [address] [place] [address] PCP - General Family Medicine 03/13/18 09/05/24 documented as of this encounter
== END 2024-12-17 11:40 | disposition home or self-care (01) ==
LOC: HO.HSM 10:53
PROVIDERS: PCP Pediatrics; Referring Provider Pediatrics; Visit Provider Psychiatry & Neurology Neurology
DX: G50.0 Trigeminal neuralgia (principal); G52.1 Disorders of glossopharyngeal nerve; M79.604 Pain in right leg
CPT/HCPCS: 99214

== ENCOUNTER → 2024-12-17 10:52 | Outpatient (BNVA) | payer MEDICARE, MEDICAID, SELFPAY | PROVIDERS: PCP Pediatrics; Referring Provider Pediatrics; Visit Provider Psychiatry & Neurology Neurology | DX: G50.0 Trigeminal neuralgia (principal); G52.1 Disorders of glossopharyngeal nerve; M79.604 Pain in right leg | CPT/HCPCS: 99212 ==

== ENCOUNTER → 2024-12-19 08:11 | Outpatient (REF) | payer MEDICARE, MEDICAID, SELFPAY ==
--- NOTE | ~2024-12-19 | NM_ITS ---
Lexiscan Myocardial perfusion study Indication: Chest pain to evaluate for myocardial ischemia Technique: The patient was brought in for a Lexiscan perfusion study on 12/19/2024 and was injected 0.4 mg of Lexiscan intravenously. Within a minute of this injection 25 mCi of sestamibi was given intravenously. Images were obtained using the SPECT gamma camera interlaced with the gating device. Images were obtained in supine position. Resting perfusion study was performed on 12/20/2024. Patient was administered 25 mCi of sestamibi intravenously at rest. Images were then obtained in supine position. Images obtained without without CT attenuation. Total DLP 71 mGy-cm Images were processed with the software and compared side to side in short axis, horizontal long axis and vertical long axis views. Findings: The stress perfusion study showed nonattenuated as well as attenuated corrected images show normal uptake of radiotracer in all segments of the LV myocardium. The gated study shows normal LV systolic function with calculated LVEF of 56%. LV cavity is normal in size. The gated study shows normal systolic wall thickening and contraction of segments. Resting study shows nonattenuated images show normal uptake of radiotracer in all segments of the LV myocardium. Attenuated corrected images show mildly reduced uptake in the distal anterior and apical wall of the LV myocardium. Gating at rest reveals normal systolic wall motion with ejection fraction at greater than 55%. The findings are consistent with normal myocardial perfusion. NM/NM kathleen perf SPECT rest & str Impression: 1. Myocardial perfusion imaging study shows normal myocardial perfusion 2. Gated LVEF is 56% 3. Transient ischemic dilatation not present Nondiagnostic changes on EKG. Was not able to previous study on 12/20/24 due to technical issues Electronically signed by: Gilberto Villalobos MD 12/24/2024 12:25 PM EDT
--- NOTE | 2024-12-19 08:13 | CA_ITS ---
Acquisition Time: 2024-12-19 08:38:40 Total Exercise Time: 00:08:31 Test Indications: CHEST PAIN Medications: ATROVASTATIN ALBUTEROL Protocol: JAMEE Max HR: 137 BPM 89% of Pred: 153 BPM Max BP: 138/82 mmHG Max Work Load: 10.1 METS Exercise stress test with exercise 8 min 31 sec of Jamee protocol, achieving 87% MPHR, with mild shortness of breath, no chest discomfort, without arrythmia, with normotensive response to exercise, without EKG changes meeting criteria for ischemia. Nuclear images pending. Test reviewed with Dr Villalobos Referred By: Gilberto Villalobos Electronically Signed By: AZIZA MONTES DE OCA
== END ==
LOC: HO.CARD 08:11
PROVIDERS: PCP Pediatrics; Visit Provider Internal Medicine Cardiovascular Disease
DX: R53.83 Other fatigue (principal); R07.9 Chest pain, unspecified; I70.0 Atherosclerosis of aorta
CPT/HCPCS: 78452; 93017; A9500

== ENCOUNTER → 2024-12-19 08:13 | Outpatient (BNV) | payer MEDICARE, MEDICAID, SELFPAY | PROVIDERS: PCP Pediatrics; Visit Provider Nurse Practitioner Family | DX: R07.9 Chest pain, unspecified (principal) | CPT/HCPCS: 78452; 93016; 93018 ==

== ENCOUNTER 2024-12-30 12:47 | Outpatient (REF) | payer MEDICARE, MEDICAID, SELFPAY ==
--- NOTE | 2024-12-30 13:38 | EMG_ITS ---
Chief complaint:?Right leg pain Reason for referral: M79.604 Pain in right leg Referred by:?Dr Jean Procedure done: Right lower extremity NCS/EMG Right peroneal and tibial motor studies were performed with F responses and tibial H-reflex. Right superficial peroneal and sural studies were performed and median and lateral mixed plantars sensory studies were performed. Nerve conduction study did not reveal any significant abnormality. Needle examination revealed long duration polyphasic motor unit potentials in lower paraspinal, EDV, and tibialis anterior. Impression: Chronic right lower lumbar radiculopathy MTDD
== END 2024-12-30 12:48 | disposition home or self-care (01) ==
LOC: HO.NEURO 12:47
PROVIDERS: PCP Pediatrics; Visit Provider Psychiatry & Neurology Neurology
DX: M79.604 Pain in right leg (principal)
CPT/HCPCS: 95886; 95910

== ENCOUNTER → 2024-12-30 13:38 | Outpatient (BNV) | payer MEDICARE, MEDICAID, SELFPAY | PROVIDERS: PCP Pediatrics; Visit Provider Psychiatry & Neurology Neurology | DX: M54.16 Radiculopathy, lumbar region (principal) | CPT/HCPCS: 95886; 95910 ==

== ENCOUNTER 2025-01-15 13:56 | Outpatient (AMB) | payer MEDICARE, MEDICAID, SELFPAY ==
--- NOTE | 2025-01-15 14:03 | MHC.OFFVIS ---
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 An MRI of brain with and without contrast in 2021 did not reveal any significant abnormality. Pain has been treated with gabapentin and carbamazepine with reasonable relief. Her main concern today was right shoulder pain that started after she lifted something heavy. Moving shoulder was giving a more pain. Back pain leg pain were still going on. REPLACED BY [facility] Medical History Actinic keratoses Squamous cell carcinoma, face Trigeminal neuralgia Diverticulosis large intestine w/o perforation or abscess w/bleeding Tubular adenoma of colon Hiatal hernia Surgical History H/O colonoscopy Family History Mother Lung cancer Father Diabetes Social History Household Members: None Housing: [facility] Alcohol intake: former Patient Tobacco Use Status: Former Tobacco user e-Cigarette/Vaping Use: Never Used Substance Use Type: Marijuana Review of Systems Narrative - Musculoskeletal: Reports persistent right leg and knee pain. Denies ability to carry out heavy activities. Also complain of new right shoulder pain after lifting something heavy - Neurological: Denies numbness or tingling; reports occasional trigeminal neuralgia pain; describes throat constricting sensation. - Renal/Urinary: Aware of chronic kidney disease. - Medication Allergies: Unable to take ibuprofen. Physical Exam Neuro Other: Mental Status: Alert and oriented to person, place, and time. Normal attention. Normal spontaneous speech, fluency, and comprehension. No obvious issues with mood and memory. Affect is appropriate. Cranial Nerves: CN II: Visual mack full to confrontation, visual acuity intact. CN III, IV, : Pupils equal, round, reactive to light and accommodation. Extraocular movements are normal. CN V: Facial sensation is normal. CN VII: Facial movements symmetrical. CN VIII: Hearing intact to bedside conversation is normal. CN IX, X: Palate elevates symmetrically. CN XI: Shoulder shrug and head turn symmetrical. CN XII: Tongue midline without atrophy or fasciculations. Decreased range of motion of right shoulder. Extrapyramidal: Full facial expressions and blinking. No rigidity. Movements are appropriate with no tremor or abnormality. Speech: Normal; no dysarthria or tremor. Assessment & Plan Assessment & Plan (1) Trigeminal neuralgia: Comment: [place] brain [place] [facility] [place]: WNL XR both hands at [facility] in 2019: OA NCV/EMG RTUE 08/14/19 THIS IS A NORMAL STUDY. MRI brain WWO at [facility] in 2009: WNL Routine EEG at office in May 2015: OK. Code(s): G50.0 - Trigeminal neuralgia Category: Medical (2) Glossopharyngeal neuralgia: Code(s): G52.1 - Disorders of glossopharyngeal nerve Category: Medical (3) Lumbar radicular pain: Comment: EMG/NCS R leg in Dec 2024 at [facility]: R lower lumbar rad Code(s): M54.16 - Radiculopathy, lumbar region Category: Medical Plan Impression: a: Left trigeminal neuralgia b: Left glossopharangeal neuralgia c: Right leg pain, probably musculoskelatal Rec: a: Gabapentin 300mg bid b: Carbamazepine 200mg bid Orders: Orders MR lumbar spine wo con Today M54.16 - Radiculopathy, lumbar region Coding Level of Care Code Est Pt Level 4 (49607) Diagnoses Trigeminal neuralgia G50.0 Glossopharyngeal neuralgia G52.1 Lumbar radicular pain M54.16
--- OUTSIDE RECORDS SUMMARY | 2025-01-15 17:08 | XMS_ITS | Clinical Summary ---
Author Organization [employer] Address [address] [place] [address] 7[address] [place] [address] Care Team Providers Care Sole Tier Name Role Phone Unavailable Primary Care Provider Unavailabl e Allergies Active Allergy Reactions Criticality Noted Date Comments Dust Mite Extract 08/12/2022 Gramineae Pollens 08/12/2022 Shellfish Allergy 08/12/2022 Other reaction(s): hives, puffy Shellfish Protein-Containing Drug Products 08/06/2014 Medications gabapentin (Neurontin) 300 MG capsule 02/17/20 [...] ONE TABLET EVERY MORNING 90 tablet 3 05/07/20 25 Active Active Problems Problem Noted Date [...] Encounters Date Type Department Care Team Description 01/15/2025 Orders Only GENERIC EXTERNAL DATA DEPARTMENT Provider, Generic External Data 12/19/2024 Orders Only [facility] External Provider, [facility] 12/16/2024 Refill [facility]EDS [address] [place] [address] Charisma Stinson MD Gastroesophageal reflux disease without esophagitis 12/10/2024 1:30 PM EDT Office Visit [facility] ADULT DENTAL [address] [place] [address] Be Arnold 11/21/2024 Refill [facility] [address] [place] [address] Charisma Stinson MD 10/15/2024 Refill [facility] [address] [place] [address] Charisma Stinson MD Mixed hyperlipidemia from Last 3 Months Social History Tobacco [...] Upcoming Encounters Date Type Department Care Team ([facility] st Contact Info) Description 02/05/2025 12:45 PM EST Office Visit [facility] ADULT DENTAL [address] [place] [address] Kary Reyes Health Maintenance Due Date Last [...] Procedure Name Priority Date/Time Associated Diagnosis Comments BASIC METABOLIC PANEL Routine 01/15/2025 2:33 PM EST SED RATE BY MODIFIED WESTERGREN Routine 01/15/2025 2:33 PM EST URINE PROTEIN, TOTAL, RANDOM (W/O CREATININE) Routine 01/15/2025 2:30 PM EST CREATININE, RANDOM URINE Routine 01/15/2025 2:30 PM EST URINALYSIS, COMPLETE Routine 01/15/2025 2:30 PM EST NM HEART PERFUSION SPECT STRESS AND REST Routine 12/19/2024 9:35 AM EDT INTRAORAL - PERIAPICAL FIRST RADIOGRAPHIC [...] Recently Relevant to Health Maintenance Results * Sed Rate by Modified Westergren (01/15/2025 2:33 PM EST) Erythrocyte Sedimentation Rate 2 0 - 20 MM/HR [facility] Comment:Patients with polycy themia and many hemoglobin abnormalitiesmay have depressed sed rates whereas patients with anemiamay have elevated sed rates. 01/15/2025 2:33 PM EST 01/15/2025 2:33 PM EST us Generic External Data Provider LAB BLOOD ORDERAB LES Final Result [facility] [address] [place] [phone] * (ABNORMAL) Basic Metabolic Panel (01/15/2025 2:33 PM EST) Sodium 138 135 - 145 mmol/L [facility] Potassium 3.6 3.3 - 5.1 mmol/L [facility] Chloride 102 96 - 108 mmol/L [facility] Carbon Dioxide 30(H) 22 - 29 mmol/L [facility] Anion Gap 10(L) 12 - 20 [facility] Urea Nitrogen (BUN) 10 9 - 16 mg/dL [facility] Creatinine, Serum 0.70 0.5 - 1.4 mg/dL [facility] Estimated Glomerular Filt Rate >60 [facility] Comment:Chronic Kidney Disea se: Estimated GFR < 60 mL/min/[id number] Kidney Disease: Estimated GFR < 15 mL/min/1.73m2 Glucose 77 60 - 115 mg/dL [facility] Calcium 8.9 8.4 - 10.2 mg/dL [facility] 01/15/2025 2:33 PM EST 01/15/2025 2:33 PM EST us Generic External Data Provider LAB BLOOD ORDERAB LES Final Result Performing Organization Address [facility] Co de Phone Number [facility] [address] [place] [phone] * (ABNORMAL) Urine Protein, Total, Random without Creatinine (01/15/2025 2:30 PM EST) Protein, Total, Random Urine 13(H) <12 mg/dL [facility] 01/15/2025 2:30 PM EST 01/15/2025 2:57 PM EST Generic External Data Provider LAB URINE ORDERAB LES Final Result Performing Organization Address [facility] Co de Phone Number [facility] [address] [place] [phone] * Creatinine, Random Urine (01/15/2025 2:30 PM EST) Creatinine, Urine 132.63 mg/dL [facility] 01/15/2025 2:30 PM EST 01/15/2025 2:57 PM EST Generic External Data Provider LAB URINE ORDERAB LES Final Result Performing Organization Address [facility] de Phone Number [facility] [address] [place] [phone] * (ABNORMAL) Urinalysis Complete (01/15/2025 2:30 PM EST) Color Urine Dark Yellow [facility] Appearance Urine Clear [facility] PH 6.0 5.0 - 9.0 [facility] Glucose Urine UA Negative Negative mg/dL [facility] Urine Blood Trace(A) Negative [facility] Specific [place] - Urine 1.025 1.005 - 1.025 [facility] Urine Protein Negative Neg-Trace mg/dL [facility] Urine Ketones Negative Negative mg/dL [facility] Nitrite Urine Negative Negative [facility] Leukocyte Esterase Urine Small (1+)(A) Negative [facility] RBC Urine 3-5(A) 0 - 2 /HPF [facility] Urine WBC 0-5 0 - 5 /HPF [facility] Urine Squamous Epithelial Cell 11-20 0 - 2 /HPF [facility] Urine Bacteria Trace None Seen [facility] Hyaline Casts, Urine 0-2 0 - 2 /LPF [facility] 01/15/2025 2:30 PM EST 01/15/2025 2:57 PM EST us Generic External Data Provider LAB URINE ORDERAB LES Final Result Performing Organization Address City/State/[facility] Co de Phone Number [facility] [address] [place] [phone] * NM heart perfusion SPECT stress and rest (12/19/2024 9:35 AM EDT) Anatomical Region Laterality Modality Body Nuclear Medicine 12/19/2024 9:35 AM EDT Narrative 12/24/2024 12:28 PM EDT [place] [address] Nuclear Medicine Report Signed Patient: Zoey Walsh MR#: [id number] 656 : 1955 Acct:[id number] Age/Sex: 69 / F ADM Date: 12/19/24 Loc: HO.CARD Attending Dr: Gilberto Villalobos MD Ordering Physician: Gilberto Villalobos MD Date of Service: 12/19/24 Procedure(s): NM kathleen perf SPECT rest str Accession Number(s): [id number] cc: Charisma Stinson MD; Gilberto Villalobos MD Reason for Exam: CHEST PAIN LEXISCAN STRESS Lexiscan Myocardial perfusion study Indication: Chest pain to evaluate for myocardial ischemia Technique: The patient was brought in for a Lexiscan perfusion study on 12/19/2024 and was injected 0.4 mg of Lexiscan intravenously. Within a minute of this injection 25 mCi of sestamibi was given intravenously. Images were obtained using the SPECT gamma camera interlaced with the gating device. Images were obtained in supine position. Resting perfusion study was performed on 12/20/2024. Patient was administered 25 mCi of sestamibi intravenously at rest. Images were then obtained in supine position. Images obtained without without CT attenuation. Total DLP 71 mGy-cm Images were processed with the software and compared side to side in short axis, horizontal long axis and vertical long axis views. Findings: The stress perfusion study showed nonattenuated as well as attenuated corrected images show normal uptake of radiotracer in all segments of the LV myocardium. The gated study shows normal LV systolic function with calculated LVEF of 56%. LV cavity is normal in size. The gated study shows normal systolic wall thickening and contraction of segments. Resting study shows nonattenuated images show normal uptake of radiotracer in all segments of the LV myocardium. Attenuated corrected images show mildly reduced uptake in the distal anterior and apical wall of the LV myocardium. Gating at rest reveals normal systolic wall motion with ejection fraction at greater than 55%. The findings are consistent with normal myocardial perfusion. NM/NM kathleen perf SPECT rest str Impression: 1. Myocardial perfusion imaging study shows normal myocardial perfusion 2. Gated LVEF is 56% 3. Transient ischemic dilatation not present Nondiagnostic changes on EKG. Was not able to previous study on 12/20/24 due to technical issues Electronically signed by: Gilberto Villalobos MD 12/24/2024 12:25 PM EDT Dictated By: Gilberto Villalobos MD Signed By: <Electronically signed by Gilberto Villalobos MD in OV> 12/24/24 1225 DD/ 0935 TD/TT: 12/20/24 1130 Laboratory Chemist: Procedure Note Donotuseinterpreter, Image - 12/24/[address] [address] Nuclear Medicine Report Signed Patient: Zoey Walsh JMR#: [id number] 656 : 8Acct:[id number] Age/Sex: 69 / FADM Date: 12/19/24 Loc: HOKennethCARD Attending Dr: Gilberto Villalobos MD Ordering Physician: Gilberto Villalobos MD Date of Service: 12/19/24 Procedure(s): NM kathleen perf SPECT rest str Accession Number(s): [id number] cc: Charisma Stinson MD; Gilberto Villalobos MD Reason for Exam: CHEST PAIN LEXISCAN STRESS Lexiscan Myocardial perfusion study Indication: Chest pain to evaluate for myocardial ischemia Technique: The patient was brought in for a Lexiscan perfusion study on 12/19/2024 and was injected 0.4 mg of Lexiscan intravenously. Within a minute of this injection 25 mCi of sestamibi was given intravenously. Images were obtained using the SPECT gamma camera interlaced with the gating device. Images were obtained in supine position. Resting perfusion study was performed on 12/20/2024. Patient was administered 25 mCi of sestamibi intravenously at rest. Images were then obtained in supine position. Images obtained without without CT attenuation. Total DLP 71 mGy-cm Images were processed with the software and compared side to side in short axis, horizontal long axis and vertical long axis views. Findings: The stress perfusion study showed nonattenuated as well as attenuated corrected images show normal uptake of radiotracer in all segments of the LV myocardium. The gated study shows normal LV systolic function with calculated LVEF of 56%. LV cavity is normal in size. The gated study shows normal systolic wall thickening and contraction of segments. Resting study shows nonattenuated images show normal uptake of radiotracer in all segments of the LV myocardium. Attenuated corrected images show mildly reduced uptake in the distal anterior and apical wall of the LV myocardium. Gating at rest reveals normal systolic wall motion with ejection fraction at greater than 55%. The findings are consistent with normal myocardial perfusion. NM/NM kathleen perf SPECT rest str Impression: 1. Myocardial perfusion imaging study shows normal myocardial perfusion 2. Gated LVEF is 56% 3. Transient ischemic dilatation not present Nondiagnostic changes on EKG. Was not able to previous study on 12/20/24 due to technical issues Electronically signed by: Gilberto Villalobos MD 12/24/2024 12:25 PM EDT Dictated By: Gilberto Villalobos MD Signed By: <Electronically signed by Gilberto Villalobos MD in OV> 12/24/24 1225 DD/ 0935 TD/TT: 12/20/24 1130 Laboratory Chemist: [facility] External Provider IMG NM PROCEDURES Final Result * BI Mammogram Screening Tomosynthesis Bilateral (11/22/2023 11:30 AM EDT) Anatomical Region Laterality Modality Breast Bilateral Mammography 11/22/2023 11:3 0 AM EDT Narrative 12/06/2023 10:24 AM EDT [address] [place] [address] Mammography Report Signed Patient: Zoey Walsh MR#: [id number] 656 : 1955 Acct:[id number] Age/Sex: 68 / F ADM Date: 11/22/23 Loc: HO.MAMMO Attending Dr: Charisma Stinson MD Ordering Physician: Charisma Stinson MD Results: 2Be nign Findings Date of Service: 11/22/23 Follow Up: 1 Year From Orig ina Mammogram Procedure(s): MM tomosynthesis screening BI Accession Number(s): [id number] cc: Charisma Stinson MD EXAMINATION: MM SCREENING [...] 12/06/23 1021 DD/ 1130 TD/TT: 11/22/23 1144 Laboratory Chemist: Procedure Note Donotuseinterpreter, Image - 12/06/2023 [facility] [address] [place] [address] Mammography Report Signed Patient: Zoey Walsh JMR#: [id number] 656 : 8Acct:[id number] Age/Sex: 68 / FADM Date: 11/22/23 Loc: HO.MAMMO Attending Dr: Charisma Stinson MD Ordering Physician: Charisma Stinson MDResults: 2Be nign Findings Date of Service: 11/22/23Follow Up: 1 Year From Orig ina Mammogram Procedure(s): MM tomosynthesis screening BI Accession Number(s): [id number] cc: Charisma Stinson MD EXAMINATION: MM SCREENING [...] 12/06/23 1021 DD/ 1130 TD/TT: 11/22/23 1144 Laboratory Chemist: us Charisma Stinson MD IMG BI PROCEDURES [...] along with historic and current clinical information. General Dentist/Owner : SEE COMMENT [facility] Comment: KN, CT(ASCP) CT screening location: [place] [address] Interpretation/R esult: Negative for intraepithelial lesion or malignancy. [facility] LMP: NONE [facility]IVEN [facility] Prev. BX: NONE [facility]IVEN [facility] Prev. PAP: NONE [facility] SOURCE: None given [facility] Statement Of Adequacy: SEE COMMENT [facility] Comment: Satisfactory for evaluation. Endocervical/transformation zone component present. 06/30/2020 11:1 9 AM EDT us Liliana Zuñiga MD LAB PATHOLOGY ORDERABLES Final R esult [facility] [address] from Last 3 Months or Most Recently Relevant to Health Maintenance Insurance [facility] [address] [place] [address] DENTAL - HSN FULL (MEDICAID)
--- OUTSIDE RECORDS SUMMARY | 2025-01-15 17:08 | XMS_ITS | Encounter Summary ---
Author Organization [employer] Address [address] [facility] 7[address] [place] [address] Care Team Providers Care Ultrasound Technologist Sonographer Name Role Phone Charisma Stinson MD Primary Care Provider Reason for Visit * Reason Onset Date Comments more medication 01/27/2023 Encounter Details Date Type Department Care Team ([facility] Contact Info) Description 01/27/2023 Telephone [facility] ADULT [facility] [address] [place] [address] Yordan Mcgowan DDS [address] [place] [address] more medication Social History Tobacco Use Types [...] Team (Late st Contact Info) Description 02/05/2025 12:45 PM EST Office Visit [facility] ADULT DENTAL [address] [place] [address] Kary Reyes documented as of this encounter Visit Diagnoses Not on filedocumented in this encounter Additional Health Concerns Assessment Noted Time PHQ-9 Depression Total Score: 2 03/24/19 23 9:26 AM EST documented as of this encounter Care Teams Ultrasound Technologist Sonographer Relationship Specialty Start Date End Date Charisma Stinson MD [address] [place] [address] PCP - General Family Medicine 03/13/18 09/05/24 documented as of this encounter
--- OUTSIDE RECORDS SUMMARY | 2025-01-15 17:08 | XMS_ITS | Encounter Summary ---
Author Organization [employer] Address [address] [facility] [address] [place] [address] Care Team Providers Care Organ Installer Name Role Phone Unavailable Primary Care Provider Unavailabl e Reason for Visit * Reason Comments Med Refill Encounter Details Date Type Department Care Team ([facility] Contact Info) Description 11/21/2024 Refill [facility] MED & PEDS [address] [place] [address] Charisma Stinson MD [address] [place] [address] Social History Tobacco Use Types Packs/Day Years [...] Description 02/05/2025 12:45 PM EST Office Visit [facility] ADULT DENTAL [address] [place] [address] Kary Reyes documented as of this encounter Visit Diagnoses Not on filedocumented in this encounter Additional Health Concerns Assessment Noted Time PHQ-9 Depression Total Score: 2 03/24/19 23 9:26 AM EST documented as of this encounter
--- OUTSIDE RECORDS SUMMARY | 2025-01-15 17:08 | XMS_ITS | Encounter Summary ---
Author Organization [employer] Address [address] [facility] [address] [place] [address] Care Team Providers Care Photographic Printer Name Role Phone Charisma Stinson MD Primary Care Provider [phone] Reason for Visit * Reason Onset Date Comments Triage 08/05/2022 Encounter Details Date Type Department Care Team ([facility] Contact Info) Description 08/05/2022 Telephone [facility] MED & PEDS [address] [place], [place] [phone] Charisma Stinson MD [address] [place] [address] Triage Social History Tobacco Use Types Packs/Day [...] accepted this outcome Please contact pt at [phone] documented in this encounter Plan of Treatment Upcoming Encounters Date Type Department Care Team ([facility] st Contact Info) Description 02/05/2025 12:45 PM EST Office Visit [facility] ADULT DENTAL [address] [place] [address] Kary Reyes documented as of this encounter Visit Diagnoses Not on filedocumented in this encounter Additional Health Concerns Assessment Noted Time PHQ-9 Depression Total Score: 2 03/24/19 23 9:26 AM EST documented as of this encounter Care Teams Photographic Printer Relationship Specialty Start Date End Date Charisma Stinson MD [address] [place] [address] PCP - General Family Medicine 03/13/18 09/05/24 documented as of this encounter
--- OUTSIDE RECORDS SUMMARY | 2025-01-15 17:08 | XMS_ITS | Encounter Summary ---
Author Organization [employer] Address [address] [place] [address] 7 [place] [address] Care Team Providers Care Atm Technician Name Role Phone Unavailable Primary Care Provider Unavailabl e Reason for Visit * Reason Comments Med Refill Encounter Details Date Type Department Care Team ([facility] Contact Info) Description 10/15/2024 Refill [facility] CH[facility] MED & PEDS [address] [place] [address] Charisma Stinson MD [address] [place] [address] Mixed hyperlipidemia Social History Tobacco Use Types [...] t he electric, gas, oil or water [employer] threatened to shut off services in your [...] Description 02/05/2025 12:45 PM EST Office Visit [facility] ADULT DENTAL [address] [place] [address] Kary Reyes documented as of this encounter Visit Diagnoses Diagnosis Mixed hyperlipidemia documented in this encounter Additional Health Concerns Assessment Noted Time PHQ-9 Depression Total Score: 2 03/24/19 23 9:26 AM EST documented as of this encounter
--- OUTSIDE RECORDS SUMMARY | 2025-01-15 17:08 | XMS_ITS | Encounter Summary ---
Author Organization [employer] Address [address] [place] [address] 7 [place] [address] Care Team Providers Care Molder Operator Name Role Phone Charisma Stinson MD Primary Care Provider [phone] Encounter Details Date Type Department Care Team (Latest Contact Info) Description 12/13/2021 Abstract [facility] CONVERSIONS Dental, Provider, DDS Social [...] Description 02/05/2025 12:45 PM EST Office Visit [facility] ADULT DENTAL [address] [place] [address] Kary Reyes documented as of this encounter Visit Diagnoses Not on filedocumented in this encounter Care Teams Molder Operator Relationship Specialty Start Date End Date Charisma Stinson MD [address] [place] [address] PCP - General Family Medicine 03/13/18 09/05/24 documented as of this encounter
--- OUTSIDE RECORDS SUMMARY | 2025-01-15 17:08 | XMS_ITS | Encounter Summary ---
Author Organization [employer] Address [address] [place] [address] 7 [place] [address] Care Team Providers Care Senior It Auditor Name Role Phone Unavailable Primary Care Provider Unavailabl e Reason for Visit * Reason Comments Med Refill Encounter Details Date Type Department Care Team ([facility] Contact Info) Description 10/10/2024 Refill [facility] MED [facility]ED[facility] [address] [place] [address] Charisma Stinson MD 505 [place] [address] Moderate persistent asthma, unspecified whether complicated Social [...] Description 02/05/2025 12:45 PM EST Office Visit [facility] ADULT D[facility]AL [address] [place] [address] Kary Reyes documented as of this encounter Visit Diagnoses Diagnosis Moderate persistent asthma, unspecified whether complicated documented in this encounter Additional Health Concerns Assessment Noted Time PHQ-9 Depression Total Score: 2 03/24/19 23 9:26 AM EST documented as of this encounter
--- OUTSIDE RECORDS SUMMARY | 2025-01-15 17:08 | XMS_ITS | Encounter Summary ---
Author Organization [employer] Address [address] [facility] 7 [place] [address] Care Team Providers Care Dairy Specialist Name Role Phone Unavailable Primary Care Provider Unavailabl e Reason for Visit * Reason Comments Med Refill Encounter Details Date Type Department Care Team ([facility] Contact Info) Description 10/11/2024 Refill [facility] CH[facility] MED & PEDS [address] [place] [address] Charisma Stinson MD 505 [place] [address] Mixed hyperlipidemia Social History Tobacco Use Types [...] t he electric, gas, oil or water [employer] threatened to shut off services in your [...] Description 02/05/2025 12:45 PM EST Office Visit [facility] ADULT D[facility] [address] [place] [address] Kary Reyes documented as of this encounter Visit Diagnoses Diagnosis Mixed hyperlipidemia documented in this encounter Additional Health Concerns Assessment Noted Time PHQ-9 Depression Total Score: 2 03/24/19 23 9:26 AM EST documented as of this encounter
--- OUTSIDE RECORDS SUMMARY | 2025-01-15 17:08 | XMS_ITS | Encounter Summary ---
Author Organization [employer] Address [address] [place] [address] 7 [place] [address] Care Team Providers Care Spare Fixer Name Role Phone Unavailable Primary Care Provider Unavailabl e Reason for Visit * Reason Comments Med Refill Encounter Details Date Type Department Care Team ([facility] Contact Info) Description 12/16/2024 Refill [facility] CHC MED & PEDS [address] [place] [address] Charisma Stinson MD [address] [place] [address] Gastroesophageal reflux disease without esophagitis Social History [...] Description 02/05/2025 12:45 PM EST Office Visit [facility] ADULT D[facility] 505 [place] [address] Kary Reyes documented as of this encounter Visit Diagnoses Diagnosis Gastroesophageal reflux disease without esophagitis Esophageal reflux documented in this encounter Additional Health Concerns Assessment Noted Time PHQ-9 Depression Total Score: 2 03/24/19 23 9:26 AM EST documented as of this encounter
--- OUTSIDE RECORDS SUMMARY | 2025-01-15 17:08 | XMS_ITS | Encounter Summary ---
Author Organization [employer] Address [address] [facility] 7 [place] [address] Care Team Providers Care Real Estate Management Specialist Name Role Phone Charisma Stinson MD Primary Care Provider [phone] Reason for Visit * Reason Onset Date Comments Results 06/22/2023 Appointment Request 06/22/2023 Encounter Details Date Type Department Care Team ([facility] Contact Info) Description 06/22/2023 Telephone [facility] MEDICINE [address] [place] [address] Charisma Stinson MD 505 [place] [address] Results; Appointment Request Social History Tobacco Use [...] abdomen complete Date when done: 06/19 Facility: [facility] Please contact pt at [phone] documented in this encounter Plan of Treatment Upcoming Encounters Date Type Department Care Team (Late st Contact Info) Description 02/05/2025 12:45 PM EST Office Visit [facility] ADULT DENTAL [address] [place] [address] Kary Reyes documented as of this encounter Visit Diagnoses Not on filedocumented in this encounter Additional Health Concerns Assessment Noted Time PHQ-9 Depression Total Score: 2 03/24/19 23 9:26 AM EST documented as of this encounter Care Teams Real Estate Management Specialist Relationship Specialty Start Date End Date Charisma Stinson MD [address] [place] [address] PCP - General Family Medicine 03/13/18 09/05/24 documented as of this encounter
--- OUTSIDE RECORDS SUMMARY | 2025-01-15 17:08 | XMS_ITS | Encounter Summary ---
Author Organization [employer] Address [address] [place] [address] 7 [place] [address] Care Team Providers Care Export Packer Name Role Phone Charisma Stinson MD Primary Care Provider [phone] Encounter Details Date Type Department Care Team (Late Contact Info) Description 02/20/2023 Abstract [facility] ADULT D[facility]AL 505 [place] [address] Yordan Mcgowan DDS [address] [place], [place] [phone] Social History Tobacco Use Types Packs/Day Years [...] Description 02/05/2025 12:45 PM EST Office Visit [facility] ADULT [facility] 505 [place] [address] Kary Reyes documented as of this encounter Visit Diagnoses Not on filedocumented in this encounter Additional Health Concerns Assessment Noted Time PHQ-9 Depression Total Score: 2 03/24/19 23 9:26 AM EST documented as of this encounter Care Teams Export Packer Relationship Specialty Start Date End Date Charisma Stinson MD [address] [place] [address] PCP - General Family Medicine 03/13/18 09/05/24 documented as of this encounter
--- OUTSIDE RECORDS SUMMARY | 2025-01-15 17:08 | XMS_ITS | Data Portability ---
Author Organization [place] - [facility], All[facility] Address [address] [facility] [address] [place] [address] Care Team Providers Care Multisensor Intelligence Officer Name Role Phone WILLY ARAUJO Primary Care [...] for cerumen removal, or sooner with concerns. [email or web address] Not available 03/14/2024 12:19:57 Plan of Treatment [...] By Organization Details Last Modified Time 09/06/2024 [id number] Reviewed results with patient. She is pleased that there are no significant changes in her hearing. CC of hearing test given to patient. [email or web address] Not available 09/06/2024 11:32:59 Reason for Referral None Reported. Results Created Date Observation Date Name Description Value Unit Range Abnormal Flag Note LastModifiedBy Organization Detail LastModifiedTime 09/07/19 25 audio gram No observ ation record ed. [email or web address] Not Available 08/12 11:42:12 Result Notes None recorded. Problems Name Problem SNOMED Code Status Onset Date Resolution Date Notes Provider Name and Address Organization Details Recorded Time Finding of resonance of voice 593429308 Active 2014 Other voice and resonance disorders ; Note: Date Diagnosed : 5 2:46 PM (R49.8) Not Available [facility] 4 02:47:55 Gastroeso phageal reflux disease without esophagit is 143700249 Active 2014 Gastro-es ophageal reflux disease without esophagit is; Note: Date Diagnosed : 5 2:46 PM (K21.9) Not Available [facility] 4 02:47:53 Allergic rhinitis 35913257 Active 2015 Allergic rhinitis, unspecifi ed; Note: Date Diagnosed : 08/06/2015 2:15 PM (J30.9) Not Available [facility] 4 02:47:57 Dysphonia 59430469 Active 2015 Dysphonia ; Note: Date Diagnosed : 08/16/2015 7:21 PM (R49.0) Not Available [facility] 4 02:48:01 Impacted cerumen of bilateral ears 98723333919 35324 Active 2018 Impacted cerumen, bilateral ; Note: Date Diagnosed : 11/08/2018 9:42 AM (H61.23) Not Available [facility] 4 02:47:59 Impacted cerumen 06433656 Active 2018 Impacted cerumen; Note: Date Diagnosed : 11/21/2018 11:38 AM (380.4) Not Available [facility] 4 02:47:56 Sensorine ural hearing loss of bilateral ears 828806520 Active 2018 Sensorine ural hearing loss, bilateral ; Note: Date Diagnosed : 01/16/2019 10:17 AM (H90.3) Not Available [facility] 4 02:47:59 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; Note: Date Diagnosed : 2019 11:29 AM (J38.2) Not Available [facility] 4 02:48:01 Dysphagia 32499576 Active 2019 Other dysphagia ; Note: Date Diagnosed : 2019 11:29 AM (R13.19) Not Available [facility] 4 02:48:01 Acute pharyngit is 254885024 Active 2020 Sore throat (acute) NOS; Note: Date Diagnosed : 10/01/2020 4:50 PM (J02.9) Not Available [facility] 4 02:47:56 Abnormal weight loss 941974843 Active 2020 Abnormal weight loss; Note: Date Diagnosed : 10/01/2020 4:50 PM (R63.4) Not Available [facility] 4 02:47:57 Problem Notes None recorded. Procedures Surgical History Date Name Laterality Status Provider Name and Address Organization Details Recorded Time 5 Comp Audio with Tymps - 77977 & 13913 completed THANIA ARROYO [address] [facility],[address], [address], [facility] 09/06/2024 11:30:22 5 Cerumen removal without microscope bilat completed CRISTINA DE JESUS PA-C [address] [facility],[address], [address], [facility] 03/14/2024 12:19:25 Imaging Results None recorded. Procedure [...] mg tablet 10/19 completed Medicati on ID: [id number] Du ration Value: 5 Reason: () Brand Name: azithrom ycin Sen d Method: E-Prescr ibed Sub s Allowed: subs OK Speci al Instruct ion: take 2 tablets by mouth today then take 1 tablet DAILY FOR 4 DAYS Med icationG enericNa me: azithrom ycin Not Available Not Available Not Available ranitidin e 300 mg tablet 11/26 completed Medicati on ID: [id number] Du ration Value: 30 Reason: () Brand [...] gram tablet 03/13 completed Medicati on ID: [id number] D uration Value: 90 Brand Name: sucralfa te Send Method: E-Prescr ibed Sub s Allowed: subs OK Speci al Instruct ion: take 1 tablet by mouth three times a day ON AN EMPTY STOMACH 1 HOUR BE FORE MEALS AND AT BEDTIME Medicati onGeneri cName: sucralfa te Not Available Not Available Not Available prednison e 20 mg tablet 10/19 completed Medicati on ID: [id number] Du ration Value: 4 Reason: () Brand [...] by mouth 03/13 completed Medicati on ID: [id number] P venturadutch d By Name: Toi Rodriguez MD Brand Name: ranitidi ne HCl Send Method: E-Prescr ibed Sub s Allowed: subs OK Medic ationGen ericName : ranitidi ne HCl Not Available Not Available Not Available Guaifenes in AC 10 mg-100 mg/5 mL oral liquid 10/19 completed Medicati on ID: [id number] Du ration Value: 1 Reason: () Brand [...] by mouth 11/26 completed Medicati on ID: [id number] D uration Value: 30 Prescri bed By [...] mg tablet 03/13 completed Medicati on ID: [id number] Du ration Value: 30 Brand Name: lupe [...] IM syringe 10/19 completed Medicati on ID: [id number] Du ration Value: 1 Reason: () Brand [...] Updated DateTime 08/02/2024 154.94 cm 22.7 kg/m2 27072.08 g Rosmery Figueroa [place] - [facility] 08/02/2024 11:36:17 Social History None recorded. Functional [...] ICD10 Code Diagnosis IMO Codes Diagnosis Note [id number] CRISTINA DE JESUS PA-C [facility] [address] [address] 03/14/2024 11:23:37 03/14/2024 12:18:10 Impacted cerumen of bilateral ears 0400146233 926002 H61.23 [id number] TIFFANY BRENNER MD [facility] [address] [address] 08/02/2024 11:26:27 08/02/2024 11:45:51 Impacted cerumen of bilateral ears 4166332454 816447 H61.23 Cerumen was removed and tolerated well. She still feels a little blockage. No middle ear effusion. Her last audiogram was in 2019 showing moderate HF loss. I recommende d updated testing at her next cleaning. [id number] TIFFANY BRENNER MD [facility] [address] [address] 09/06/2024 10:45:28 09/06/2024 11:41:05 Sensorineural hearing loss of bilateral ears [id number] H90.3 Audiologic al evaluation results: Right ear: [...] Goodwin Member ID Guarantor Name 03/14/2024 1 [facility] - DOS ON OR AFTER 2022 - MEDICARE ADVANTAGE [place] (MEDICARE REPLACEMENT/AD VANTAGE - PPO) Zoeylsia Walsh [id number] Zoey Walsh 09/11/2024 1 [facility] - MEDICARE ADVANTAGE PLAN (MEDICARE REPLACEMENT HMO) [id number] Zoey Yaima Yaima Walsh [id number] Zoey Walsh 09/11/2024 2 [place]: [facility] Zoey Walsh [id number] Zoey Walsh Notes Date Note Type Note Provider Name and Address Organization Details Recorded Time 03/14/2024 text/html ROS as noted in the [facility] 68-year-old female presents for an ear cleaning. Feels like ears are blocked and hearing is decreased bilaterally. Denies otalgia and otorrhea. STEVEN WOO MD [address] [place] [address], [phone], [facility] 03/14/2024 17:35:24 08/02/2024 text/html ROS as noted in the [facility] 69-year-old female presents for an ear cleaning. Feels like ears are blocked. Feels she gets a better cleaning with the suction. TIFFANY BRENNER MD [address] [place] [address], [phone], [facility] 08/02/2024 11:46:11 OBGyn Episode No OBEpisode recorded.
--- OUTSIDE RECORDS SUMMARY | 2025-01-15 17:08 | XMS_ITS | Encounter Summary ---
Author Organization [employer] Address [address] [facility] 7t [place] [address] Care Team Providers Care Assistant Plant Control Operator Name Role Phone Unavailable Primary Care Provider Unavailabl e Encounter Details Date Type Department Care Team (Late st Contact Info) Description 01/15/2025 Orders Only GENERIC EXTERNAL DATA DEPARTMENT Provider, Generic External Data Social History Tobacco Use Types Packs/Day Years [...] Description 02/05/2025 12:45 PM EST Office Visit [facility] ADULT DENTAL [address] [place] [address] Kary Reyes documented as of this encounter Procedures Procedure Name Priority Date/Time Associated Diagnosis Comments SED RATE BY MODIFIED WESTERGREN Routine 01/15/2025 2:33 PM EST BASIC METABOLIC PANEL Routine 01/15/2025 2:33 PM EST URINE PROTEIN, TOTAL, RANDOM (W/O CREATININE) Routine 01/15/2025 2:30 PM EST CREATININE, RANDOM URINE Routine 01/15/2025 2:30 PM EST URINALYSIS, COMPLETE Routine 01/15/2025 2:30 PM EST documented in this encounter Results * (ABNORMAL) Basic Metabolic Panel (01/15/2025 2:33 PM EST) Sodium 138 135 - 145 mmol/L [facility] Potassium 3.6 3.3 - 5.1 mmol/L [facility] Chloride 102 96 - 108 mmol/L [facility] Carbon Dioxide 30(H) 22 - 29 mmol/L [facility] Anion Gap 10(L) 12 - 20 [facility] Urea Nitrogen (BUN) 10 9 - 16 mg/dL [facility] Creatinine, Serum 0.70 0.5 - 1.4 mg/dL [facility] Estimated Glomerular Filt Rate >60 [facility] Comment:Chronic Kidney Disea se: Estimated GFR < 60 mL/min/1.56d9Plfwhp Kidney Disease: Estimated GFR < 15 mL/min/1.73m2 Glucose 77 60 - 115 mg/dL [facility] Calcium 8.9 8.4 - 10.2 mg/dL [facility] 01/15/2025 2:33 PM EST 01/15/2025 2:33 PM EST us Generic External Data Provider LAB BLOOD ORDERAB LES Final Result Performing Organization Address [facility] Co de Phone Number [facility] [address] [place] [phone] * Sed Rate by Modified Sumeetren (01/15/2025 2:33 PM EST) Erythrocyte Sedimentation Rate 2 0 - 20 MM/HR [facility] Comment:Patients with polycy themia and many hemoglobin abnormalitiesmay have depressed sed rates whereas patients with anemiamay have elevated sed rates. 01/15/2025 2:33 PM EST 01/15/2025 2:33 PM EST Generic External Data Provider LAB BLOOD ORDERAB LES Final Result Performing Organization Address [facility] de Phone Number [facility] [address] [place] [phone] * (ABNORMAL) Urine Protein, Total, Random without Creatinine (01/15/2025 2:30 PM EST) Protein, Total, Random Urine 13(H) <12 mg/dL [facility] 01/15/2025 2:30 PM EST 01/15/2025 2:57 PM EST Generic External Data Provider LAB URINE ORDERAB LES Final Result Performing Organization Address [facility] Co de Phone Number [facility] [address] [place] [phone] * Creatinine, Random Urine (01/15/2025 2:30 PM EST) Creatinine, Urine 132.63 mg/dL [facility] 01/15/2025 2:30 PM EST 01/15/2025 2:57 PM EST Generic External Data Provider LAB URINE ORDERAB LES Final Result Performing Organization Address [facility] de Phone Number [facility] [address] [place] [phone] * (ABNORMAL) Urinalysis Complete (01/15/2025 2:30 PM EST) Color Urine Dark Yellow [facility] Appearance Urine Clear [facility] PH 6.0 5.0 - 9.0 [facility] Glucose Urine UA Negative Negative mg/dL [facility] Urine Blood Trace(A) Negative [facility] Specific [place] - Urine 1.025 1.005 - 1.025 [facility] Urine Protein Negative Neg-Trace mg/dL [facility] Urine Ketones Negative Negative mg/dL [facility] Nitrite Urine Negative Negative [facility] Leukocyte Esterase Urine Small (1+)(A) Negative [facility] RBC Urine 3-5(A) 0 - 2 /HPF [facility] Urine WBC 0-5 0 - 5 /HPF [facility] Urine Squamous Epithelial Cell 11-20 0 - 2 /HPF [facility] Urine Bacteria Trace None Seen [facility] Hyaline Casts, Urine 0-2 0 - 2 /LPF [facility] 01/15/2025 2:30 PM EST 01/15/2025 2:57 PM EST us Generic External Data Provider LAB URINE ORDERAB LES Final Result Performing Organization Address [facility] de Phone Number [facility] [address] [place] [phone] documented in this encounter Visit Diagnoses Not on filedocumented in this encounter Additional Health Concerns Assessment Noted Time PHQ-9 Depression Total Score: 2 03/24/19 23 9:26 AM EST documented as of this encounter
--- OUTSIDE RECORDS SUMMARY | 2025-01-15 17:08 | XMS_ITS | Encounter Summary ---
Author Organization [employer] Address [address] [place] [address] 7 [place] [address] Care Team Providers Care Replanter Name Role Phone Charisma Stinson MD Primary Care Provider [phone] Encounter Details Date Type Department Care Team ([facility] Contact Info) Description 01/16/2023 Abstract [facility] MEDICINE [address] [place], [place] [phone] Charisma Stinson MD [address] [place], [place] [phone] Social History Tobacco Use Types Packs/Day Years [...] Care Team (Late Contact Info) Description 02/05/2025 12:45 PM EST Office Visit [facility] ADULT DENTAL [address] [place], [place] [phone] Kary Reyes documented as of this encounter Visit Diagnoses Not on filedocumented in this encounter Additional Health Concerns Assessment Noted Time PHQ-9 Depression Total Score: 2 01/12/20 23 9:26 AM EST documented as of this encounter Care Teams Replanter Relationship Specialty Start Date End Date Charisma Stinson MD [address] [place] [address] PCP - General Family Medicine 03/13/18 09/05/24 documented as of this encounter
--- OUTSIDE RECORDS SUMMARY | 2025-01-15 17:08 | XMS_ITS | Encounter Summary ---
Author Organization [email or web address] Address [address] [place] [address] 7 [place] [address] Care Team Providers Care Med Surg Rn Name Role Phone Charisma Stinson MD Primary Care Provider [phone] Encounter Details Date Type Department Care Team (Late Contact Info) Description 02/08/2023 Abstract [facility] ADULT DENTAL [address] [place] [address] Yordan Mcgowan DDS [address] [place], [place] [phone] Social History Tobacco Use Types Packs/Day Years [...] Description 02/05/2025 12:45 PM EST Office Visit [facility] ADULT DENTAL [address] [place] [address] Kary Reyes documented as of this encounter Visit Diagnoses Not on filedocumented in this encounter Additional Health Concerns Assessment Noted Time PHQ-9 Depression Total Score: 2 03/24/19 23 9:26 AM EST documented as of this encounter Care Teams Med Surg Rn Relationship Specialty Start Date End Date Charisma Stinson MD [address] [place] [phone] PCP - General Family Medicine 03/13/18 09/05/24 documented as of this encounter
--- OUTSIDE RECORDS SUMMARY | 2025-01-15 17:08 | XMS_ITS | Encounter Summary ---
Author Organization [employer] Address [address] [place] [address] 7 [place] [address] Care Team Providers Care Batt Packer Name Role Phone Charisma Stinson MD Primary Care Provider [phone] Encounter Details Date Type Department Care Team (Latest Contact Info) Description 04/18/2018 Abstract [facility] CONVERSIONS Dental, Provider, DDS Social History [...] 02/05/2025 12:45 PM EST Office Visit [facility] ADULT DENT[facility] [address] [place] [address] Kary Reyes documented as of this encounter Visit Diagnoses Not on filedocumented in this encounter Care Teams Batt Packer Relationship Specialty Start Date End Date Charisma Stinson MD [address] [place] [address] PCP - General Family Medicine 03/13/18 09/05/24 documented as of this encounter
--- OUTSIDE RECORDS SUMMARY | 2025-01-15 17:08 | XMS_ITS | Encounter Summary ---
Author Organization [employer] Address [address] [place] [address] 7 [place] [address] Care Team Providers Care Parachute/Combatant Diver Officer Name Role Phone Charisma Stinson MD Primary Care Provider [phone] Encounter Details Date Type Department Care Team (Late Contact Info) Description 01/13/2023 Abstract [facility] ADULT DENTAL [address] [place] [address] Yordan Mcgowan DDS [address] [place], [place] [phone] Social History Tobacco Use Types Packs/Day Years [...] 12:45 PM EST Office Visit [facility] ADULT DENTAL [address] [place] [address] Kary Reyes documented as of this encounter Visit Diagnoses Not on filedocumented in this encounter Additional Health Concerns Assessment Noted Time PHQ-9 Depression Total Score: 2 03/24/19 23 9:26 AM EST documented as of this encounter Care Teams Parachute/Combatant Diver Officer Relationship Specialty Start Date End Date Charisma Stinson MD [address] [place] [phone] PCP - General Family Medicine 03/13/18 09/05/24 documented as of this encounter
--- OUTSIDE RECORDS SUMMARY | 2025-01-15 17:08 | XMS_ITS | Encounter Summary ---
Author Organization [employer] Address [address] [place] [address] 7 [place] [address] Care Team Providers Care Injection Maintenance Technician Name Role Phone Charisma Stinson MD Primary Care Provider [phone] Encounter Details Date Type Department Care Team (Latest Contact Info) Description 03/19/2020 Abstract [facility] CONVERSIONS Dental, Provider, DDS Social History [...] 12:45 PM EST Office Visit [facility] ADULT DENTAL [address] [place] [address] Kary Reyes documented as of this encounter Visit Diagnoses Not on filedocumented in this encounter Care Teams Injection Maintenance Technician Relationship Specialty Start Date End Date Charisma Stinson MD 505 [place] [address] PCP - General Family Medicine 03/13/18 09/05/24 documented as of this encounter
== END 2025-01-15 14:17 | disposition home or self-care (01) ==
LOC: HO.HSM 13:57
PROVIDERS: PCP Pediatrics; Visit Provider Psychiatry & Neurology Neurology
DX: G50.0 Trigeminal neuralgia (principal); G52.1 Disorders of glossopharyngeal nerve; M54.16 Radiculopathy, lumbar region
CPT/HCPCS: 99214

== ENCOUNTER 2025-01-15 13:56 | Outpatient (REF) | payer MEDICARE, MEDICAID, SELFPAY ==
[2025-01-15 15:35] LABS: Appearance Urine Clear; Glucose Urine UA Negative (Negative); PH 6.0 (5.0-9.0); Specific Gravity - Urine 1.025 (1.005-1.025); UMIC TRIGGER UA YES
[2025-01-15 15:54] LABS: Anion Gap 10 (12-20); Blood Urea Nitrogen 10 mg/dL (9-16); Calcium 8.9 mg/dL (8.4-10.2); Carbon Dioxide 30 mmol/L (22-29); Chloride 102 mmol/L (96-108); Estimated Glomerular Filt Rate > 60; Potassium 3.6 mmol/L (3.3-5.1); Sodium 138 mmol/L (135-145)
[2025-01-15 16:33] LABS: Total Protein Urine Random 13 mg/dL (<12)
[2025-01-16 06:03] LABS: Lyme Abs Screen <0.90 index
== END 2025-01-15 13:57 | disposition home or self-care (01) ==
LOC: HO.LAB 13:56
PROVIDERS: Absent Provider Internal Medicine Hypertension Specialist; PCP Pediatrics; Visit Provider Psychiatry & Neurology Neurology
DX: G52.1 Disorders of glossopharyngeal nerve (principal); G50.0 Trigeminal neuralgia; N18.9 Chronic kidney disease, unspecified; Z01.84 Encounter for antibody response examination
CPT/HCPCS: 36415; 80048; 81001; 81003; 82570; 84156; 85652; 86617; 86618; 99212

== ENCOUNTER 2025-01-16 11:23 | Outpatient (REF) | payer MEDICARE, OTHER, SELFPAY ==
[2025-01-16 19:08] LABS: Resp Syncy Virus RNA Qual PCR NEGATIVE (Negative); SARS COV2 PCR INHOUSE NEGATIVE (Negative)
== END 2025-01-16 11:24 | disposition home or self-care (01) ==
LOC: HO.LNP 11:23
PROVIDERS: PCP Pediatrics
DX: J06.9 Acute upper respiratory infection, unspecified (principal); R09.89 Other specified symptoms and signs involving the circulatory and respiratory systems; Z00.00 Encounter for general adult medical examination without abnormal findings; I70.0 Atherosclerosis of aorta; R63.5 Abnormal weight gain; K57.31 Diverticulosis of large intestine without perforation or abscess with bleeding; K44.9 Diaphragmatic hernia without obstruction or gangrene; N18.9 Chronic kidney disease, unspecified; K21.9 Gastro-esophageal reflux disease without esophagitis; J45.909 Unspecified asthma, uncomplicated; K76.0 Fatty (change of) liver, not elsewhere classified; G62.9 Polyneuropathy, unspecified; M85.80 Other specified disorders of bone density and structure, unspecified site; G50.0 Trigeminal neuralgia; M25.511 Pain in right shoulder; R31.9 Hematuria, unspecified; E78.00 Pure hypercholesterolemia, unspecified; Z13.31 Encounter for screening for depression; Z13.39 Encounter for screening examination for other mental health and behavioral disorders
CPT/HCPCS: 87637; 96127; 99212; 99397

== ENCOUNTER 2025-01-16 11:23 | Outpatient (AMB) | payer MEDICARE, MEDICAID, SELFPAY ==
[2025-01-16 11:24] VITALS: BP 120/80; PULSE 83; TEMP 36.3; O2SAT 99; BMI 21.8
--- NOTE | 2025-01-16 11:24 | A.OFFPC_ITS ---
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: No Accompanied by: Self / Same As Patient Allergies shellfish derived Adverse Reaction (Intermediate, Verified 01/16/25 11:44) Nausea and Vomiting Medication List - Last Reconciled 01/16/25 by Donna Bertrand PA-C albuterol sulfate 90 mcg/actuation 2 puffs inhalation Q6H PRN albuterol sulfate 2.5 mg (3 mL) inhalation Q4-6H PRN aspirin 81 mg PO DAILY atorvastatin 40 mg PO DAILY bisacodyl (Dulcolax (bisacodyl)) 10 mg (2 x 5 mg) PO BEDTIME calcium polycarbophil (Fiber Therapy (ca polycarbophil)) 625 mg PO DAILY carbamazepine 200 mg PO BID cetirizine 10 mg PO QAM cholecalciferol (vitamin D3) 50 mcg PO DAILY esomeprazole magnesium 40 mg PO QAM estradiol 0.01%(0.1mg/gram) vaginal famotidine 20 mg PO BID fluticasone propionate 50 mcg/actuation 1 spray intranasal DAILY gabapentin 300 mg PO BID meloxicam 7.5 mg PO DAILY PRN mometasone 200 mcg/actuation (Asmanex HFA) 1 puff inhalation BID montelukast 10 mg PO BEDTIME mwnswkdzxbdy-uxlb-uthxf acid 18-400 mg-mcg (Certavite-Antioxidant) 1 tab PO QAM Tobacco use date assessed: 10/16/24 Fall risk assessment: No Falls in past year Last assessed Fall Risk: 10/16/24 Dental Screening Dental Screen Date: 10/16/24 Did you have a dental visit in the last 12 months?: Yes Did you have a dental problem in the last 6 months where you did not have access to dental care?: No Was dental information given to patient?: Patient has dentist HPI Annual exam HPI Details 69-year-old female with past medical his tory of chronic kidney disease, abdominal aortic atherosclerosis, GERD, asthma, fatty liver, neuropathy last seen 11/04 coming in for annual exam. In review of the notes, patient was seen by Neurology 01/2025 continued on gabapentin and carbamazepine an order for MRI of the lumbar spine. Seen by GI 11/2024 continued on Nexium and low FODMAP diet and follow up in 3 months. She also recently underwent stress test which was normal. Presenting with upper respiratory symptoms and left arm pain. The patient reports onset of upper respiratory symptoms Monday, including nasal congestion, dry cough, and significant fatigue. Initially, she experienced a severe pounding headache and sore throat, which have since resolved. The patient developed right arm pain the Monday before last, after carrying a backpack. The pain is sharp, sometimes has a burning quality, and is associated with a clicking or crunk sound on occasion. The pain is located in the shoulder, under the armpit, and radiates down the arm, with variable intensity from day to day; rest helps alleviate the pain, and she has taken acetaminophen a couple of times. 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 The patient is supposed to be on atorvastatin but is unsure about her adherence. Mammogram: 11/2024 DEXA: 11/2024 Colonoscopy: 09/2023 vaccines: [facility] Medical History Actinic keratoses Squamous cell carcinoma, face Trigeminal neuralgia Diverticulosis large intestine w/o perforation or abscess w/bleeding Tubular adenoma of colon Hiatal hernia Surgical History H/O colonoscopy Family History Mother Lung cancer Father Diabetes Social History Household Members: None Housing: Condominium Alcohol intake: former Patient Tobacco Use Status: Former Tobacco user Tobacco use type: Cigarette e-Cigarette/Vaping Use: Never Used Second Hand Smoke Exposure: No Substance Use Type: Marijuana service: No Current occupational status: retired Cognitive needs: No Hearing needs: No Vision needs: No Female Reproductive History Menstrual control method: none Questionnaire PHQ-9 Over the last 2 weeks, how often have you been bothered by any of the following problems? 1. Little interest or pleasure in doing things: not at all 2. Feeling down, depressed, or hopeless: not at all 3. Trouble falling or staying asleep, or sleeping too much: several days 4. Feeling tired or having little energy: several days 5. Poor appetite or overeating: several days 6. Feeling bad about yourself - or that you are a failure or have let yourself or your family down: not at all 7. Trouble concentrating on things, such as reading the newspaper or watching television: not at all 8. Moving or speaking so slowly that other people could have noticed. Or the opposite - being so fidgety or restless that you have been moving around a lot more than usual: not at all 9. Thoughts that you would be better off or of hurting yourself in some way: not at all Total score: 3 Depression Screening Interpretation: Negative Depression Screening Done: Yes 07341 - PHQ-9 Billing: Yes Source: Developed by Drs. Willem Junior, Suri Crockett, Arturo Cowart and colleagues, with an educational lópez from [employer]. Thrive Questionnaire Date Thrive assessed: 10/09/24 I am a: Patient What is your living situation today?: I have a steady place to live Within the past 12 months, did the food you bought not last and you didn't have the money to get more?: I choose not to answer this question Within the past 12 months, did you worry whether your food would run out before you got money to buy more?: I choose not to answer this question Do you have trouble paying for medicines?: No Do you have trouble getting transportation to medical appointments?: No Do you have trouble paying your heating and electricity bill?: I choose not to answer this question Do you have trouble taking care of your child, family member or friend?: I choose not to answer this question Do you have trouble with day-to-day activities such as bathing, preparing meals, shopping, managing finances, etc.?: No Are you currently unemployed and looking for a job?: No Are you interested in more education?: No Please select the resources that you would like help with: None Currently or been in a relationship where the following occur: No concerns reported THRIVE Score: 0 AUDIT C Alcohol Use Questionnaire (AUDIT-C) 1. How often do you have a drink containing alcohol?: Monthly or less 2. How many drinks containing alcohol do you have on a typical day when you are drinking?: 1 or 2 3. How often do you have six or more drinks on one occasion?: Never Total Score: 1 CELESTE-7 AMB Questionnaire CELESTE-7 Date CELESTE - 7 assessed: 10/16/24 Feeling nervous, anxious, or on edge: 1 = Several days Not being able to stop or control worryin = Not at all Worrying too much about different things: 0 = Not at all Trouble relaxin = Not at all Being so restless that it is hard to sit still: 0 = Not at all Becoming easily annoyed or irritable: 0 = Not at all Feeling afraid as if something awful might happen: 0 = Not at all Total CELESTE-7 score (0-4 normal; 5-9 mild; 10-14 moderate; 15-21 severe): 1 Source: Developed by Drs. Willem Junior, Suri Crockett, Arturo Cowart and colleagues, with an educational lópez from [employer]. Review of Systems Const Denies body aches, Denies fatigue, Denies fever(s), Denies frequent falls, Denies headache(s) and Denies weakness Eyes Reports no additional complaints and Denies change in vision ENT Denies dysphagia, Denies dizziness, Denies facial pain, Denies headache(s), Reports nasal congestion, Reports nasal discharge and Denies odynophagia Card Denies chest pain, Denies syncope, Denies irregular heart rhythm, Denies leg edema, Denies lightheadedness and Denies dyspnea Resp Reports cough and Denies dyspnea GI Denies constipation, Denies dysphagia, Denies dyspepsia, Denies diarrhea, Denies nausea, Denies odynophagia and Denies vomiting Denies urinary frequency, Denies dysuria, Denies urinary hesitancy and Denies urinary urgency Musc Denies back pain and Denies myalgias Skin/Breast Reports system reviewed and no additional complaints, except as documented Neuro Denies dizziness, Denies syncope, Denies frequent falls, Denies headache(s) and Denies weakness Psych Reports no additional complaints Endo Denies fatigue Physical exam (Primary Care) Vital Signs: Last Vital Signs Temp 97.3 F 01/16/25 11:24 Pulse 83 01/16/25 11:24 BP 120/80 01/16/25 11:24 Pulse Ox 99 01/16/25 11:24 Oxygen Delivery Method Room Air 01/16/25 11:24 BMI result Body Mass Index 21.8 Tobacco/Smoking Status: Tobacco use Status Tobacco use date assessed 10/16/24 01/16/25 11:31 Patient Tobacco Use Status Former Tobacco user 01/16/25 11:31 Tobacco use type Cigarette 01/16/25 11:31 e-Cigarette/Vaping Use Never Used 01/16/25 11:31 PHQ-9: PHQ-9 Score PHQ-9: Total score 3 01/16/25 11:35 Depression Screening Interpretation: Negative Thrive Assessment: Date of Thrive Assessment Date Thrive assessed 10/09/24 01/16/25 11:31 Currently or been in a relationship where the following occur: No concerns reported Const General: cooperative, healthy appearing, comfortable and no acute distress Orientation/consciousness: patient oriented x3 HENMT Head: Yes normocephalic Ears: hearing grossly normal bilaterally, external ears normal, TM's normal bilaterally and EAC's normal General nose exam: Normal external nose present Face and sinus: Yes normal facial exam and Yes sinuses nontender Mouth: Normal oral and palatal mucosa present and tongue normal Throat: Yes posterior oropharynx normal Eyes General: appearance normal, both eyes and all related structures Conjunctivae: conjunctivae normal Pupils: Equal, round and reactive pupils present EOM: EOMs intact bilaterally and No Nystagmus present Neck Neck: Yes normal visual inspection, Yes full ROM and Yes no lymphadenopathy Chest Chest palpation & inspection: normal inspection of the chest Resp Effort & Inspection: normal respiratory effort Auscultation: clear to auscultation bilaterally, no crackles, no rales, no rhonchi, no wheezes and breath sounds present Cardio Rate: regular rate Rhythm: regular rhythm Peripheral pulses: radial pulses present and dorsalis pedis present GI Inspection: Yes normal to inspection and No Abdominal wall edema Palpation (GI): Soft to palpation, not firm and nontender Auscultation: normal bowel sounds Rectal Exam - Female: deferred General: Yes no CVA tenderness Back/Spine/Pelvis Back: no CVA tenderness Skin General skin exam: no rashes or lesions noted Neuro General: patient oriented x3 Cranial nerves: Yes Equal, round and reactive pupils present, Yes Midline tongue present, Yes Ability to bilaterally elevate shoulders present and No Nystagmus present Gait exam (Neuro): Normal gait present Extrem Other: Tenderness to palpation over lateral aspect of right shoulder. Range of motion limited due to pain in extension and lateral raise of the right shoulder. Intact strength, sensation and pulses in bilateral upper extremities General: Yes normal to inspection, Yes full ROM, No no pedal edema and No edema Psych Speech and movement: Normal speech and movement present Affect: normal affect Insight: Good insight present (Psych) Judgement: Good judgement present (Psych) Coding Level of Care Code Est Pt Level 3 (90815) Est Pt Prev Care >65y(69484) Diagnoses Annual physical exam Z00.00 Abdominal aortic atherosclerosis I70.0 Weight gain R63.5 Diverticulosis large intestine w/o perforation or abscess w/bleeding K57.31 Hiatal hernia K44.9 CKD (chronic kidney disease) N18.9 Gastroesophageal reflux disease, unspecified whether esophagitis present K21.9 Esophagitis presence: esophagitis presence not specified Asthma J45.909 Fatty liver K76.0 Neuropathy G62.9 Osteopenia M85.80 Trigeminal neuralgia G50.0 Right shoulder pain M25.511 Hematuria R31.9 Hypercholesterolemia E78.00 Upper respiratory infection J06.9 Additional Codes PHQ-9 - 08026 - PHQ-9 Billing: Yes ([id number]) Assessment & Plan Assessment & Plan (1) Annual physical exam: Code(s): Z00.00 - Encounter for general adult medical examination without abnormal findings Category: Medical Plan: Patient is up-to-date on all recommended routine screenings and vaccinations for age. Healthy diet and regular exercise is encouraged. Blood work is up-to-date and has been reviewed with the patient today. (2) Abdominal aortic atherosclerosis: Comment: She was also seen by Cardiology 09/2023 advised continued aggressive management of cholesterol with LDL goal less than 70 as well as good blood pressure co ntrol. Stress test 11/17/2023 within normal limits. Code(s): I70.0 - Atherosclerosis of aorta Category: Medical Plan: Continue to follow with cardiology yearly. Continue with aggressive management of cholesterol with LDL goal less than 70 and good control of the blood pressure. Continue on aspirin daily as well (3) Weight gain: Code(s): R63.5 - Abnormal weight gain Category: Medical Plan: Healthy diet and regular exercise is encouraged. (4) Diverticulosis large intestine w/o perforation or abscess w/bleeding: Code(s): K57.31 - Diverticulosis of large intestine without perforation or abscess with bleeding Category: Medical Plan: Continue to follow with Gastroenterology up-to-date on colonoscopies (5) Hiatal hernia: Code(s): K44.9 - Diaphragmatic hernia without obstruction or gangrene Category: Medical Plan: Continue to follow with GI. Avoid trigger foods such as citrus, tomato products, soda, caffeine, spicy foods and other foods that may be irritating to your stomach. Avoid laying flat 3-4 hours after eating and elevate the head of the bed 30 degrees to prevent acid from moving into the esophagus. Continue on Nexium (6) CKD (chronic kidney disease): Code(s): N18.9 - Chronic kidney disease, unspecified Category: Medical Plan: Avoid kidney irritants such as ibuprofen and stay well hydrated. Continue to follow with Nephrology yearly (7) GERD (gastroesophageal reflux disease): Code(s): K21.9 - Gastro-esophageal reflux disease without esophagitis Category: Medical Qualifiers: Esophagitis presence: esophagitis presence not specified Qualified Code(s): K21.9 - Gastro-esophageal reflux disease without esophagitis Plan: Avoid trigger foods such as citrus, tomato products, soda, caffeine, spicy foods and other foods that may be irritating to your stomach. Avoid laying flat 3-4 hours after eating and elevate the head of the bed 30 degrees to prevent acid from moving into the esophagus. Continue on Nexium (8) Asthma: Code(s): J45.909 - Unspecified asthma, uncomplicated Category: Medical Plan: Asthma currently controlled on present medications. Continue on inhalers. Avoid triggers such as allergies. (9) Fatty liver: Code(s): K76.0 - Fatty (change of) liver, not elsewhere classified Category: Medical Plan: Healthy diet and regular exercise is encouraged. (10) Neuropathy: Code(s): G62.9 - Polyneuropathy, unspecified Category: Medical Plan: Continue to follow with Neurology and continue on gabapentin 300 mg b.i.d. (11) Osteopenia: Code(s): M85.80 - Other specified disorders of bone density and structure, unspecified site Category: Medical Plan: Continue with increase dietary intake of calcium and vitamin-D supplementation. (12) Trigeminal neuralgia: Comment: MRI brain WWO at [facility] in Apr 2020: WNL XR both hands at [facility] in 2019: OA NCV/EMG RTUE 08/14/19 THIS IS A NORMAL STUDY. MRI brain WWO at [facility] in 2009: WNL Routine EEG at office in May 2015: OK. Code(s): G50.0 - Trigeminal neuralgia Category: Medical Plan: Currently following with Dr. Jean from Neurology in the oxcarbazepine has been beneficial for her. (13) Right shoulder pain: Code(s): M25.511 - Pain in right shoulder Category: Medical Plan: The patient's right shoulder pain began after carrying a heavy bag and is likely an acute exacerbation of underlying degenerative joint disease. Pain is limiting and has been waking her from sleep. Plan is for conservative management with lidocaine patches, for which a prescription was sent, and moist heat application. Tylenol as needed for pain was also recommended. A muscle relaxer was prescribed for nighttime use to help with pain and stiffness, with a caution about drowsiness. The patient was encouraged to perform gentle stretching exercises to maintain range of motion. If the pain does not improve after the weekend, an X-ray of the shoulder will be ordered to rule out other pathology. (14) Hematuria: Code(s): R31.9 - Hematuria, unspecified Category: Medical Plan: Continue to follow with kidney specialists and ordered for urine cytology (15) Hypercholesterolemia: Code(s): E78.00 - Pure hypercholesterolemia, unspecified Category: Medical Plan: Avoid foods that are high in cholesterol such as red meat, fried foods, eggs and baked goods. Triglyceride goal of less than 150 and LDL goal of less than 70. Unclear if patient is on atorvastatin 40 at this time. She will check her medications and get back to our office us know which she is taking. Her last LDL was 110 plan to increase atorvastatin to 80 mg if she is using the atorvastatin 40 mg daily. If she is not using atorvastatin plan to reinitiate. (16) Upper respiratory infection: Code(s): J06.9 - Acute upper respiratory infection, unspecified Category: Medical Plan: The patient's symptoms of congestion, dry cough, fatigue, and antecedent severe headache and sore throat are consistent with a viral upper respiratory infection. She will be tested for COVID-19, influenza, and RSV. It was explained that antibiotics are not effective for viral illnesses. For symptomatic relief, igfh-uhy-gvmnvgo Sudafed was recommended for no more than three days at a time, or alternatively, DayQuil. She was advised that symptoms typically resolve in 7- 10 days and to follow up if she is not feeling better by next week. Plan This note was constructed using voice recognition software. While every effort has been made to ensure accuracy and clinical data coordinator, still areas may have been included sometimes these areas may affect the content or meeting of the given symptoms. Total time spent caring for the patient today was 30 minutes. This includes time spent before the visit reviewing the chart, time spent during the visit, and time spent after the visit and documentation. Patient was informed and verbally consented to the use of an ambient scribe for clinic note documentation during this visit. Orders: Orders SARS-CoV2/FLU/RSV Today R09.89 - Other specified symptoms and signs involving the circulatory and respiratory systems Urine Cytology Today R31.9 - Hematuria, unspecified Lipid Panel 3 Months E78.00 - Pure hypercholesterolemia, unspecified Comprehensive Met. Panel 3 Months K76.0 - Fatty (change of) liver, not elsewhere classified Medications: New lidocaine 5% leave on most painful area for up to 12 hrs 1 patch topical DAILY 15 ea 0RF baclofen 5 mg PO BEDTIME 14 tabs 0RF
--- OUTSIDE RECORDS SUMMARY | 2025-01-16 14:14 | XMS_ITS | Encounter Summary ---
Author Organization [employer] Address [address] [place] [address] 7 [place] [address] Care Team Providers Care Insurance Licensing Supervisor Name Role Phone Unavailable Primary Care Provider Unavailabl e Reason for Visit * Reason Comments Med Refill Encounter Details Date Type Department Care Team ([facility] Contact Info) Description 10/10/2024 Refill [facility] CH[facility] MED & PEDS [address] [place] [address] Charisma Stinson MD [address] [place] [address] Moderate persistent asthma, unspecified whether complicated Social [...] Description 02/05/2025 12:45 PM EST Office Visit [facility] ADULT DENTAL [address] [place] [address] Kary Reyes documented as of this encounter Visit Diagnoses Diagnosis Moderate persistent asthma, unspecified whether complicated documented in this encounter Additional Health Concerns Assessment Noted Time PHQ-9 Depression Total Score: 2 03/24/19 23 9:26 AM EST documented as of this encounter
--- OUTSIDE RECORDS SUMMARY | 2025-01-16 14:14 | XMS_ITS | Encounter Summary ---
Author Organization [employer] Address [address] [facility] 7 [place] [address] Care Team Providers Care Expanded Duty Dental Assistant Name Role Phone Unavailable Primary Care Provider Unavailabl e Reason for Visit * Reason Comments Med Refill Encounter Details Date Type Department Care Team ([facility] Contact Info) Description 10/11/2024 Refill [facility] CHC MED & PEDS [address] [place] [address] Charisma Stinson MD [address] [place] [address] Mixed hyperlipidemia Social History Tobacco Use Types [...] t he electric, gas, oil or water [employer] threatened to shut off services in your [...] 12:45 PM EST Office Visit [facility] ADULT D[facility] [address] [place] [address] Kary Reyes documented as of this encounter Visit Diagnoses Diagnosis Mixed hyperlipidemia documented in this encounter Additional Health Concerns Assessment Noted Time PHQ-9 Depression Total Score: 2 03/24/19 23 9:26 AM EST documented as of this encounter
--- OUTSIDE RECORDS SUMMARY | 2025-01-16 14:14 | XMS_ITS | Encounter Summary ---
Author Organization [employer] Address [address] [facility] 7 [place] [address] Care Team Providers Care Boiler Fitter Name Role Phone Unavailable Primary Care Provider Unavailabl e Reason for Visit * Reason Comments Med Refill Encounter Details Date Type Department Care Team ([facility] Contact Info) Description 12/16/2024 Refill [facility] CHC MED & PEDS [address] [place] [address] Charisma Stinson MD [address] [place] [address] Gastroesophageal reflux disease without esophagitis Social History [...] Description 02/05/2025 12:45 PM EST Office Visit [facility] ADULT DENTAL [address] [place] [address] Kary Reyes documented as of this encounter Visit Diagnoses Diagnosis Gastroesophageal reflux disease without esophagitis Esophageal reflux documented in this encounter Additional Health Concerns Assessment Noted Time PHQ-9 Depression Total Score: 2 03/24/19 23 9:26 AM EST documented as of this encounter
--- OUTSIDE RECORDS SUMMARY | 2025-01-16 14:14 | XMS_ITS | Encounter Summary ---
Author Organization [employer] Address [address] [facility] 7 [place] [address] Care Team Providers Care Chimney Supervisor Brick Name Role Phone Charisma Stinson MD Primary Care Provider [phone] Reason for Visit * Reason Onset Date Comments Results 06/22/2023 Appointment Request 06/22/2023 Encounter Details Date Type Department Care Team ([facility] st Contact Info) Description 06/22/2023 Telephone [facility] MEDICINE [address] [place] [address] Charisma Stinson MD [address] [place] [address] Results; Appointment Request Social History Tobacco Use [...] abdomen complete Date when done: 06/19 Facility: [facility] Please contact pt at [phone] documented in this encounter Plan of Treatment Upcoming Encounters Date Type Department Care Team (Late st Contact Info) Description 02/05/2025 12:45 PM EST Office Visit [facility] ADULT DENTAL [address] [place] [address] Kary Reyes documented as of this encounter Visit Diagnoses Not on filedocumented in this encounter Additional Health Concerns Assessment Noted Time PHQ-9 Depression Total Score: 2 03/24/19 23 9:26 AM EST documented as of this encounter Care Teams Chimney Supervisor Brick Relationship Specialty Start Date End Date Charisma Stinson MD [address] [place] [phone] PCP - General Family Medicine 03/13/18 09/05/24 documented as of this encounter
--- OUTSIDE RECORDS SUMMARY | 2025-01-16 14:14 | XMS_ITS | Encounter Summary ---
Author Organization [employer] Address [address] [place] [address] 7 [place] [address] Care Team Providers Care Cork Compounder Name Role Phone Charisma Stinson MD Primary Care Provider [phone] Encounter Details Date Type Department Care Team (Latest Contact Info) Description 04/18/[address] [facility] CONVERSIONS Dental, Provider, [...] 02/05/2025 12:45 PM EST Office Visit [facility] ADULT [facility]AL [address] [place] [address] Kary Reyes documented as of this encounter Visit Diagnoses Not on filedocumented in this encounter Care Teams Cork Compounder Relationship Specialty Start Date End Date Charisma Stinson MD [address] [place] [address] PCP - General Family Medicine 03/13/18 09/05/24 documented as of this encounter
--- OUTSIDE RECORDS SUMMARY | 2025-01-16 14:14 | XMS_ITS | Clinical Summary ---
Author Organization [employer] Address [address] [place] [address] 7t [place] [address] Care Team Providers Care Binder Fixer Name Role Phone Unavailable Primary Care [...] Provider, Generic External Data 12/19/2024 Orders Only [facility] External Provider, [facility] 12/16/2024 Refill [facility] MED & PEDS [address] [place] [address] Charisma Stinson MD Gastroesophageal reflux disease without esophagitis 12/10/2024 1:30 PM EDT Office Visit [facility] ADULT DENTAL [address] [place] [address] Be Arnold 11/21/2024 Refill [facility] MED & PEDS [address] [place] [address] Charisma Stinson MD from Last 3 Months [...] the past 12 months, has t he [employer] gas, oil or water company threatened to [...] 12:45 PM EST Office Visit [facility] ADULT DENTAL [address] [place] [address] Kary Reyes Health Maintenance Due Date Last [...] Procedure Name Priority Date/Time Associated Diagnosis Comments LYME DISEASE AB W/REFL TO BLOT (IGG, IGM) Routine 01/15/2025 2:33 PM EST BASIC METABOLIC [...] Recently Relevant to Health Maintenance Results * Lyme Disease Ab with Reflex to Blot (IgG, IgM) (01/15/2025 2:33 PM EST) Lyme Antibody Screen <0.90 index [facility] Comment:Index Interpretation ----- < 0.90 Negative 0.90-1.09 Equivocal > 1.09 PositiveAs recommended by the Food and Drug Administration(FDA), all samples with positive or equivocalresults in a Borrelia burgdorferi antibody screenwill be tested using a blot method. Positive orequivocal screening test results should not beinterpreted as truly positive until verified as suchusing a supplemental assay (e.g., B. burgdorferi blot).The screening test and/or blot for B. burgdorferiantibodies may be falsely negative in early stagesof Lyme disease, including the period when erythemamigrans is apparent.THIS TEST WAS PERFORMED AT:[employer] [place] [id number] MALDONADO MD Lyme Blot [facility] 01/15/2025 2:33 PM EST 01/15/2025 2:33 PM EST us Generic External Data Provider LAB BLOOD ORDERAB LES Final Result [facility] [address] [place] [address] [phone] * Sed Rate by Modified Sumeetren (01/15/2025 2:33 PM EST) Pathologist [facility] Erythrocyte Sedimentation Rate 2 0 - 20 MM/HR [facility] Comment:Patients with polycy themia and many hemoglobin abnormalitiesmay have depressed sed rates whereas patients with anemiamay have elevated sed rates. 01/15/2025 2:33 PM EST 01/15/2025 2:33 PM EST Generic External Data Provider LAB BLOOD ORDERAB LES Final Result Performing Organization Address [facility] de Phone Number [facility] [address] [place] [phone] * (ABNORMAL) Basic Metabolic Panel (01/15/2025 2:33 PM EST) Sodium 138 135 - 145 mmol/L [facility] Potassium 3.6 3.3 - 5.1 mmol/L [facility] Chloride 102 96 - 108 mmol/L [facility] Carbon Dioxide 30(H) 22 - 29 mmol/L [facility] Anion Gap 10(L) 12 - 20 [facility] Urea Nitrogen (BUN) 10 9 - 16 mg/dL [facility] Creatinine, Serum 0.70 0.5 - 1.4 mg/dL [facility] Estimated Glomerular Filt Rate >60 [facility] Comment:Chronic Kidney Disea se: Estimated GFR < 60 mL/min/[id number] Kidney Disease: Estimated GFR < 15 mL/min/1.73m2 Glucose 77 60 - 115 mg/dL [facility] Calcium 8.9 8.4 - 10.2 mg/dL [facility] 01/15/2025 2:33 PM EST 01/15/2025 2:33 PM EST Generic External Data Provider LAB BLOOD ORDERAB LES Final Result Performing Organization Address [facility] Co de Phone Number [facility] [address] [place] [phone] * (ABNORMAL) Urine Protein, Total, Random without Creatinine (01/15/2025 2:30 PM EST) Protein, Total, Random Urine 13(H) <12 mg/dL [facility] 01/15/2025 2:30 PM EST 01/15/2025 2:57 PM EST us Generic External Data Provider LAB URINE ORDERAB LES Final Result Performing Organization Address City/[facility]/ZIP Co de Phone Number [facility] [address] [place] [phone] * Creatinine, Random Urine (01/15/2025 2:30 PM EST) Creatinine, Urine 132.63 mg/dL [facility] 01/15/2025 2:30 PM EST 01/15/2025 2:57 PM EST Generic External Data Provider LAB URINE ORDERAB LES Final Result Performing Organization Address [facility] Co de Phone Number [facility] [address] [place] [phone] * (ABNORMAL) Urinalysis Complete (01/15/2025 2:30 PM EST) Color Urine Dark Yellow [facility] Appearance Urine Clear [facility] PH 6.0 5.0 - 9.0 [facility] Glucose Urine UA Negative Negative mg/dL [facility] Urine Blood Trace(A) Negative [facility] Specific Ducor - Urine 1.025 1.005 - 1.025 [facility] Urine Protein Negative Neg-Trace mg/dL [facility] Urine Ketones Negative Negative mg/dL [facility] Nitrite Urine Negative Negative [facility] Leukocyte Esterase Urine Small (1+)(A) Negative [facility] RBC Urine 3-5(A) 0 - 2 /HPF [facility] Urine WBC 0-5 0 - 5 /HPF [facility] Urine Squamous Epithelial Cell 11-20 0 - 2 /HPF [facility] Urine Bacteria Trace None Seen [facility] Hyaline Casts, Urine 0-2 0 - 2 /LPF [facility] 01/15/2025 2:30 PM EST 01/15/2025 2:57 PM EST us Generic External Data Provider LAB URINE ORDERAB LES Final Result [facility] [address] [place] [phone] * NM heart perfusion SPECT stress and rest (12/19/2024 9:35 AM EDT) Anatomical Region Laterality Modality Body Nuclear Medicine 12/19/2024 9:35 AM EDT Narrative 12/24/2024 12:28 PM EDT [address] [address] Nuclear Medicine Report Signed Patient: Zoey Walsh MR#: [id number] : 1955 Acct:[id number] Age/Sex: 69 / F ADM Date: 12/19/24 Loc: .[facility] Attending Dr: Gilberto Villalobos MD Ordering Physician: Gilberto Villalobos MD Date of Service: 12/19/24 Procedure(s): NM kathleen perf SPECT rest str Accession Number(s): [id number] cc: Charisma Stinson MD; Gilberto Villaolbos MD Reason for Exam: CHEST PAIN LEXISCAN [...] Gilberto Villalobos MD 12/24/2024 12:25 PM EDT RP Dictated By: Gilberto Villalobos MD Signed By: <Electronically signed by Gilberto Villalobos MD in OV> 12/24/24 1225 DD/ 0935 TD/TT: 12/20/24 1130 Test Fixture Designer: Procedure Note Donotuseinterpreter, Image - 12/24/2024 [place] [address] Nuclear Medicine Report Signed Patient: Zoey Walsh JMR#: [id number] : 8Acct:[id number] Age/Sex: 69 / FADM Date: 12/19/24 [facility] Dr: Gilberto Villalobos MD Ordering Physician: Gilberto Villalobos MD Date of Service: 12/19/24 Procedure(s): NM kathleen perf SPECT rest str Accession Number(s): [id number] cc: Charisma Stinson MD; Gilberto Villalobos MD [...] 12/24/24 1225 DD/ 0935 TD/TT: 12/20/24 1130 Test Fixture Designer: [facility] External Provider IMG NM PROCEDURES Final Result * BI Mammogram Screening Tomosynthesis Bilateral (11/22/2023 11:30 AM EDT) Anatomical Region Laterality Modality Breast Bilateral Mammography 11/22/2023 11:3 0 AM EDT Narrative 12/06/2023 10:24 AM EDT [facility] [address] [place] [address] Mammography Report Signed Patient: Zoey Walsh MR#: [id number] : 1955 Acct:[id number] Age/Sex: 68 / F ADM Date: 11/22/23 Loc: HO.MAMMO Attending Dr: Charisma Stinson MD Ordering Physician: Charisma Stinson MD Results: 2Be nign Findings Date of Service: 11/22/23 Follow Up: 1 Year From Orig inal Mammogram Procedure(s): MM tomosynthesis screening BI Accession Number(s): [id number] cc: Charisma Stinson MD EXAMINATION: MM SCREENING [...] 12/06/23 1021 DD/ 1130 TD/TT: 11/22/23 1144 Test Fixture Designer: Procedure Note Donotuseinterpreter, Image - 12/06/2023 [facility] [address] [place] [address] Mammography Report Signed Patient: Zoey Walsh JMR#: [id number] : 1955cct:[id number] Age/Sex: 68 / FADM Date: 11/22/23 Loc: HO.MAMMO Attending Dr: Charisma Stinson MD Ordering Physician: Charisma Stinson MDResults: 2Be nign Findings Date of Service: 11/22/23Follow Up: 1 Year From [facility] ina Mammogram Procedure(s): MM tomosynthesis screening BI Accession Number(s): [id number] cc: Charisma Stinson MD EXAMINATION: MM SCREENING [...] 12/06/23 1021 DD/ 1130 TD/TT: 11/22/23 1144 Test Fixture Designer: us Charisma Stinson MD IMG BI [...] with historic and current clinical information. General Assembler Installer : SEE COMMENT [facility] Comment: KN, CT(ASCP) CT screening location: [place] [address] Interpretation/R esult: Negative for intraepithelial lesion or [...] MD LAB PATHOLOGY ORDERABLES Final R esult [facility] [address] from Last 3 Months or Most Recently Relevant to Health Maintenance Insurance [facility] , [address] [place] [address] [place] [address] DENTAL - HSN FULL (MEDICAID)
--- OUTSIDE RECORDS SUMMARY | 2025-01-16 14:14 | XMS_ITS | Encounter Summary ---
Author Organization [employer] Address [address] [place] [address] 7 [place] [address] Care Team Providers Care Collar Stitcher Name Role Phone Charisma Stinson MD Primary Care Provider [phone] Encounter Details Date Type Department Care Team (Latest Contact Info) Description 12/13/2021 Abstract [facility] CONVERSIONS Dental, Provider, DDS Social [...] [facility] ADULT [facility] [address] [place] [address] Kary Reyes documented as of this encounter Visit Diagnoses Not on filedocumented in this encounter Care Teams Collar Stitcher Relationship Specialty Start Date End Date Charisma Stinson MD [address] [place] [address] PCP - General Family Medicine 03/13/18 09/05/24 documented as of this encounter
--- OUTSIDE RECORDS SUMMARY | 2025-01-16 14:14 | XMS_ITS | Encounter Summary ---
Author Organization [email or web address] Address [address] [facility] 7 [place] [address] Care Team Providers Care Pop Singer Name Role Phone Unavailable Primary Care Provider Unavailabl e Reason for Visit * Reason Comments Med Refill Encounter Details Date Type Department Care Team ([facility] Contact Info) Description 10/15/2024 Refill [facility] CHC MED & PEDS [address] [place] [address] Charisma Stinson MD [address] [place] [address] Mixed hyperlipidemia Social History Tobacco Use Types [...] t he electric, gas, oil or water [employer] threatened to shut off services in your [...] Description 02/05/2025 12:45 PM EST Office Visit [facility] ADULT DENTAL [address] [place] [address] Kary Reyes documented as of this encounter Visit Diagnoses Diagnosis Mixed hyperlipidemia documented in this encounter Additional Health Concerns Assessment Noted Time PHQ-9 Depression Total Score: 2 03/24/19 23 9:26 AM EST documented as of this encounter
--- OUTSIDE RECORDS SUMMARY | 2025-01-16 14:14 | XMS_ITS | Encounter Summary ---
Author Organization [employer] Address [address] [place] [address] 7 [place] [address] Care Team Providers Care Career Placement Specialist Name Role Phone Charisma Stinson MD Primary Care Provider [phone] Encounter Details Date Type Department Care Team (Latest Contact Info) Description 03/19/2020 Abstract [facility] CONVERSIONS Dental, Provider, DDS Social [...] [facility] ADULT DENTAL [address] [place] [address] Kary Reyes documented as of this encounter Visit Diagnoses Not on filedocumented in this encounter Care Teams Career Placement Specialist Relationship Specialty Start Date End Date Charisma Stinson MD [address] [place] [address] PCP - General Family Medicine 03/13/18 09/05/24 documented as of this encounter
--- OUTSIDE RECORDS SUMMARY | 2025-01-16 14:14 | XMS_ITS | Encounter Summary ---
Author Organization [employer] Address [address] [place] [address] 7 [place] [address] Care Team Providers Care Tool Dresser Name Role Phone Charisma Stinson MD Primary Care Provider [phone] Encounter Details Date Type Department Care Team (Late Contact Info) Description 02/08/2023 Abstract [facility] ADULT DENTAL [address] [place] [address] Yordan Mcgowan DDS [address] [place], [place] [phone] Social History Tobacco Use Types Packs/Day Years [...] [facility] [address] [place] [address] Kary Reyes documented as of this encounter Visit Diagnoses Not on filedocumented in this encounter Additional Health Concerns Assessment Noted Time PHQ-9 Depression Total Score: 2 03/24/19 23 9:26 AM EST documented as of this encounter Care Teams Tool Dresser Relationship Specialty Start Date End Date Charisma Stinson MD [address] [place] [address] PCP - General Family Medicine 03/13/18 09/05/24 documented as of this encounter
--- OUTSIDE RECORDS SUMMARY | 2025-01-16 14:14 | XMS_ITS | Encounter Summary ---
Author Organization [employer] Address [address] [facility] 7t [place] [address] Care Team Providers Care Damage Prevention Coordinator Name Role Phone Unavailable Primary Care Provider [...] Visit [facility] ADULT DENTAL [address] [place] [address] Kary Reyes documented as of this encounter Procedures Procedure Name Priority Date/Time Associated Diagnosis Comments LYME DISEASE AB W/REFL TO BLOT (IGG, IGM) Routine 01/15/2025 2:33 PM EST SED RATE BY MODIFIED WESTERGREN Routine 01/15/2025 2:33 PM EST BASIC METABOLIC PANEL Routine 01/15/2025 2:33 PM EST URINE PROTEIN, TOTAL, RANDOM (W/O CREATININE) Routine 01/15/2025 2:30 PM EST CREATININE, RANDOM URINE Routine 01/15/2025 2:30 PM EST URINALYSIS, COMPLETE Routine 01/15/2025 2:30 PM EST documented in this encounter Results * Lyme Disease Ab with Reflex to Blot (IgG, IgM) (01/15/2025 2:33 PM EST) Lyme Antibody Screen <0.90 index [facility] Comment:Index Interpretation ----- < 0.90 [...] when erythemamigrans is apparent.THIS TEST WAS PERFORMED AT:[facility] [place] [id number] MALDONADO MD Lyme Blot TNP [facility] 01/15/2025 2:33 PM EST 01/15/2025 2:33 PM EST us Generic External Data Provider LAB BLOOD ORDERAB LES Final Result Performing Organization Address [facility]/ZIP Co de Phone Number [facility] [address] [place] [phone] * (ABNORMAL) Basic Metabolic Panel (01/15/2025 2:33 PM EST) Sodium 138 135 - 145 mmol/L [facility] Potassium 3.6 3.3 - 5.1 mmol/L [facility] Chloride 102 96 - 108 mmol/L [facility] Carbon Dioxide 30(H) 22 - 29 mmol/L [facility] Anion Gap 10(L) 12 - 20 [facility] Urea Nitrogen (BUN) 10 9 - 16 mg/dL [facility] Creatinine, Serum 0.70 0.5 - 1.4 mg/dL [facility] Estimated Glomerular Filt Rate >60 [facility] Comment:Chronic Kidney Disea se: Estimated GFR < 60 mL/min/[id number] Kidney Disease: Estimated GFR < 15 mL/min/1.73m2 Glucose 77 60 - 115 mg/dL [facility] Calcium 8.9 8.4 - 10.2 mg/dL [facility] 01/15/2025 2:33 PM EST 01/15/2025 2:33 PM EST us Generic External Data Provider LAB BLOOD ORDERAB LES Final Result Performing Organization Address City/[facility]/ZIP Co de Phone Number [facility] [address] [place] [phone] * Sed Rate by Modified Nolanergren (01/15/2025 2:33 PM EST) Erythrocyte Sedimentation Rate 2 0 - 20 MM/HR [facility] Comment:Patients with polycy themia and many hemoglobin abnormalitiesmay have depressed sed rates whereas patients with anemiamay have elevated sed rates. 01/15/2025 2:33 PM EST 01/15/2025 2:33 PM EST us Generic External Data Provider LAB BLOOD ORDERAB LES Final Result Performing Organization Address [facility] Co tn Phone Number [facility] [address] [place] [phone] * (ABNORMAL) Urine Protein, Total, Random without Creatinine (01/15/2025 2:30 PM EST) Protein, Total, Random Urine 13(H) <12 mg/dL [facility] 01/15/2025 2:30 PM EST 01/15/2025 2:57 PM EST us Generic External Data Provider LAB URINE ORDERAB LES Final Result Performing Organization Address [facility] Co de Phone Number [facility] [address] [place] [phone] * Creatinine, Random Urine (01/15/2025 2:30 PM EST) Creatinine, Urine 132.63 mg/dL [facility] 01/15/2025 2:30 PM EST 01/15/2025 2:57 PM EST Generic External Data Provider LAB URINE ORDERAB LES Final Result Performing Organization Address [facility] de Phone Number [facility] [address] [place] [phone] * (ABNORMAL) Urinalysis Complete (01/15/2025 2:30 PM EST) Color Urine Dark Yellow [facility] Appearance Urine Clear [facility] PH 6.0 5.0 - 9.0 [facility] Glucose Urine UA Negative Negative mg/dL [facility] Urine Blood Trace(A) Negative [facility] Specific Harrells - Urine 1.025 1.005 - 1.025 [facility] Urine Protein Negative Neg-Trace mg/dL [facility] Urine Ketones Negative Negative mg/dL [facility] Nitrite Urine Negative Negative [facility] Leukocyte Esterase Urine Small (1+)(A) Negative [facility] RBC Urine 3-5(A) 0 - 2 /HPF [facility] Urine WBC 0-5 0 - 5 /HPF [facility] Urine Squamous Epithelial Cell 11-20 0 - 2 /HPF [facility] Urine Bacteria Trace None Seen [facility] Hyaline Casts, Urine 0-2 0 - 2 /LPF [facility] 01/15/2025 2:30 PM EST 01/15/2025 2:57 PM EST us Generic External Data Provider LAB URINE ORDERAB LES Final Result [facility] [address] [place] [phone] [phone] documented in this encounter Visit Diagnoses Not on filedocumented in this encounter Additional Health Concerns Assessment Noted Time PHQ-9 Depression Total Score: 2 03/24/19 23 9:26 AM EST documented as of this encounter
--- OUTSIDE RECORDS SUMMARY | 2025-01-16 14:14 | XMS_ITS | Encounter Summary ---
Author Organization [employer] Address [address] [place] [address] 7 [place] [address] Care Team Providers Care Taxicab Starter Name Role Phone Charisma Stinson MD Primary Care Provider [phone] Encounter Details Date Type Department Care Team ([facility] Contact Info) Description 01/16/2023 Abstract [facility] MEDICINE [address] [place], [place] [phone] Charisma Stinson MD [address] [place], [place] [phone] Social History Tobacco Use Types Packs/Day Years [...] Description 02/05/2025 12:45 PM EST Office Visit [facility] ADULT DENTAL [address] [place], [place] [phone] Kary Reyes documented as of this encounter Visit Diagnoses Not on filedocumented in this encounter Additional Health Concerns Assessment Noted Time PHQ-9 Depression Total Score: 2 01/12/20 23 9:26 AM EST documented as of this encounter Care Teams Taxicab Starter Relationship Specialty Start Date End Date Charisma Stinson MD [address] [place] [phone] PCP - General Family Medicine 03/13/18 09/05/24 documented as of this encounter
--- OUTSIDE RECORDS SUMMARY | 2025-01-16 14:14 | XMS_ITS | Encounter Summary ---
Author Organization [employer] Address [address] [place] [address] 7 [place] [address] Care Team Providers Care Pricing Specialist Name Role Phone Charisma Stinson MD Primary Care Provider [phone] Encounter Details Date Type Department Care Team (Late Contact Info) Description 01/13/2023 Abstract [facility] ADULT DENTAL [address] [place] [address] Yordan Mcgowan DDS [address] [place], [place] [phone] Social History Tobacco Use Types Packs/Day Years [...] Description 02/05/2025 12:45 PM EST Office Visit [facility] ADULT DENTAL [address] [place] [address] Kary Reyes documented as of this encounter Visit Diagnoses Not on filedocumented in this encounter Additional Health Concerns Assessment Noted Time PHQ-9 Depression Total Score: 2 03/24/19 23 9:26 AM EST documented as of this encounter Care Teams Pricing Specialist Relationship Specialty Start Date End Date Charisma Stinson MD [address] [place] [phone] PCP - General Family Medicine 03/13/18 09/05/24 documented as of this encounter
--- OUTSIDE RECORDS SUMMARY | 2025-01-16 14:14 | XMS_ITS | Encounter Summary ---
Author Organization [employer] Address [address] [facility] 7 [place] [address] Care Team Providers Care Venue Manager Name Role Phone Unavailable Primary Care Provider Unavailabl e Reason for Visit * Reason Comments Med Refill Encounter Details Date Type Department Care Team ([facility] Contact Info) Description 11/21/2024 Refill [facility] CH[facility] MED & PEDS [address] [place] [address] Charisma Stinson MD [address] [place] [address] Social History Tobacco Use Types Packs/Day Years [...] 12:45 PM EST Office Visit [facility] ADULT DENTAL [address] [place] [address] Kary Reyes documented as of this encounter Visit Diagnoses Not on filedocumented in this encounter Additional Health Concerns Assessment Noted Time PHQ-9 Depression Total Score: 2 03/24/19 23 9:26 AM EST documented as of this encounter
--- OUTSIDE RECORDS SUMMARY | 2025-01-16 14:14 | XMS_ITS | Encounter Summary ---
Author Organization [employer] Address [address] [place] [address] 7 [place] [address] Care Team Providers Care Dental Detail Representative Name Role Phone Charisma Stinson MD Primary Care Provider [phone] Encounter Details Date Type Department Care Team (Late Contact Info) Description 02/20/2023 Abstract [facility] [address] [place] [address] Yordan Mcgowan DDS [address] [place], [place] [phone] Social History Tobacco Use Types Packs/Day Years [...] 02/05/2025 12:45 PM EST Office Visit [facility] [address] [place] [address] Kary Reyes documented as of this encounter Visit Diagnoses Not on filedocumented in this encounter Additional Health Concerns Assessment Noted Time PHQ-9 Depression Total Score: 2 03/24/19 23 9:26 AM EST documented as of this encounter Care Teams Dental Detail Representative Relationship Specialty Start Date End Date Charisma Stinson MD [address] [place] [id number] PCP - General Family Medicine 03/13/18 09/05/24 documented as of this encounter
--- OUTSIDE RECORDS SUMMARY | 2025-01-16 14:14 | XMS_ITS | Encounter Summary ---
Author Organization [employer] Address [address] [facility] 7 [place] [address] Care Team Providers Care Investigator Internal Revenue Name Role Phone Charisma Stinson MD Primary Care Provider [phone] Reason for Visit * Reason Onset Date Comments Triage 08/05/2022 Encounter Details Date Type Department Care Team ([facility] Contact Info) Description 08/05/2022 Telephone [facility] MED & PEDS [address] [place], [place] [phone] Charisma Stinson MD [address] [place] [address] Triage Social History Tobacco Use Types Packs/Day [...] accepted this outcome Please contact pt at [phone] documented in this encounter Plan of Treatment Upcoming Encounters Date Type Department Care Team ([facility] st Contact Info) Description 02/05/2025 12:45 PM EST Office Visit [facility] CHC ADULT DENTAL [address] [place] [address] Kary Reyes documented as of this encounter Visit Diagnoses Not on filedocumented in this encounter Additional Health Concerns Assessment Noted Time PHQ-9 Depression Total Score: 2 03/24/19 23 9:26 AM EST documented as of this encounter Care Teams Investigator Internal Revenue Relationship Specialty Start Date End Date Charisma Stinson MD [address] [place] [address] PCP - General Family Medicine 03/13/18 09/05/24 documented as of this encounter
--- OUTSIDE RECORDS SUMMARY | 2025-01-16 14:14 | XMS_ITS | Encounter Summary ---
Author Organization [employer] Address [address] [facility] 7t [place] [address] Care Team Providers Care Television Maintenance Worker Name Role Phone Charisma Stinson MD Primary Care Provider [phone] Reason for Visit * Reason Onset Date Comments more medication 01/27/2023 Encounter Details Date Type Department Care Team ([facility] Contact Info) Description 01/27/2023 Telephone [facility] CHC ADULT DENTAL [address] [place] [address] Yordan Mcgowan DDS [address] [place] [address] more medication Social History Tobacco Use Types [...] Description 02/05/2025 12:45 PM EST Office Visit [facility] ADULT DENT[facility] [address] [place] [address] Kary Reyes documented as of this encounter Visit Diagnoses Not on filedocumented in this encounter Additional Health Concerns Assessment Noted Time PHQ-9 Depression Total Score: 2 03/24/19 23 9:26 AM EST documented as of this encounter Care Teams Television Maintenance Worker Relationship Specialty Start Date End Date Charisma Stinson MD [address] [place] [address] PCP - General Family Medicine 03/13/18 09/05/24 documented as of this encounter
== END 2025-01-16 12:33 | disposition home or self-care (01) ==
LOC: HO.HMCH 11:23
PROVIDERS: PCP Pediatrics
DX: Z00.00 Encounter for general adult medical examination without abnormal findings (principal); I70.0 Atherosclerosis of aorta; R63.5 Abnormal weight gain; M25.511 Pain in right shoulder; K57.31 Diverticulosis of large intestine without perforation or abscess with bleeding; K44.9 Diaphragmatic hernia without obstruction or gangrene; N18.9 Chronic kidney disease, unspecified; K21.9 Gastro-esophageal reflux disease without esophagitis; J45.909 Unspecified asthma, uncomplicated; K76.0 Fatty (change of) liver, not elsewhere classified; G62.9 Polyneuropathy, unspecified; M85.80 Other specified disorders of bone density and structure, unspecified site; G50.0 Trigeminal neuralgia; R31.9 Hematuria, unspecified; E78.00 Pure hypercholesterolemia, unspecified; J06.9 Acute upper respiratory infection, unspecified

== ENCOUNTER 2025-01-23 14:31 | Outpatient (AMB) | payer MEDICARE, MEDICAID, SELFPAY ==
--- OUTSIDE RECORDS SUMMARY | 2025-01-21 11:30 | XMS_ITS | Encounter Summary ---
Author Organization [employer] Address [address] [place] [address] 7 [place] [address] Care Team Providers Care Body And Fender Worker Name Role Phone Unavailable Primary Care Provider Unavailabl e Reason for Visit * Reason Comments broken tooth LR Encounter Details Date Type Department Care Team ([facility] Contact Info) Description 01/21/2025 11:30 AM EST Office Visit [facility] [address] [place] [address] Be Arnold 505 [place] [address] Social History Tobacco Use Types Packs/Day Years [...] as of this encounter Progress Notes * Be Arnold - 01/21/2025 11:30 AM EST Dental procedures in this visit D0140 - LIMITED ORAL EVALUATION - PROBLEM FOCUSED 31 (Completed) Service provider: Be Arnold Billing provider: Aisha Escobar DDS D9450 - CASE PRESENTATION, DETAILED AND EXTENSIVE TREATMENT PLANNING (Completed) Service provider: Be Arnold [employer] provider: Aisha Escobar DDS D0220 - INTRAORAL - PERIAPICAL FIRST RADIOGRAPHIC IMAGE 31 (Completed) Service provider: Be Arnold [employer] provider: Aisha Escobar DDS D0270 - BITEWING - SINGLE RADIOGRAPHIC IMAGE (Completed) Service provider: Be Arnold [employer] provider: Aisha Escobar DDS Patient ID: Zoey Walsh is a 69 y.o. female. Time Out: Date: 01/21/2025 Location: [facility] Tooth: #31 Procedure: Exam Verified the above with patient, conference assistant, and provider. Confirmed via patient's chart, intraorally and by radiographs. Jig And Fixture Repairer: not applicable 69 y.o. y/o female presents for limited exam with Dr. Be Arnold Medical history: Reviewed in EHR Vitals: There were no vitals taken for this visit. Allergies: Reviewed in EHR Medications: Reviewed in EHR Radiographs taken: PA and BW CHIEF COMPLAINT: I broke my tooth Discussion: Patient presented to the dental office as an emergency with complaints on tooth #31. After clinical and radiographic examination, tooth #31 presented with a distal- lingual fracture andgingival overgrowth. Radiographically, #31 showed a radiolucency extending to the CEJ. Patient was informed of the findings and offered to schedule a visit for the following day to perform electrosurgery for removal of the overgrown gingiva and to reevaluate the restorability of tooth #31. Patient agreed and understood the treatment plan. Patient was released in stable condition with allquestions answered. NV: Re-evaluation of #31 Provider: Dr. Be Arnold Dental Auto Mechanics Teacher: Lucina Rucker Attending: Dr. Escobar * Aisha Escobar DDS - 01/21/2025 11:30 AM EST I have reviewed the documentation and dental procedures completed by the rendering provider, Be Arnold DDS, and approve their chart entries for this visit. KIMBERLY Jones DDS documented in this encounter Plan of Treatment Upcoming Encounters Date Type Department Care Team (Late st Contact Info) Description 02/05/2025 12:45 PM EST Office Visit [facility] [address] [place] [address] Kary Reyes documented as of this encounter Procedures Procedure Name Priority Date/Time Associated Diagnosis Comments 31 LIMITED ORAL EVALUATION - PROBLEM FOCUSED Routine 01/21/2025 11:30 AM EST 31 INTRAORAL - PERIAPICAL FIRST RADIOGRAPHIC IMAGE Routine 01/21/2025 11:30 AM EST CASE PRESENTATION, DETAILED AND EXTENSIVE TREATMENT PLANNING Routine 01/21/2025 11:30 AM EST BITEWING - SINGLE RADIOGRAPHIC IMAGE Routine 01/21/2025 11:30 AM EST documented in this encounter Visit Diagnoses Not on filedocumented in this encounter Additional Health Concerns Assessment Noted Time PHQ-9 Depression Total Score: 2 03/24/19 23 9:26 AM EST documented as of this encounter
--- OUTSIDE RECORDS SUMMARY | 2025-01-22 08:00 | XMS_ITS | Encounter Summary ---
Author Organization [employer] Address [address] [facility] 7t [place] [address] Care Team Providers Care Filler Block Inserter Remover Name Role Phone Unavailable Primary Care Provider Unavailabl e Reason for Visit * Reason Comments Filling Encounter Details Date Type Department Care Team ([facility] Contact Info) Description 01/22/2025 8:00 AM EST Office Visit [facility] ADULT DENT[facility] [address] [place] [address] Be Arnold [address] [place] [address] Social History Tobacco Use Types Packs/Day Years [...] t he electric, gas, oil or water [employer] threatened to shut off services in your [...] y.o. female. Time Out: Date: 01/22/2025 Location: [facility] Tooth: #31 Procedure: Lutheran Verified the above with patient, senior it assistant, and provider. Confirmed via patient's chart, intraorally and by radiographs. Electrical Foreman: not applicable Composite judaism done on # [address] Be [...] carpule 4% septocaine/articaine 1:100,000 epinephrine - Existing judaism and recurrent decay removed - Matrix band and wedge used as needed - Desensitizer: Gluma - Etching done using 37% phosphoric acid. - guest service agent applied. - Composite judaism done using Filtek body/flowable composite, shade A2 - Anatomy and margins adjusted - Occlusion checked with articulating paper - Necessary reductions made. - Lutheran smoothed and polished. - Post op instructions given Patient satisfied, left in stable condition Patient made aware possible post op sensitivity NV: recall Provider: Dr. Be Arnold Head Waiter/Waitress Banquet: Lucina Capone Supervising dentist: Dr. Escobar Note: [...] [facility] [address] [place] [address] Kary Reyes documented as of this encounter [...]
[2025-01-23 14:33] VITALS: BP 116/72; BMI 21.8
--- NOTE | 2025-01-23 14:33 | HO.NEPHOV ---
Vital Signs 01/23/25 14:33 Height 5 ft 2 in Weight 119 lb BMI 21.8 BP 116/72 Blood Pressure Location Rt brachial Position Sitting Intake Visit Reasons: f/u Freight Handler Required: No Accompanied by: Self / Same As Patient Allergies shellfish derived Adverse Reaction (Intermediate, Verified 01/23/25 14:35) Nausea and Vomiting Medication List - Last Reconciled 01/23/25 by Anurag Blanchard MD albuterol sulfate 90 mcg/actuation 2 puffs inhalation Q6H PRN albuterol sulfate 2.5 mg (3 mL) inhalation Q4-6H PRN aspirin 81 mg PO DAILY atorvastatin (Lipitor) 80 mg PO BEDTIME baclofen 5 mg PO BEDTIME bisacodyl (Dulcolax (bisacodyl)) 10 mg (2 x 5 mg) PO BEDTIME calcium carbonate 600 mg PO QAM carbamazepine 200 mg PO BID cetirizine 10 mg PO QAM cholecalciferol (vitamin D3) 50 mcg PO DAILY esomeprazole magnesium 40 mg PO QAM estradiol 0.01%(0.1mg/gram) vaginal famotidine 20 mg PO BID fluticasone propionate 50 mcg/actuation 1 spray intranasal DAILY gabapentin 300 mg PO BID lidocaine 5% 1 patch topical DAILY meloxicam 7.5 mg PO DAILY PRN mometasone 200 mcg/actuation (Asmanex HFA) 1 puff inhalation BID montelukast 10 mg PO BEDTIME pkakpwdehpsj-owmv-aafje acid 18-400 mg-mcg (Certavite-Antioxidant) 1 tab PO QAM HPI Comments Details: Zoey is a pleasant 68-year-old woman who has been referred for renal evaluation. 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 BUN was 109 creatinine 4.7 with a EGFR of 11 mL/minute. [place] [address]. She underwent plasmapheresis. No kidney biopsy was done. The renal function improved and did not require any dialysis. Since then renal function has been stable. Recently she was being evaluated for a colonoscopy. Abdominal ultrasonogram was done which showed mild fullness on the right side and the patient requested renal evaluation and hence this referral. At present she has no history of any nausea or vomiting. No hematuria. No polyuria polydipsia. She has weight loss. No history of smoking she uses occasional marijuana. 10/09/23 c/o left flank pain for a long time No urinary symptoms Has fullness in right renal pelvis- Chronic 01/23/25 The patient is a 69-year-old female is here for follow up . The patient has a history of chronic kidney disease, initially identified in 2018, with trace amounts of blood and very few red blood cells noted in the urine. 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 Despite these findings, her kidney function is reported to be normal, with no proteinuria observed. The patient also reports a history of Irritable Bowel Syndrome (IBS), which she experiences regularly. She has been advised that IBS could contribute to elevated carbon dioxide levels due to loss of acid in the stool, which is a compensatory mechanism. The patient has a history of acute kidney injury, which has since resolved, and her kidney function has returned to normal. She has been monitoring her sodium and potassium intake, although there are currently no dietary restrictions due to her normal kidney function. [facility] Medical History Actinic keratoses Squamous cell carcinoma, face Trigeminal neuralgia Diverticulosis large intestine w/o perforation or abscess w/bleeding Tubular adenoma of colon Hiatal hernia Surgical History H/O colonoscopy Family History Mother Lung cancer Father Diabetes Social History Household Members: None Housing: Condominium Alcohol intake: former Patient Tobacco Use Status: Former Tobacco user Tobacco use type: Cigarette e-Cigarette/Vaping Use: Never Used Second Hand Smoke Exposure: No Substance Use Type: Marijuana service: No Current occupational status: retired Cognitive needs: No Hearing needs: No Vision needs: No Physical Exam Vital Signs: Last Vital Signs BP 116/72 01/23/25 14:33 BMI result Body Mass Index 21.8 Comfortable Neck supple no JVD. Lungs entry equal no rales. Heart S1-S2 heard no gallop or rub. Abdomen soft nontender. Neuro alert awake oriented. No asterixis. Extremities no edema. Results Reviewed Nephrology Results: Sodium, (135-145) 138 mmol/L 01/15/25 Potassium, (3.3-5.1) 3.6 mmol/L 01/15/25 Chloride, (96-108) 102 mmol/L 01/15/25 Carbon Dioxide, (22-29) 30 mmol/L H 01/15/25 BUN, (9-16) 10 mg/dL 01/15/25 Creatinine, (0.5-1.4) 0.70 mg/dL 01/15/25 Calcium, (8.4-10.2) 8.9 mg/dL Δ 01/15/25 Urine Protein, (Neg-Trace) Negative mg/dL 01/15/25 Urine Creatinine 132.63 mg/dL 01/15/25 Renal US 09/11/23 Assessment & Plan Assessment & Plan (1) CKD (chronic kidney disease): Code(s): N18.9 - Chronic kidney disease, unspecified Category: Medical Plan: 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 CKD 1 trace Microhematuria - presistent , chronic, asymptomatic She has a history of atypical HUS. History of MINISTERIO but did not require hemodialysis. History of plasmapheresis for atypical HS in 2009 At present renal function stable. renal ultrasonogram shows unchanged fullness on the right kidney At this time blood pressure is well controlled. Renal function has been stable over the last 10 years. Continue to avoid nephrotoxic agents including NSAIDs. We will continue to monitor the renal function and hemoglobin platelet count periodically. Orders: Orders Complete Blood Count Auto Diff 1 Year R31.9 - Hematuria, unspecified Total Protein Urine Random 1 Year R31.9 - Hematuria, unspecified UA and rflx microscopic 1 Year R31.9 - Hematuria, unspecified Basic Metabolic Panel 1 Year R31.9 - Hematuria, unspecified Creatinine Urine 1 Year R31.9 - Hematuria, unspecified Coding Level of Care Code Est Pt Level 4 (89904) Diagnoses CKD (chronic kidney disease) N18.9
--- OUTSIDE RECORDS SUMMARY | 2025-01-23 17:55 | XMS_ITS | Encounter Summary ---
Author Organization [employer] Address [address] [place] [address] 7 [place] [address] Care Team Providers Care Explosive Ordnance Manager Name Role Phone Unavailable Primary Care Provider Unavailabl e Reason for Visit * Reason Comments Med Refill Encounter Details Date Type Department Care Team ([facility] Contact Info) Description 10/10/2024 Refill [facility] MED & PEDS [address] [place] [address] Charisma Stinson MD [address] [place] [address] Moderate persistent asthma, unspecified whether complicated Social [...] Visit [facility] [address] [place] [address] Kary Reyes documented as of this encounter Visit Diagnoses Diagnosis Moderate persistent asthma, unspecified whether complicated documented in this encounter Additional Health Concerns Assessment Noted Time PHQ-9 Depression Total Score: 2 03/24/19 23 9:26 AM EST documented as of this encounter
--- OUTSIDE RECORDS SUMMARY | 2025-01-23 17:55 | XMS_ITS | Encounter Summary ---
Author Organization [employer] Address [address] [place] [address] 7 [place] [address] Care Team Providers Care Security Sergeant Name Role Phone Charisma Stinson MD Primary Care Provider [phone] Encounter Details Date Type Department Care Team (Late Contact Info) Description 02/20/2023 Abstract [facility] ADULT DENTAL [address] [place] [address] Yordan Mcgowan DDS [address] [place], [place] [phone] Social History Tobacco Use Types Packs/Day Years [...] Description 02/05/2025 12:45 PM EST Office Visit [facility] ADULT DENTAL [address] [place] [address] Kary Reyes documented as of this encounter Visit Diagnoses Not on filedocumented in this encounter Additional Health Concerns Assessment Noted Time PHQ-9 Depression Total Score: 2 03/24/19 23 9:26 AM EST documented as of this encounter Care Teams Security Sergeant Relationship Specialty Start Date End Date Charisma Stinson MD [address] [place] [address] PCP - General Family Medicine 03/13/18 09/05/24 documented as of this encounter
--- OUTSIDE RECORDS SUMMARY | 2025-01-23 17:55 | XMS_ITS | Encounter Summary ---
Author Organization [employer] Address [address] [place] [address] 7 [place] [address] Care Team Providers Care Occup Ther Name Role Phone Charisma Stinson MD Primary Care Provider [phone] Encounter Details Date Type Department Care Team (Late Contact Info) Description 02/08/2023 Abstract [facility] [address] [place] [address] Yordan Mcgowan DDS [address] [place], [place] [phone] Social History Tobacco Use Types Packs/Day Years [...] 02/05/2025 12:45 PM EST Office Visit [facility] [address] [place] [address] Kary Reyes documented as of this encounter Visit Diagnoses Not on filedocumented in this encounter Additional Health Concerns Assessment Noted Time PHQ-9 Depression Total Score: 2 03/24/19 23 9:26 AM EST documented as of this encounter Care Teams Occup Ther Relationship Specialty Start Date End Date Charisma Stinson MD [address] [place] [address] PCP - General Family Medicine 03/13/18 09/05/24 documented as of this encounter
--- OUTSIDE RECORDS SUMMARY | 2025-01-23 17:55 | XMS_ITS | Encounter Summary ---
Author Organization [employer] Address [address] [facility] 7 [place] [address] Care Team Providers Care Senior Accountant Name Role Phone Unavailable Primary Care Provider Unavailabl e Reason for Visit * Reason Comments Med Refill Encounter Details Date Type Department Care Team ([facility] Contact Info) Description 12/16/2024 Refill [facility] MED & PEDS [address] [place] [address] Charisma Stinson MD [address] [place] [address] Gastroesophageal reflux disease without esophagitis Social History [...] [facility] [address] [place] [address] Kary Reyes documented as of this encounter Visit Diagnoses Diagnosis Gastroesophageal reflux disease without esophagitis Esophageal reflux documented in this encounter Additional Health Concerns Assessment Noted Time PHQ-9 Depression Total Score: 2 03/24/19 23 9:26 AM EST documented as of this encounter
--- OUTSIDE RECORDS SUMMARY | 2025-01-23 17:55 | XMS_ITS | Encounter Summary ---
Author Organization [employer] Address [address] [place] [address] 7 [place] [address] Care Team Providers Care Area Forester Name Role Phone Charisma Stinson MD Primary Care Provider Encounter Details Date Type Department Care Team (Latest Contact Info) Description 04/18/2018 Abstract [facility] CONVERSIONS Dental, Provider, DDS Social History [...] Description 02/05/2025 12:45 PM EST Office Visit [facility] [address] [place] [address] Kary Reyes documented as of this encounter Visit Diagnoses Not on filedocumented in this encounter Care Teams Area Forester Relationship Specialty Start Date End Date Charisma Stinson MD [address] [place] [address] PCP - General Family Medicine 03/13/18 09/05/24 documented as of this encounter
--- OUTSIDE RECORDS SUMMARY | 2025-01-23 17:55 | XMS_ITS | Encounter Summary ---
Author Organization [employer] Address [address] [facility] 7 [place] [address] Care Team Providers Care Lands Resource Manager Name Role Phone Unavailable Primary Care Provider Unavailabl e Reason for Visit * Reason Comments Med Refill Encounter Details Date Type Department Care Team ([facility] Contact Info) Description 11/21/2024 Refill [facility] MED & PEDS [address] [place] [address] Charisma Stinson MD [address] [place] [address] Social History Tobacco Use Types Packs/Day Years [...] 02/05/2025 12:45 PM EST Office Visit [facility] [address] [place] [address] Kary Reyes documented as of this encounter Visit Diagnoses Not on filedocumented in this encounter Additional Health Concerns Assessment Noted Time PHQ-9 Depression Total Score: 2 03/24/19 23 9:26 AM EST documented as of this encounter
--- OUTSIDE RECORDS SUMMARY | 2025-01-23 17:55 | XMS_ITS | Data Portability ---
Author Organization [place] [facility], Allergy Address [address] [facility] [address] [place] [phone] Care Team Providers Care Dairy And Food Laboratory Assistant Name Role Phone WILLY ARAUJO Primary Care [...] for cerumen removal, or sooner with concerns. [email or web address] Not available 03/14/2024 12:19:57 Plan of Treatment [...] By Organization Details Last Modified Time 09/06/2024 [id number] Reviewed results with patient. She is pleased that there are no significant changes in her hearing. CC of hearing test given to patient. [email or web address] Not available 09/06/2024 11:32:59 Reason for Referral None Reported. Results Created Date Observation Date Name Description Value Unit Range Abnormal Flag Note LastModifiedBy Organization Detail LastModifiedTime 09/07/19 25 audio gram No observ ation record ed. [email or web address] Not Available 08/12 11:42:12 Result Notes None recorded. Problems Name Problem SNOMED Code Status Onset Date Resolution Date Notes Provider Name and Address Organization Details Recorded Time Finding of resonance of voice 684231395 Active 2014 Other voice and resonance disorders ; Note: Date Diagnosed : 5 2:46 PM (R49.8) Not Available [facility] 4 02:47:55 Gastroeso phageal reflux disease without esophagit is 076478471 Active 2014 Gastro-es ophageal reflux disease without esophagit is; Note: Date Diagnosed : 5 2:46 PM (K21.9) Not Available [facility] 4 02:47:53 Allergic rhinitis 51035636 Active 2015 Allergic rhinitis, unspecifi ed; Note: Date Diagnosed : 08/06/2015 2:15 PM (J30.9) Not Available [facility] 4 02:47:57 Dysphonia 49141312 Active 2015 Dysphonia ; Note: Date Diagnosed : 08/16/2015 7:21 PM (R49.0) Not Available [facility] 4 02:48:01 Impacted cerumen of bilateral ears 03132547617 97452 Active 2018 Impacted cerumen, bilateral ; Note: Date Diagnosed : 11/08/2018 9:42 AM (H61.23) Not Available [facility] 4 02:47:59 Impacted cerumen 14295710 Active 2018 Impacted cerumen; Note: Date Diagnosed : 11/21/2018 11:38 AM (380.4) Not Available [facility] 4 02:47:56 Sensorine ural hearing loss of bilateral ears 728374643 Active 2018 Sensorine ural hearing loss, bilateral ; Note: Date Diagnosed : 01/16/2019 10:17 AM (H90.3) Not Available [facility] 4 02:47:59 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; Note: Date Diagnosed : 2019 11:29 AM (J38.2) Not Available [facility] 4 02:48:01 Dysphagia 45720893 Active 2019 Other dysphagia ; Note: Date Diagnosed : 2019 11:29 AM (R13.19) Not Available [facility] 4 02:48:01 Acute pharyngit is 764551878 Active 2020 Sore throat (acute) NOS; Note: Date Diagnosed : 10/01/2020 4:50 PM (J02.9) Not Available [facility] 4 02:47:56 Abnormal weight loss 851500615 Active 2020 Abnormal weight loss; Note: Date Diagnosed : 10/01/2020 4:50 PM (R63.4) Not Available [facility] 4 02:47:57 Problem Notes None recorded. Procedures Surgical History Date Name Laterality Status Provider Name and Address Organization Details Recorded Time 5 Comp Audio with Tymps - 20750 & 33616 completed THANIA ARROYO [address] [facility],[address], [phone], [facility] 09/06/2024 11:30:22 5 Cerumen removal without microscope bilat completed CRISTINA DE JESUS PA-C [address] [facility],[address], [phone], [facility] 03/14/2024 12:19:25 Imaging Results None recorded. Procedure [...] mg tablet 10/19 completed Medicati on ID: [id number] Du ration Value: 5 Reason: () Brand Name: azithrom ycin Sen d Method: E-Prescr ibed Sub s Allowed: subs OK Speci al Instruct ion: take 2 tablets by mouth today then take 1 tablet DAILY FOR 4 DAYS Med icationG enericNa me: azithrom ycin Not Available Not Available Not Available ranitidin e 300 mg tablet 11/26 completed Medicati on ID: [id number] Du ration Value: 30 Reason: () Brand [...] gram tablet 03/13 completed Medicati on ID: [id number] D uration Value: 90 Brand Name: sucralfa te Send Method: E-Prescr ibed Sub s Allowed: subs OK Speci al Instruct ion: take 1 tablet by mouth three times a day ON AN EMPTY STOMACH 1 HOUR BE FORE MEALS AND AT BEDTIME Medicati onGeneri cName: sucralfa te Not Available Not Available Not Available prednison e 20 mg tablet 10/19 completed Medicati on ID: 37088 Du ration Value: 4 Reason: () Brand [...] by mouth 03/13 completed Medicati on ID: [id number] P venturadutch d By Name: Toi Rodriguez MD Brand Name: ranitidi ne HCl Send Method: E-Prescr ibed Sub s Allowed: subs OK Medic ationGen ericName : ranitidi ne HCl Not Available Not Available Not Available Guaifenes in AC 10 mg-100 mg/5 mL oral liquid 10/19 completed Medicati on ID: [id number] Du ration Value: 1 Reason: () Brand [...] by mouth 11/26 completed Medicati on ID: [id number] D uration Value: 30 Prescri bed By [...] mg tablet 03/13 completed Medicati on ID: 10253 Du ration Value: 30 Brand Name: lupe [...] IM syringe 10/19 completed Medicati on ID: 27745 Du ration Value: 1 Reason: () Brand [...] Updated DateTime 08/02/2024 154.94 cm 22.7 kg/m2 12108.08 g Rosmery Figueroa [place] - [facility] 08/02/2024 11:36:17 Social History None recorded. Functional [...] ICD10 Code Diagnosis IMO Codes Diagnosis Note [id number] CRISTINA DE JESUS PA-C [facility] [address] [address] 03/14/2024 11:23:37 03/14/2024 12:18:10 Impacted cerumen of bilateral ears 4073657327 466179 H61.23 11044 TIFFANY BRENNER MD [facility] [address] [address] 08/02/2024 11:26:27 08/02/2024 11:45:51 Impacted cerumen of bilateral ears 2892530475 390531 H61.23 Cerumen was removed and tolerated well. She still feels a little blockage. No middle ear effusion. Her last audiogram was in 2019 showing moderate HF loss. I recommende d updated testing at her next cleaning. [id number] TIFFANY BRENNER MD [facility] [address] [address] 09/06/2024 10:45:28 09/06/2024 11:41:05 Sensorineural hearing loss of bilateral ears 375473016 H90.3 Audiologic al evaluation results: Right ear: [...] Date Sequence Insurance Name Policy Number Policy Goodwni Covered Member ID Goodwin Member ID Guarantor Name 03/14/2024 1 [facility] - DOS ON OR AFTER 2022 - MEDICARE ADVANTAGE [place] (MEDICARE REPLACEMENT/AD VANTAGE - PPO) Zoeylisa Walsh [id number] Zoey Walsh 09/11/2024 1 [facility] - MEDICARE ADVANTAGE PLAN (MEDICARE REPLACEMENT HMO) [id number] Zoey Yaima Yaima Walsh [id number] Zoey Walsh 09/11/2024 2 [place]: [facility] Zoey Walsh [id number] Zoey Walsh Notes Date Note Type Note Provider Name and Address Organization Details Recorded Time 03/14/2024 text/html ROS as noted in the [facility] 68-year-old female presents for an ear cleaning. Feels like ears are blocked and hearing is decreased bilaterally. Denies otalgia and otorrhea. STEVEN WOO MD [address] [place] [address], [phone], [facility] 03/14/2024 17:35:24 08/02/2024 text/html ROS as noted in the [facility] 69-year-old female presents for an ear cleaning. Feels like ears are blocked. Feels she gets a better cleaning with the suction. TIFFANY BRENNER MD [address] [place] [address], [phone], [facility] 08/02/2024 11:46:11 OBGyn Episode No OBEpisode recorded.
--- OUTSIDE RECORDS SUMMARY | 2025-01-23 17:55 | XMS_ITS | Clinical Summary ---
Author Organization [employer] Address [address] [place] [address] 7t [place] [address] Care Team Providers Care Resident Physician In Radiology Name Role Phone Unavailable Primary Care Provider [...] Encounters Date Type Department Care Team Description 01/22/2025 8:00 AM EST Office Visit [facility]ULT [facility] [address] [place] [address] Be Arnold 01/21/2025 11:30 AM EST Office Visit [facility] [address] [place] [address] Be Arnold 01/16/2025 Orders Only GENERIC EXTERNAL DATA DEPARTMENT Provider, Generic External Data 01/15/2025 Orders Only GENERIC EXTERNAL DATA DEPARTMENT Provider, Generic External Data 12/19/2024 Orders Only [facility] External Provider, [facility] 12/16/2024 Refill [facility] MED & PEDS [address] [place] [address] Charisma Stinson MD Gastroesophageal reflux disease without esophagitis 12/10/2024 1:30 PM EDT Office Visit [facility] ADULT [facility] [address] [place] [address] Be Arnold 11/21/2024 Refill [facility]ED[facility] [address] [place] [address] Charisma Stinson MD from Last 3 Months [...] Pressure 100/70 01/22/2025 8:20 AM EST Pulse 65 05/27/2024 11:34 AM EDT Temperature [...] Description 02/05/2025 12:45 PM EST Office Visit [facility] [address] [place] [address] Kary Reyes Health Maintenance Due Date Last [...] 01/02/2023, Additional history exists Mammogram 11/21/2025 11/22/2023, 0908/2022, 11/10/2021, Additional history exists Dental X-Ray: Full Mouth 01/03/2026 01/02/2023 Dental X-Ray: Bitewings 01/22/2026 01/22/20, 12/10/2024, 05/27/2024, Additional history exists Tobacco Screening 01/22/2026 01/22/2025 DTaP/Tdap/Td Vaccines (2 - Td or Tdap) [...] Name Priority Date/Time Associated Diagnosis Comments 31 GINGIVECTOMY/GINGIVOPL ASTY TO ALLOW ACCESS FOR RESTORATIVE PROC, PER TOOTH Routine 01/22/2025 8:00 AM EST CASE PRESENTATION, DETAILED AND EXTENSIVE TREATMENT PLANNING Routine 01/22/2025 8:00 AM EST 31 DOL RESIN-BASED COMPOSITE - 3 SURF, POSTERIOR Routine 01/22/2025 8:00 AM EST BITEWING - SINGLE RADIOGRAPHIC IMAGE Routine 01/21/2025 11:30 AM EST 31 INTRAORAL - PERIAPICAL FIRST RADIOGRAPHIC IMAGE Routine 01/21/2025 11:30 AM EST CASE PRESENTATION, DETAILED AND EXTENSIVE TREATMENT PLANNING Routine 01/21/2025 11:30 AM EST 31 LIMITED ORAL EVALUATION - PROBLEM FOCUSED Routine 01/21/2025 11:30 AM EST SARS COV2/INFLUENZA A/B AND RSV RNA QL NAAT Routine 01/16/2025 11:23 AM EST LYME DISEASE AB W/REFL TO BLOT (IGG, [...] Recently Relevant to Health Maintenance Results * SARS-CoV-2 RNA, Influenza A/B, and RSV RNA, Ql NAAT (01/16/2025 11:23 AM EST) Influenza A PCR NEGATIVE Negative [facility] Influenza B PCR NEGATIVE Negative [facility] Resp Syncy Virus RNA Qual PCR NEGATIVE Negative [facility] SARS COV2 PCR NEGATIVE Negative [facility] Comment:All test results mus t be correlated with clinical findings.Negative results do not preclude SARS-CoV2, influenza Avirus, influenza B virus and/or RSV infectionand should not be used as the sole basis for treatment orother patient management decisions. Negative results must becombined with clinical observations, patient history, andepidemiological information.This test has not been evaluated for monitoring treatment ofinfection.This test has been authorized by the FDA under an EmergencyUse Authorization (EUA) for use by authorized laboratories.Testing performed on the PS DEPT. GeneXpert utilizingreal-time RT-PCR.All SARS CoV2 and positive influenza A/B results arereported to [facility]. 01/16/2025 11:2 3 AM EST 01/16/2025 6:21 PM EST us Generic External Data Provider LAB MICROBIOLOGY - GENERAL ORDERABLES Final Result Performing Organization Address [facility]/ZIP Co de Phone Number [facility] [address] [place] [phone] * Lyme Disease Ab with Reflex to Blot (IgG, IgM) (01/15/2025 2:33 PM EST) Lyme Antibody Screen <0.90 index [facility] Comment:Index Interpretation ----- < 0.90 [...] when erythemamigrans is apparent.THIS TEST WAS PERFORMED AT:[facility] [place] [id number] MALDONADO MD Lyme Blot TNP [facility] 01/15/2025 2:33 PM EST 01/15/2025 2:33 PM EST us Generic External Data Provider LAB BLOOD ORDERAB LES Final Result Performing Organization Address City/[facility]/ZIP Co de Phone Number [facility] [address] [place] [phone] * Sed Rate by Modified Westergren (01/15/2025 2:33 PM EST) Erythrocyte Sedimentation Rate 2 0 - 20 MM/HR [facility] Comment:Patients with polycy themia and many hemoglobin abnormalitiesmay have depressed sed rates whereas patients with anemiamay have elevated sed rates. 01/15/2025 2:33 PM EST 01/15/2025 2:33 PM EST us Generic External Data Provider LAB BLOOD ORDERAB LES Final Result Performing Organization Address [facility] Co de Phone Number [facility] [address] [place] [phone] * (ABNORMAL) Basic Metabolic Panel (01/15/2025 2:33 PM EST) Pathologist [facility] Sodium 138 135 - 145 mmol/L [facility] Potassium 3.6 3.3 - 5.1 mmol/L [facility] Chloride 102 96 - 108 mmol/L [facility] Carbon Dioxide 30(H) 22 - 29 mmol/L [facility] Anion Gap 10(L) 12 - 20 [facility] Urea Nitrogen (BUN) 10 9 - 16 mg/dL [facility] Creatinine, Serum 0.70 0.5 - 1.4 mg/dL [facility] Estimated Glomerular Filt Rate >60 [facility] Comment:Chronic Kidney Disea se: Estimated GFR < 60 mL/min/1.81n1Devepy Kidney Disease: Estimated GFR < 15 mL/min/1.73m2 Glucose 77 60 - 115 mg/dL [facility] Calcium 8.9 8.4 - 10.2 mg/dL [facility] 01/15/2025 2:33 PM EST 01/15/2025 2:33 PM EST us Generic External Data Provider LAB BLOOD ORDERAB LES Final Result Performing Organization Address City/[facility] Co de Phone Number [facility] [address] [place] [phone] * (ABNORMAL) Urine Protein, Total, Random without Creatinine (01/15/2025 2:30 PM EST) Protein, Total, Random Urine 13(H) <12 mg/dL [facility] 01/15/2025 2:30 PM EST 01/15/2025 2:57 PM EST Generic External Data Provider LAB URINE ORDERAB LES Final Result Performing Organization Address [facility] de Phone Number [facility] [address] [place] [phone] * Creatinine, Random Urine (01/15/2025 2:30 PM EST) Creatinine, Urine 132.63 mg/dL [facility] 01/15/2025 2:30 PM EST 01/15/2025 2:57 PM EST Generic External Data Provider LAB URINE ORDERAB LES Final Result Performing Organization Address [facility] de Phone Number [facility] [address] [place] [phone] * (ABNORMAL) Urinalysis Complete (01/15/2025 2:30 PM EST) Color Urine Dark Yellow [facility] Appearance Urine Clear [facility] PH 6.0 5.0 - 9.0 [facility] Glucose Urine UA Negative Negative mg/dL [facility] Urine Blood Trace(A) Negative [facility] Specific [place] - Urine 1.025 1.005 - 1.025 [facility] Urine Protein Negative Neg-Trace mg/dL [facility] Urine Ketones Negative Negative mg/dL [facility] Nitrite Urine Negative Negative [facility] Leukocyte Esterase Urine Small (1+)(A) Negative [facility] RBC Urine 3-5(A) 0 - 2 /HPF [facility] Urine WBC 0-5 0 - 5 /HPF [facility] Urine Squamous Epithelial Cell 11-20 0 - 2 /HPF [facility] Urine Bacteria Trace None Seen [facility] Hyaline Casts, Urine 0-2 0 - 2 /LPF [facility] 01/15/2025 2:30 PM EST 01/15/2025 2:57 PM EST us Generic External Data Provider LAB URINE ORDERAB LES Final Result Performing Organization Address City/State/[facility] Co de Phone Number [facility] [address] [place] [phone] * NM heart perfusion SPECT stress and rest (12/19/2024 9:35 AM EDT) Anatomical Region Laterality Modality Body Nuclear Medicine 12/19/2024 9:35 AM EDT Narrative 12/24/2024 12:28 PM EDT [address] [address] Nuclear Medicine Report Signed Patient: Zoey Walsh MR#: [id number] 656 : 1955 Acct:[id number] Age/Sex: 69 / F ADM Date: 12/19/24 Loc: HO.CARD Attending Dr: Gilberto Villalobos MD Ordering Physician: Gilberto Villalobos MD Date of Service: 12/19/24 Procedure(s): NM kathleen perf SPECT rest str Accession Number(s): [id number] cc: Charisma Stinson MD; Gilberto Villalobos MD [...] 12/24/24 1225 DD/ 0935 TD/TT: 12/20/24 1130 Radio Station Manager: Procedure Note Donotuseinterpreter, Image - 12/24/[address] [address] Nuclear Medicine Report Signed Patient: Zoey Walsh JMR#: [id number] 656 : 8Acct:[id number] Age/Sex: 69 / FADM Date: 12/19/24 Loc: HO.CARD Attending Dr: Gilberto Villalobos MD Ordering Physician: Gilberto Villalobos MD Date of Service: 12/19/24 Procedure(s): NM kathleen perf SPECT rest str Accession Number(s): [id number] cc: Charisma Stinson MD; Gilberto Villalobos MD [...] 12/24/24 1225 DD/ 0935 TD/TT: 12/20/24 1130 Radio Station Manager: us [facility] External Provider IMG NM PROCEDURES Final Result * BI Mammogram Screening Tomosynthesis Bilateral (11/22/2023 11:30 AM EDT) Anatomical Region Laterality Modality Breast Bilateral Mammography 11/22/2023 11:3 0 AM EDT Narrative 12/06/2023 10:24 AM EDT [address] [place] [address] Mammography Report Signed Patient: Zoey Walsh MR#: [id number] 656 : 1955 Acct:[id number] Age/Sex: 68 / F ADM Date: 11/22/23 Loc: HO.MAMMO Attending Dr: Charisma Stinson MD Ordering Physician: Charisma Stinson MD Results: 2Be nign Findings Date of Service: 11/22/23 Follow Up: 1 Year From Orig ina Mammogram Procedure(s): MM tomosynthesis screening BI Accession Number(s): [id number] cc: Charisma Stinson MD EXAMINATION: MM SCREENING [...] 12/06/23 1021 DD/ 1130 TD/TT: 11/22/23 1144 Radio Station Manager: Procedure Note Reillyter, Image - 12/06/2023 [facility] [address] [place] [address] Mammography Report Signed Patient: Zoey Walsh JMR#: [id number] 656 : 8Acct:[id number] Age/Sex: 68 / FADM Date: 11/22/23 Loc: HO.MAMMO Attending Dr: Charisma Stinson MD Ordering Physician: Charisma Stinson MDResults: 2Be nign Findings Date of Service: 11/22/23Follow Up: 1 Year From Orig inal Mammogram Procedure(s): MM tomosynthesis screening BI Accession Number(s): [id number] cc: Charisma Stinson MD EXAMINATION: MM SCREENING [...] 12/06/23 1021 DD/ 1130 TD/TT: 11/22/23 1144 Radio Station Manager: Charisma Stinson MD IMG BI PROCEDURES [...] along with historic and current clinical information. Milk Driver : SEE COMMENT [facility] Comment: KN, CT(ASCP) CT screening location: [place] [address] Interpretation/R esult: Negative for intraepithelial lesion or malignancy. [facility] LMP: NONE GIVEN [facility] Prev. BX: NONE GIVEN [facility] Prev. PAP: NONE GIVEN [facility] SOURCE: None given [facility] Statement Of Adequacy: SEE COMMENT [facility] Comment: Satisfactory for evaluation. Endocervical/transformation zone component present. 06/30/2020 11:1 9 AM EDT Liliana Zuñiga MD LAB PATHOLOGY ORDERABLES Final R esult [facility] [address] from Last 3 Months or Most Recently Relevant to Health Maintenance Insurance [address] [facility] , [address] [place] [address]
--- OUTSIDE RECORDS SUMMARY | 2025-01-23 17:55 | XMS_ITS | Encounter Summary ---
Author Organization [employer] Address [address] [facility] 7 [place] [address] Care Team Providers Care Balance Recesser Name Role Phone Charisma Stinson MD Primary Care Provider [phone] Reason for Visit * Reason Onset Date Comments Triage 08/05/2022 Encounter Details Date Type Department Care Team ([facility] Contact Info) Description 08/05/2022 Telephone [facility] CHC MED & PEDS [address] [place], [place] [phone] Charisma Stinson MD [address] [place] [address] Triage Social History Tobacco Use Types Packs/Day [...] accepted this outcome Please contact pt at [phone] documented in this encounter Plan of Treatment Upcoming Encounters Date Type Department Care Team ([facility] st Contact Info) Description 02/05/2025 12:45 PM EST Office Visit [facility] CHC ADULT DENTAL [address] [place] [address] Kary Reeys documented as of this encounter Visit Diagnoses Not on filedocumented in this encounter Additional Health Concerns Assessment Noted Time PHQ-9 Depression Total Score: 2 03/24/19 23 9:26 AM EST documented as of this encounter Care Teams Balance Recesser Relationship Specialty Start Date End Date Charisma Stinson MD [address] [place] [address] PCP - General Family Medicine 03/13/18 09/05/24 documented as of this encounter
--- OUTSIDE RECORDS SUMMARY | 2025-01-23 17:55 | XMS_ITS | Encounter Summary ---
Author Organization [employer] Address [address] [place] [address] 7 [place] [address] Care Team Providers Care Carriage Operator Name Role Phone Charisma Stinson MD Primary Care Provider [phone] Encounter Details Date Type Department Care Team (Latest Contact Info) Description 03/19/2020 Abstract [facility] CONVERSIONS Dental, Provider, DDS Social [...] 02/05/2025 12:45 PM EST Office Visit [facility] ADULT DENTAL [address] [place] [address] Kary Reyes documented as of this encounter Visit Diagnoses Not on filedocumented in this encounter Care Teams Carriage Operator Relationship Specialty Start Date End Date Charisma Stinson MD [address] [place] [address] PCP - General Family Medicine 03/13/18 09/05/24 documented as of this encounter
--- OUTSIDE RECORDS SUMMARY | 2025-01-23 17:55 | XMS_ITS | Encounter Summary ---
Author Organization [employer] Address 75 [facility] 7t [place] [address] Care Team Providers Care Slot Host Name Role Phone Charisma Stinson MD Primary Care Provider [phone] Reason for Visit * Reason Onset Date Comments more medication 01/27/2023 Encounter Details Date Type Department Care Team ([facility] Contact Info) Description 01/27/2023 Telephone [facility] CHC ADULT DENTAL [address] [place] [address] Yordan Mcgowan DDS [address] [place] [address] more medication Social History Tobacco Use Types [...] [facility] AD[facility] [address] [place] [address] Kary Reyes documented as of this encounter Visit Diagnoses Not on filedocumented in this encounter Additional Health Concerns Assessment Noted Time PHQ-9 Depression Total Score: 2 03/24/19 23 9:26 AM EST documented as of this encounter Care Teams Slot Host Relationship Specialty Start Date End Date Charisma Stinson MD [address] [place] [address] PCP - General Family Medicine 03/13/18 09/05/24 documented as of this encounter
--- OUTSIDE RECORDS SUMMARY | 2025-01-23 17:55 | XMS_ITS | Encounter Summary ---
Author Organization [employer] Address [address] [place] [address] 7 [place] [address] Care Team Providers Care Supervisory Air Intercept Controller Name Role Phone Charisma Stinson MD Primary Care Provider [phone] Encounter Details Date Type Department Care Team (Late Contact Info) Description 01/13/2023 Abstract [facility] ADULT DENTAL [address] [place] [address] Yordan Mcgowan DDS [address] [place], [place] [phone] Social History Tobacco Use Types Packs/Day Years [...] Office Visit [facility] ADULT DENTAL [address] [place] [address] Kary Reyes documented as of this encounter Visit Diagnoses Not on filedocumented in this encounter Additional Health Concerns Assessment Noted Time PHQ-9 Depression Total Score: 2 03/24/19 23 9:26 AM EST documented as of this encounter Care Teams Supervisory Air Intercept Controller Relationship Specialty Start Date End Date Charisma Stinson MD [address] [place] [address] PCP - General Family Medicine 03/13/18 09/05/24 documented as of this encounter
--- OUTSIDE RECORDS SUMMARY | 2025-01-23 17:55 | XMS_ITS | Encounter Summary ---
Author Organization [employer] Address 75 [facility] 7 [place] [address] Care Team Providers Care Wireless Communications Engineer Name Role Phone Unavailable Primary Care Provider Unavailabl e Reason for Visit * Reason Comments Med Refill Encounter Details Date Type Department Care Team ([facility] Contact Info) Description 10/11/2024 Refill [facility] CHC MED & PEDS [address] [place] [address] Charisma Stinson MD [address] [place] [address] Mixed hyperlipidemia Social History Tobacco Use Types [...] t he electric, gas, oil or water [employer] threatened to shut off services in your [...] Office Visit [facility] ADULT DENTAL [address] [place] [address] Kary Reyes documented as of this encounter Visit Diagnoses Diagnosis Mixed hyperlipidemia documented in this encounter Additional Health Concerns Assessment Noted Time PHQ-9 Depression Total Score: 2 03/24/19 23 9:26 AM EST documented as of this encounter
--- OUTSIDE RECORDS SUMMARY | 2025-01-23 17:55 | XMS_ITS | Encounter Summary ---
Author Organization [employer] Address 75 [facility] 7 [place] [address] Care Team Providers Care Box Blank Machine Operator Name Role Phone Unavailable Primary Care Provider Unavailabl e Reason for Visit * Reason Comments Med Refill Encounter Details Date Type Department Care Team ([facility] Contact Info) Description 10/15/2024 Refill [facility] CHC MED & PEDS [address] [place] [address] Charisma Stinson MD [address] [place] [address] Mixed hyperlipidemia Social History Tobacco Use Types [...] t he electric, gas, oil or water [employer] threatened to shut off services in your [...] [facility] [address] [place] [address] Kary Reyes documented as of this encounter Visit Diagnoses Diagnosis Mixed hyperlipidemia documented in this encounter Additional Health Concerns Assessment Noted Time PHQ-9 Depression Total Score: 2 03/24/19 23 9:26 AM EST documented as of this encounter
--- OUTSIDE RECORDS SUMMARY | 2025-01-23 17:55 | XMS_ITS | Encounter Summary ---
Author Organization [employer] Address 75 [facility] 7 [place] [address] Care Team Providers Care Polysomnographic Technologist Name Role Phone Charisma Stinson MD Primary Care Provider [phone] Reason for Visit * Reason Onset Date Comments Results 06/22/2023 Appointment Request 06/22/2023 Encounter Details Date Type Department Care Team ([facility] st Contact Info) Description 06/22/2023 Telephone [facility] MEDICINE [address] [place] [address] Charisma Stinson MD [address] [place] [address] Results; Appointment Request Social History Tobacco Use [...] abdomen complete Date when done: 06/19 Facility: [facility] Please contact pt at [phone] documented in this encounter Plan of Treatment Upcoming Encounters Date Type Department Care Team (Late st Contact Info) Description 02/05/2025 12:45 PM EST Office Visit [facility] ADULT DENTAL [address] [place] [address] Kary Reyes documented as of this encounter Visit Diagnoses Not on filedocumented in this encounter Additional Health Concerns Assessment Noted Time PHQ-9 Depression Total Score: 2 03/24/19 23 9:26 AM EST documented as of this encounter Care Teams Polysomnographic Technologist Relationship Specialty Start Date End Date Charisma Stinson MD [address] [place] [address] PCP - General Family Medicine 03/13/18 09/05/24 documented as of this encounter
--- OUTSIDE RECORDS SUMMARY | 2025-01-23 17:55 | XMS_ITS | Encounter Summary ---
Author Organization [email or web address] Address [address] [place] [address] 7 [place] [address] Care Team Providers Care Faculty Physician Name Role Phone Charisma Stinson MD Primary Care Provider [phone] Encounter Details Date Type Department Care Team (Latest Contact Info) Description 12/13/2021 Abstract [facility] CONVERSIONS Dental, Provider, DDS Social [...] [facility] ADULT DENTAL [address] [place] [address] Kary Reyes documented as of this encounter Visit Diagnoses Not on filedocumented in this encounter Care Teams Faculty Physician Relationship Specialty Start Date End Date Charisma Stinson MD [address] [place] [address] PCP - General Family Medicine 03/13/18 09/05/24 documented as of this encounter
--- OUTSIDE RECORDS SUMMARY | 2025-01-23 17:55 | XMS_ITS | Encounter Summary ---
Author Organization [employer] Address [address] [place] [address] 7 [place] [address] Care Team Providers Care Air Valve Repairer Name Role Phone Charisma Stinson MD Primary Care Provider [phone] Encounter Details Date Type Department Care Team ([facility] Contact Info) Description 01/16/2023 Abstract [facility] [address] [place], [place] [phone] Charisma Stinson MD [address] [place], [place] [phone] Social History Tobacco Use Types Packs/Day Years [...] Description 02/05/2025 12:45 PM EST Office Visit [facility] [address] [place], [place] [phone] Kary Reyes documented as of this encounter Visit Diagnoses Not on filedocumented in this encounter Additional Health Concerns Assessment Noted Time PHQ-9 Depression Total Score: 2 01/12/20 23 9:26 AM EST documented as of this encounter Care Teams Air Valve Repairer Relationship Specialty Start Date End Date Charisma Stinson MD [address] [place] [address] PCP - General Family Medicine 03/13/18 09/05/24 documented as of this encounter
== END 2025-01-23 14:48 | disposition home or self-care (01) ==
LOC: HO.HKA 14:32
PROVIDERS: PCP Pediatrics; Visit Provider Internal Medicine Hypertension Specialist
DX: N18.9 Chronic kidney disease, unspecified (principal)
CPT/HCPCS: 99214

== ENCOUNTER → 2025-01-23 14:31 | Outpatient (BNVA) | payer MEDICARE, MEDICAID, SELFPAY | PROVIDERS: PCP Pediatrics; Visit Provider Internal Medicine Hypertension Specialist | DX: N18.1 Chronic kidney disease, stage 1 (principal); R31.9 Hematuria, unspecified | CPT/HCPCS: 99212 ==

== ENCOUNTER 2025-01-26 16:02 | Emergency (ER) | payer MEDICARE, MEDICAID, SELFPAY ==
--- OUTSIDE RECORDS SUMMARY | 2025-01-21 11:30 | XMS_ITS | Encounter Summary ---
Author Organization [employer] Address [address] [place] [address] 7 [place] [address] Care Team Providers Care Canvass Manager Name Role Phone Unavailable Primary Care Provider Unavailabl e Reason for Visit * Reason Comments broken tooth LR Encounter Details Date Type Department Care Team ([facility] Contact Info) Description 01/21/2025 11:30 AM EST Office Visit [facility] ADULT D[facility] [address] [place] [address] Be Arnold [address] [place] [address] Social History Tobacco Use Types Packs/Day Years [...] y.o. female. Time Out: Date: 01/21/2025 Location: [facility] Tooth: #31 Procedure: Exam Verified the above with patient, facility assistant, and provider. Confirmed via patient's chart, intraorally and by radiographs. Pad Machine Feeder: not applicable 69 y.o. y/o female presents [...] of #31 Provider: Dr. Be Arnold Dental Him Specialist: Lucina Rucker Attending: Dr. Escobar * Aisha [...] 12:45 PM EST Office Visit [facility] ADULT DENTAL [address] [place] [address] Kary Reyes documented as of this encounter [...]
--- OUTSIDE RECORDS SUMMARY | 2025-01-22 08:00 | XMS_ITS | Encounter Summary ---
Author Organization [employer] Address 75 [facility] 7 [place] [address] Care Team Providers Care Distresser Name Role Phone Unavailable Primary Care Provider Unavailabl e Reason for Visit * Reason Comments Filling Encounter Details Date Type Department Care Team ([facility] Contact Info) Description 01/22/2025 8:00 AM EST Office Visit [facility] ADULT D[facility] [address] [place] [address] Be Arnold [address] [place] [address] Social History Tobacco Use Types Packs/Day Years [...] t he electric, gas, oil or water [employer] threatened to shut off services in your [...] Sign Reading Time Taken Comments Blood Pressure 100/70 01/22/2025 8:20 AM EST Pulse - - Temperature - - Respiratory Rate - - Oxygen Saturation - - Inhaled Oxygen Concentration - - Weight - - Height - - Body Mass Index - - documented in this encounter Progress Notes * Be Arnold - 01/22/2025 8:00 AM EST Dental procedures in this visit D2393 - RESIN-BASED COMPOSITE - 3 SURF, POSTERIOR 31 DOL (Completed) Service provider: Be Arnold [employer] provider: Aisha Escobar DDS D9450 - CASE PRESENTATION, DETAILED AND EXTENSIVE TREATMENT PLANNING (Completed) Service provider: Be Arnold [employer] provider: Aisha Escobar DDS D4212 - GINGIVECTOMY/GINGIVOPLASTY TO ALLOW ACCESS FOR RESTORATIVE PROC, PER TOOTH 31 (Completed) Service provider: Be Arnold Billsophy provider: Aisha Escobar DDS Patient ID: Zoey Walsh is a 69 y.o. female. Time Out: Date: 01/22/2025 Location: [facility] Tooth: #31 Procedure: Buddhist Verified the above with patient, hospital nursing assistant, and provider. Confirmed via patient's chart, intraorally and by radiographs. Ruby On Rails Engineer: not applicable Composite latter day done on # [address] Be Arnold Risk, benefits, and alternatives discussed with the patient. CONSENT FORM INITIALED & SIGNED BY THE PATIENT AND COUNTERSIGNED BY Dr. Be Arnold Medical history: Reviewed in EHR Vitals: Blood pressure 100/70. Allergies: Reviewed in EHR Medications: Reviewed in EHR ASA 2 - LA: 20% topical benzocaine; Local infiltration with 1 carpule 4% septocaine/articaine 1:100,000 epinephrine - Existing latter day and recurrent decay removed - Matrix band and wedge used as needed - Desensitizer: Gluma - Etching done using 37% phosphoric acid. - customer agent applied. - Composite latter day done using Filtek body/flowable composite, shade A2 - Anatomy and margins adjusted - Occlusion checked with articulating paper - Necessary reductions made. - Buddhist smoothed and polished. - Post op instructions given Patient satisfied, left in stable condition Patient made aware possible post op sensitivity NV: recall Provider: Dr. Be Arnold Retail Department Manager: Lucina Capone Supervising dentist: Dr. Escobar Note: Patient was informed that today???s procedure aims to stabilize tooth #31; however, the risk of future fracture remains. Patient was advised to have the tooth re-evaluated at the next cleaning appointment to assess the possibility of restoring it with a full-coverage ceramic crown. * Aisha Escobar DDS - 01/22/2025 8:00 AM EST I have reviewed the documentation and dental procedures completed by the rendering provider, Be Arnold DDS, and approve their chart entries for this visit. KIMBERLY Jones DDS documented in this encounter Plan of Treatment Upcoming Encounters Date Type Department Care Team (Late st Contact Info) Description 02/05/2025 12:45 PM EST Office Visit [facility] ADULT D[facility] [address] [place] [address] Kary Reyes documented as of this encounter Procedures Procedure Name Priority Date/Time Associated Diagnosis Comments 31 DOL RESIN-BASED COMPOSITE - 3 SURF, POSTERIOR Routine 01/22/2025 8:00 AM EST 31 GINGIVECTOMY/GINGIVOPLAS TY TO ALLOW ACCESS FOR RESTORATIVE PROC, PER TOOTH Routine 01/22/2025 8:00 AM EST CASE PRESENTATION, DETAILED AND EXTENSIVE TREATMENT PLANNING Routine 01/22/2025 8:00 AM EST documented in this encounter Visit Diagnoses Not on filedocumented in this encounter Additional Health Concerns Assessment Noted Time PHQ-9 Depression Total Score: 2 03/24/19 23 9:26 AM EST documented as of this encounter
--- NOTE | ~2025-01-26 | XR_ITS ---
CLINICAL HISTORY: TMJ PAIN 6 views mandible Comparison: None Findings: No fractures or dislocations. Temporomandibular joints intact. Visualized paranasal sinuses and mastoid air cells clear. No radiopaque foreign body. Impression: 1. Unremarkable mandible This document has been electronically signed by: Paul Guo MD on 01/26/2025 17:07:19
[2025-01-26 16:13] VITALS: BP 143/75; PULSE 78; RESP 18; TEMP 36.6; O2SAT 99; BMI 22.3
--- NOTE | 2025-01-26 16:13 | ED.GENADULT ---
HPI - General Adult General Chief complaint: General Medical Stated complaint: needs xray of jaw, ? dislocation Time Seen by Provider: 01/26/25 17:13 Source: patient Mode of arrival: ambulatory Limitations: no limitations History of Present Illness ED Provider: SONYA LEA PA-C HPI narrative: 69 year old female presents to the ED today for evaluation of left sided jaw pain x days. 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 Since then, is having difficulty/ pain with opening her jaw. No issues with PO intake. She is requesting an xray. No blunt injury or trauma. Related Data Home Medications ?Medication ?Instructions ?Recorded ?Confirmed cholecalciferol (vitamin D3) 50 50 mcg PO DAILY 11/16/21 01/23/25 mcg (2,000 unit) capsule montelukast 10 mg tablet 10 mg PO BEDTIME 11/16/21 01/23/25 meloxicam 7.5 mg tablet 7.5 mg PO DAILY PRN Pain 09/04/23 01/23/25 estradiol 0.01% (0.1 mg/gram) vaginal 02/19/24 01/23/25 vaginal cream multivitamin-ferrous 1 tab PO QAM 06/19/24 01/23/25 fumarate-folic acid 18 mg-400 mcg tablet (Certavite-Antioxidant) calcium carbonate 600 mg PO QAM 01/23/25 01/23/25 Previous Rx's ?Medication ?Instructions ?Recorded albuterol sulfate 2.5 mg/3 mL 2.5 mg (3 mL) inhalation Q4-6H PRN 07/29/22 (0.083 %) solution for nebulization shortness of breath or wheezing #90 mL albuterol sulfate 90 mcg/actuation 2 puff inhalation Q6H PRN 07/29/22 aerosol inhaler shortness of breath or wheezing #6.7 grams bisacodyl 5 mg tablet,delayed 10 mg (2 x 5 mg) PO BEDTIME #180 02/19/24 release (Dulcolax (bisacodyl)) tabs esomeprazole magnesium 40 mg 40 mg PO QAM #30 caps 08/19/24 capsule,delayed release carbamazepine 200 mg tablet 200 mg PO BID #180 tabs 12/17/24 gabapentin 300 mg capsule 300 mg PO BID #180 caps 12/17/24 famotidine 20 mg tablet 20 mg PO BID #60 tabs 12/30/24 baclofen 5 mg tablet 5 mg PO BEDTIME #14 tabs 01/16/25 lidocaine 5 % topical patch 1 patch topical DAILY #15 ea 01/16/25 atorvastatin 80 mg tablet (Lipitor) 80 mg PO BEDTIME #90 tabs 01/17/25 aspirin 81 mg tablet,delayed 81 mg PO DAILY #30 tabs 01/20/25 release cetirizine 10 mg tablet 10 mg PO QAM #30 tabs 01/20/25 fluticasone propionate 50 1 spray intranasal DAILY #16 grams 01/20/25 mcg/actuation nasal spray,suspension mometasone 200 mcg/actuation HFA 1 puff inhalation BID #13 grams 01/20/25 aerosol inhaler (Asmanex HFA) Allergies Allergy/AdvReac Type Severity Reaction Status Date / Time shellfish derived AdvReac Intermediate Nausea and Verified 01/26/25 16:14 Vomiting Review of Systems Review of Systems: Yes all other systems are reviewed and are negative [facility] Past Medical History Attestation statement: The following information was validated with the patient. Source: old records reviewed and nursing notes reviewed Medical History Actinic keratoses Squamous cell carcinoma, face Trigeminal neuralgia Diverticulosis large intestine w/o perforation or abscess w/bleeding Tubular adenoma of colon Hiatal hernia Surgical History H/O colonoscopy Family History Family History Mother Lung cancer Father Diabetes Social History Social History Household Members: None Housing: Condominium Alcohol intake: former Patient Tobacco Use Status: Former Tobacco user Tobacco use type: Cigarette e-Cigarette/Vaping Use: Never Used Second Hand Smoke Exposure: No Substance Use Type: Marijuana Advance Directives: No Advance Directives Information Provided: Yes Do you have a plan to hurt others: No Plan service: No Current occupational status: retired Cognitive needs: No Hearing needs: No Vision needs: No Physical Exam ED Vital Signs: Vital Signs - 24 hr 01/26/25 16:13 01/26/25 17:27 Temperature 97.9 F 97.9 F Pulse Rate 78 78 Respiratory Rate 18 18 Blood Pressure 143/75 H 143/75 H Pulse Oximetry 99 99 Oxygen Delivery Method Room Air Room Air BMI result Body Mass Index 22.3 hypertensive, vitals are otherwise wnl General: Well appearing, in no acute distress. Skin: Warm, dry, intact. No rashes or lesions. Head: Normocephalic, atraumatic. EENT: Hearing is intact b/l. Conjunctiva clear. Sclera is anicteric. PERRLA. EOM intact. Moist mucous membranes.?+able to fully open/close mandible, I am able to palpable a faint click at the left TMJ with opening of the mandible. no palpable dislocation or step off. no trismus. no cervical LAD. Cardiac: Chest wall symmetric. RRR Lungs: Normal respiratory effort without accessory muscle use. CTA bilaterally Back: No midline spinous or paraspinal tenderness. No step off deformity. Ext: Upper and lower extremities atraumatic, without tenderness, deformity, swelling or erythema Neuro: AOx3. Normal speech. Ambulating with steady gait. Course Course Course Narrative: This is a Rapid Medical Examination (RME) performed by Eliseo Lea PA-C in triage. Full HPI, ROS, assessment and treatment plan per primary provider in the Main ED. Hx: 69 yo F here for eval of difficulty opening/closing her jaw w/ assoc pain, feels clicking/cracking at L TMJ, occurred after she was signing 3 days ago. Plan: xrs Reevaluation(s) Reevaluation #1: X-ray of mandible does not demonstrate dislocation or fracture. Her exam is consistent with TMJ dysfunction. I did discuss workup results with patient. Advised supportive care at home with NSAIDs. Advised to follow up with dentist and/or ENT doctor. Referrals provided. Patient has remained stable throughout ED visit today. Discussed worrisome signs and symptoms and when to return to the ED. All questions answered at this time. Patient is agreeable with disposition and stable for discharge. Medical Decision Making Medical Decision Making MDM Narrative: 69 year old female presents to the ED today for evaluation of left sided jaw pain x days. patient is mildly hypertensive, vitals are otherwise wnl. on exam, patient is able to fully open/close mandible, I am able to palpable a faint click at the left TMJ with opening of the mandible. no palpable dislocation or step off. no trismus. no cervical LAD. Differential diagnosis includes jaw dislocation, fracture, TMJ dysfunction Plan for xrs and disposition. Differential Diagnosis Differential Diagnoses: The differential diagnosis associated with the presentation includes as above. Admission/Observation not indicated. Independent Interpretation I performed an independent interpretation of an: Plain X-Ray Interpretation: xr mandible w/o fracture Radiology Impression Discussion of test interpretation with radiology: I have reviewed the radiologist's reading. Radiologist Impression: Procedure(s): XR mandible min 4V Accession Number(s): [id number] cc: Donna Bertrand PA-C; Sonya Lea~ Reason for Exam: pain at L TMJ, cracking CLINICAL HISTORY: TMJ PAIN 6 views mandible Comparison: None Findings: No fractures or dislocations. Temporomandibular joints intact. Visualized paranasal sinuses and mastoid air cells clear. No radiopaque foreign body. Impression: 1. Unremarkable mandible This document has been electronically signed by: Paul Guo MD on 01/26/2025 17:07:19 External Record Review External record reviewed: Inpatient record Prescription Management I considered prescription management with: Pain Medication Social Determinants Patient?s care significantly limited by Social Determinants of Health including: Other Social Determinant of Health Critical Care Time Critical Care Time Critical Care Time: No Discharge Plan Discharge Clinical Impression: Left-sided temporomandibular joint pain-dysfunction syndrome Patient Disposition: Home, Self-Care Instructions: Temporomandibular Disorder (ED) Additional Instructions: You were evaluated in the ED today for left sided jaw pain. The xrays of your jaw do not demonstrate any dislocation or fractures. You have dysfunction of your TMJ. see home care instructions. Treatment is supportive - take tylenol at home as needed. Follow up with dentist or ENT - you have been provided with referrals to both. call them to establish care, they will not call you. Return with any new or worsening symptoms. In the case of an emergency call [phone] [facility] DENTAL: [phone] [address] [facility] [address] Prescriptions: No Action esomeprazole magnesium 40 mg capsule,delayed release(DR/EC) 40 mg PO QAM Qty: 30 5RF famotidine 20 mg tablet 20 mg PO BID Qty: 60 1RF atorvastatin [Lipitor] 80 mg tablet 80 mg PO BEDTIME Qty: 90 0RF fluticasone propionate 50 mcg/actuation spray,suspension 1 spray intranasal DAILY Qty: 16 0RF Asmanex HFA 200 mcg/actuation HFA aerosol inhaler 1 puff inhalation BID Qty: 13 0RF cetirizine 10 mg tablet 10 mg PO QAM Qty: 30 0RF aspirin 81 mg tablet,delayed release (DR/EC) 81 mg PO DAILY Qty: 30 0RF cholecalciferol (vitamin D3) 50 mcg (2,000 unit) capsule 50 mcg PO DAILY montelukast 10 mg tablet 10 mg PO BEDTIME albuterol sulfate 90 mcg/actuation HFA aerosol inhaler 2 puff inhalation Q6H PRN (Reason: shortness of breath or wheezing) Qty: 6.7 0RF albuterol sulfate 2.5 mg /3 mL (0.083 %) solution for nebulization 2.5 mg inhalation Q4-6H PRN (Reason: shortness of breath or wheezing) Qty: 90 0RF meloxicam 7.5 mg tablet 7.5 mg PO DAILY PRN (Reason: Pain) Certavite-Antioxidant 18-400 mg-mcg tablet 1 tab PO QAM gabapentin 300 mg capsule 300 mg PO BID Qty: 180 1RF carbamazepine 200 mg tablet 200 mg PO BID Qty: 180 1RF lidocaine 5 % adhesive patch,medicated 1 patch topical DAILY Qty: 15 0RF Rx Instructions: leave on most painful area for up to 12 hrs baclofen 5 mg tablet 5 mg PO BEDTIME Qty: 14 0RF calcium carbonate 600 mg calcium (1,500 mg) tablet 600 mg PO QAM estradiol 0.01 % (0.1 mg/gram) cream vaginal bisacodyl [Dulcolax (bisacodyl)] 5 mg tablet,delayed release (DR/EC) 10 mg PO BEDTIME Qty: 180 4RF Referrals: [facility] [Provider Group, Ear, Nose, Throat] Donna Bertrand PA-C [Primary Care Provider, Internal Medicine] Interventions: ED Discharge Assessment Last Done: 01/26/25 17:27 Discharge Date/Time: 01/26/25 17:27 Print Language: Urdu
[2025-01-26 17:27] VITALS: BP 143/75; PULSE 78; RESP 18; TEMP 36.6; O2SAT 99
--- OUTSIDE RECORDS SUMMARY | 2025-01-26 17:28 | XMS_ITS | Encounter Summary ---
Author Organization [employer] Address 75 [facility] 7 [place] [address] Care Team Providers Care Inspector Toys Name Role Phone Charisma Stinson MD Primary Care Provider [phone] Reason for Visit * Reason Onset Date Comments Triage 08/05/2022 Encounter Details Date Type Department Care Team ([facility] Contact Info) Description 08/05/2022 Telephone [facility] CHC MED & PEDS [address] [place], [place] [phone] Charisma Stinson MD [address] [place] [address] Triage Social History Tobacco Use Types Packs/Day [...] accepted this outcome Please contact pt at [phone] documented in this encounter Plan of Treatment Upcoming Encounters Date Type Department Care Team ([facility] st Contact Info) Description 02/05/2025 12:45 PM EST Office Visit [facility] CHC ADULT DENTAL [address] [place] [address] Kary Reyes documented as of this encounter Visit Diagnoses Not on filedocumented in this encounter Additional Health Concerns Assessment Noted Time PHQ-9 Depression Total Score: 2 03/24/19 23 9:26 AM EST documented as of this encounter Care Teams Inspector Toys Relationship Specialty Start Date End Date Charisma Stinson MD [address] [place] [address] PCP - General Family Medicine 03/13/18 09/05/24 documented as of this encounter
--- OUTSIDE RECORDS SUMMARY | 2025-01-26 17:28 | XMS_ITS | Encounter Summary ---
Author Organization [employer] Address [address] [place] [address] 7 [place] [address] Care Team Providers Care Food Technology Teacher Name Role Phone Unavailable Primary Care Provider Unavailabl e Reason for Visit * Reason Comments Med Refill Encounter Details Date Type Department Care Team ([facility] Contact Info) Description 10/10/2024 Refill [facility] CHC MED & PEDS [address] [place] [address] Charisma Stinson MD [address] [place] [address] Moderate persistent asthma, unspecified whether complicated Social [...] Description 02/05/2025 12:45 PM EST Office Visit [facility] ADULT DENTAL [address] [place] [address] Kary Reyes documented as of this encounter Visit Diagnoses Diagnosis Moderate persistent asthma, unspecified whether complicated documented in this encounter Additional Health Concerns Assessment Noted Time PHQ-9 Depression Total Score: 2 03/24/19 23 9:26 AM EST documented as of this encounter
--- OUTSIDE RECORDS SUMMARY | 2025-01-26 17:28 | XMS_ITS | Encounter Summary ---
Author Organization [employer] Address [address] [facility] 7 [place] [address] Care Team Providers Care Remote Advisor Name Role Phone Unavailable Primary Care Provider Unavailabl e Reason for Visit * Reason Comments Med Refill Encounter Details Date Type Department Care Team ([facility] Contact Info) Description 12/16/2024 Refill [facility] CHC MED & PEDS [address] [place] [address] Charisma Stnison MD [address] [place] [address] Gastroesophageal reflux disease without esophagitis Social History [...] 12:45 PM EST Office Visit [facility] ADULT DENTAL [address] [place] [address] Kary Reyes documented as of this encounter Visit Diagnoses Diagnosis Gastroesophageal reflux disease without esophagitis Esophageal reflux documented in this encounter Additional Health Concerns Assessment Noted Time PHQ-9 Depression Total Score: 2 03/24/19 23 9:26 AM EST documented as of this encounter
--- OUTSIDE RECORDS SUMMARY | 2025-01-26 17:28 | XMS_ITS | Encounter Summary ---
Author Organization [employer] Address [address] [place] [address] 7 [place] [address] Care Team Providers Care Packaging Inspector Name Role Phone Unavailable Primary Care Provider Unavailabl e Reason for Visit * Reason Comments Med Refill Encounter Details Date Type Department Care Team ([facility] Contact Info) Description 10/15/2024 Refill [facility] MED & PEDS [address] [place] [address] Charisma Stinson MD [address] [place] [address] Mixed hyperlipidemia Social History Tobacco Use Types [...] t he electric, gas, oil or water [employer] threatened to shut off services in your [...] PM EST Office Visit [facility] AD[facility] [address] [place] [address] Kary Reyes documented as of this encounter Visit Diagnoses Diagnosis Mixed hyperlipidemia documented in this encounter Additional Health Concerns Assessment Noted Time PHQ-9 Depression Total Score: 2 03/24/19 23 9:26 AM EST documented as of this encounter
--- OUTSIDE RECORDS SUMMARY | 2025-01-26 17:28 | XMS_ITS | Encounter Summary ---
Author Organization [employer] Address [address] [facility] 7 [place] [address] Care Team Providers Care Mutuel Department Manager Name Role Phone Unavailable Primary Care Provider Unavailabl e Reason for Visit * Reason Comments Med Refill Encounter Details Date Type Department Care Team ([facility] Contact Info) Description 10/11/2024 Refill [facility] CHC MED & PEDS [address] [place] [address] Charisma Stinson MD [address] [place] [address] Mixed hyperlipidemia Social History Tobacco Use Types [...] t he electric, gas, oil or water [employer] threatened to shut off services in your [...] [facility] ADULT DENTAL [address] [place] [address] Kary Reyes documented as of this encounter Visit Diagnoses Diagnosis Mixed hyperlipidemia documented in this encounter Additional Health Concerns Assessment Noted Time PHQ-9 Depression Total Score: 2 03/24/19 23 9:26 AM EST documented as of this encounter
--- OUTSIDE RECORDS SUMMARY | 2025-01-26 17:28 | XMS_ITS | Data Portability ---
Author Organization [place] - [facility], Allergy Address [address] [address] Care Team Providers Care Physiological Chemist Name Role Phone WILLY ARAUJO Primary Care Provider [phone] Assessment Encounter Date Assessment Date Assessment LastModified by Organization Details LastModified Time 03/14/2024 03/14/2024 68-year-old female presents for cerumen removal. Cerumen impaction removed bilaterally. Bilateral tympanic membranes are intact with aerated middle ear spaces. Updated audiometric testing was offered today, but patient declined. She will follow-up in 6 months for cerumen removal, or sooner with concerns. [email or web address] Not available 03/14/2024 12:19:57 Plan of Treatment [...] By Organization Details Last Modified Time 09/06/2024 [id number] Reviewed results with patient. She is pleased that there are no significant changes in her hearing. CC of hearing test given to patient. [email or web address] Not available 09/06/2024 11:32:59 Reason for Referral None Reported. Results Created Date Observation Date Name Description Value Unit Range Abnormal Flag Note LastModifiedBy Organization Detail LastModifiedTime 09/07/19 25 audio gram No observ ation record ed. [email or web address] Not Available 08/12 11:42:12 Result Notes None recorded. Problems Name Problem SNOMED Code Status Onset Date Resolution Date Notes Provider Name and Address Organization Details Recorded Time Finding of resonance of voice 560006945 Active 2014 Other voice and resonance disorders ; Note: Date Diagnosed : 5 2:46 PM (R49.8) Not Available [facility] 4 02:47:55 Gastroeso phageal reflux disease without esophagit is 455248508 Active 2014 Gastro-es ophageal reflux disease without esophagit is; Note: Date Diagnosed : 5 2:46 PM (K21.9) Not Available [facility] 4 02:47:53 Allergic rhinitis 38080144 Active 2015 Allergic rhinitis, unspecifi ed; Note: Date Diagnosed : 08/06/2015 2:15 PM (J30.9) Not Available [facility] 4 02:47:57 Dysphonia 93088482 Active 2015 Dysphonia ; Note: Date Diagnosed : 08/16/2015 7:21 PM (R49.0) Not Available [facility] 4 02:48:01 Impacted cerumen of bilateral ears 87291109582 05769 Active 2018 Impacted cerumen, bilateral ; Note: Date Diagnosed : 11/08/2018 9:42 AM (H61.23) Not Available [facility] 4 02:47:59 Impacted cerumen 24420639 Active 2018 Impacted cerumen; Note: Date Diagnosed : 11/21/2018 11:38 AM (380.4) Not Available [facility] 4 02:47:56 Sensorine ural hearing loss of bilateral ears 316132559 Active 2018 Sensorine ural hearing loss, bilateral ; Note: Date Diagnosed : 01/16/2019 10:17 AM (H90.3) Not Available [facility] 4 02:47:59 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; Note: Date Diagnosed : 2019 11:29 AM (J38.2) Not Available [facility] 4 02:48:01 Dysphagia 39130823 Active 2019 Other dysphagia ; Note: Date Diagnosed : 2019 11:29 AM (R13.19) Not Available [facility] 4 02:48:01 Acute pharyngit is 440190263 Active 2020 Sore throat (acute) NOS; Note: Date Diagnosed : 10/01/2020 4:50 PM (J02.9) Not Available [facility] 4 02:47:56 Abnormal weight loss 863961378 Active 2020 Abnormal weight loss; Note: Date Diagnosed : 10/01/2020 4:50 PM (R63.4) Not Available [facility] 4 02:47:57 Problem Notes None recorded. Procedures Surgical History Date Name Laterality Status Provider Name and Address Organization Details Recorded Time 5 Comp Audio with Tymps - 24540 & 00946 completed THANIA ARROYO [address] [facility],[address], [address], [facility] 09/06/2024 11:30:22 5 Cerumen removal without microscope bilat completed CRISTINA DE JESUS PA-C 100 [facility],[address], [address], [facility] 03/14/2024 12:19:25 Imaging Results None recorded. [...] mg tablet 10/19 completed Medicati on ID: [id number] Du ration Value: 5 Reason: () Brand Name: azithrom ycin Sen d Method: E-Prescr ibed Sub s Allowed: subs OK Speci al Instruct ion: take 2 tablets by mouth today then take 1 tablet DAILY FOR 4 DAYS Med icationG enericNa me: azithrom ycin Not Available Not Available Not Available ranitidin e 300 mg tablet 11/26 completed Medicati on ID: [id number] Du ration Value: 30 Reason: () Brand [...] gram tablet 03/13 completed Medicati on ID: [id number] D uration Value: 90 Brand Name: sucralfa te Send Method: E-Prescr ibed Sub s Allowed: subs OK Speci al Instruct ion: take 1 tablet by mouth three times a day ON AN EMPTY STOMACH 1 HOUR BE FORE MEALS AND AT BEDTIME Medicati onGeneri cName: sucralfa te Not Available Not Available Not Available prednison e 20 mg tablet 10/19 completed Medicati on ID: [id number] Du ration Value: 4 Reason: () Brand [...] by mouth 03/13 completed Medicati on ID: [id number] P venturadutch d By Name: Toi Rodriguez MD Brand Name: ranitidi ne HCl Send Method: E-Prescr ibed Sub s Allowed: subs OK Medic ationGen ericName : ranitidi ne HCl Not Available Not Available Not Available Guaifenes in AC 10 mg-100 mg/5 mL oral liquid 10/19 completed Medicati on ID: [id number] Du ration Value: 1 Reason: () Brand [...] by mouth 11/26 completed Medicati on ID: [id number] D uration Value: 30 Prescri bed By [...] mg tablet 03/13 completed Medicati on ID: [id number] Du ration Value: 30 Brand Name: lupe [...] IM syringe 10/19 completed Medicati on ID: [id number] Du ration Value: 1 Reason: () Brand [...] Updated DateTime 08/02/2024 154.94 cm 22.7 kg/m2 17253.08 g Rosmery Figueroa [place] - [facility] 08/02/2024 11:36:17 Social History None recorded. Functional Status None recorded. Mental Status None recorded. Family History Nothing Reported. Medical History Condition Response GERD/Reflux Y High Cholesterol Y Gynecological HistoryNo gynecological history recorded. Obstetrics History GPAL:G 0 P 0 0 0 0 Past Encounters Encounter ID Performer Location Encounter Start Date Encounter Closed Date Diagnosis/Indication Diagnosis SNOMED-CT Code Diagnosis ICD10 Code Diagnosis IMO Codes Diagnosis Note [id number] CRISTINA DE JESUS PA-C [facility] [address] [address] 03/14/2024 11:23:37 03/14/2024 12:18:10 Impacted cerumen of bilateral ears 5435830598 759451 H61.23 [id number] TIFFANY BRENNER MD [facility] [address] [address] 08/02/2024 11:26:27 08/02/2024 11:45:51 Impacted cerumen of bilateral ears 8035038159 825965 H61.23 Cerumen was removed and tolerated well. She still feels a little blockage. No middle ear effusion. Her last audiogram was in 2019 showing moderate HF loss. I recommende d updated testing at her next cleaning. [id number] TIFFANY BRENNER MD [facility] [address] [address] 09/06/2024 10:45:28 09/06/2024 11:41:05 Sensorineural hearing loss of bilateral ears 703475600 H90.3 Audiologic al evaluation results: Right ear: [...] Goodwin Member ID Guarantor Name 03/14/2024 1 [facility] - DOS ON OR AFTER 2022 - MEDICARE ADVANTAGE [place] (MEDICARE REPLACEMENT/AD VANTAGE - PPO) Zoeylisa Walsh [id number] Zoey Walsh 09/11/2024 1 [facility] - MEDICARE ADVANTAGE PLAN (MEDICARE REPLACEMENT HMO) [id number] Zoey Yaima Yaima Walsh [id number] Zoey Walsh 09/11/2024 2 [place]: [facility] Zoey Walsh [id number] Zoey Walsh Notes Date Note Type Note Provider Name and Address Organization Details Recorded Time 03/14/2024 text/html ROS as noted in the [facility] 68-year-old female presents for an ear cleaning. Feels like ears are blocked and hearing is decreased bilaterally. Denies otalgia and otorrhea. STEVEN WOO MD [address] [place] [address], [phone], [facility] 03/14/2024 17:35:24 08/02/2024 text/html ROS as noted in the [facility] 69-year-old female presents for an ear cleaning. Feels like ears are blocked. Feels she gets a better cleaning with the suction. TIFFANY BRENNER MD [address] [place] [address], [phone], [facility] 08/02/2024 11:46:11 OBGyn Episode No OBEpisode recorded.
--- OUTSIDE RECORDS SUMMARY | 2025-01-26 17:28 | XMS_ITS | Clinical Summary ---
Author Organization [employer] Address [address] [place] [address] 7t [place] [address] Care Team Providers Care Technical Services Specialist Name Role Phone Unavailable Primary Care Provider Unavailabl e Allergies Active Allergy Reactions Criticality Noted Date Comments Dust Mite Extract 08/12/2022 Gramineae Pollens 08/12/2022 Shellfish Allergy 08/12/2022 Other reaction(s): hives, puffy Shellfish Protein-Containing Drug Products 08/06/2014 Medications gabapentin (Neurontin) 300 MG capsule 2 Active carBAMazepine (TEGretol) 200 MG tablet 2 Active estradiol (Estrace) 0.1 MG/GM vaginal creamIndications: Postmenopausal atrophic vaginitis Apply 1 gm intra vaginally every 3 days 42.5 g 11 3 Active meloxicam (Mobic) 7.5 MG tabletIndications :Trigeminal neuralgia Take 1 tab orally twice a day as needed for joint pains 60 tablet 3 3 Active traZODone (Desyrel) 50 MG tabletIndications :Anxiety Take 1 tablet (50 mg) by mouth at bedtime. 30 tablet 11 3 Active atorvastatin (Lipitor) 40 MG tablet Take 40 mg by mouth. 5 Active montelukast (Singulair) 10 MG tablet Take 10 mg by mouth. 2 Active calcium carbonate 1500 (600 Ca) MG tablet Take 600 mg by mouth. 3 Active albuterol 108 (90 Base) MCG/ACT inhaler Inhale 2 puffs every 6 (six) hours if needed for wheezing. 18 g 3 4 Active cetirizine (ZyrTEC) 10 MG tablet TAKE ONE TABLET EVERY MORNING 30 tablet 11 4 Active cetirizine (ZyrTEC) 2.5 MG chewable split tablet 10 mg. 2 Active estradiol (Estrace) 0.1 MG/GM vaginal cream Every 3 days 42.5 g 5 4 Active fluticasone (Flonase) 50 MCG/ACT nasal spray Administer 1 spray into each nostril Once per day. 16 g 5 4 Active pantoprazole (ProtoNix) 20 MG EC tablet Take 20 mg by mouth in the morning. 4 Active Calcium Polycarbophil (fiber) 625 MG tablet TAKE ONE TABLET EVERY MORNING WITH a full GLASS of WATER 4 Active cholecalciferol VITAMIN D (Vitamin D-3) 50 MCG (1999) capsuleIndication s:Age-related osteoporosis without current pathological fracture TAKE ONE CAPSULE TWICE DAILY IN THE MORNING AND AT BEDTIME 60 capsule 11 5 Active Mometasone Furoate (Asmanex HFA) 200 MCG/ACT aerosolIndication s:Moderate persistent asthma, unspecified whether complicated INHALE ONE PUFF TWICE DAILY, RINSE MOUTH AFTER USE 1 g 1 5 Active esomeprazole (NexIUM) [address] capsule 5 Active famotidine (Pepcid) 20 MG tabletIndications :Gastroesophageal reflux disease without esophagitis TAKE ONE TABLET TWICE DAILY IN THE MORNING AND AT BEDTIME 60 tablet 5 5 Active atorvastatin (Lipitor) 40 MG tablet TAKE ONE TABLET EVERY NIGHT AT BEDTIME 90 tablet 3 5 Active montelukast (Singulair) 10 MG tablet TAKE ONE TABLET EVERY NIGHT AT BEDTIME 30 tablet 11 5 Active calcium carbonate 1500 (600 Ca) MG tablet TAKE ONE TABLET EVERY MORNING 30 tablet 11 5 Active Multiple Vitamins-Minerals (CertaVite/Antiox idants) tablet TAKE ONE TABLET EVERY MORNING 90 tablet 3 5 Active Active Problems Problem Noted Date Diagnosed [...] Description 01/22/2025 8:00 AM EST Office Visit [facility] ADULT D[facility] [address] [place] [address] Be Arnold 01/21/2025 11:30 AM EST Office Visit [facility] ADULT [facility] [address] [place] [address] Be Arnold 01/16/2025 Orders Only GENERIC EXTERNAL DATA DEPARTMENT Provider, Generic External Data 01/15/2025 Orders Only GENERIC EXTERNAL DATA DEPARTMENT Provider, Generic External Data 12/19/2024 Orders Only [facility] External Provider, [facility] 12/16/[address] [facility] MED & PEDS [address] [place] [address] Charisma Stinson MD Gastroesophageal reflux disease without esophagitis 12/10/2024 1:30 PM EDT Office Visit [facility] ADULT [facility] [address] [place] [address] Be Arnold 11/21/[address] [facility] MED & PEDS [address] [place] [address] Charisma Stinson MD from Last 3 Months [...] Upcoming Encounters Date Type Department Care Team ([facility] st Contact Info) Description 02/05/2025 12:45 PM EST Office Visit [facility] ADULT [facility] [address] [place] [address] Kary Reyes Health Maintenance Due Date Last [...] AM EST) Influenza A PCR NEGATIVE Negative [facility] Influenza B PCR NEGATIVE Negative [facility] Resp Syncy Virus RNA Qual PCR NEGATIVE Negative [facility] SARS COV2 PCR NEGATIVE Negative [facility] Comment:All test results mus t be [...] use by authorized laboratories.Testing performed on the Cepheid GeneXpert utilizingreal-time RT-PCR.All SARS CoV2 and positive influenza A/B results arereported to [facility]. 01/16/2025 11:2 3 AM EST 01/16/2025 6:21 PM EST Generic External Data Provider LAB MICROBIOLOGY - GENERAL ORDERABLES Final Result Performing Organization Address [facility]/ZIP Co de Phone Number [facility] [address] [place] [phone] * Lyme Disease Ab with Reflex to Blot (IgG, IgM) (01/15/2025 2:33 PM EST) Lyme Antibody Screen <0.90 index [facility] Comment:Index Interpretation ----- < 0.90 [...] when erythemamigrans is apparent.THIS TEST WAS PERFORMED AT:[facility] [place] [id number] MALDONADO MD Lyme Blot [facility] 01/15/2025 2:33 PM EST 01/15/2025 2:33 PM EST Generic External Data Provider LAB BLOOD ORDERAB LES Final Result Performing Organization Address [facility]/ZIP Co de Phone Number [facility] [address] [place] [phone] * Sed Rate by Lauren Kirby (01/15/2025 2:33 PM EST) Erythrocyte Sedimentation Rate 2 0 - 20 MM/HR [facility] Comment:Patients with polycy themia and many hemoglobin abnormalitiesmay have depressed sed rates whereas patients with anemiamay have elevated sed rates. 01/15/2025 2:33 PM EST 01/15/2025 2:33 PM EST Generic External Data Provider LAB BLOOD ORDERAB LES Final Result Performing Organization Address [facility] de Phone Number [facility] [address] [place] [phone] * (ABNORMAL) Basic Metabolic Panel (01/15/2025 2:33 PM EST) Pathologist [facility] Sodium 138 135 - 145 mmol/L [facility] Potassium 3.6 3.3 - 5.1 mmol/L [facility] Chloride 102 96 - 108 mmol/L [facility] Carbon Dioxide 30(H) 22 - 29 mmol/L [facility] Anion Gap 10(L) 12 - 20 [facility] Urea Nitrogen (BUN) 10 9 - 16 mg/dL [facility] Creatinine, Serum 0.70 0.5 - 1.4 mg/dL [facility] Estimated Glomerular Filt Rate >60 [facility] Comment:Chronic Kidney Disea se: Estimated GFR < 60 mL/min/1.25x6Kpjhkg Kidney Disease: Estimated GFR < 15 mL/min/1.73m2 Glucose 77 60 - 115 mg/dL [facility] Calcium 8.9 8.4 - 10.2 mg/dL [facility] 01/15/2025 2:33 PM EST 01/15/2025 2:33 PM EST Generic External Data Provider LAB BLOOD ORDERAB LES Final Result Performing Organization Address [facility] Co de Phone Number [facility] [address] [place] [phone] * (ABNORMAL) Urine Protein, Total, Random without Creatinine (01/15/2025 2:30 PM EST) Protein, Total, Random Urine 13(H) <12 mg/dL [facility] 01/15/2025 2:30 PM EST 01/15/2025 2:57 PM EST us Generic External Data Provider LAB URINE ORDERAB LES Final Result Performing Organization Address [facility]/ZIP Co de Phone Number [facility] [address] [place] [phone] * Creatinine, Random Urine (01/15/2025 2:30 PM EST) Creatinine, Urine 132.63 mg/dL [facility] 01/15/2025 2:30 PM EST 01/15/2025 2:57 PM EST Generic External Data Provider LAB URINE ORDERAB LES Final Result Performing Organization Address [facility] Co de Phone Number [facility] [address] [place] [phone] * (ABNORMAL) Urinalysis Complete (01/15/2025 2:30 PM EST) Color Urine Dark Yellow [facility] Appearance Urine Clear [facility] PH 6.0 5.0 - 9.0 [facility] Glucose Urine UA Negative Negative mg/dL [facility] Urine Blood Trace(A) Negative [facility] Specific Perry - Urine 1.025 1.005 - 1.025 [facility] Urine Protein Negative Neg-Trace mg/dL [facility] Urine Ketones Negative Negative mg/dL [facility] Nitrite Urine Negative Negative [facility] Leukocyte Esterase Urine Small (1+)(A) Negative [facility] RBC Urine 3-5(A) 0 - 2 /HPF [facility] Urine WBC 0-5 0 - 5 /HPF [facility] Urine Squamous Epithelial Cell 11-20 0 - 2 /HPF [facility] Urine Bacteria Trace None Seen [facility] Hyaline Casts, Urine 0-2 0 - 2 /LPF [facility] 01/15/2025 2:30 PM EST 01/15/2025 2:57 PM EST us Generic External Data Provider LAB URINE ORDERAB LES Final Result Performing Organization Address City/State/[facility] Co de Phone Number [facility] [address] [place] [phone] * NM heart perfusion SPECT stress and rest (12/19/2024 9:35 AM EDT) Anatomical Region Laterality Modality Body Nuclear Medicine 12/19/2024 9:35 AM EDT Narrative 12/24/2024 12:28 PM EDT [place] [address] Nuclear Medicine Report Signed Patient: Zoey Walsh MR#: [id number] 656 : 1955 Acct:[id number] Age/Sex: 69 / F ADM Date: 12/19/24 [facility] Attending Dr: Gilberto Villalobos MD Ordering Physician: Gilberto Villalobos MD Date of Service: 12/19/24 Procedure(s): NM kathleen perf SPECT rest str Accession Number(s): [id number] cc: Charisma Stinson MD; Gilberto Villalobos MD [...] 12/24/24 1225 DD/ 0935 TD/TT: 12/20/24 1130 Ambulance Driver: Procedure Note Donotuseinterpreter, Image - 12/24/[address] [address] Nuclear Medicine Report Signed Patient: Zoey Walsh JMR#: [id number] 656 : 8Acct:[id number] Age/Sex: 69 / FADM Date: 12/19/24 Loc: HO.CARD Attending Dr: Gilberto Villalobos MD Ordering Physician: Gilberto Villalobos MD Date of Service: 12/19/24 Procedure(s): NM kathleen perf SPECT rest str Accession Number(s): [id number] cc: Charisma Stinson MD; Gilberto Villalobos MD [...] 12/24/24 1225 DD/ 0935 TD/TT: 12/20/24 1130 Ambulance Driver: [facility] External Provider IMG NM PROCEDURES Final Result * BI Mammogram Screening Tomosynthesis Bilateral (11/22/2023 11:30 AM EDT) Anatomical Region Laterality Modality Breast Bilateral Mammography 11/22/2023 11:3 0 AM EDT Narrative 12/06/2023 10:24 AM EDT [facility] [address] [place] [address] Mammography Report Signed Patient: Zoey Walsh MR#: [id number] 656 : 1955 Acct:[id number] Age/Sex: 68 / F ADM Date: 11/22/23 Loc: HO.MAMMO Attending Dr: Charisma Stinson MD Ordering Physician: Charisma Stinson MD Results: 2Be nign Findings Date of Service: 11/22/23 Follow Up: 1 Year From Orig ina Mammogram Procedure(s): MM tomosynthesis screening BI Accession Number(s): [id number] cc: Charisma Stinson MD EXAMINATION: MM SCREENING [...] 12/06/23 1021 DD/ 1130 TD/TT: 11/22/23 1144 Ambulance Driver: Procedure Note Donotuseinterpreter, Image - 12/06/2023 [facility] [address] [place] [address] Mammography Report Signed Patient: Zoey Walsh JMR#: [id number] 656 : 8Acct:[id number] Age/Sex: 68 / FADM Date: 11/22/23 Loc: HO.MAMMO Attending Dr: Charisma Stinson MD Ordering Physician: Charisma Stinson MDResults: 2Be nign Findings Date of Service: 11/22/23Follow Up: 1 Year From Orig inal Mammogram Procedure(s): MM tomosynthesis screening BI Accession Number(s): [id number] cc: Charisma Stinson MD EXAMINATION: MM SCREENING [...] 12/06/23 1021 DD/ 1130 TD/TT: 11/22/23 1144 Ambulance Driver: us Charisma Stinson MD IMG BI PROCEDURES Edited Resu lt - Final * (ABNORMAL) Hm Colonoscopy (10/05/2023) Colonoscopy Abnormal(A ) Normal Impressions Charisma Stinson MD - 10/05/2023 Needs repeat in 3 years us Charsima Stinson MD HEALTH MAINTENANCE Final Resu lt [...] along with historic and current clinical information. Consulting Sales Executive : SEE COMMENT [facility] Comment: KN, CT(ASCP) CT screening location: [place] [address] Interpretation/R esult: Negative for intraepithelial lesion or [...] R esult [facility] [address] from Last 3 Months or Most Recently Relevant to Health Maintenance Insurance [facility] , [address] [place] [address] DENTAL - HSN FULL (MEDICAID)
--- OUTSIDE RECORDS SUMMARY | 2025-01-26 17:29 | XMS_ITS | Encounter Summary ---
Author Organization [employer] Address [address] [facility] 7t [place] [address] Care Team Providers Care Patent Chemist Name Role Phone Charisma Stinson MD Primary Care Provider [phone] Reason for Visit * Reason Onset Date Comments more medication 01/27/2023 Encounter Details Date Type Department Care Team ([facility] Contact Info) Description 01/27/2023 Telephone [facility] CHC ADULT DENTAL [address] [place] [address] Yordan Mcgowan DDS [address] [place] [address] more medication Social History Tobacco Use Types [...] Description 02/05/2025 12:45 PM EST Office Visit [facility] ADULT DENTAL [address] [place] [address] aKry Reyes documented as of this encounter Visit Diagnoses Not on filedocumented in this encounter Additional Health Concerns Assessment Noted Time PHQ-9 Depression Total Score: 2 03/24/19 23 9:26 AM EST documented as of this encounter Care Teams Patent Chemist Relationship Specialty Start Date End Date Charisma Stinson MD [address] [place] [address] PCP - General Family Medicine 03/13/18 09/05/24 documented as of this encounter
--- OUTSIDE RECORDS SUMMARY | 2025-01-26 17:29 | XMS_ITS | Encounter Summary ---
Author Organization [email or web address] Address [address] [place] [address] 7 [place] [address] Care Team Providers Care Supervisor Liquefaction Name Role Phone Charisma Stinson MD Primary Care Provider [phone] Encounter Details Date Type Department Care Team ([facility] Contact Info) Description 01/16/2023 Abstract [facility] MEDICINE [address] [place], [place] [phone] Charisma Stinson MD [address] [place], [place] [phone] Social History Tobacco Use Types Packs/Day Years [...] Description 02/05/2025 12:45 PM EST Office Visit [facility] CHC ADULT DENTAL [address] [place], [place] [phone] Kary Reyes documented as of this encounter Visit Diagnoses Not on filedocumented in this encounter Additional Health Concerns Assessment Noted Time PHQ-9 Depression Total Score: 2 01/12/20 23 9:26 AM EST documented as of this encounter Care Teams Supervisor Liquefaction Relationship Specialty Start Date End Date Charisma Stinson MD [address] [place] [id number] PCP - General Family Medicine 03/13/18 09/05/24 documented as of this encounter
--- OUTSIDE RECORDS SUMMARY | 2025-01-26 17:29 | XMS_ITS | Encounter Summary ---
Author Organization [employer] Address [address] [place] [address] 7 [place] [address] Care Team Providers Care Pet Trainer Name Role Phone Charisma Stinson MD Primary Care Provider [phone] Encounter Details Date Type Department Care Team (Late Contact Info) Description 02/20/2023 Abstract [facility] ADULT DENTAL [address] [place] [address] Yordan Mcgowan DDS [address] [place], [place] [phone] Social History Tobacco Use Types Packs/Day Years [...] Description 02/05/2025 12:45 PM EST Office Visit [facility] ADULT DENTAL [address] [place] [address] Kary Reyes documented as of this encounter Visit Diagnoses Not on filedocumented in this encounter Additional Health Concerns Assessment Noted Time PHQ-9 Depression Total Score: 2 03/24/19 23 9:26 AM EST documented as of this encounter Care Teams Pet Trainer Relationship Specialty Start Date End Date Charisma Stinson MD [address] [place] [id number] PCP - General Family Medicine 03/13/18 09/05/24 documented as of this encounter
--- OUTSIDE RECORDS SUMMARY | 2025-01-26 17:29 | XMS_ITS | Encounter Summary ---
Author Organization [employer] Address [address] [place] [address] 7 [place] [address] Care Team Providers Care Costumer Name Role Phone Charisma Stinson MD Primary Care Provider [phone] Encounter Details Date Type Department Care Team (Late Contact Info) Description 01/13/2023 Abstract [facility] ADULT DENTAL [address] [place] [address] Yordan Mcgowan DDS [address] [place], [place] [phone] Social History Tobacco Use Types Packs/Day Years [...] Visit [facility] ADULT DENTAL [address] [place] [address] Kary Reyes documented as of this encounter Visit Diagnoses Not on filedocumented in this encounter Additional Health Concerns Assessment Noted Time PHQ-9 Depression Total Score: 2 03/24/19 23 9:26 AM EST documented as of this encounter Care Teams Costumer Relationship Specialty Start Date End Date Charisma Stinson MD [address] [place] [id number] PCP - General Family Medicine 03/13/18 09/05/24 documented as of this encounter
--- OUTSIDE RECORDS SUMMARY | 2025-01-26 17:29 | XMS_ITS | Encounter Summary ---
Author Organization [employer] Address [address] [facility] 7 [place] [address] Care Team Providers Care Curb Supervisor Name Role Phone Unavailable Primary Care Provider Unavailabl e Reason for Visit * Reason Comments Med Refill Encounter Details Date Type Department Care Team ([facility] Contact Info) Description 11/21/2024 Refill [facility] CHC MED & PEDS [address] [place] [address] Charisma Stinson MD [address] [place] [address] Social History Tobacco Use Types Packs/Day Years [...] Visit [facility] ADULT DENTAL [address] [place] [address] Kary Reyes documented as of this encounter Visit Diagnoses Not on filedocumented in this encounter Additional Health Concerns Assessment Noted Time PHQ-9 Depression Total Score: 2 03/24/19 23 9:26 AM EST documented as of this encounter
--- OUTSIDE RECORDS SUMMARY | 2025-01-26 17:29 | XMS_ITS | Encounter Summary ---
Author Organization [employer] Address [address] [place] [address] 7 [place] [address] Care Team Providers Care Card Doffer Name Role Phone Charisma Stinson MD Primary Care Provider [phone] Encounter Details Date Type Department Care Team (Late Contact Info) Description 02/08/2023 Abstract [facility] ADULT DENTAL [address] [place] [address] Yordan Mcgowan DDS [address] [place], [place] [phone] Social History Tobacco Use Types Packs/Day Years [...] Description 02/05/2025 12:45 PM EST Office Visit [facility] ADULT DENTAL [address] [place] [address] Kary Reyes documented as of this encounter Visit Diagnoses Not on filedocumented in this encounter Additional Health Concerns Assessment Noted Time PHQ-9 Depression Total Score: 2 03/24/19 23 9:26 AM EST documented as of this encounter Care Teams Card Doffer Relationship Specialty Start Date End Date Charisma Stinson MD [address] [place] [address] PCP - General Family Medicine 03/13/18 09/05/24 documented as of this encounter
--- OUTSIDE RECORDS SUMMARY | 2025-01-26 17:30 | XMS_ITS | Encounter Summary ---
Author Organization [employer] Address [address] [place] [address] 7 [place] [address] Care Team Providers Care Managed Care Director Name Role Phone Charisma Stinson MD Primary Care Provider [phone] Encounter Details Date Type Department Care Team (Latest Contact Info) Description 12/13/2021 Abstract [facility] CONVERSIONS Dental, Provider, DDS Social History [...] PM EST Office Visit [facility] ADULT DENTAL [address] [place] [address] Kary Reyes documented as of this encounter Visit Diagnoses Not on filedocumented in this encounter Care Teams Managed Care Director Relationship Specialty Start Date End Date Charisma Stinson MD [address] [place] [address] PCP - General Family Medicine 03/13/18 09/05/24 documented as of this encounter
--- OUTSIDE RECORDS SUMMARY | 2025-01-26 17:30 | XMS_ITS | Encounter Summary ---
Author Organization [employer] Address [address] [place] [address] 7 [place] [address] Care Team Providers Care Crumb Packer Name Role Phone Charisma Stinson MD Primary Care Provider [phone] Encounter Details Date Type Department Care Team (Latest Contact Info) Description 04/18/2018 Abstract [facility] CONVERSIONS Dental, Provider, DDS Social History [...] 12:45 PM EST Office Visit [facility] ADULT DENTAL [address] [place] [address] Kary Reyes documented as of this encounter Visit Diagnoses Not on filedocumented in this encounter Care Teams Crumb Packer Relationship Specialty Start Date End Date Charisma Stinson MD [address] [place] [address] PCP - General Family Medicine 03/13/18 09/05/24 documented as of this encounter
--- OUTSIDE RECORDS SUMMARY | 2025-01-26 17:30 | XMS_ITS | Encounter Summary ---
Author Organization [employer] Address [address] [place] [address] 7 [place] [address] Care Team Providers Care Medical Esthetician Name Role Phone Charisma Stinson MD Primary Care Provider Encounter Details Date Type Department Care Team (Latest Contact Info) Description 03/19/2020 Abstract [facility] CONVERSIONS Dental, Provider, DDS Social [...] [facility] ADULT DENTAL [address] [place] [address] Kary Reyes documented as of this encounter Visit Diagnoses Not on filedocumented in this encounter Care Teams Medical Esthetician Relationship Specialty Start Date End Date Charisma Stinson MD [address] [place] [address] PCP - General Family Medicine 03/13/18 09/05/24 documented as of this encounter
--- OUTSIDE RECORDS SUMMARY | 2025-01-26 17:31 | XMS_ITS | Encounter Summary ---
Author Organization [employer] Address [address] [facility] 7 [place] [address] Care Team Providers Care Culture Media Laboratory Assistant Name Role Phone Charisma Stinson MD Primary Care Provider [phone] Reason for Visit * Reason Onset Date Comments Results 06/22/2023 Appointment Request 06/22/2023 Encounter Details Date Type Department Care Team ([facility] st Contact Info) Description 06/22/2023 Telephone [facility] MEDICINE [address] [place] [address] Charisma Stinson MD [address] [place] [address] Results; Appointment Request Social History Tobacco Use [...] [facility] Please contact pt at [phone] documented in this encounter Plan of Treatment Upcoming Encounters Date Type Department Care Team (Late st Contact Info) Description 02/05/2025 12:45 PM EST Office Visit [facility] ADULT DENTAL [address] [place] [address] Kary Reyes documented as of this encounter Visit Diagnoses Not on filedocumented in this encounter Additional Health Concerns Assessment Noted Time PHQ-9 Depression Total Score: 2 03/24/19 23 9:26 AM EST documented as of this encounter Care Teams Culture Media Laboratory Assistant Relationship Specialty Start Date End Date Charisma Stinson MD [address] [place] [address] PCP - General Family Medicine 03/13/18 09/05/24 documented as of this encounter
== END 2025-01-26 17:27 | disposition home or self-care (01) ==
LOC: HO.ED 17:24
PROVIDERS: Emergency Provider Student in an Organized Health Care Education/Training Program
DX: M26.622 Arthralgia of left temporomandibular joint (principal)
CPT/HCPCS: 70110; 99282; 99283

== ENCOUNTER → 2025-01-26 16:15 | Outpatient (BNV) | payer MEDICARE, MEDICAID, SELFPAY | PROVIDERS: Emergency Provider Student in an Organized Health Care Education/Training Program; Visit Provider Radiology Diagnostic Radiology | DX: M26.622 Arthralgia of left temporomandibular joint (principal) | CPT/HCPCS: 70110 ==

== ENCOUNTER 2025-02-03 13:49 | Outpatient (AMB) | payer MEDICARE, MEDICAID, SELFPAY ==
--- OUTSIDE RECORDS SUMMARY | 2025-01-29 11:30 | XMS_ITS | Encounter Summary ---
Author Organization [employer] Address [address] [facility] 7t [place] [address] Care Team Providers Care Offset Assistant Press Operator Name Role Phone Unavailable Primary Care Provider Unavailabl e Reason for Visit * Reason Comments Dental Pain Encounter Details Date Type Department Care Team (Latest Contact Info) Description 01/29/2025 11:30 AM EST Office Visit [facility] ADULT DENTAL [address] [place] [address] Lorena Welsh DDS [address] [place] [address] Arthralgia of left temporomandibular joint (Primary Dx) Social History Tobacco Use Types Packs/Day Years [...] Sign Reading Time Taken Comments Blood Pressure 138/78 01/29/2025 11:43 AM EST Pulse - - Temperature - - Respiratory Rate - - Oxygen Saturation - - Inhaled Oxygen Concentration - - Weight - - Height - - Body Mass Index - - documented in this encounter Progress Notes * Lorena Welsh DDS - 01/29/2025 11:30 AM EST Dental procedures in this visit [id number] - PALLIATIVE (EMERGENCY) TREATMENT OF DENTAL PAIN - MINOR PROCEDURE (Completed) Service provider: Lorena Welsh DDS Billing provider: Lorena Welsh DDS [id number] - PANORAMIC RADIOGRAPHIC IMAGE (Completed) Service provider: Lorena Welsh DDS Billing provider: Lorena Welsh DDS [id number] - CASE PRESENTATION, DETAILED AND EXTENSIVE TREATMENT PLANNING (Completed) Service provider: Lorena Welsh DDS Billing provider: Lorena Welsh DDS Patient ID: Zoey Walsh is a 69 y.o. female. Time Out: Timeout Date: 01/29/25, Timeout Time: (S) 1126 (Verified name and . Emergency) Location: [facility] Tooth: Mandible and LL Procedure: Emergency Verified the above with patient, undertaker assistant, and provider. Confirmed via patient's chart, intraorally and by radiographs. Clinical Programmer: not applicable Chief Complaint Patient presents with Dental Pain Medical Hx: Vitals: Blood pressure 138/78. Medical History[1] Medications: Encounter Medications[2] Subjective: Pt in office because of severe pain on L TMJ. Patient reports that on Monday she started feeling pain on the area and that at some point was so severe that she had to visit the ER. X-rays were taken and she was told to follow up with the [facility] department for evaluation and treatment. Patient vela snot recall if she has bitten on something hard or any hard movements, however, she states that she is preparing to sing and the presentation is ocming soon. O the clinical exam it is noticed pain and tenderness on the side of the head, around the TMJ. Patient was instructed to eat soft foods, to use hot/cold compresses on the area and pain medication was sent to [facility]. [facility] referral and Physical therapy referral given Assessment/Plan: TMJ disorder assessment referral. Prescriptions: Tylenol 650 mg/tid/prn 15 tabs Pt tolerated procedure well, all questions answered. Dismissed in good condition. Data Sme: Saima Andrade Dentist: Lorena Welsh DDS [1] Past Medical History: Diagnosis Date Arthritis Asthma Bleeding gums Fibromyalgia High blood cholesterol Kidney disease Non-alcoholic fatty liver disease Periodontal disease Teeth grinding Trigeminal neuropathy [2] Outpatient Encounter Medications as of 01/29/2025 Medication Sig Dispense Refill albuterol 108 (90 Base) MCG/ACT inhaler Inhale 2 puffs every 6 (six) hours if needed for wheezing. 18 g 3 atorvastatin (Lipitor) 40 MG tablet Take 40 mg by mouth. atorvastatin (Lipitor) 40 MG tablet TAKE ONE TABLET EVERY NIGHT AT BEDTIME 90 tablet 3 calcium carbonate 1500 (600 Ca) MG tablet Take 600 mg by mouth. calcium carbonate 1500 (600 Ca) MG tablet TAKE ONE TABLET EVERY MORNING 30 tablet 11 Calcium Polycarbophil (fiber) 625 MG tablet TAKE ONE TABLET EVERY MORNING WITH a full GLASS of WATER carBAMazepine (TEGretol) 200 MG tablet cetirizine (ZyrTEC) 10 MG tablet TAKE ONE TABLET EVERY MORNING 30 tablet 11 cetirizine (ZyrTEC) 2.5 MG chewable split tablet 10 mg. cholecalciferol VITAMIN D (Vitamin D-3) 50 MCG (1999 UT) capsule TAKE ONE CAPSULE TWICE DAILY IN THE MORNING AND AT BEDTIME 60 capsule 11 esomeprazole (NexIUM) [address] capsule estradiol (Estrace) 0.1 MG/GM vaginal cream Apply 1 gm intra vaginally every 3 days 42.5 g 11 estradiol (Estrace) 0.1 MG/GM vaginal cream Every 3 days 42.5 g 5 famotidine (Pepcid) 20 MG tablet TAKE ONE TABLET TWICE DAILY IN THE MORNING AND AT BEDTIME 60 tablet 5 fluticasone (Flonase) 50 MCG/ACT nasal spray Administer 1 spray into each nostril Once per day. 16 g 5 gabapentin (Neurontin) 300 MG capsule meloxicam (Mobic) 7.5 MG tablet Take 1 tab orally twice a day as needed for joint pains 60 tablet 3 Mometasone Furoate (Asmanex HFA) 200 MCG/ACT aerosol INHALE ONE PUFF TWICE DAILY, RINSE MOUTH AFTERUSE 1 g 1 montelukast (Singulair) 10 MG tablet Take 10 mg by mouth. montelukast (Singulair) 10 MG tablet TAKE ONE TABLET EVERY NIGHT AT BEDTIME 30 tablet 11 Multiple Vitamins-Minerals (CertaVite/Antioxidants) tablet TAKE ONE TABLET EVERY MORNING 90 tablet 3 pantoprazole (ProtoNix) 20 MG EC tablet Take 20 mg by mouth in the morning. traZODone (Desyrel) 50 MG tablet Take 1 tablet (50 mg) by mouth at bedtime. 30 tablet 11 acetaminophen (Tylenol 8 Hour) 650 MG ER tablet Take 1 tablet (650 mg) by mouth every 8 (eight) hours if needed for moderate pain for up to 10 days. Do not crush, chew, or split. 15 tablet 0 No facility-administered encounter medications on file as of 01/29/2025. documented in this encounter Plan of Treatment Not on file documented as of this encounter Procedures Procedure Name Priority Date/Time Associated Diagnosis Comments PALLIATIVE (EMERGENCY) TREATMENT OF DENTAL PAIN - MINOR PROCEDURE Routine 01/29/2025 11:30 AM EST Arthralgia of left temporomandibular joint CASE PRESENTATION, DETAILED AND EXTENSIVE TREATMENT PLANNING Routine 01/29/2025 11:30 AM EST Arthralgia of left temporomandibular joint documented in this encounter Visit Diagnoses Diagnosis Arthralgia of left temporomandibular joint- Primary documented in this encounter Additional Health Concerns Assessment Noted Time PHQ-9 Depression Total Score: 2 03/24/19 23 9:26 AM EST documented as of this encounter
--- NOTE | 2025-02-03 13:59 | MHC.PC.OV ---
Vital Signs 02/03/25 14:00 Height 5 ft 2 in Weight 120 lb 2 oz BMI 22.0 BP 130/80 Blood Pressure Location Lt brachial Position Sitting Pulse 70 Pulse Source Pulse Oximeter Temp 98.1 F Temp Source Temporal Artery Scan Pulse Oximetry (%) 99 Oxygen Delivery Method Room Air Intake [place] [facility] [place] [employer] Designer Required: No Accompanied by: Self / Same As Patient Allergies shellfish derived Adverse Reaction (Intermediate, Verified 02/03/25 14:29) Nausea and Vomiting Medication List - Last Reconciled 02/03/25 by Donna Bertrand PA-C albuterol sulfate 90 mcg/actuation 2 puffs inhalation Q6H PRN albuterol sulfate 2.5 mg (3 mL) inhalation Q4-6H PRN aspirin 81 mg PO DAILY atorvastatin (Lipitor) 80 mg PO BEDTIME baclofen 5 mg PO BEDTIME bisacodyl (Dulcolax (bisacodyl)) 10 mg (2 x 5 mg) PO BEDTIME calcium carbonate 600 mg PO QAM carbamazepine 200 mg PO BID cetirizine 10 mg PO QAM cholecalciferol (vitamin D3) 50 mcg PO DAILY esomeprazole magnesium 40 mg PO QAM estradiol 0.01%(0.1mg/gram) vaginal famotidine 20 mg PO BID fluticasone propionate 50 mcg/actuation 1 spray intranasal DAILY gabapentin 300 mg PO BID lidocaine 5% 1 patch topical DAILY meloxicam 7.5 mg PO DAILY PRN mometasone 200 mcg/actuation (Asmanex HFA) 1 puff inhalation BID montelukast 10 mg PO BEDTIME cfznszjdwrxl-xsmi-nygyu acid 18-400 mg-mcg (Certavite-Antioxidant) 1 tab PO QAM Tobacco use date assessed: 10/16/24 Fall risk assessment: No Falls in past year Last assessed Fall Risk: 10/16/24 Dental Screening Dental Screen Date: 10/16/24 Did you have a dental visit in the last 12 months?: Yes Did you have a dental problem in the last 6 months where you did not have access to dental care?: No Was dental information given to patient?: Patient has dentist [place] [facility] [place] H[place] Details 69-year-old female with past medical history of chronic kidney disease, abdominal aortic atherosclerosis, GERD, asthma, fatty liver, neuropathy last seen 01/2025 coming in for hospital follow up. In review of the notes, patient was seen [place] [facility] [place] for jaw pain diagnosed with TMJ and d/c home with NSAIDs. Presenting for evaluation of jaw pain and arm pain. The patient reports an inability to open the mouth and severe left-sided jaw pain that began after practicing singing. The patient was evaluated at the [facility] and given a possible diagnosis of TMJ, along with a referral for physical therapy which starts tomorrow. The patient also received a referral to a myofascial oral surgeon, but the earliest appointment is in 2026. Due to the pain, the patient is on a soft food diet, which is challenging as the patient is also trying to manage high cholesterol. The patient has a history of bruxism and has an uncomfortable mouthguard that was previously modified when a tooth was removed. The patient also reports arm pain that is worse than ever, localized to the biceps and radiating down to the hand. The patient has a history of cervical radiculopathy diagnosed years ago and suspects the neck is the source of the arm pain. [facility] Medical History Actinic keratoses Squamous cell carcinoma, face Trigeminal neuralgia Diverticulosis large intestine w/o perforation or abscess w/bleeding Tubular adenoma of colon Hiatal hernia Surgical History H/O colonoscopy Family History Mother Lung cancer Father Diabetes Social History Household Members: None Housing: Condominium Alcohol intake: former Patient Tobacco Use Status: Former Tobacco user Tobacco use type: Cigarette e-Cigarette/Vaping Use: Never Used Second Hand Smoke Exposure: No Substance Use Type: Marijuana service: No Current occupational status: retired Cognitive needs: No Hearing needs: No Vision needs: No Questionnaire PHQ-9 Over the last 2 weeks, how often have you been bothered by any of the following problems? 1. Little interest or pleasure in doing things: not at all 2. Feeling down, depressed, or hopeless: not at all 3. Trouble falling or staying asleep, or sleeping too much: several days 4. Feeling tired or having little energy: several days 5. Poor appetite or overeating: several days 6. Feeling bad about yourself - or that you are a failure or have let yourself or your family down: not at all 7. Trouble concentrating on things, such as reading the newspaper or watching television: not at all 8. Moving or speaking so slowly that other people could have noticed. Or the opposite - being so fidgety or restless that you have been moving around a lot more than usual: not at all 9. Thoughts that you would be better off or of hurting yourself in some way: not at all Total score: 3 Depression Screening Interpretation: Negative Depression Screening Done: Yes 49789 - PHQ-9 Billing: Yes Source: Developed by Drs. Willem Junior, Suri Crockett, Arturo Cowart and colleagues, with an educational lópez from [employer]. Thrive Questionnaire Date Thrive assessed: 10/09/24 I am a: Patient What is your living situation today?: I have a steady place to live Within the past 12 months, did the food you bought not last and you didn't have the money to get more?: I choose not to answer this question Within the past 12 months, did you worry whether your food would run out before you got money to buy more?: I choose not to answer this question Do you have trouble paying for medicines?: No Do you have trouble getting transportation to medical appointments?: No Do you have trouble paying your heating and electricity bill?: I choose not to answer this question Do you have trouble taking care of your child, family member or friend?: I choose not to answer this question Do you have trouble with day-to-day activities such as bathing, preparing meals, shopping, managing finances, etc.?: No Are you currently unemployed and looking for a job?: No Are you interested in more education?: No Please select the resources that you would like help with: None Currently or been in a relationship where the following occur: No concerns reported THRIVE Score: 0 AUDIT C Alcohol Use Questionnaire (AUDIT-C) 1. How often do you have a drink containing alcohol?: Monthly or less 2. How many drinks containing alcohol do you have on a typical day when you are drinking?: 1 or 2 3. How often do you have six or more drinks on one occasion?: Never Total Score: 1 CELESTE-7 AMB Questionnaire CELESTE-7 Date CELESTE - 7 assessed: 10/16/24 Feeling nervous, anxious, or on edge: 1 = Several days Not being able to stop or control worryin = Not at all Worrying too much about different things: 0 = Not at all Trouble relaxin = Not at all Being so restless that it is hard to sit still: 0 = Not at all Becoming easily annoyed or irritable: 0 = Not at all Feeling afraid as if something awful might happen: 0 = Not at all Total CELESTE-7 score (0-4 normal; 5-9 mild; 10-14 moderate; 15-21 severe): 1 Source: Developed by Drs. Willem Junior, Suri Crockett, Arturo Cowart and colleagues, with an educational lópez from [employer]. Review of Systems Const Denies body aches, Denies chills, Denies fever(s), Reports headache(s) and Denies poor appetite Eyes Reports no additional complaints ENT Denies dysphagia, Denies dizziness, Reports headache(s) and Denies odynophagia Card Denies chest pain, Denies edema, Denies lightheadedness and Denies dyspnea Resp Denies dyspnea GI Denies abdominal pain, Denies dysphagia, Denies nausea, Denies odynophagia and Denies vomiting Reports no additional complaints Musc Reports as per HPI and Denies abnormal gait Skin/Breast Reports system reviewed and no additional complaints, except as documented Neuro Denies abnormal gait, Denies dizziness and Reports headache(s) Psych Reports no additional complaints Physical exam (Primary Care) Vital Signs: Last Vital Signs Temp 98.1 F 02/03/25 14:00 Pulse 70 02/03/25 14:00 BP 130/80 02/03/25 14:00 Pulse Ox 99 02/03/25 14:00 Oxygen Delivery Method Room Air 02/03/25 14:00 BMI result Body Mass Index 22.0 Tobacco/Smoking Status: Tobacco use Status Tobacco use date assessed 10/16/24 02/03/25 14:06 Patient Tobacco Use Status Former Tobacco user 02/03/25 14:06 Tobacco use type Cigarette 11/24/25 14:06 e-Cigarette/Vaping Use Never Used 02/03/25 14:06 PHQ-9: PHQ-9 Score PHQ-9: Total score 3 02/03/25 14:43 Depression Screening Interpretation: Negative Thrive Assessment: Date of Thrive Assessment Date Thrive assessed 10/09/24 02/03/25 14:06 Currently or been in a relationship where the following occur: No concerns reported Const General: cooperative, healthy appearing, comfortable and no acute distress Orientation/consciousness: patient oriented x3 HENMT Head: Yes normocephalic Ears: hearing grossly normal bilaterally General nose exam: Normal external nose present Eyes General: appearance normal, both eyes and all related structures Conjunctivae: conjunctivae normal Neck Neck: Yes full ROM and Yes no lymphadenopathy Resp Effort & Inspection: normal respiratory effort Auscultation: clear to auscultation bilaterally, no crackles, no rales, no rhonchi and no wheezes Cardio Rate: regular rate Rhythm: regular rhythm Skin General skin exam: no rashes or lesions noted Neuro General: patient oriented x3 Gait exam (Neuro): Normal gait present Extrem General: Yes normal to inspection, Yes full ROM and No edema Psych Affect: normal affect Attitude: cooperative Insight: Good insight present (Psych) Judgement: Good judgement present (Psych) Coding Level of Care Code Est Pt Level 3 (51063) Diagnoses Neck pain M54.2 Right shoulder pain M25.511 TMJ (dislocation of temporomandibular joint) S03.00XA Additional Codes PHQ-9 - 71088 - PHQ-9 Billing: Yes ([id number]) Assessment & Plan Assessment & Plan (1) Neck pain: Code(s): M54.2 - Cervicalgia Category: Medical Plan: The patient reports worsening arm pain radiating from the bicep to the hand, with a history of cervical radiculopathy. To differentiate the origin of the pain, X-rays of the cervical spine and the shoulder will be ordered. (2) Right shoulder pain: Code(s): M25.511 - Pain in right shoulder Category: Medical Plan: see above plan (3) TMJ (dislocation of temporomandibular joint): Code(s): S03.00XA - Dislocation of jaw, unspecified side, initial encounter Category: Medical Plan: The patient presents with left-sided jaw pain and difficulty opening the mouth, consistent with TMJ disorder. The plan includes increasing the dose of baclofen for muscle relaxation, continuing acetaminophen 650 mg for pain, and using a mouthguard at night. The patient will proceed with the physical therapy appointment scheduled for tomorrow. A referral will be placed to ENT for further evaluation and management, as the local ENT practice is not currently available. Plan This note was constructed using voice recognition software. While every effort has been made to ensure accuracy and geoscience laboratory technician, still areas may have been included sometimes these areas may affect the content or meeting of the given symptoms. Total time spent caring for the patient today was 20 minutes. This includes time spent before the visit reviewing the chart, time spent during the visit, and time spent after the visit and documentation. Patient was informed and verbally consented to the use of an ambient scribe for clinic note documentation during this visit. Orders: Orders XR cervical spine 2V Today M54.2 - Cervicalgia XR shoulder RT min 2V Today M79.604 - Pain in right leg PT Evaluation and Treatment Today S03.00XA - Dislocation of jaw, unspecified side, initial encounter XR shoulder RT min 2V Today M25.511 - Pain in right shoulder Referrals Ear/Nose/Throat Referral S03.00XA - Dislocation of jaw, unspecified side, initial encounter Medications: New baclofen 10 mg PO BEDTIME 30 tabs 0RF Discontinued baclofen Discontinued Reason: Patient no longer taking 5 mg PO BEDTIME 14 tabs 0RF
[2025-02-03 14:00] VITALS: BP 130/80; PULSE 70; TEMP 36.7; O2SAT 99; BMI 22.0
--- OUTSIDE RECORDS SUMMARY | 2025-02-03 18:45 | XMS_ITS | Clinical Summary ---
Author Organization [employer] Address [address] [place] [address] 7[address] [place] [address] Care Team Providers Care Press Maintainer Name Role Phone Unavailable Primary Care Provider Unavailabl e Allergies Active Allergy Reactions Criticality Noted Date Comments Dust Mite Extract 08/12/2022 Gramineae Pollens 08/12/2022 Shellfish Allergy Low 08/12/2022 Other reaction(s): hives, puffy Other Reaction(s): Diarrhea, stomach problems Shellfish Protein-Containing Drug Products 08/06/2014 Medications gabapentin [...] EVERY MORNING 90 tablet 3 5 Active acetaminophen (Tylenol 8 Hour) 650 MG ER tablet Take 1 tablet (650 mg) by mouth every 8 (eight) hours if needed for moderate pain for up to 10 days. Do not crush, chew, or split. 15 tablet 01/29/2025 12:30 PM EST 02/09/20 25 Active Active Problems Problem Noted Date Diagnosed Date Acute viral bronchitis 01/29/2025 CKD (chronic kidney disease) 01/29/2025 Contusion of foot, right 01/29/2025 Hiatal hernia 01/29/2025 Viral syndrome 01/29/2024 Cough 01/29/2024 Assessment & Plan (01/29/2024 9:29 PM EST): - Ddx: Post nasal drip vs asthma vs GERD vs med SE (not on ACEi) vs COPD vs bronchitis vs other - Plan: order CXR, labs: T-spot with night sweats, TSH - Rapid FluA&B, COVID negative in office - ED/urgent care precautions reviewed - Follow up with any persistent or worsening of symptoms. Abnormal weight loss 10/01/2020 Overview (01/29/2025): Abnormal weight loss; Note: Date Diagnosed: 10/01/2020 4:50 PM (R63.4) Acute pharyngitis 10/01/2020 Overview (01/29/2025): Sore throat (acute) NOS; Note: Date Diagnosed: 10/01/2020 4:50 PM (J02.9) Dysphagia 2019 Overview (01/29/2025): Other dysphagia; Note: Date Diagnosed: 2019 11:29 AM (R13.19) Singers' nodes 2019 Overview (01/29/2025): Nodules of vocal cords; Note: Date Diagnosed: 2019 11:29 AM (J38.2) Sensorineural hearing loss (SNHL) of both ears 1 03/18/2018 Overview (01/29/2025): Sensorineural hearing loss, bilateral; Note: Date Diagnosed: 01/16/2019 10:17 AM (H90.3) Impacted cerumen 11/21/2018 Overview (01/29/2025): Impacted cerumen; Note: Date Diagnosed: 11/21/2018 11:38 AM (380.4) Bilateral impacted cerumen 11/08/2018 Overview (01/29/2025): Impacted cerumen, bilateral; Note: Date Diagnosed: 11/08/2018 9:42 AM (H61.23) Dysphonia 08/16/2015 Overview (01/29/2025): Dysphonia; Note: Date Diagnosed: 08/16/2015 7:21 PM (R49.0) Allergic rhinitis 08/06/2015 Overview (01/29/2025): Allergic rhinitis, unspecified; Note: Date Diagnosed: 08/06/2015 2:15 PM (J30.9) Hyperlipidemia 04/16/2015 Asthma 04/16/2015 Other voice and resonance disorders 12/25/2014 Overview (01/29/2025): Other voice and resonance disorders; Note: Date Diagnosed: 12/25/2014 2:46 PM (R49.8) Trigeminal neuralgia 07/17/2013 Anxiety 02/06/2012 Dyslipidemia 02/06/2012 Gastroesophageal reflux disease without esophagi tis 02/06/2012 Overview (01/29/2025): Gastro-esophageal reflux disease without esophagitis; Note: Date Diagnosed: 12/25/2014 2:46 PM (K21.9) 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 Encounters Date Type Department Care Team Description 01/29/2025 11:30 AM EST Office Visit [facility] [address] [place] [address] Lorena Welsh DDS Arthralgia of left temporomandibular joint (Primary Dx) 01/29/2025 Telephone [facility] [address] [place] [address] ACOSTA 01/22/2025 8:00 AM EST Office Visit [facility] [address] [place] [address] Clayton Be 01/21/2025 11:30 AM EST Office Visit [facility] [address] [place] [address] Clayton Be 01/16/2025 Orders Only GENERIC EXTERNAL DATA DEPARTMENT Provider, Generic External Data 01/15/2025 Orders Only GENERIC EXTERNAL DATA DEPARTMENT Provider, Generic External Data 12/19/2024 Orders Only [facility] External Provider, [facility] 12/16/2024 Refill [facility] [address] [place] [address] Charisma Stinson MD Gastroesophageal reflux disease without esophagitis 12/10/2024 1:30 PM EDT Office Visit [facility] [address] [place] [address] Clayton Be 11/21/2024 Refill [facility] [address] [place] [address] Charisma Stinson MD from Last 3 Months [...] Pressure 138/78 01/29/2025 11:43 AM EST Pulse 65 05/27/2024 11:34 AM [...] 12/10/2024, 05/27/2024, Additional history exists Tobacco Screening 01/29/2026 01/29/2025 DTaP/Tdap/Td Vaccines (2 - Td or Tdap) [...] AM EST Arthralgia of left temporomandibular joint PALLIATIVE (EMERGENCY) TREATMENT OF DENTAL PAIN - MINOR PROCEDURE Routine 01/29/2025 11:30 AM EST Arthralgia of left temporomandibular joint 31 GINGIVECTOMY/GINGIVO PLASTY TO ALLOW ACCESS FOR RESTORATIVE PROC, PER [...] AM EST) Influenza A PCR NEGATIVE Negative [facility] Influenza B PCR NEGATIVE Negative [facility] Resp Syncy Virus RNA Qual PCR NEGATIVE Negative [facility] SARS COV2 PCR NEGATIVE Negative [facility] Comment:All test results mus t be [...] use by authorized laboratories.Testing performed on the [email or web address] GeneXpert utilizingreal-time RT-PCR.All SARS CoV2 and positive influenza A/B results arereported to [facility]. 01/16/2025 11:2 3 AM EST 01/16/2025 6:21 PM EST us Generic External Data Provider LAB MICROBIOLOGY - GENERAL ORDERABLES Final Result [facility] [address] [place] [phone] * Lyme Disease Ab with Reflex to Blot (IgG, IgM) (01/15/2025 2:33 PM EST) [facility] Lyme Antibody Screen <0.90 index [facility] Comment:Index Interpretation ----- < 0.90 [...] when erythemamigrans is apparent.THIS TEST WAS PERFORMED AT:.[employer] [address] [id number] MALDONADO MD Lyme Blot [facility] 01/15/2025 2:33 PM EST 01/15/2025 2:33 PM EST Generic External Data Provider LAB BLOOD ORDERAB LES Final Result Performing Organization Address City/[facility]/ZIP Co de Phone Number [facility] [address] [place] [phone] * Sed Rate by Modified Nolanergren (01/15/2025 2:33 PM EST) [facility] Erythrocyte Sedimentation Rate 2 0 - 20 MM/HR [facility] Comment:Patients with polycy themia and many hemoglobin abnormalitiesmay have depressed sed rates whereas patients with anemiamay have elevated sed rates. 01/15/2025 2:33 PM EST 01/15/2025 2:33 PM EST Generic External Data Provider LAB BLOOD ORDERAB LES Final Result [facility] [address] [place] [phone] * (ABNORMAL) Basic Metabolic Panel (01/15/2025 2:33 PM EST) Sodium 138 135 - 145 mmol/L [facility] Potassium 3.6 3.3 - 5.1 mmol/L [facility] Chloride 102 96 - 108 mmol/L [facility] Carbon Dioxide 30(H) 22 - 29 mmol/L [facility] Anion Gap 10(L) 12 - 20 [facility] Urea Nitrogen (BUN) 10 9 - 16 mg/dL [facility] Creatinine, Serum 0.70 0.5 - 1.4 mg/dL [facility] Estimated Glomerular Filt Rate >60 [facility] Comment:Chronic Kidney Disea se: Estimated GFR < 60 mL/min/1.47p3Hoskku Kidney Disease: Estimated GFR < 15 mL/min/1.73m2 Glucose 77 60 - 115 mg/dL [facility] Calcium 8.9 8.4 - 10.2 mg/dL [facility] 01/15/2025 2:33 PM EST 01/15/2025 2:33 PM EST us Generic External Data Provider LAB BLOOD ORDERAB LES Final Result Performing Organization Address [facility] Co de Phone Number [facility] [address] [place] [phone] * (ABNORMAL) Urine Protein, Total, Random without Creatinine (01/15/2025 2:30 PM EST) Protein, Total, Random Urine 13(H) <12 mg/dL [facility] 01/15/2025 2:30 PM EST 01/15/2025 2:57 PM EST Generic External Data Provider LAB URINE ORDERAB LES Final Result Performing Organization Address [facility] Co de Phone Number [facility] [address] [place] [phone] * Creatinine, Random Urine (01/15/2025 2:30 PM EST) Creatinine, Urine 132.63 mg/dL [facility] 01/15/2025 2:30 PM EST 01/15/2025 2:57 PM EST Generic External Data Provider LAB URINE ORDERAB LES Final Result Performing Organization Address [facility] Co de Phone Number [facility] [address] [place] [phone] * (ABNORMAL) Urinalysis Complete (01/15/2025 2:30 PM EST) Color Urine Dark Yellow [facility] Appearance Urine Clear [facility] PH 6.0 5.0 - 9.0 [facility] Glucose Urine UA Negative Negative mg/dL [facility] Urine Blood Trace(A) Negative [facility] Specific [place] - Urine 1.025 1.005 - 1.025 [facility] Urine Protein Negative Neg-Trace mg/dL [facility] Urine Ketones Negative Negative mg/dL [facility] Nitrite Urine Negative Negative [facility] Leukocyte Esterase Urine Small (1+)(A) Negative [facility] RBC Urine 3-5(A) 0 - 2 /HPF [facility] Urine WBC 0-5 0 - 5 /HPF [facility] Urine Squamous Epithelial Cell 11-20 0 - 2 /HPF [facility] Urine Bacteria Trace None Seen [facility] Hyaline Casts, Urine 0-2 0 - 2 /LPF [facility] 01/15/2025 2:30 PM EST 01/15/2025 2:57 PM EST us Generic External Data Provider LAB URINE ORDERAB LES Final Result Performing Organization Address [facility]/ZIP Co de Phone Number [facility] [address] [place] [phone] * NM heart perfusion SPECT stress and rest (12/19/2024 9:35 AM EDT) Anatomical Region Laterality Modality Body Nuclear Medicine 12/19/2024 9:35 AM EDT Narrative 12/24/2024 12:28 PM EDT [address] [address] Nuclear Medicine Report Signed Patient: Zoey Walsh MR#: [id number] 656 : 1955 Acct:[id number] Age/Sex: 69 / F ADM Date: 12/19/24 Loc: HO.CARD Attending Dr: Gilberto Villalobos MD Ordering Physician: Gilberto Villalobos MD Date of Service: 12/19/24 Procedure(s): NM kathleen perf SPECT rest str Accession Number(s): [id number] cc: Charisma Stinson MD; Gilberto Villalobos MD [...] 12/24/24 1225 DD/ 0935 TD/TT: 12/20/24 1130 Manager Simulation: Procedure Note Donotuseinterpreter, Image - 12/24/2024 [place] [address] Nuclear Medicine Report Signed Patient: Zoey Walsh JMR#: [id number] 656 : 8Acct:[id number] Age/Sex: 69 / FADM Date: 12/19/24 Loc: HO.CARD Attending Dr: Gilberto Villalobos MD Ordering Physician: Gilberto Villalobos MD Date of Service: 12/19/24 Procedure(s): NM kathleen perf SPECT rest str Accession Number(s): [id number] cc: Charisma Stinson MD; Gilberto Villalobos MD [...] 12/24/24 1225 DD/ 0935 TD/TT: 12/20/24 1130 Manager Simulation: [facility] External Provider IMG NM PROCEDURES Final Result * BI Mammogram Screening Tomosynthesis Bilateral (11/22/2023 11:30 AM EDT) Anatomical Region Laterality Modality Breast Bilateral Mammography 11/22/2023 11:3 0 AM EDT Narrative 12/06/2023 10:24 AM EDT [facility] [address] [place] [address] Mammography Report Signed Patient: Zoey Walsh MR#: [id number] 656 : 1955 Acct:[id number] Age/Sex: 68 / F ADM Date: 11/22/23 Loc: HO.MAMMO Attending Dr: Charisma Stinson MD Ordering Physician: Charisma Stinson MD Results: 2Be nign Findings Date of Service: 11/22/23 Follow Up: 1 Year From Orig inal Mammogram Procedure(s): MM tomosynthesis screening BI Accession Number(s): [id number] cc: Charisma Stinson MD EXAMINATION: MM SCREENING [...] 12/06/23 1021 DD/ 1130 TD/TT: 11/22/23 1144 Manager Simulation: Procedure Note Donotuseinterpreter, Image - 12/06/2023 [facility] [address] [place] [address] Mammography Report Signed Patient: Zoey Walsh JMR#: [id number] 656 : 8Acct:[id number] Age/Sex: 68 / FADM Date: 11/22/23 Loc: MAMMO Attending Dr: Charisma Stinson MD Ordering Physician: Charisma Stinson MDResults: 2Be nign Findings Date of Service: 11/22/23Follow Up: 1 Year From Orig ina Mammogram Procedure(s): MM tomosynthesis screening BI Accession Number(s): [id number] cc: Charisma Stinson MD EXAMINATION: MM SCREENING [...] 12/06/23 1021 DD/ 1130 TD/TT: 11/22/23 1144 Manager Simulation: us Charisma Stinson MD IMG BI PROCEDURES [...] along with historic and current clinical information. Manufacturing Technician : SEE COMMENT [facility] Comment: KN, CT(ASCP) CT screening location: [place] [address] Interpretation/R esult: Negative for intraepithelial lesion or [...] MD LAB PATHOLOGY ORDERABLES Final R esult [facility] [address] from Last 3 Months or Most Recently Relevant to Health Maintenance Insurance [facility] , [address] [place] [address] DENTAL - HSN FULL (MEDICAID)
--- OUTSIDE RECORDS SUMMARY | 2025-02-03 18:45 | XMS_ITS | Encounter Summary ---
Author Organization [employer] Address [address] [facility] 7 [place] [address] Care Team Providers Care E Commerce Director Name Role Phone Unavailable Primary Care Provider Unavailabl e Reason for Visit * Reason Comments Med Refill Encounter Details Date Type Department Care Team ([facility] Contact Info) Description 10/11/2024 Refill [facility] [address] [place] [address] Charisma Stinson MD [address] [place] [address] Mixed hyperlipidemia Social History Tobacco Use Types [...] t he electric, gas, oil or water OPPRTUNITY threatened to shut off services in your [...]
--- OUTSIDE RECORDS SUMMARY | 2025-02-03 18:45 | XMS_ITS | Encounter Summary ---
Author Organization [employer] Address [address] [place] [address] 7 [place] [address] Care Team Providers Care Medical Appointment Scheduler Name Role Phone Unavailable Primary Care Provider Unavailabl e Reason for Visit * Reason Comments Med Refill Encounter Details Date Type Department Care Team ([facility] Contact Info) Description 10/10/[address] [facility] & PEDS [address] [place] [address] Charisma Stinson MD [address] [place] [address] Moderate persistent asthma, unspecified whether complicated Social [...]
--- OUTSIDE RECORDS SUMMARY | 2025-02-03 18:45 | XMS_ITS | Encounter Summary ---
Author Organization [employer] Address [address] [facility] 7 [place] [address] Care Team Providers Care Lining Stitcher Name Role Phone Unavailable Primary Care Provider Unavailabl e Reason for Visit * Reason Comments Med Refill Encounter Details Date Type Department Care Team ([facility] Contact Info) Description 12/16/2024 Refill [facility] & PEDS [address] [place] [address] Charisma Stinson MD [address] [place] [address] Gastroesophageal reflux disease without esophagitis Social History [...]
--- OUTSIDE RECORDS SUMMARY | 2025-02-03 18:45 | XMS_ITS | Data Portability ---
Author Organization [place] - [facility], Allergy Address [address] [address] Care Team Providers Care Director Workers Compensation Name Role Phone WILLY ARAUJO Primary Care [...] for cerumen removal, or sooner with concerns. [email or web address] Not available 03/14/2024 12:19:57 Plan of Treatment [...] By Organization Details Last Modified Time 09/06/2024 [id number] Reviewed results with patient. She is pleased that there are no significant changes in her hearing. CC of hearing test given to patient. [email or web address] Not available 09/06/2024 11:32:59 Reason for Referral None Reported. Results Created Date Observation Date Name Description Value Unit Range Abnormal Flag Note LastModifiedBy Organization Detail LastModifiedTime 09/07/19 25 audio gram No observ ation record ed. [email or web address] Not Available 08/12 11:42:12 Result Notes None recorded. Problems Name Problem SNOMED Code Status Onset Date Resolution Date Notes Provider Name and Address Organization Details Recorded Time Finding of resonance of voice 497932995 Active 2014 Other voice and resonance disorders ; Note: Date Diagnosed : 5 2:46 PM (R49.8) Not Available [facility] 4 02:47:55 Gastroeso phageal reflux disease without esophagit is 737978354 Active 2014 Gastro-es ophageal reflux disease without esophagit is; Note: Date Diagnosed : 5 2:46 PM (K21.9) Not Available [facility] 4 02:47:53 Allergic rhinitis 81218005 Active 2015 Allergic rhinitis, unspecifi ed; Note: Date Diagnosed : 08/06/2015 2:15 PM (J30.9) Not Available [facility] 4 02:47:57 Dysphonia 54804556 Active 2015 Dysphonia ; Note: Date Diagnosed : 08/16/2015 7:21 PM (R49.0) Not Available [facility] 4 02:48:01 Impacted cerumen of bilateral ears 72066173202 35465 Active 2018 Impacted cerumen, bilateral ; Note: Date Diagnosed : 11/08/2018 9:42 AM (H61.23) Not Available [facility] 4 02:47:59 Impacted cerumen 03670785 Active 2018 Impacted cerumen; Note: Date Diagnosed : 11/21/2018 11:38 AM (380.4) Not Available [facility] 4 02:47:56 Sensorine ural hearing loss of bilateral ears 613105025 Active 2018 Sensorine ural hearing loss, bilateral ; Note: Date Diagnosed : 01/16/2019 10:17 AM (H90.3) Not Available [facility] 4 02:47:59 Singers' nodes 38571802 Active 2019 Nodules of vocal cords; Note: Date Diagnosed : 2019 11:29 AM (J38.2) Not Available [facility] 4 02:48:01 Dysphagia 69601647 Active 2019 Other dysphagia ; Note: Date Diagnosed : 2019 11:29 AM (R13.19) Not Available [facility] 4 02:48:01 Acute pharyngit is 548896974 Active 2020 Sore throat (acute) NOS; Note: Date Diagnosed : 10/01/2020 4:50 PM (J02.9) Not Available [facility] 4 02:47:56 Abnormal weight loss 499131602 Active 2020 Abnormal weight loss; Note: Date Diagnosed : 10/01/2020 4:50 PM (R63.4) Not Available [facility] 4 02:47:57 Problem Notes None recorded. Procedures Surgical History Date Name Laterality Status Provider Name and Address Organization Details Recorded Time 5 Comp Audio with Tymps - 87509 & 72477 completed THANIA ARROYO 100 [facility],[address], [address], [facility] 09/06/2024 11:30:22 5 Cerumen removal without microscope bilat completed CRISTINA DE JESUS PA-C 100 [facility],[address], [address], [facility] 03/14/2024 12:19:25 Imaging Results None recorded. Procedure [...] Not Available No t Available atorvasta tin 80 mg tablet TAKE ONE TABLET EVERY NIGHT AT BEDTIME active Not Available Not Available No t Available cetirizin e 10 mg tablet TAKE ONE TABLET EVERY MORNING active Not Available Not Available No t Available azithromy jason 250 mg tablet 10/19 completed Medicati on ID: [id number] Du ration Value: 5 Reason: () Brand Name: azithrom ycin Sen d Method: E-Prescr ibed Sub s Allowed: subs OK Speci al Instruct ion: take 2 tablets by mouth today then take 1 tablet DAILY FOR 4 DAYS Med icationG enericNa me: azithrom ycin Not Available Not Available Not Available ranitidin e 300 mg tablet 11/26 completed Medicati on ID: 78247 Du ration Value: 30 Reason: () Brand [...] gram tablet 03/13 completed Medicati on ID: [id number] D uration Value: 90 Brand Name: sucralfa te Send Method: E-Prescr ibed Sub s Allowed: subs OK Speci al Instruct ion: take 1 tablet by mouth three times a day ON AN EMPTY STOMACH 1 HOUR BE FORE MEALS AND AT BEDTIME Medicati onGeneri cName: sucralfa te Not Available Not Available Not Available prednison e 20 mg tablet 10/19 completed Medicati on ID: 44448 Du ration Value: 4 Reason: () Brand [...] Not Available Not Available No t Available acetamino phen ER 650 mg tablet,ex tended release TAKE ONE TABLET BY MOUTH EVERY EIGHT HOURS NEEDED FOR PAIN DO NOT BREAK, CRUSH, DISSOLVE OR CHEW active Not Available Not Available No t [...] by mouth 03/13 completed Medicati on ID: [id number] P gordon valladares By Name: Toi Rodriguez MD Brand Name: ranitidi ne HCl Send Method: E-Prescr ibed Sub s Allowed: subs OK Medic ationGen ericName : ranitidi ne HCl Not Available Not Available Not Available Guaifenes in AC 10 mg-100 mg/5 mL oral liquid 10/19 completed Medicati on ID: [id number] Du ration Value: 1 Reason: () Brand [...] by mouth 11/26 completed Medicati on ID: [id number] D uration Value: 30 Prescri bed By [...] 50 mcg/actua tion nasal spray,iván pension INHALE ONE SPRAY IN EACH NOSTRIL DAILY active Not Available Not Available No t Available loratadin e 10 mg tablet 03/13 completed Medicati on ID: 57653 Du ration Value: 30 Brand Name: lupe sawant Send Method: E-Prescr ibed Sub s Allowed: subs OK Medic ationGen ericName : lupe sawnat Not Available Not Available Not Available amoxicill [...] IM syringe 10/19 completed Medicati on ID: [id number] Du ration Value: 1 Reason: () Brand Name: Fluarix Quad 6 (PF) Sen d Method: E-Prescr ibed Sub s Allowed: subs OK Speci al Instruct ion: inject 0.5 millilit er intramus cularly Medicati onGeneri cName: Fluarix Quad 6 (PF) Not Available Not Available Not Available Adult Aspirin Regimen 08/02 completed Not Available Not Available Not Available baclofen 5 mg tablet TAKE ONE TABLET EVERY NIGHT AT BEDTIME active Not Available Not Available No t Available Vitals Date Recorded Body height Body mass index (BMI) Body weight Provider Name and Address Organization Details Last Updated DateTime 08/02/2024 154.94 cm 22.7 kg/m2 20708.08 g Rosmery Figueroa [place] - [facility] 08/02/2024 11:36:17 Social History None recorded. Functional [...] ICD10 Code Diagnosis IMO Codes Diagnosis Note [id number] CRISTINA DE JESUS PA-C [facility] [address] [address] 03/14/2024 11:23:37 03/14/2024 12:18:10 Impacted cerumen of bilateral ears 7232384958 624443 H61.23 [id number] TIFFANY BRENNER MD [facility] [address] [address] 08/02/2024 11:26:27 08/02/2024 11:45:51 Impacted cerumen of bilateral ears 6574587951 784739 H61.23 Cerumen was removed and tolerated well. She still feels a little blockage. No middle ear effusion. Her last audiogram was in 2019 showing moderate HF loss. I recommende d updated testing at her next cleaning. [id number] TIFFANY BRENNER MD [facility] [address] [address] 09/06/2024 10:45:28 09/06/2024 11:41:05 Sensorineural hearing loss of bilateral ears 632380521 H90.3 Audiologic al evaluation results: Right ear: [...] Goodwin Member ID Guarantor Name 03/14/2024 1 [facility] - DOS ON OR AFTER 2022 - MEDICARE ADVANTAGE [place] (MEDICARE REPLACEMENT/AD VANTAGE - PPO) Zoey Walsh [id number] Zoey Walsh 02/02/2025 1 [facility] - MEDICARE ADVANTAGE PLAN (MEDICARE REPLACEMENT HMO) [id number] Zoey Walsh [id number] Zoey Walsh 02/02/2025 2 [place] [facility] Zoey Walsh [id number] Zoey Walsh Notes Date Note Type Note Provider Name and Address Organization Details Recorded Time 03/14/2024 text/html ROS as noted in the [facility] 68-year-old female presents for an ear cleaning. Feels like ears are blocked and hearing is decreased bilaterally. Denies otalgia and otorrhea. STEVEN WOO MD [address] [place] [address], [address], [facility] 03/14/2024 17:35:24 08/02/2024 text/html ROS as noted in the [facility] 69-year-old female presents for an ear cleaning. Feels like ears are blocked. Feels she gets a better cleaning with the suction. TIFFANY BRENNER MD [address] [place] [address], [address], [facility] - [facility] 08/02/2024 11:46:11 OBGyn Episode No OBEpisode recorded.
--- OUTSIDE RECORDS SUMMARY | 2025-02-03 18:45 | XMS_ITS | Encounter Summary ---
Author Organization [employer] Address 75 [facility] 7 [place] [address] Care Team Providers Care Curriculum Developer Name Role Phone Charisma Stinson MD Primary Care Provider [phone] Reason for Visit * Reason Onset Date Comments Triage 08/05/2022 Encounter Details Date Type Department Care Team ([facility] Contact Info) Description 08/05/2022 Telephone [facility] CHC MED & PEDS [address] [place], [place] [address] Charisma Stinson MD 505 [place] [address] Triage Social History Tobacco Use Types Packs/Day [...] accepted this outcome Please contact pt at [phone] documented in this encounter Plan of Treatment Not on file documented as of this encounter Visit Diagnoses Not on filedocumented in this encounter Additional Health Concerns Assessment Noted Time PHQ-9 Depression Total Score: 2 03/24/19 23 9:26 AM EST documented as of this encounter Care Teams Curriculum Developer Relationship Specialty Start Date End Date Charisma Stinson MD [address] [place] [address] PCP - General Family Medicine 03/13/18 09/05/24 documented as of this encounter
--- OUTSIDE RECORDS SUMMARY | 2025-02-03 18:45 | XMS_ITS | Encounter Summary ---
Author Organization [employer] Address [address] [place] [address] 7 [place] [address] Care Team Providers Care Clicker Operator Name Role Phone Unavailable Primary Care Provider Unavailabl e Reason for Visit * Reason Comments Med Refill Encounter Details Date Type Department Care Team ([facility] Contact Info) Description 10/15/2024 Refill [facility] CHC MED & PEDS [address] [place] [address] Charisma Stinson MD 505 [place] [address] Mixed hyperlipidemia Social History Tobacco Use Types [...] t he electric, gas, oil or water nVoq threatened to shut off services in your [...]
--- OUTSIDE RECORDS SUMMARY | 2025-02-03 18:46 | XMS_ITS | Encounter Summary ---
Author Organization [email or web address] Address [address] [place] [address] [place] [address] Care Team Providers Care Bias Binding Folder Name Role Phone Charisma Stinson MD Primary Care Provider [phone] Encounter Details Date Type Department Care Team ([facility] st Contact Info) Description 01/16/2023 Abstract [facility] MEDICINE [address] [place], [place] [phone] Charisma Stinson MD [address] [place], [place] [phone] Social History Tobacco Use Types Packs/Day Years [...] documented as of this encounter Care Teams Bias Binding Folder Relationship Specialty Start Date End Date Charisma Stinson MD [address] [place], [place] [phone] PCP - General Family Medicine 03/13/18 09/05/24 documented as of this encounter
--- OUTSIDE RECORDS SUMMARY | 2025-02-03 18:46 | XMS_ITS | Encounter Summary ---
Author Organization [employer] Address [address] [place] [address] 7 [place] [address] Care Team Providers Care Rn Lab Name Role Phone Charisma Stinson MD Primary Care Provider [phone] Encounter Details Date Type Department Care Team (Latest Contact Info) Description 04/18/[address] [facility] CONVERSIONS Dental, Provider, DDS Social History [...] on filedocumented in this encounter Care Teams Rn Lab Relationship Specialty Start Date End Date Charisma Stinson MD [address] [place] [address] PCP - General Family Medicine 03/13/18 09/05/24 documented as of this encounter
--- OUTSIDE RECORDS SUMMARY | 2025-02-03 18:46 | XMS_ITS | Encounter Summary ---
Author Organization [employer] Address [address] [place] [address] 7t [place] [address] Care Team Providers Care Application Security Specialist Name Role Phone Charisma Stinson MD Primary Care Provider [phone] Encounter Details Date Type Department Care Team ([facility] st Contact Info) Description 01/13/2023 Abstract [facility] 505 [place], [place] [phone] Yordan Mcgowan DDS 230 [place], [place] [phone] Social History Tobacco Use Types Packs/Day Years [...] documented as of this encounter Care Teams Application Security Specialist Relationship Specialty Start Date End Date Charisma Stinson MD 505 [place], [place] [phone] PCP - General Family Medicine 03/13/18 09/05/24 documented as of this encounter
--- OUTSIDE RECORDS SUMMARY | 2025-02-03 18:46 | XMS_ITS | Encounter Summary ---
Author Organization [facility] Address [address] [place] [address] [place] [address] Phone Care Team Providers Care Chief I Dispatcher Name Role Phone Charisma Stinson MD Primary Care Provider [phone] Richar Doyle DDS Unavailable [phone] Reason for Referral * Surgical (Routine) - Pending Review Specialty Diagnoses / Procedures Referred By Donal lizarraga Referred To Contact Diagnoses Arthralgia of temporomandibular joint, unspecified laterality Lorena Welsh DDS [address] [place] [address] Phone: tel: fax: [facility] [id number] Referral ID Status Reason Start Date Expiration Date V isits Requested Visits Authorized [id number] Pending Review 01/29/2025 01/29/2026 1 1 Encounter Details Date Type Department Care Team (Latest Contact Info) Description 01/29/2025 Transcribe Orders [facility] Referral Management [address] [place] [address] Lorena Welsh DDS [address] [place] [address] Arthralgia of temporomandibular joint, unspecified laterality (Primary Dx) Social History Tobacco Use Types Packs/Day Years Used Date Smoking Tobacco: Never Assessed Education Answer Date Recorded Are you interested in more education? Not on thom e 01/29/2025 Are you concerned about learning? Not on file 01/29/2025 No 01/29/2025 No 01/29/2025 Digital Access Answer Date Recorded No 01/29/2025 No 01/29/2025 Reliable internet access at home? Not on file 01/29/2025 Device with a working camera? Not on file Comments Unknown Sex and Gender Information Value Date Recorded Sex Assigned at Not on file Legal Sex Female 11:50 AM EST Gender Identity Not on file Sexual Orientation Not on file documented as of this encounter Plan of Treatment Upcoming Encounters Date Type Department Care Team ([facility] Contact Info) Description 05/28/2026 4:00 PM EDT Office Visit [address] [address] Richar Doyle DDS [address] [place] [address] 401 [facility] [address] [email or web address] Scheduled Referrals Name Type Priority Associated Diagnoses Orde r Schedule Ambulatory referral to [facility] Outpatient Referral Routine Arthralgia of temporomandibular joint, unspecified laterality Ordered: 01/29/2025 documented as of this encounter Visit Diagnoses Diagnosis Arthralgia of temporomandibular joint, unspecified laterality- Primary documented in this encounter Care Teams Chief I Dispatcher Relationship Specialty Start Date End Date Charisma Stinson MD [address] [place] [address] PCP - General Pediatrics 04/22/15 Richar Doyle DDS [address] [place] [address], [address] [facility] [place] [address] [email or web address] 01/29/25 documented as of this encounter Additional Source Comments The information contained in this document represents components of the legal health record. It is not the complete legal health record.[facility]
--- OUTSIDE RECORDS SUMMARY | 2025-02-03 18:46 | XMS_ITS | Encounter Summary ---
Author Organization [employer] Address 75 [facility] 7 [place] [address] Care Team Providers Care Compliance Investigator Name Role Phone Unavailable Primary Care Provider Unavailabl e Reason for Visit * Reason Comments Med Refill Encounter Details Date Type Department Care Team ([facility] Contact Info) Description 11/21/2024 Refill [facility] CHC MED & PEDS 505 [place] [address] Charisma Stinson MD 505 [place] [address] Social History Tobacco Use Types Packs/Day Years [...]
--- OUTSIDE RECORDS SUMMARY | 2025-02-03 18:46 | XMS_ITS | Encounter Summary ---
Author Organization [employer] Address [address] [place] [address] 7t [place] [address] Care Team Providers Care Fruit And Vegetable Parer Name Role Phone hCarisma Stinson MD Primary Care Provider [phone] Encounter Details Date Type Department Care Team ([facility] st Contact Info) Description 02/20/2023 Abstract [facility] ADULT D[facility]AL 505 [place], [place] [phone] Yordan Mcgowan DDS 230 [place], [place] [phone] Social History Tobacco Use Types Packs/Day Years [...] documented as of this encounter Care Teams Fruit And Vegetable Parer Relationship Specialty Start Date End Date Charisma Stinson MD 505 [place], [place] [phone] PCP - General Family Medicine 03/13/18 09/05/24 documented as of this encounter
--- OUTSIDE RECORDS SUMMARY | 2025-02-03 18:46 | XMS_ITS | Encounter Summary ---
Author Organization [employer] Address 75 [facility] 7t [place] [address] Care Team Providers Care Roof Technician Name Role Phone Charisma Stinson MD Primary Care Provider [phone] Reason for Visit * Reason Onset Date Comments more medication 01/27/2023 Encounter Details Date Type Department Care Team ([facility] Contact Info) Description 01/27/2023 Telephone [facility] CHC ADULT DENTAL [address] [place] [address] Yordan Mcgowan DDS 230 [place] [address] more medication Social History Tobacco Use Types [...] documented as of this encounter Care Teams Roof Technician Relationship Specialty Start Date End Date Charisma Stinson MD [address] [place] [address] PCP - General Family Medicine 03/13/18 09/05/24 documented as of this encounter
--- OUTSIDE RECORDS SUMMARY | 2025-02-03 18:46 | XMS_ITS | Encounter Summary ---
Author Organization [employer] Address [address] [place] [address] 7 [place] [address] Care Team Providers Care Ward Maid Name Role Phone Charisma Stinson MD Primary Care Provider [phone] Encounter Details Date Type Department Care Team (Latest Contact Info) Description 03/19/2020 Abstract [facility] CONVERSIONS Dental, Provider, DDS Social [...] on filedocumented in this encounter Care Teams Ward Maid Relationship Specialty Start Date End Date Charisma Stinson MD 505 [place] [address] PCP - General Family Medicine 03/13/18 09/05/24 documented as of this encounter
--- OUTSIDE RECORDS SUMMARY | 2025-02-03 18:46 | XMS_ITS | Encounter Summary ---
Author Organization [employer] Address [address] [place] [address] 7t [place] [address] Care Team Providers Care Kid Club Attendant Name Role Phone Charisma Stinson MD Primary Care Provider [phone] Encounter Details Date Type Department Care Team ([facility] st Contact Info) Description 02/08/2023 Abstract [facility] ADULT DENTAL [address] [place], [place] [phone] Yordan Mcgowan DDS 230 [place], [place] [phone] Social History Tobacco Use Types Packs/Day Years [...] documented as of this encounter Care Teams Kid Club Attendant Relationship Specialty Start Date End Date Charisma Stinson MD 505 [place], [place] [phone] PCP - General Family Medicine 03/13/18 09/05/24 documented as of this encounter
--- OUTSIDE RECORDS SUMMARY | 2025-02-03 18:46 | XMS_ITS | Clinical Summary ---
Author Organization [facility] Address [address] [place] [address] [address] [place] [address] Phone Care Team Providers Care Aquaculture Program Director Name Role Phone Charisma Stinson MD Primary Care Provider [phone] Richar Doyle DDS Unavailable [phone] Encounters Date Type Department Care Team Description 01/29/2025 Transcribe Orders [facility] Referral Management [address] [place] [address] Rose-Acost a, Lorena, DDS Arthralgia of temporomandibular joint, unspecified laterality (Primary Dx) from Last 3 Months Social [...] on file Sexual Orientation Not on file Plan of Treatment Upcoming Encounters Date Type Department Care Team (Late st Contact Info) Description 05/28/2026 4:00 PM EDT Office Visit [facility] [address] [place] [address] Richar Doyle, DDS [address] [facility], [id number] [place] [address] [email or web address] Maintenance Due Date Last Done Comments Adult Td,Tdap Booster 1955 LIPID PANEL 1955 DEPRESSION SCREENING 1969 SMOKING Hx and SMOKELESS TOBACCO SCREENING 1970 HEPATITIS C SCREENING 1975 COLOGUARD 2002 COLONOSCOPY 2002 COLORECTAL CANCER SCREENING 2002 FIT TEST 2002 FOBT 2002 SIGMOIDOSCOPY 2002 VIRTUAL COLONOSCOPY 2002 PNEUMOCOCCAL VACCINES (50+ years) (1 of 1 - PCV) 2007 ZOSTER VACCINES (1 of 2) 2007 INFLUENZA VACCINE (#1) 2024 COVID-19 VACCINE (1 - 2024-2 6 season) 2024 MAMMOGRAM 11/16/2024 11/16/2022, 09/18/2019, 09/12/2018 RSV VACCINE (1 - 1-dose 75+ series) 2032 OSTEOPOROSIS SCREENING INITI AL (ONE-TIME) Completed 04/06/2022 HEPATITIS A VACCINES Aged Out No long er eligible based on patient's age to complete this topic HIB VACCINES Aged Out No longer eligi ble based on patient's age to complete this topic MENINGOCOCCAL VACCINES (ACWY) Aged Out No longer eligible based on patient's age to complete this topic MENINGOCOCCAL VACCINES (B) Aged Out N o longer eligible based on patient's age to complete this topic Medical Devices Not on file Insurance [facility] [employer] [place] [place] MED[place] POS PPO REPLACEMENT [facility] [place] [facility] PPO REPLACEMENT [facility] [place] [address] [place] [address] [facility] [place] [facility] POS PPO REPLACEMENT [facility] [employer] [facility] [employer] [place] [employer] POS PPO REPLACEMENT [facility] [employer] Member Subscriber Plan / Payer (Ef fective 2025-Present) Name:Zoey Walsh Relation to Subscriber:Self Name:Zoey Walsh Payer ID:[id number] Group ID:Not on file Type:Medicaid Address: [address] [id number] [place] [place] MED[place] POS PPO REPLACEMENT [facility] [place] [place] MEDIC[place] POS PPO REPLACEMENT Care Teams Aquaculture Program Director Relationship Specialty Start Date End Date Charisma Stinson MD [address] [place] [address] PCP - General Pediatrics 04/22/15 Richar Doyle DDS [address] [place] [address] [address] [place] [address] [email or web address] Dentistry 01/29/25 Additional Source Comments The information contained in this document represents components of the legal health record. It is not the complete legal health record.[facility]
--- OUTSIDE RECORDS SUMMARY | 2025-02-03 18:46 | XMS_ITS | Encounter Summary ---
Author Organization [employer] Address [address] [place] [address] 7 [place] [address] Care Team Providers Care Flare Stitcher Name Role Phone Charisma Stinson MD Primary Care Provider [phone] Encounter Details Date Type Department Care Team (Latest Contact Info) Description 12/13/[address] [facility] CONVERSIONS Dental, Provider, [...] on filedocumented in this encounter Care Teams Flare Stitcher Relationship Specialty Start Date End Date Charisma Stinson MD [address] [place] [address] PCP - General Family Medicine 03/13/18 09/05/24 documented as of this encounter
--- OUTSIDE RECORDS SUMMARY | 2025-02-03 18:46 | XMS_ITS | Encounter Summary ---
Author Organization [employer] Address [address] [facility] 7 [place] [address] Care Team Providers Care Blood Collector Name Role Phone Charisma Stinson MD Primary Care Provider [phone] Reason for Visit * Reason Onset Date Comments Results 06/22/2023 Appointment Request 06/22/2023 Encounter Details Date Type Department Care Team ([facility] st Contact Info) Description 06/22/2023 Telephone [facility] [address] [place] [address] Charisma Stinson MD [address] [place] [address] Results; Appointment Request Social History Tobacco Use [...] Date when done: 06/19 [place] [facility] contact pt at [phone] documented in this encounter Plan of Treatment Not on file documented as of this encounter Visit Diagnoses Not on filedocumented in this encounter Additional Health Concerns Assessment Noted Time PHQ-9 Depression Total Score: 2 03/24/19 23 9:26 AM EST documented as of this encounter Care Teams Blood Collector Relationship Specialty Start Date End Date Charisma Stinson MD [address] [place] [address] PCP - General Family Medicine 03/13/18 09/05/24 documented as of this encounter
--- OUTSIDE RECORDS SUMMARY | 2025-02-03 18:46 | XMS_ITS | Encounter Summary ---
Author Organization [employer] Address [address] [facility] 7t [place] [address] Care Team Providers Care Command Center Officer Name Role Phone Unavailable Primary Care Provider Unavailabl e Reason for Visit * Reason Onset Date Comments DR MAURICE 01/29/2025 Encounter Details Date Type Department Care Team ([facility] st Contact Info) Description 01/29/2025 Telephone [facility] [address] [place] [address] Lorena Welsh DDS [address] [place] [address] [address] MAURICE Social History Tobacco Use Types Packs/Day Years [...] encounter Miscellaneous Notes * Telephone Encounter - Salbador Soria - 01/29/2025 3:28 PM EST PT would like to speak with you regarding things you guys spoken about. Please reach out to pt bc she only wants to speak to you. Thank you documented in this encounter Plan of Treatment Not on file documented as of this encounter Visit Diagnoses Not on filedocumented in this encounter Additional Health Concerns Assessment Noted Time PHQ-9 Depression Total Score: 2 03/24/19 23 9:26 AM EST documented as of this encounter
== END 2025-02-03 15:01 | disposition home or self-care (01) ==
LOC: HO.HMCH 13:50
DX: M54.2 Cervicalgia (principal); M25.511 Pain in right shoulder; S03.00XA Dislocation of jaw, unspecified side, initial encounter

== ENCOUNTER 2025-02-03 13:49 | Outpatient (REF) | payer MEDICARE, MEDICAID, SELFPAY ==
--- NOTE | ~2025-02-03 | XR_ITS ---
EXAMINATION: XR CERVICAL SPINE CLINICAL INFORMATION: M54.2 - Cervicalgia COMPARISON: None available. TECHNIQUE: 2 views FINDINGS: Cervical spine is visualized from C1-C6 level. Bone mineralization is decreased. Straightening of cervical curvature. Vertebral body heights are maintained. No evidence of acute fracture. Multilevel mild disc degeneration. Multilevel facet degeneration. No prevertebral soft tissue swelling. Predens space is maintained. No suspicious bony lesions. Lung apices are clear. XR/XR cervical spine 2V IMPRESSION: No acute findings. Cervical spondylosis. Electronically signed by: Baljit Meza MD 02/04/2025 03:23 PM [facility]ITH
--- NOTE | ~2025-02-03 | XR_ITS ---
EXAMINATION: XR SHOULDER, RIGHT CLINICAL INFORMATION: M79.604 - Pain in right leg COMPARISON: None available. TECHNIQUE: Four views of the right shoulder. FINDINGS: Mild-moderate acromioclavicular arthritis. Glenohumeral joint space is maintained. No acute fracture, dislocation or suspicious bony lesion.. No abnormal soft tissue calcification. XR/XR shoulder RT min 2V IMPRESSION: Mild-moderate acromioclavicular arthritis Electronically signed by: Baljit Meza MD 02/04/2025 03:23 PM [facility]
== END 2025-02-03 13:50 | disposition home or self-care (01) ==
LOC: HO.XRAY 13:49
DX: M54.2 Cervicalgia (principal); R68.84 Jaw pain; M25.511 Pain in right shoulder; M79.601 Pain in right arm; S03.00XA Dislocation of jaw, unspecified side, initial encounter; X58.XXXA Exposure to other specified factors, initial encounter; Y93.9 Activity, unspecified; Y92.9 Unspecified place or not applicable; Y99.9 Unspecified external cause status
CPT/HCPCS: 72040; 73030; 96127; 99212

== ENCOUNTER → 2025-02-03 15:19 | Outpatient (BNV) | payer MEDICARE, MEDICAID, SELFPAY | PROVIDERS: Visit Provider Radiology Diagnostic Ultrasound | DX: M47.812 Spondylosis without myelopathy or radiculopathy, cervical region (principal); M19.011 Primary osteoarthritis, right shoulder | CPT/HCPCS: 72040; 73030 ==

== ENCOUNTER 2025-02-11 09:51 | Outpatient (AMB) | payer MEDICARE, MEDICAID, SELFPAY ==
--- NOTE | 2025-02-11 10:15 | A.OFFVIS_ITS ---
VS Expanded 02/11/25 13:52 Height 5 ft 2 in Weight 120 lb 0.13 oz BMI 21.9 Intake Visit Reasons: unintentional weight gain Allergies shellfish derived Adverse Reaction (Intermediate, Verified 02/03/25 14:29) Nausea and Vomiting Nutrition Presentation Details: Pt presents for MNT follow-up Patient reports overall doing well, weight is maintaining. Patient reports no weight loss or abnormal waking. Patient reports doing okay she does have questions regarding saturated fats, patient reports concerns having elevated cholesterol BS Monitoring Most Recent Diabetes Results: Creatinine, (0.5-1.4) 0.70 mg/dL 01/15/25 BUN, (9-16) 10 mg/dL 01/15/25 Sodium, (135-145) 138 mmol/L 01/15/25 Potassium, (3.3-5.1) 3.6 mmol/L 01/15/25 Chloride, (96-108) 102 mmol/L 01/15/25 Carbon Dioxide, (22-29) 30 mmol/L H 01/15/25 Calcium, (8.4-10.2) 8.9 mg/dL Δ 01/15/25 [facility] Medical History Actinic keratoses Squamous cell carcinoma, face Trigeminal neuralgia Diverticulosis large intestine w/o perforation or abscess w/bleeding Tubular adenoma of colon Hiatal hernia Surgical History H/O colonoscopy Family History Mother Lung cancer Father Diabetes Social History Household Members: None Housing: Condominium Alcohol intake: former Patient Tobacco Use Status: Former Tobacco user Tobacco use type: Cigarette e-Cigarette/Vaping Use: Never Used Second Hand Smoke Exposure: No Substance Use Type: Marijuana service: No Current occupational status: retired Cognitive needs: No Hearing needs: No Vision needs: No Assessment & Plan Assessment & Plan (1) Weight gain: Code(s): R63.5 - Abnormal weight gain Category: Medical Plan: Patient maintaining weight steady between 118-121 lbs . Reports concerns of elevated cholesterol and is trying to work on reducing trans fatty acids and reports reading food labels Wt: 55Kg ( 08/04 ), 54.5 kg (09/04), 03/06 Est kcal needs as per MSJ: 2780-0442 (40% carb, 30% protein/fat) Est fluid needs as per 25-30 ml/d: 1700 Est prot per day as per 1 g/kg bw: 55-60 Recommend fiber intake : 8-10 g per day and gradually increase to 25-28 g per day for women and 35-38 g for men or as tolerated Recommend sodium intake per day : less than 2000 mg Educated patient on: ( R = reviewed V = verbalizes understanding N/R = needs review N/A = not applicable * Food sources of carbohydrate, adequate serving sizes and its role in various health conditions: R V N/R * Differences between complex carbohydrates a simple carbohydrates, role of fiber in diet: R * Lean protein sources of foods: R V * Differences between types of fats and role in diet (mono on saturated fat fatty acids, saturated fatty acids, trans fats): R * Food sources of sodium in salt and healthy modifications for heart health in kidney health: R * Vitamins and minerals: R V N/R * Healthy plate method concept: R * Physical activity: Benefits a precaution: R * Patient Instructions: Include foods with omega 3 fatty acid (nuts, seeds, fish at least twice a week) Continue reading food labels and choose foods with no trans fatty acids, reduce on highly processed foods and foods that have been pre fried Include fiber rich foods on a daily basis (have oats twice a week and legumes twice a week) Keep hydrated by having water, low sugar beverages, low-fat milk with meals Coding Level of Care Code Nutr Indiv Subseq (49519) Diagnoses Weight gain R63.5 Time Spent (min) 30
--- OUTSIDE RECORDS SUMMARY | 2025-02-11 10:59 | XMS_ITS | Encounter Summary ---
Author Organization [employer] Address [address] [place] [address] 7 [place] [address] Care Team Providers Care Furniture Polisher Name Role Phone Unavailable Primary Care Provider Unavailabl e Reason for Visit * Reason Comments Med Refill Encounter Details Date Type Department Care Team ([facility] Contact Info) Description 10/10/2024 Refill [facility] MED & PEDS [address] [place] [address] Charisma Stinson MD [address] [place] [address] Moderate persistent asthma, unspecified whether complicated Social [...]
--- OUTSIDE RECORDS SUMMARY | 2025-02-11 10:59 | XMS_ITS | Clinical Summary ---
Author Organization [employer] Address [address] [place] [address] 7t [place] [address] Care Team Providers Care Law Enforcement Instructor Name Role Phone Unavailable Primary Care Provider [...] split. 15 tablet 01/29/2025 12:30 PM EST 025 Active Problems Problem Noted Date Diagnosed Date [...] Encounters Date Type Department Care Team Description 02/08/2025 Refill [facility] PED[facility] [address] [place] [address] Charisma Stinson MD 01/29/2025 11:30 AM EST Office Visit [facility] ADULT DENTAL [address] [place] [address] Rose-Venegas, Lorena, DDS Arthralgia of left temporomandibular joint (Primary Dx) 01/29/2025 Telephone [facility]ULT [facility] [address] [place] [address] ACOSTA 01/22/2025 8:00 AM EST Office Visit [facility] ADULT D[facility] [address] [place] [address] Clayton, Be 01/21/2025 11:30 AM EST Office Visit [facility] ADULT D[facility]AL [address] [place] [address] ClaytonGemma gaonaricio 01/16/2025 Orders Only GENERIC EXTERNAL DATA DEPARTMENT Provider, Generic External Data 01/15/2025 Orders Only GENERIC EXTERNAL DATA DEPARTMENT Provider, Generic External Data 12/19/2024 Orders Only [facility] External Provider, [facility] 12/16/2024 Refill [facility] MED & PEDS [address] [place] [address] Charisma Stinson MD Gastroesophageal reflux disease without esophagitis 12/10/2024 1:30 PM EDT Office Visit [facility] ADULT DENTAL [address] [place] [address] Clayton Be 11/21/2024 Refill [facility] MED & PEDS [address] [place] [address] Charisma Stinson MD from Last 3 Months [...] Screening 1975 Depression Screening 03/24/2023 03/24/2022, 03/24/19 23 SDOH [...] AM EST) Influenza A PCR NEGATIVE Negative [facility] Influenza B PCR NEGATIVE Negative [facility] Resp Syncy Virus RNA Qual PCR NEGATIVE Negative [facility] SARS COV2 PCR NEGATIVE Negative [facility] Comment:All test results mus t [...] use by authorized laboratories.Testing performed on the [employer] GeneXpert utilizingreal-time RT-PCR.All SARS CoV2 and positive influenza A/B results arereported to [facility]. 01/16/2025 11:2 3 AM EST 01/16/2025 6:21 PM EST us Generic External Data Provider LAB MICROBIOLOGY - GENERAL ORDERABLES Final Result Performing Organization Address [facility] Co de Phone Number [facility] [address] [place] [phone] * Lyme Disease Ab with Reflex to Blot (IgG, IgM) (01/15/2025 2:33 PM EST) Pathologist [facility] Lyme Antibody Screen <0.90 index [facility] Comment:Index Interpretation ----- < 0.90 [...] when erythemamigrans is apparent.THIS TEST WAS PERFORMED AT:[id number] [place] [id number] MALDONADO MD Lyme Blot [facility] 01/15/2025 2:33 PM EST 01/15/2025 2:33 PM EST Generic External Data Provider LAB BLOOD ORDERAB LES Final Result Performing Organization Address [facility] Co de Phone Number [facility] [address] [place] [phone] * Sed Rate by Modified Sumeetren (01/15/2025 2:33 PM EST) [facility] Erythrocyte Sedimentation Rate 2 0 - 20 MM/HR [facility] Comment:Patients with polycy themia and many hemoglobin abnormalitiesmay have depressed sed rates whereas patients with anemiamay have elevated sed rates. 01/15/2025 2:33 PM EST 01/15/2025 2:33 PM EST Generic External Data Provider LAB BLOOD ORDERAB LES Final Result Performing Organization Address [facility] Co de Phone Number [facility] [address] [place] [phone] * (ABNORMAL) Basic Metabolic Panel (01/15/2025 2:33 PM EST) Sodium 138 135 - 145 mmol/L [facility] Potassium 3.6 3.3 - 5.1 mmol/L [facility] Chloride 102 96 - 108 mmol/L [facility] Carbon Dioxide 30(H) 22 - 29 mmol/L [facility] Anion Gap 10(L) 12 - 20 [facility] Urea Nitrogen (BUN) 10 9 - 16 mg/dL [facility] Creatinine, Serum 0.70 0.5 - 1.4 mg/dL [facility] Estimated Glomerular Filt Rate >60 [facility] Comment:Chronic Kidney Disea se: Estimated GFR < 60 mL/min/1.75u6Lmsche Kidney Disease: Estimated GFR < 15 mL/min/1.73m2 Glucose 77 60 - 115 mg/dL [facility] Calcium 8.9 8.4 - 10.2 mg/dL [facility] 01/15/2025 2:33 PM EST 01/15/2025 2:33 PM EST Generic External Data Provider LAB BLOOD ORDERAB LES Final Result Performing Organization Address [facility] Co de Phone Number [facility] [address] [place] [phone] * (ABNORMAL) Urine Protein, Total, Random without Creatinine (01/15/2025 2:30 PM EST) Protein, Total, Random Urine 13(H) <12 mg/dL [facility] 01/15/2025 2:30 PM EST 01/15/2025 2:57 PM EST us Generic External Data Provider LAB URINE ORDERAB LES Final Result Performing Organization Address City/[facility]/ZIP Co de Phone Number [facility] [address] [place] [phone] * Creatinine, Random Urine (01/15/2025 2:30 PM EST) Creatinine, Urine 132.63 mg/dL [facility] 01/15/2025 2:30 PM EST 01/15/2025 2:57 PM EST Generic External Data Provider LAB URINE ORDERAB LES Final Result Performing Organization Address [facility] Co de Phone Number [facility] [address] [place] [phone] * (ABNORMAL) Urinalysis Complete (01/15/2025 2:30 PM EST) Color Urine Dark Yellow [facility] Appearance Urine Clear [facility] PH 6.0 5.0 - 9.0 [facility] Glucose Urine UA Negative Negative mg/dL [facility] Urine Blood Trace(A) Negative [facility] Specific [place] - Urine 1.025 1.005 - 1.025 [facility] Urine Protein Negative Neg-Trace mg/dL [facility] Urine Ketones Negative Negative mg/dL [facility] Nitrite Urine Negative Negative [facility] Leukocyte Esterase Urine Small (1+)(A) Negative [facility] RBC Urine 3-5(A) 0 - 2 /HPF [facility] Urine WBC 0-5 0 - 5 /HPF [facility] Urine Squamous Epithelial Cell 11-20 0 - 2 /HPF [facility] Urine Bacteria Trace None Seen [facility] Hyaline Casts, Urine 0-2 0 - 2 /LPF [facility] 01/15/2025 2:30 PM EST 01/15/2025 2:57 PM EST us Generic External Data Provider LAB URINE ORDERAB LES Final Result [facility] [address] [place] [phone] * NM heart perfusion SPECT stress and rest (12/19/2024 9:35 AM EDT) Anatomical Region Laterality Modality Body Nuclear Medicine 12/19/2024 9:35 AM EDT Narrative 12/24/2024 12:28 PM EDT [place] [address] Nuclear Medicine Report Signed Patient: Zoey Walsh MR#: [id number] 656 : 1955 Acct:[id number] Age/Sex: 69 / F ADM Date: 12/19/24 Loc: [facility] Attending Dr: Gilberto Villalobos MD Ordering Physician: Giblerto Villalobos MD Date of Service: 12/19/24 Procedure(s): NM kathleen perf SPECT rest str Accession Number(s): [id number] cc: Charisma Stinson MD; Gilberto Villalobos MD [...] 12/24/24 1225 DD/ 0935 TD/TT: 12/20/24 1130 Mechanical Development Engineer: Procedure Note Donotuseinterpreter, Image - 12/24/2024 [place] [address] Nuclear Medicine Report Signed Patient: Zoey Walsh JMR#: [id number] : 8Acct:[id number] Age/Sex: 69 / FADM Date: 12/19/24 Loc: [facility].CARD Attending Dr: Gilberto Villalobos MD Ordering Physician: Gilberto Villalobos MD Date of Service: 12/19/24 Procedure(s): NM kathleen perf SPECT rest str Accession Number(s): [id number] cc: Charisma Stinson MD; Gilberto Villalobos MD [...] 12/24/2024 12:25 PM EDT Dictated By: Gilberto Villlaobos MD Signed By: <Electronically signed by Gilberto Villalobos MD in OV> 12/24/24 1225 DD/ 0935 TD/TT: 12/20/24 1130 Mechanical Development Engineer: [facility] External Provider IMG NM PROCEDURES Final Result * BI Mammogram Screening Tomosynthesis Bilateral (11/22/2023 11:30 AM EDT) Anatomical Region Laterality Modality Breast Bilateral Mammography 11/22/2023 11:3 0 AM EDT Narrative 12/06/2023 10:24 AM EDT [facility] [address] [place] [place] [address] Mammography Report Signed Patient: Zoey Walsh MR#: [id number] 656 : 1955 Acct:[id number] Age/Sex: 68 / F ADM Date: 11/22/23 Loc: HO.MAMMO Attending Dr: Charisma Stinson MD Ordering Physician: Charisma Stinson MD Results: 2Be nign Findings Date of Service: 11/22/23 Follow Up: 1 Year From Orig inal Mammogram Procedure(s): MM tomosynthesis screening BI Accession Number(s): [id number] cc: Charisma Stinson MD EXAMINATION: MM SCREENING [...] 12/06/23 1021 DD/ 1130 TD/TT: 11/22/23 1144 Mechanical Development Engineer: Procedure Note Donotuseinterpreter, Image - [facility]06/[facility] [address] [place] [address] Mammography Report Signed Patient: Zoey Walsh JMR#: [id number] 656 : 1955cct:[id number] Age/Sex: 68 / FADM Date: 11/22/23 Loc: HO.MAMMO Attending Dr: Chraisma Stinson MD Ordering Physician: Charisma Stinson MDResults: 2Be nign Findings Date of Service: 11/22/23Follow Up: 1 Year From Orig ina Mammogram Procedure(s): MM tomosynthesis screening BI Accession Number(s): [id number] cc: Charisma Stinson MD EXAMINATION: MM SCREENING [...] 12/06/23 1021 DD/ 1130 TD/TT: 11/22/23 1144 Mechanical Development Engineer: us Charisma Stinson MD IMG BI PROCEDURES [...] along with historic and current clinical information. [employer] Press Tender : SEE COMMENT [facility] Comment: KN, CT(ASCP) CT screening location: [place] [address] Interpretation/R esult: Negative for intraepithelial lesion or [...] MD LAB PATHOLOGY ORDERABLES Final R esult [facility] [address] from Last 3 Months or Most Recently Relevant to Health Maintenance Insurance [facility] , [address] [place] [address] DENTAL - HSN FULL (MEDICAID)
--- OUTSIDE RECORDS SUMMARY | 2025-02-11 10:59 | XMS_ITS | Data Portability ---
Author Organization [place] - [facility], Allergy Address [address] [address] Care Team Providers Care Photovoltaic Subcontractor Name Role Phone WILLY ARAUJO Primary Care [...] for cerumen removal, or sooner with concerns. [email or web address] Not available 03/14/2024 12:19:57 02/05/2025 02/05/2025 69-year-old female presents for cerumen removal. Cerumen impaction removed bilaterally. Bilateral tympanic membranes are intact with aerated middle ear spaces. She will follow-up in 6 months for cerumen removal, or sooner with concerns. [email or web address] Not available 02/05/2025 16:48:47 Plan of Treatment Reminders Order Date Submit Date Provider Last Modified By Organization Details Last Modified Time Details Appointments Establish ed 15 2025 01:00P Ahmet ZHOU PA-C Not available Not available Not available Lab None recorded. Referral None recorded. Procedures None recorded. Surgeries None recorded. Imaging None recorded. Medication Orders None recorded. Patient TargetsNo targets recorded. Patient Instructions Encounter Date Encounter Id Patient Instructions Last Modified By Organization Details Last Modified Time 09/06/2024 [id number] Reviewed results with patient. She is pleased that there are no significant changes in her hearing. CC of hearing test given to patient. [email or web address] Not available 09/06/2024 11:32:59 Reason for Referral None Reported. Results Created Date Observation Date Name Description Value Unit Range Abnormal Flag Note LastModifiedBy Organization Detail LastModifiedTime 09/07/19 25 audio gram No observ ation record ed. [email or web address] Not Available 08/12 11:42:12 Result Notes None recorded. Problems Name Problem SNOMED Code Status Onset Date Resolution Date Notes Provider Name and Address Organization Details Recorded Time Finding of resonance of voice 998737985 Active 2014 Other voice and resonance disorders ; Note: Date Diagnosed : 5 2:46 PM (R49.8) Not Available [facility] 4 02:47:55 Gastroeso phageal reflux disease without esophagit is 837952286 Active 2014 Gastro-es ophageal reflux disease without esophagit is; Note: Date Diagnosed : 5 2:46 PM (K21.9) Not Available [facility] 4 02:47:53 Allergic rhinitis 08055103 Active 2015 Allergic rhinitis, unspecifi ed; Note: Date Diagnosed : 08/06/2015 2:15 PM (J30.9) Not Available [facility] 4 02:47:57 Dysphonia 38210015 Active 2015 Dysphonia ; Note: Date Diagnosed : 08/16/2015 7:21 PM (R49.0) Not Available [facility] 4 02:48:01 Impacted cerumen of bilateral ears 11304910244 68588 Active 2018 Impacted cerumen, bilateral ; Note: Date Diagnosed : 11/08/2018 9:42 AM (H61.23) Not Available [facility] 4 02:47:59 Impacted cerumen 03141554 Active 2018 Impacted cerumen; Note: Date Diagnosed : 11/21/2018 11:38 AM (380.4) Not Available [facility] 4 02:47:56 Sensorine ural hearing loss of bilateral ears 063951323 Active 2018 Sensorine ural hearing loss, bilateral ; Note: Date Diagnosed : 01/16/2019 10:17 AM (H90.3) Not Available [facility] 4 02:47:59 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; Note: Date Diagnosed : 2019 11:29 AM (J38.2) Not Available [facility] 4 02:48:01 Dysphagia 79622199 Active 2019 Other dysphagia ; Note: Date Diagnosed : 2019 11:29 AM (R13.19) Not Available [facility] 4 02:48:01 Acute pharyngit is 731577344 Active 2020 Sore throat (acute) NOS; Note: Date Diagnosed : 10/01/2020 4:50 PM (J02.9) Not Available [facility] 4 02:47:56 Abnormal weight loss 276987836 Active 2020 Abnormal weight loss; Note: Date Diagnosed : 10/01/2020 4:50 PM (R63.4) Not Available [facility] 4 02:47:57 Problem Notes None recorded. Procedures Surgical History Date Name Laterality Status Provider Name and Address Organization Details Recorded Time 5 Cerumen removal without microscope bilat completed CRISTINA DE JESUS PA-C [address] [place] [address], [address], [facility] - [facility] 02/05/2025 16:48:28 5 Comp Audio with Tymps - 53626 & 49208 completed THANIA ARROYO [address] [place] [address], [address], [facility] - [facility] 09/06/2024 11:30:22 5 Cerumen removal without microscope bilat completed CRISTINA DE JESUS PA-C [address] [place] [address], [phone], [facility] - [facility] 03/14/2024 12:19:25 Imaging Results None recorded. Procedure Notes None recorded. Medical Equipment None Reported. Allergies Allergen ID Allergen Name Allergen Category Reaction Reaction Severity Criticality Documentation Date Start Date Code Code System Note Provider Name and Address Organization Details Recorded Time 299149 mite extract Not available Not available Not available Not available 02/05/20252022 23104 3 RxNorm Not Available [employer] - prod 5 04:04:23 861819 redtop grass pollen extract medicatio n Not available Not available Not available 02/05/20252022 79078 0 RxNorm Not Available [employer] - prod 5 04:04:23 Medications Name Sig Start Date Stop Date [...] mg tablet 10/19 completed Medicati on ID: [id number] Du ration Value: 5 Reason: () Brand Name: azithrom ycin Sen d Method: E-Prescr ibed Sub s Allowed: subs OK Speci al Instruct ion: take 2 tablets by mouth today then take 1 tablet DAILY FOR 4 DAYS Med icationG enericNa me: azithrom ycin Not Available Not Available Not Available ranitidin e 300 mg tablet 11/26 completed Medicati on ID: [id number] Du ration Value: 30 Reason: () Brand [...] gram tablet 03/13 completed Medicati on ID: [id number] D uration Value: 90 Brand Name: sucralfa te Send Method: E-Prescr ibed Sub s Allowed: subs OK Speci al Instruct ion: take 1 tablet by mouth three times a day ON AN EMPTY STOMACH 1 HOUR BE FORE MEALS AND AT BEDTIME Medicati onGeneri cName: sucralfa te Not Available Not Available Not Available prednison e 20 mg tablet 10/19 completed Medicati on ID: [id number] Du ration Value: 4 Reason: () Brand [...] by mouth 03/13 completed Medicati on ID: [id number] P rescribe d By Name: Toi Rodriguez MD Brand Name: ranitidi ne HCl Send Method: E-Prescr ibed Sub s Allowed: subs OK Medic ationGen ericName : ranitidi ne HCl Not Available Not Available Not Available Guaifenes in AC 10 mg-100 mg/5 mL oral liquid 10/19 completed Medicati on ID: [id number] Du ration Value: 1 Reason: () Brand Name: Shayla awan AC Send Method: E-Prescr ibed Sub s Allowed: subs OK Speci al Instruct ion: take 10 millilit ers by mouth every 4 hours if needed Ahmet Monsivais Name: Shayla awan AC Not Available Not Available Not Available [...] by mouth 11/26 completed Medicati on ID: [id number] D uration Value: 30 Prescri bed By [...] mg tablet 03/13 completed Medicati on ID: [id number] Du ration Value: 30 Brand Name: loratadi [...] IM syringe 10/19 completed Medicati on ID: [id number] Du ration Value: 1 Reason: () Brand [...] Updated DateTime 08/02/2024 154.94 cm 22.7 kg/m2 08982.08 g Rosmery Figueroa [place] - [facility] 08/02/2024 11:36:17 Date Recorded Body height Body mass index (BMI) Body weight Provider Name and Address Organization Details Last Updated DateTime 02/05/2025 154.94 cm 22.7 kg/m2 44930.08 g Nydia Bain [place] - [facility] 02/05/2025 15:57:03 Social History Question Answer Notes LastModified by Organizat ion Details LastModified Time Tobacco Smoking Status Former Smoker Nydia Odell fitzgerald [place] - [facility] 02/05/2025 15:48:49 What Type Of Employment Advisor Do You Use? None [email or web address] Information not available 02/05/2025 When Did You Quit Smoking? 16+yearssinc elastcigaret te Information not available 02/05/2025 What Is Your Current Pack Years? 10packyears [email or web address] Information not available 02/05/2025 Do You Have Any Pets? No [email or web address] Information not available 02/05/2025 At What Age Did You Start Smoking Tobacco? 13 [email or web address] Information not available 02/05/2025 Are You Passively Exposed To Smoke? No [email or web address] Information not available 02/05/2025 Are There Any Smokers In Your House? No [email or web address] Information not available 02/05/2025 How Much Tobacco Do You Smoke? No [email or web address] Information not available 02/05/2025 How Many Years Have You Smoked Tobacco? 7 Information not available 02/05/2025 Sex: Unknown Functional Status Question Answer Note LastModified by Organization Details LastModified Time Do you use any illicit or recreational drugs? No [email or web address] Information not available 02/05/2025 Do you or have you ever used any other forms of tobacco or nicotine? No [email or web address] Information not available 02/05/2025 What is your level of alcohol consumption? None [email or web address] Information not available 02/05/2025 What type of noise exposure are you exposed to? noExposureToExcessiveNoise [email or web address] Infor mation not available 02/05/2025 Mental Status None recorded. Family History Nothing Reported. Medical History Condition Response Tonsil Infections N Emphysema N Depression Y COPD N Arthritis Y Cancer Y Stroke N Headaches N Fibromyalgia Y Kidney Disease Y Heart Problems N Anxiety N Migraines N Other Skin Condition N Rhinitis N Bleeding Disorder N Food Allergy N Nasal polyps N Asthma Y Sleep Disorder N GERD/Reflux Y Glaucoma N Nasal or Sinus Problems N Anesthesia Complications N Hearing Loss N High Cholesterol Y Liver Disease N Speech Delay N Allergies/Hayfever Y Thyroid Problems N Developmental Delay N Anemia N Immune System Disorder N Heart Attack (NM) N Diabetes N Hyperlipidemia Y Dementia N Hypertension N Gynecological HistoryNo gynecological history recorded. Obstetrics History GPAL:G 0 P 0 0 0 0 Past Encounters Encounter ID Performer Location Encounter Start Date Encounter Closed Date Diagnosis/Indication Diagnosis SNOMED-CT Code Diagnosis ICD10 Code Diagnosis IMO Codes Diagnosis Note [id number] CRISTINA DE JESUS PA-C [facility] [address] [address] 03/14/2024 11:23:37 03/14/2024 12:18:10 Impacted cerumen of bilateral ears [id number] 911464 H61.23 [id number] TIFFANY BRENNER MD [facility] [address] [address] 08/02/2024 11:26:27 08/02/2024 11:45:51 Impacted cerumen of bilateral ears 2633400132 577109 H61.23 Cerumen was removed and tolerated well. She still feels a little blockage. No middle ear effusion. Her last audiogram was in 2019 showing moderate HF loss. I recommende d updated testing at her next cleaning. [id number] TIFFANY BRENNER MD [facility] [address] [address] 09/06/2024 10:45:28 09/06/2024 11:41:05 Sensorineural hearing loss of bilateral ears 695633720 H90.3 Audiologic al evaluation results: Right ear: Normal through 2 kHz sloping to severe sensorineu ral hearing loss with excellent word recognitio n. Left ear: Normal through 2 kHz sloping to moderately severe sensorineu ral hearing loss with excellent word recognitio n. Tympanomet ry: Right Ear:Type A Left Ear:Type A [id number] CRISTINA DE JESUS PA-C [facility] [address] [address] 02/05/2025 15:11:36 02/05/2025 16:13:40 Impacted cerumen of bilateral ears 8003303063 757091 H61.23 Health Concerns Section Related Observation LastModified by Organization Detai ls LastModified Time None Recorded Concern Status LastModified by Organization Details LastModified Time None Recorded Advance Directives Directive None Recorded Payers Insurance Date Sequence Insurance Name Policy Number Policy Goodwin Covered Member ID Goodwin Member ID Guarantor Name 02/05/2025 1 [facility] - DOS ON OR AFTER 2022 - MEDICARE [place]VANTAGE [place]MED[place]ARE REPLACEMENT/AD VANTAGE - PPO) Zoey Erwin Jillian [id number] Zoey Erwin Jillian 02/05/2025 1 [facility] - MEDICARE ADVANTAGE PLAN (MEDICARE REPLACEMENT HMO) [id number] Zoey Erwin Jillian [id number] Zoey Yaima Jillian 02/05/2025 2 [place] [facility] Zoey Erwin Jillian [id number] Zoey Yaima Jillian Notes Date Note Type Note Provider Name and Address Organization Details Recorded Time 03/14/2024 text/html ROS as noted in the [facility] 68-year-old female presents for an ear cleaning. Feels like ears are blocked and hearing is decreased bilaterally. Denies otalgia and otorrhea. STEVEN WOO MD [address] [place] [address], [address], [place] - [facility] 03/14/2024 17:35:24 08/02/2024 text/html ROS as noted in the [facility] 69-year-old female presents for an ear cleaning. Feels like ears are blocked. Feels she gets a better cleaning with the suction. TIFFANY BRENNER MD [address] [place] [address],[address], [address], [facility] 08/02/2024 11:46:11 02/05/2025 text/html ROS as noted in the [facility] 69-year-old female presents for an ear cleaning. No otologic concerns today. Recently diagnosed with left sided TMJ and started physical therapy. ELODIA FIGUEROA MD [address] [place] [address],[address], [address], [facility] - [facility] 02/05/2025 17:04:36 OBGyn Episode No OBEpisode recorded.
--- OUTSIDE RECORDS SUMMARY | 2025-02-11 10:59 | XMS_ITS | Continuity of Care Document ---
Author Organization [place] - [facility], [facility] Address [address] [place] [address] Care Team Providers Care Outside Plant Field Engineer Name Role Phone WILLY ARAUJO Primary Care Provider Assessment Encounter Date Assessment Date Assessment LastModified by Organization Details LastModified Time 02/05/2025 02/05/2025 69-year-old female presents for cerumen removal. Cerumen impaction removed bilaterally. Bilateral tympanic membranes are intact with aerated middle ear spaces. She will follow-up in 6 months for cerumen removal, or sooner with concerns. [email or web address] Not available 02/05/2025 16:48:47 Plan of Treatment Reminders Order Date Submit Date Provider Last Modified By Organization Details Last Modified Time Details Appointments Establish ed 15 2025 01:00P M KALPANA ZHOU PA-C Not available Not available Not [...] Recorded Time Finding of resonance of voice 631607282 Active 2014 Other voice and resonance disorders ; Note: Date Diagnosed : 5 2:46 PM (R49.8) Not Available [facility] 4 02:47:55 Gastroeso phageal reflux disease without esophagit is 887776265 Active 2014 Gastro-es ophageal reflux disease without esophagit is; Note: Date Diagnosed : 5 2:46 PM (K21.9) Not Available [facility] 4 02:47:53 Allergic rhinitis 25707237 Active 2015 Allergic rhinitis, unspecifi ed; Note: Date Diagnosed : 08/06/2015 2:15 PM (J30.9) Not Available [facility] 4 02:47:57 Dysphonia 73515672 Active 2015 Dysphonia ; Note: Date Diagnosed : 08/16/2015 7:21 PM (R49.0) Not Available [facility] 4 02:48:01 Impacted cerumen of bilateral ears 01670479611 56944 Active 2018 Impacted cerumen, bilateral ; Note: Date Diagnosed : 11/08/2018 9:42 AM (H61.23) Not Available [facility] 4 02:47:59 Impacted cerumen 68263302 Active 2018 Impacted cerumen; Note: Date Diagnosed : 11/21/2018 11:38 AM (380.4) Not Available [facility] 4 02:47:56 Sensorine ural hearing loss of bilateral ears 486492785 Active 2018 Sensorine ural hearing loss, bilateral ; Note: Date Diagnosed : 01/16/2019 10:17 AM (H90.3) Not Available [facility] 4 02:47:59 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; Note: Date Diagnosed : 2019 11:29 AM (J38.2) Not Available [facility] 4 02:48:01 Dysphagia 70480692 Active 2019 Other dysphagia ; Note: Date Diagnosed : 2019 11:29 AM (R13.19) Not Available [facility] 4 02:48:01 Acute pharyngit is 039753888 Active 2020 Sore throat (acute) NOS; Note: Date Diagnosed : 10/01/2020 4:50 PM (J02.9) Not Available [facility] 4 02:47:56 Abnormal weight loss 128306392 Active 2020 Abnormal weight loss; Note: Date Diagnosed : 10/01/2020 4:50 PM (R63.4) Not Available [facility] 4 02:47:57 Problem Notes None recorded. Procedures Surgical History Date Name Laterality Status Provider Name and Address Organization Details Recorded Time 5 Cerumen removal without microscope bilat completed CRISTINA DE JESUS PA-C 100 [facility],[address], [address], [facility] 02/05/2025 16:48:28 5 Comp Audio with Tymps - 45111 & 41198 completed ESHA PORTILLO [facility] 100 [facility],[address], [address], [facility] 09/06/2024 11:30:22 5 Cerumen removal without microscope bilat completed CRISTINA DE JESUS PA-C 100 [facility],[address], [address], [facility] 03/14/2024 12:19:25 Imaging Results None recorded. Procedure Notes None recorded. Medical Equipment None Reported. Allergies Allergen ID Allergen Name Allergen Category Reaction Reaction Severity Criticality Documentation Date Start Date Code Code System Note Provider Name and Address Organization Details Recorded Time 054836 mite extract Not available Not available Not available Not available 02/05/20252022 36073 3 RxNorm Not Available [employer] - prod 5 04:04:23 064913 redtop grass pollen extract medicatio n Not available Not available Not available 02/05/20252022 87267 0 RxNorm Not Available [employer] - prod 5 04:04:23 Medications [...] mg tablet 10/19 completed Medicati on ID: 51433 Du ration Value: 5 Reason: () Brand Name: cari ycin Sen d Method: E-Prescr ibed Sub s Allowed: subs OK Speci al Instruct ion: take 2 tablets by mouth today then take 1 tablet DAILY FOR 4 DAYS Med icationG enericNa me: azithrom ycin Not Available Not Available Not Available ranitidin e 300 mg tablet 11/26 completed Medicati on ID: 27904 Du ration Value: 30 Reason: () Brand [...] gram tablet 03/13 completed Medicati on ID: [id number] D uration Value: 90 Brand Name: sucralfa te Send Method: E-Prescr ibed Sub s Allowed: subs RICKY Ledbetteri al Instruct ion: take 1 tablet by mouth three times a day ON AN EMPTY STOMACH 1 HOUR BE FORE MEALS AND AT BEDTIME Medicati onGeneri cName: sucralfa te Not Available Not Available Not Available prednison e 20 mg tablet 10/19 completed Medicati on ID: 77409 Du ration Value: 4 Reason: () Brand [...] by mouth 03/13 completed Medicati on ID: [id number] P gordon d By Name: Toi Rodriguez MD Brand Name: ranitidi ne HCl Send Method: E-Prescr ibed Sub s Allowed: subs OK Medic ationGen ericName : ranitidi ne HCl Not Available Not Available Not Available Guaifenes in AC 10 mg-100 mg/5 mL oral liquid 10/19 completed Medicati on ID: 29535 Du ration Value: 1 Reason: () Brand Name: Gudavidfene sin AC Send Method: E-Prescr ibed Sub [...] by mouth 11/26 completed Medicati on ID: [id number] D uration Value: 30 Prescri bed By [...] mg tablet 03/13 completed Medicati on ID: [id number] Du ration Value: 30 Brand Name: lupe [...] IM syringe 10/19 completed Medicati on ID: [id number] Du ration Value: 1 Reason: () Brand [...] Updated DateTime 02/05/2025 154.94 cm 22.7 kg/m2 11167.08 g Nydia Bain [place] - [facility] 02/05/2025 15:57:03 Social History Question Answer Notes LastModified by Organizat ion Details LastModified Time Tobacco Smoking Status Former Smoker Nydia fitzgerald [place] - [facility] 02/05/2025 15:48:49 What Type Of Mica Machine Operator Do You Use? None [email or web address] Information not available 02/05/2025 When Did You Quit Smoking? 16+yearssinc elastcigaret te Information not available 02/05/2025 What Is Your Current Pack Years? 10packyears Information not available 02/05/2025 Do You Have Any Pets? No [email or web address] Information not available 02/05/2025 At What Age Did You Start Smoking Tobacco? 13 [email or web address] Information not available 02/05/2025 Are You Passively Exposed To Smoke? No [email or web address] Information not available 02/05/2025 Are There Any Smokers In Your House? No [email or web address] Information not available 02/05/2025 How Much Tobacco Do You Smoke? No [email or web address] Information not available 02/05/2025 How Many Years Have You Smoked Tobacco? 7 [email or web address] Information not available 02/05/2025 Sex: Unknown Functional Status Question Answer Note LastModified by Organization Details LastModified Time Do you use any illicit or recreational drugs? No Information not available 02/05/2025 Do you or have you ever used any other forms of tobacco or nicotine? No [email or web address] Information not available 02/05/2025 What is your level of alcohol consumption? None [email or web address] Information not available 02/05/2025 What type of noise exposure are you exposed to? noExposureToExcessiveNoise Infor mation not available 02/05/2025 Mental Status None recorded. Family History Nothing Reported. Medical History Condition Response Allergies/Hayfever Y Heart Problems N Anxiety N Tonsil Infections N Emphysema N Migraines N Thyroid Problems N Glaucoma N Depression Y COPD N Developmental Delay N Nasal or Sinus Problems N Anemia N Immune System Disorder N Anesthesia Complications N Heart Attack (DE) N Other Skin Condition N Diabetes N Rhinitis N Bleeding Disorder N Food Allergy N Arthritis Y Hearing Loss N Hyperlipidemia Y Cancer Y Stroke N Dementia N Nasal polyps N Asthma Y High Cholesterol Y Sleep Disorder N GERD/Reflux Y Liver Disease N Headaches N Fibromyalgia Y Hypertension N Speech Delay N Kidney Disease Y Gynecological HistoryNo gynecological history recorded. Obstetrics History GPAL:G 0 P 0 0 0 0 Past Encounters Encounter ID Performer Location Encounter Start Date Encounter Closed Date Diagnosis/Indication Diagnosis SNOMED-CT Code Diagnosis ICD10 Code Diagnosis IMO Codes Diagnosis Note [id number] CRISTINA DE JESUS PA-C [facility] [address] [address] 02/05/2025 15:11:36 02/05/2025 16:13:40 Impacted cerumen of bilateral ears [id number] 826208 H61.23 Health Concerns Section Related Observation LastModified by Organization Detai ls LastModified Time None Recorded Concern Status LastModified by Organization Details LastModified Time None Recorded Payers Encounter Date Sequence Insurance Name Policy Number Policy Goodwin Covered Member ID Goodwin Member ID Guarantor Name 02/05/2025 1 [facility] MEDICARE ADVANTAGE PLAN (MEDICARE REPLACEMENT HMO) [id number] Zoey Walsh [id number] Zoey Walsh 02/05/2025 2 [place] [facility] Zoey Walsh [id number] Zoey Walsh Notes Date Note Type Note Provider Name and Address Organization Details Recorded Time 02/05/2025 text/html ROS as noted in the HPI 69-year-old female presents for an ear cleaning. No otologic concerns today. Recently diagnosed with left sided TMJ and started physical therapy. ELODIA FIGUEROA MD [address] [place] [address], [address], [facility] - [facility] 02/05/2025 17:04:36 OBGyn Episode No OBEpisode recorded.
--- OUTSIDE RECORDS SUMMARY | 2025-02-11 10:59 | XMS_ITS | Encounter Summary ---
Author Organization [employer] Address [address] [facility] 7 [place] [address] Care Team Providers Care Umbrella Cutter Name Role Phone Charisma Stinson MD Primary Care Provider [phone] Reason for Visit * Reason Onset Date Comments Triage 08/05/2022 Encounter Details Date Type Department Care Team ([facility] Contact Info) Description 08/05/2022 Telephone [facility] CHC MED & PEDS 505 [place], [place] [phone] Charisma Stinson MD 505 [place] [address] Triage Social History Tobacco Use Types Packs/Day [...] accepted this outcome Please contact pt at [phone] documented in this encounter Plan of Treatment Not on file documented as of this encounter Visit Diagnoses Not on filedocumented in this encounter Additional Health Concerns Assessment Noted Time PHQ-9 Depression Total Score: 2 03/24/19 23 9:26 AM EST documented as of this encounter Care Teams Umbrella Cutter Relationship Specialty Start Date End Date Charisma Stinson MD [address] [place] [address] PCP - General Family Medicine 03/13/18 09/05/24 documented as of this encounter
--- OUTSIDE RECORDS SUMMARY | 2025-02-11 11:00 | XMS_ITS | Encounter Summary ---
Author Organization [employer] Address [address] [place] [address] [place] [address] Care Team Providers Care Mammal Keeper Name Role Phone Charisma Stinson MD Primary Care Provider [phone] Encounter Details Date Type Department Care Team ([facility] st Contact Info) Description 01/16/2023 Abstract [facility] MEDICINE [address] [place], [place] [phone] Charisma Stinson MD 505 [place], [place] [phone] Social History Tobacco Use Types Packs/Day Years [...] documented as of this encounter Care Teams Mammal Keeper Relationship Specialty Start Date End Date Charisma Stinson MD 505 [place], [place] [phone] PCP - General Family Medicine 03/13/18 09/05/24 documented as of this encounter
--- OUTSIDE RECORDS SUMMARY | 2025-02-11 11:00 | XMS_ITS | Encounter Summary ---
Author Organization [employer] Address [address] [place] [address] 7 [place] [address] Care Team Providers Care Paginator Name Role Phone Charisma Stinson MD Primary Care Provider [phone] Encounter Details Date Type Department Care Team (Latest Contact Info) Description 04/18/2018 Abstract [facility] CONVERSIONS Dental, Provider, DDS Social History [...] on filedocumented in this encounter Care Teams Paginator Relationship Specialty Start Date End Date Charisma Stinson MD 505 [place] [address] PCP - General Family Medicine 03/13/18 09/05/24 documented as of this encounter
--- OUTSIDE RECORDS SUMMARY | 2025-02-11 11:00 | XMS_ITS | Encounter Summary ---
Author Organization [employer] Address [address] [facility] 7t [place] [address] Care Team Providers Care Hub Cutter Name Role Phone Charisma Stinson MD Primary Care Provider [phone] Reason for Visit * Reason Onset Date Comments more medication 01/27/2023 Encounter Details Date Type Department Care Team ([facility] Contact Info) Description 01/27/2023 Telephone [facility] CHC ADULT DENTAL [address] [place] [address] Yordan Mcgowan DDS [address] [place] [address] more medication Social History Tobacco Use Types [...] documented as of this encounter Care Teams Hub Cutter Relationship Specialty Start Date End Date Charisma Stinson MD [address] [place] [address] PCP - General Family Medicine 03/13/18 09/05/24 documented as of this encounter
--- OUTSIDE RECORDS SUMMARY | 2025-02-11 11:00 | XMS_ITS | Encounter Summary ---
Author Organization [employer] Address [address] [place] [address] 7t [place] [address] Care Team Providers Care Poured Pipe Maker Name Role Phone Charisma Stinson MD Primary Care Provider [phone] Encounter Details Date Type Department Care Team ([facility] st Contact Info) Description 02/20/2023 Abstract [facility] ADULT DENTAL 505 [place], [place] [phone] Yordan Mcgowan DDS 230 [place], [place] [phone] Social History Tobacco Use Types Packs/Day Years [...] documented as of this encounter Care Teams Poured Pipe Maker Relationship Specialty Start Date End Date Charisma Stinson MD 505 [place], [place] [phone] PCP - General Family Medicine 03/13/18 09/05/24 documented as of this encounter
--- OUTSIDE RECORDS SUMMARY | 2025-02-11 11:00 | XMS_ITS | Encounter Summary ---
Author Organization [employer] Address 75 [facility] 7 [place] [address] Care Team Providers Care Gum Rolling Machine Operator Name Role Phone Unavailable Primary Care Provider Unavailabl e Reason for Visit * Reason Comments Med Refill Encounter Details Date Type Department Care Team ([facility] Contact Info) Description 02/08/2025 Refill [facility] CHC MED & PEDS 505 [place] [address] Charisma Stinson MD 505 [place] [address] Social History Tobacco Use Types Packs/Day Years [...]
--- OUTSIDE RECORDS SUMMARY | 2025-02-11 11:00 | XMS_ITS | Encounter Summary ---
Author Organization [employer] Address [address] [place] [address] 7t [place] [address] Care Team Providers Care Clothes Shaker Name Role Phone Charisma Stinson MD Primary Care Provider [phone] Encounter Details Date Type Department Care Team ([facility] st Contact Info) Description 02/08/2023 Abstract [facility] ADULT DENTAL 505 [place], [place] [phone] Yordan Mcgowan DDS 230 [place], [place] [phone] Social History Tobacco Use Types Packs/Day Years [...] documented as of this encounter Care Teams Clothes Shaker Relationship Specialty Start Date End Date Charisma Stinson MD 505 [place], [place] [phone] PCP - General Family Medicine 03/13/18 09/05/24 documented as of this encounter
--- OUTSIDE RECORDS SUMMARY | 2025-02-11 11:00 | XMS_ITS | Encounter Summary ---
Author Organization [employer] Address [address] [place] [address] 7 [place] [address] Care Team Providers Care Table And Desk Finisher Name Role Phone Charisma Stinson MD Primary Care Provider [phone] Encounter Details Date Type Department Care Team (Latest Contact Info) Description 12/13/2021 Abstract [facility] CONVERSIONS Dental, Provider, DDS Social [...] on filedocumented in this encounter Care Teams Table And Desk Finisher Relationship Specialty Start Date End Date Charisma Stinson MD 505 [place] [address] PCP - General Family Medicine 03/13/18 09/05/24 documented as of this encounter
--- OUTSIDE RECORDS SUMMARY | 2025-02-11 11:00 | XMS_ITS | Encounter Summary ---
Author Organization [employer] Address 75 [facility] 7 [place] [address] Care Team Providers Care Leather Currier Name Role Phone Charisma Stinson MD Primary Care Provider [phone] Reason for Visit * Reason Onset Date Comments Results 06/22/2023 Appointment Request 06/22/2023 Encounter Details Date Type Department Care Team ([facility] st Contact Info) Description 06/22/2023 Telephone [facility] MEDICINE 230 [place] [address] Charisma Stinson MD [address] [place] [address] Results; Appointment Request Social History Tobacco Use [...] abdomen complete Date when done: 06/19 Facility: [facility] Please contact pt at [phone] documented in this encounter Plan of Treatment Not on file documented as of this encounter Visit Diagnoses Not on filedocumented in this encounter Additional Health Concerns Assessment Noted Time PHQ-9 Depression Total Score: 2 03/24/19 23 9:26 AM EST documented as of this encounter Care Teams Leather Currier Relationship Specialty Start Date End Date Charisma Stinson MD 505 [place] [address] PCP - General Family Medicine 03/13/18 09/05/24 documented as of this encounter
--- OUTSIDE RECORDS SUMMARY | 2025-02-11 11:00 | XMS_ITS | Clinical Summary ---
Author Organization [facility] Address [address] [place] [address] [address] [place] [address] Phone Care Team Providers Care Work Manager Name Role Phone Charisma Stinson MD Primary Care Provider [phone] Richar Doyle DDS Unavailable [phone] Encounters Date Type Department Care Team Description 01/29/2025 Transcribe Orders [facility] Referral Management [address] [place] [address] Rose-Acost a, Lorena, DDS Arthralgia of temporomandibular [...] Description 05/28/2026 4:00 PM EDT Office Visit [facility] [address] [place] [address] Richar Doyle, DDS [address] [facility], [id number] [place] [address] [email or web address] Health Maintenance Due Date Last Done Comments [...] topic Medical Devices Not on file Insurance [facility] [place] [employer] POS PPO REPLACEMENT [facility] [place] [facility] POS PPO REPLACEMENT [facility] [place] [address] [address] [facility] [place] [facility] POS PPO REPLACEMENT [facility] [employer] [place] [employer] POS PPO REPLACEMENT [facility] Member Subscriber Plan / Payer (Ef fective 2025-Present) Name:Zoey Walsh Relation to Subscriber:Self Name:Zoey Walsh Payer ID:[id number] Group ID:Not on file Type:Medicaid Address: [address] [id number] [employer] [place] [employer] POS PPO REPLACEMENT [facility] [employer] [place] MED[place] POS PPO REPLACEMENT Care Teams Work Manager Relationship Specialty Start Date End Date Charisma Stinson MD [address] [place] [address] PCP - General Pediatrics 04/22/15 Richar Doyle DDS [address] [place] [address] [id number] [place] [address] [email or web address] Dentistry 01/29/25 Additional Source Comments The information contained in this document represents components of the legal health record. It is not the complete legal health record.[facility]
--- OUTSIDE RECORDS SUMMARY | 2025-02-11 11:00 | XMS_ITS | Encounter Summary ---
Author Organization [employer] Address [address] [place] [address] 7 [place] [address] Care Team Providers Care Wood Room Hand Name Role Phone Unavailable Primary Care Provider Unavailabl e Reason for Visit * Reason Comments Med Refill Encounter Details Date Type Department Care Team ([facility] Contact Info) Description 10/15/2024 Refill [facility] CHC MED & PEDS 505 [place] [address] Charisma Stinson MD 505 [place] [address] Mixed hyperlipidemia Social History Tobacco Use Types [...] t he electric, gas, oil or water [employer] threatened to shut off services in your [...]
--- OUTSIDE RECORDS SUMMARY | 2025-02-11 11:00 | XMS_ITS | Encounter Summary ---
Author Organization [employer] Address [address] [place] [address] 7 [place] [address] Care Team Providers Care Lasting Machine Operator Bed Name Role Phone Unavailable Primary Care Provider Unavailabl e Reason for Visit * Reason Comments Med Refill Encounter Details Date Type Department Care Team ([facility] Contact Info) Description 10/11/2024 Refill [facility] CHC MED & PEDS 505 [place] [address] Charisma Stinson MD 505 [place] [address] Mixed hyperlipidemia Social History Tobacco Use Types [...] t he electric, gas, oil or water [employer] threatened to shut off services in your [...]
--- OUTSIDE RECORDS SUMMARY | 2025-02-11 11:00 | XMS_ITS | Encounter Summary ---
Author Organization [employer] Address [address] [place] [address] 7t [place] [address] Care Team Providers Care Farm Equipment Assembler Name Role Phone Charisma Stinson MD Primary Care Provider [phone] Encounter Details Date Type Department Care Team ([facility] st Contact Info) Description 01/13/2023 Abstract [facility] ADULT DENTAL 505 [place], [place] [phone] Yordan Mcgowan DDS 230 [place], [place] [phone] Social History Tobacco Use Types Packs/Day Years [...] documented as of this encounter Care Teams Farm Equipment Assembler Relationship Specialty Start Date End Date Charisma Stinson MD 505 [place], [place] [phone] PCP - General Family Medicine 03/13/18 09/05/24 documented as of this encounter
--- OUTSIDE RECORDS SUMMARY | 2025-02-11 11:00 | XMS_ITS | Encounter Summary ---
Author Organization [employer] Address [address] [place] [address] 7 [place] [address] Care Team Providers Care Type Bar And Segment Assembler Name Role Phone Charisma Stinson MD Primary Care Provider [phone] Encounter Details Date Type Department Care Team (Latest Contact Info) Description 03/19/2020 Abstract [facility] CONVERSIONS Dental, Provider, DDS Social History [...] on filedocumented in this encounter Care Teams Type Bar And Segment Assembler Relationship Specialty Start Date End Date Charisma Stinson MD 505 [place] [address] PCP - General Family Medicine 03/13/18 09/05/24 documented as of this encounter
--- OUTSIDE RECORDS SUMMARY | 2025-02-11 11:00 | XMS_ITS | Encounter Summary ---
Author Organization [employer] Address [address] [facility] 7 [place] [address] Care Team Providers Care Freezing Machine Operator Name Role Phone Unavailable Primary Care Provider Unavailabl e Reason for Visit * Reason Comments Med Refill Encounter Details Date Type Department Care Team ([facility] Contact Info) Description 11/21/2024 Refill [facility] CHC MED & PEDS 505 [place] [address] Charisma Stinson MD 505 [place] [address] Social History Tobacco Use Types Packs/Day Years [...]
--- OUTSIDE RECORDS SUMMARY | 2025-02-11 11:00 | XMS_ITS | Encounter Summary ---
Author Organization [employer] Address [address] [facility] 7t [place] [address] Care Team Providers Care Vehicle Upholsterer Name Role Phone Unavailable Primary Care Provider Unavailabl e Reason for Visit * Reason Onset Date Comments DR MAURICE 01/29/2025 Encounter Details Date Type Department Care Team ([facility] st Contact Info) Description 01/29/2025 Telephone [facility] ADULT DENTAL [address] [place] [address] Lorena Welsh DDS [address] [place] [address] DR MAURICE Social History Tobacco Use Types [...]
--- OUTSIDE RECORDS SUMMARY | 2025-02-11 11:00 | XMS_ITS | Encounter Summary ---
Author Organization [employer] Address [address] [place] [address] 7 [place] [address] Care Team Providers Care Metal Fabricating Supervisor Name Role Phone Unavailable Primary Care Provider Unavailabl e Reason for Visit * Reason Comments Med Refill Encounter Details Date Type Department Care Team ([facility] Contact Info) Description 12/16/2024 Refill [facility] CHC MED & PEDS 505 [place] [address] Charisma Stinson MD 505 [place] [address] Gastroesophageal reflux disease without esophagitis Social History [...]
[2025-02-11 13:52] VITALS: BMI 21.9
== END 2025-02-11 10:46 | disposition home or self-care (01) ==
LOC: HO.ENCR 09:52
PROVIDERS: Visit Provider Dietitian, Registered
DX: R63.5 Abnormal weight gain (principal)

== ENCOUNTER → 2025-02-11 09:51 | Outpatient (BNVA) | payer MEDICARE, MEDICAID, SELFPAY | PROVIDERS: Visit Provider Dietitian, Registered | DX: R63.5 Abnormal weight gain (principal) | CPT/HCPCS: 97803 ==

== ENCOUNTER 2025-02-25 11:07 | Outpatient (AMB) | payer MEDICARE, MEDICAID, SELFPAY ==
--- NOTE | 2025-02-25 11:09 | MHC.OFFVIS ---
Vital Signs 02/25/25 11:17 Height 5 ft 2 in Weight 117 lb BMI 21.4 BP 102/66 Blood Pressure Location Lt brachial Position Sitting Pulse 64 Pulse Source Pulse Oximeter Pulse Oximetry (%) 100 Oxygen Delivery Method Room Air Intake Visit Reasons: 3m Intake Note: ESTABLISHED PATIENT for GERD + IBS mgmt. Chief Complaint; C/O increased frequency of BMs, loose stools, AM hoarseness and sore throat. Pt states that her medications do help with mitigating their sx but do not resolve them entirely. Nail Tech Required: No Accompanied by: Self / Same As Patient Allergies shellfish derived Adverse Reaction (Intermediate, Verified 02/03/25 14:29) Nausea and Vomiting HPI HPI 3m: Details: LAST VISIT: GERD (gastroesophageal reflux disease) Fatty liver Diverticulosis large intestine w/o perforation or abscess w/bleeding Hiatal hernia IBS (irritable bowel syndrome) Plan Patient will continue taking Nexium in the morning. Avoid dietary triggers and late night snacking. Staying upright for minimum 3 hours after meals discussed with patient. Patient can take famotidine as needed. Follow low FODMAP diet. Patient will try [id number] fiber gummies. Able to find bread on [employer]. Patient will take Dulcolax as needed for constipation. Patient will follow-up in 3-4 months, sooner on as needed basis. She is agreeable to this plan and verbalizes understanding of instructions. She was given the opportunity to ask questions and all questions answered. TODAY'S VISIT: Patient is here today for follow-up. Patient reports that she has been doing better, however her symptoms of postprandial abdominal bloating, occasional loose stools as well as constipation and reflux still continued depending on what she eats. Patient reports that she has been trying to avoid certain food and has noted difference. Patient denies any nausea or vomiting. Denies any melena, hematochezia, unintentional weight loss or ribbon like stools. Patient reports no trouble chewing even though she is having trouble with TMJ. Patient states that she was going to physical therapy and still continues. Few weeks ago was unable to open her mouth at all. Patient denies any nausea or vomiting. Labs reviewed and although normal liver enzymes they are elevated since started on Lipitor. [facility] Medical History Actinic keratoses Squamous cell carcinoma, face Trigeminal neuralgia Diverticulosis large intestine w/o perforation or abscess w/bleeding Tubular adenoma of colon Hiatal hernia Surgical History H/O colonoscopy Family History Mother Lung cancer Father Diabetes Social History Household Members: None Housing: Condominium Alcohol intake: former Patient Tobacco Use Status: Former Tobacco user Tobacco use type: Cigarette e-Cigarette/Vaping Use: Never Used Second Hand Smoke Exposure: No Substance Use Type: Marijuana service: No Current occupational status: retired Cognitive needs: No Hearing needs: No Vision needs: No Review of Systems Const Denies weight gain and Denies weight loss ENT Reports no additional complaints, Denies dysphagia and Denies odynophagia Card Reports no additional complaints Resp Reports no additional complaints GI Denies abdominal pain, Denies belching, Denies melena, Reports bloating (Occasional), Denies change in bowel habits, Reports constipation (Occasional), Denies dysphagia, Denies excessive flatus, Denies dyspepsia, Reports heartburn (Occasional), Denies diarrhea, Reports loose stools, Denies nausea, Denies odynophagia and Denies vomiting Musc Reports no additional complaints Neuro Reports no additional complaints Psych Reports no additional complaints Endo Reports no additional complaints Physical Exam Vital Signs: Last Vital Signs Pulse 64 02/25/25 11:17 BP 102/66 02/25/25 11:17 Pulse Ox 100 02/25/25 11:17 Oxygen Delivery Method Room Air 02/25/25 11:17 BMI result Body Mass Index 21.4 Const General: healthy appearing, no acute distress and well developed Nutritional Appearance: well nourished Orientation/consciousness: patient oriented x3 Resp Effort & Inspection: normal respiratory effort, able to speak in complete sentences, no tracheal deviation and symmetric chest movement Auscultation: clear to auscultation bilaterally Cardio Rate: regular rate GI Inspection: Yes normal to inspection and No distended Palpation (GI): Soft to palpation, not firm, nontender and No hepatosplenomegaly present Auscultation: normal bowel sounds General: Yes no CVA tenderness Back/Spine/Pelvis Back: no CVA tenderness Skin General skin exam: elasticity normal, turgor normal and dry skin Neuro General: patient oriented x3 Psych Appearance: grossly normal Mental Status: mental status grossly normal Assessment & Plan Assessment & Plan (1) GERD (gastroesophageal reflux disease): Code(s): K21.9 - Gastro-esophageal reflux disease without esophagitis Category: Medical Qualifiers: Esophagitis presence: esophagitis presence not specified Qualified Code(s): K21.9 - Gastro-esophageal reflux disease without esophagitis (2) Fatty liver: Code(s): K76.0 - Fatty (change of) liver, not elsewhere classified Category: Medical (3) Diverticulosis large intestine w/o perforation or abscess w/bleeding: Code(s): K57.31 - Diverticulosis of large intestine without perforation or abscess with bleeding Category: Medical (4) Hiatal hernia: Code(s): K44.9 - Diaphragmatic hernia without obstruction or gangrene Category: Medical (5) Irritable bowel syndrome: Code(s): K58.9 - Irritable bowel syndrome, unspecified Qualifiers: Irritable bowel syndrome type: with both diarrhea and constipation Qualified Code(s): K58.2 - Mixed irritable bowel syndrome Plan Patient will continue current therapy with Nexium. Continue avoiding dietary triggers. Low FODMAP diet recommended. Will check liver panel and lipid panel. Patient is on high-dose statin. If liver enzymes elevated recommend decreasing the dose. Patient will follow-up in our office in 3-4 months. She will call us if she will have any GI concerning symptoms. She is agreeable to this plan and verbalizes understanding of instructions. She was given the opportunity to ask questions and all questions answered Discharge is being signed and a 17 and I did notice that PCP discontinued her Lipitor 80 mg, however if populated to is chart looking like this provider discontinued the medication Orders: Orders Lipid Panel Today I25.10 - Atherosclerotic heart disease of [place] coronary artery without angina pectoris Liver Panel Today R74.01 - Elevation of levels of liver transaminase levels Medications: Discontinued atorvastatin (Lipitor) Discontinued Reason: Patient no longer taking 80 mg PO BEDTIME 90 tabs 0RF Coding Level of Care Code Est Pt Level 3 (77828) Diagnoses Gastroesophageal reflux disease, unspecified whether esophagitis present K21.9 Esophagitis presence: esophagitis presence not specified Fatty liver K76.0 Diverticulosis large intestine w/o perforation or abscess w/bleeding K57.31 Hiatal hernia K44.9 Irritable bowel syndrome with both constipation and diarrhea K58.2 Irritable bowel syndrome type: with both diarrhea and constipation Time Spent (min) 30 Comment 20 minutes spent with patient and additional 10 minutes spent reviewing her records
[2025-02-25 11:17] VITALS: BP 102/66; PULSE 64; O2SAT 100; BMI 21.4
--- OUTSIDE RECORDS SUMMARY | 2025-02-25 14:43 | XMS_ITS | Encounter Summary ---
Author Organization [employer] Address [address] [place] [address] 7 [place] [address] Care Team Providers Care Chainstitch Hemmer Name Role Phone Charisma Stinson MD Primary Care Provider [phone] Encounter Details Date Type Department Care Team (Late Contact Info) Description 02/08/2023 Abstract [facility] ADULT DENTAL [address] [place] [address] Yordan Mcgowan DDS [address] [place] [address] Social History Tobacco Use Types Packs/Day Years [...] Department Care Team (Late Contact Info) Description 03/19/2025 8:00 AM EST Office Visit [facility] ADULT DENTAL [address] [place], [place] [phone] Be Arnold 505 [place], [place] [phone] 04/15/2025 12:45 PM EST Office Visit [facility] ADULT DENTAL [address] [place] [address] Kary Reyes documented as of this encounter Visit Diagnoses Not on filedocumented in this encounter Additional Health Concerns Assessment Noted Time PHQ-9 Depression Total Score: 2 03/24/19 23 9:26 AM EST documented as of this encounter Care Teams Chainstitch Hemmer Relationship Specialty Start Date End Date Charisma Stinson MD 505 [place] [address] PCP - General Family Medicine 03/13/18 09/05/24 documented as of this encounter
--- OUTSIDE RECORDS SUMMARY | 2025-02-25 14:43 | XMS_ITS | Encounter Summary ---
Author Organization [employer] Address [address] [facility] 7t [place] [address] Care Team Providers Care News Department Intern Name Role Phone Charisma Stinson MD Primary Care Provider [phone] Reason for Visit * Reason Onset Date Comments more medication 01/27/2023 Encounter Details Date Type Department Care Team ([facility] Contact Info) Description 01/27/2023 Telephone [facility] ADULT DENTAL [address] [place] [address] Yordan Mcgowan DDS [address] [place] [address] more medication Social History Tobacco Use Types [...] Care Team (Late st Contact Info) Description 03/19/2025 8:00 AM EST Office Visit [facility] ADULT DENTAL 505 [place] [address] Clayton Be 505 [place] [address] 04/15/2025 12:45 PM EST Office Visit [facility] ADULT DENTAL 505 [place] [address] Kary Reyes documented as of this encounter Visit Diagnoses Not on filedocumented in this encounter Additional Health Concerns Assessment Noted Time PHQ-9 Depression Total Score: 2 03/24/19 23 9:26 AM EST documented as of this encounter Care Teams News Department Intern Relationship Specialty Start Date End Date Charisma Stinson MD 505 [place] [address] PCP - General Family Medicine 03/13/18 09/05/24 documented as of this encounter
--- OUTSIDE RECORDS SUMMARY | 2025-02-25 14:43 | XMS_ITS | Encounter Summary ---
Author Organization [employer] Address [address] [facility] 7 [place] [address] Care Team Providers Care Filling Hauler Name Role Phone Charisma Stinson MD Primary Care Provider [phone] Reason for Visit * Reason Onset Date Comments Triage 08/05/2022 Encounter Details Date Type Department Care Team ([facility] [address] Contact Info) Description 08/05/[address] [facility] CHC MED & PEDS [address] [place], [place] [phone] Charisma Stinson MD 505 [place] [address] Triage Social History Tobacco Use Types Packs/Day [...] advise. Thank you. * Telephone Encounter - Vanadna Antonio RN - 08/05/2022 9:32 AM EDT [...] You become worse * Telephone Encounter - Abdulazizdesmond Ignacio Linder - 08/05/2022 8:41 AM EDT Symptom: Medication Reaction Outcome: Schedule an urgent appointment (within 1 hour) or talk to a nurse or provider soon Reason: Caller denied all higher acuity questions The caller accepted this outcome Please contact pt at [phone] documented in this encounter Plan of Treatment Upcoming Encounters Date Type Department Care Team (Late st Contact Info) Description 03/19/2025 8:00 AM EST Office Visit [facility] ADULT DENTAL [address] [place] [address] Be Arnold 505 [place] [address] 04/15/2025 12:45 PM EST Office Visit [facility] ADULT DENTAL [address] [place] [address] Kary Reyes documented as of this encounter Visit Diagnoses Not on filedocumented in this encounter Additional Health Concerns Assessment Noted Time PHQ-9 Depression Total Score: 2 03/24/19 23 9:26 AM EST documented as of this encounter Care Teams Filling Hauler Relationship Specialty Start Date End Date Charisma Stinson MD 505 [place] [address] PCP - General Family Medicine 03/13/18 09/05/24 documented as of this encounter
--- OUTSIDE RECORDS SUMMARY | 2025-02-25 14:43 | XMS_ITS | Encounter Summary ---
Author Organization [employer] Address [address] [facility] 7 [place] [address] Care Team Providers Care Corporation Officer Name Role Phone Unavailable Primary Care Provider Unavailabl e Reason for Visit * Reason Comments Med Refill Encounter Details Date Type Department Care Team ([facility] Contact Info) Description 10/11/2024 Refill [facility] CHC MED & PEDS [address] [place] [address] Charisma Stinson MD 505 [place] [address] Mixed hyperlipidemia Social History Tobacco Use Types [...] t he electric, gas, oil or water [employer] threatened to shut off services in your [...] 8:00 AM EST Office Visit [facility] ADULT DENTAL 505 [place] [address] Be Arnold 505 [place] [address] 04/15/2025 12:45 PM EST Office Visit [facility] ADULT DENTAL [address] [place] [address] Kary Reyes documented as of this encounter Visit Diagnoses Diagnosis Mixed hyperlipidemia documented in this encounter Additional Health Concerns Assessment Noted Time PHQ-9 Depression Total Score: 2 03/24/19 23 9:26 AM EST documented as of this encounter
--- OUTSIDE RECORDS SUMMARY | 2025-02-25 14:43 | XMS_ITS | Encounter Summary ---
Author Organization [employer] Address [address] [place] [address] 7 [place] [address] Care Team Providers Care Pick Pulling Machine Tender Name Role Phone Unavailable Primary Care Provider Unavailabl e Reason for Visit * Reason Comments Med Refill Encounter Details Date Type Department Care Team ([facility] Contact Info) Description 10/15/2024 Refill [facility] CHC MED & PEDS 505 [place] [address] Charisma Stinson MD 505 [place] [address] Mixed hyperlipidemia Social History Tobacco Use Types [...] t he electric, gas, oil or water [employer] threatened to shut off services in your [...] Description 03/19/2025 8:00 AM EST Office Visit [facility] ADULT D[facility]AL 505 [place] [address] Be Arnold 505 [place] [address] 04/15/2025 12:45 PM EST Office Visit [facility] ADULT DENTAL 505 [place] [address] Kary Reyes documented as of this encounter Visit Diagnoses Diagnosis Mixed hyperlipidemia documented in this encounter Additional Health Concerns Assessment Noted Time PHQ-9 Depression Total Score: 2 03/24/19 23 9:26 AM EST documented as of this encounter
--- OUTSIDE RECORDS SUMMARY | 2025-02-25 14:43 | XMS_ITS | Clinical Summary ---
Author Organization [facility] Address [address] [place] [address] [address] [place] [address] Phone Care Team Providers Care Supervisor Cab Name Role Phone Charisma Stinson MD Primary Care Provider [phone] Richar Doyle DDS Unavailable [phone] Encounters Date Type Department Care Team Description 01/29/2025 Transcribe Orders [facility] [address] [place] [address] Orse-Acost a, Lorena, DDS Arthralgia of temporomandibular joint, [...] Description 05/28/2026 4:00 PM EDT Office Visit [facility] [address] [facility] [address] [place] [address] Richra Doyle, DDS [address] [facility], [address] [id number] [place] [address] [email or web address] Health Maintenance Due Date Last Done Comments [...] topic Medical Devices Not on file Insurance [facility] [employer] [place] MEDIC[employer] POS PPO REPLACEMENT [facility] [place] [facility] POS PPO REPLACEMENT [facility] [place] [address] [facility] [place] [facility] POS PPO REPLACEMENT [facility] [employer] [facility] [employer] [place] MED[employer] POS PPO REPLACEMENT [facility] [employer] Member Subscriber Plan / Payer (Ef fective 2025-Present) Name:Zoey Walsh Relation to Subscriber:Self Name:Zoey Walsh Payer ID:[id number] Group ID:Not on file Type:Medicaid Address: [address] [id number] [employer] [place] MEDIC[employer] POS PPO REPLACEMENT [facility] [employer] [place] MEDICARE POS PPO REPLACEMENT Care Teams Supervisor Cab Relationship Specialty Start Date End Date Charisma Stinson MD [address] [place] [phone] PCP - General Pediatrics 04/22/15 Richar Doyle DDS [address] [place] [address] [address] [place] [address] [email or web address] Dentistry 01/29/25 Additional Source Comments The information contained in this document represents components of the legal health record. It is not the complete legal health record.[facility]
--- OUTSIDE RECORDS SUMMARY | 2025-02-25 14:43 | XMS_ITS | Encounter Summary ---
Author Organization [employer] Address [address] [place] [address] 7 [place] [address] Care Team Providers Care Merchandise Team Manager Name Role Phone Charisma Stinson MD Primary Care Provider [phone] Encounter Details Date Type Department Care Team (Late Contact Info) Description 01/13/2023 Abstract [facility] ADULT DENTAL 505 [place] [address] Yordan Mcgowan DDS 230 [place] [address] Social History Tobacco Use Types Packs/Day Years [...] Description 03/19/2025 8:00 AM EST Office Visit [facility] ADULT DENTAL 505 [place], [place] [phone] Be Arnold 505 [place], [place] [phone] 04/15/2025 12:45 PM EST Office Visit [facility] ADULT DENTAL 505 [place] [address] Kary Reyes documented as of this encounter Visit Diagnoses Not on filedocumented in this encounter Additional Health Concerns Assessment Noted Time PHQ-9 Depression Total Score: 2 03/24/19 23 9:26 AM EST documented as of this encounter Care Teams Merchandise Team Manager Relationship Specialty Start Date End Date Charisma Stinson MD 505 [place] [address] PCP - General Family Medicine 03/13/18 09/05/24 documented as of this encounter
--- OUTSIDE RECORDS SUMMARY | 2025-02-25 14:43 | XMS_ITS | Clinical Summary ---
Author Organization [employer] Address [address] [place] [address] 7t [place] [address] Care Team Providers Care Insulation Worker Furnace Installer Name Role Phone Unavailable Primary Care [...] Type Department Care Team Description 02/08/2025 Refill [facility] CHC MED & PEDS [address] [place] [address] Charisma Stinson MD 01/29/2025 11:30 AM EST Office Visit [facility] ADULT DENTAL [address] [place] [address] Rose-Venegas, Lorena, DDS Arthralgia of left temporomandibular joint (Primary Dx) 01/29/2025 Telephone [facility] ADULT DENTAL [address] [place] [address] ACOSTA 01/22/2025 8:00 AM EST Office Visit [facility] ADULT DENTAL 505 [place] [address] Clayton, Be 01/21/2025 11:30 AM EST Office Visit [facility] ADULT DENTAL 505 [place] [address] Clayton, Be 01/16/2025 Orders Only GENERIC EXTERNAL DATA DEPARTMENT Provider, Generic External Data 01/15/2025 Orders Only GENERIC EXTERNAL DATA DEPARTMENT Provider, Generic External Data 12/19/2024 Orders Only [facility] External Provider, [facility] 12/16/2024 Refill [facility] MED & PEDS [address] [place] [address] Charisma Stinson MD Gastroesophageal reflux disease without esophagitis 12/10/2024 1:30 PM EDT Office Visit [facility] ADULT DENTAL 505 [place] [address] Gemma Arnoldricio from Last 3 Months Social History Tobacco [...] Description 03/19/2025 8:00 AM EST Office Visit [facility] ADULT DENTAL 505 [place] [address] Be Arnold 505 [place] [address] 04/15/2025 12:45 PM EST Office Visit [facility] ADULT DENTAL [address] [place] [address] Kary Reyes Health Maintenance Due Date Last [...] 01/02/2023, Additional history exists Mammogram 11/21/2025 11/22/2023, 08/2022, 11/10/2021, Additional history [...] Routine 01/15/2025 2:30 PM EST URINALYSIS, COMPLETE (INCLUDES MACRO AND MICRO) Routine 01/15/2025 2:30 PM EST NM HEART [...] AM EST) Influenza A PCR NEGATIVE Negative [facility] Influenza B PCR NEGATIVE Negative [facility] Resp Syncy Virus RNA Qual PCR NEGATIVE Negative [facility] SARS COV2 PCR NEGATIVE Negative [facility] Comment:All test results mus [...] use by authorized laboratories.Testing performed on the [employer] GeneXpert utilizingreal-time RT-PCR.All SARS CoV2 and positive influenza A/B results arereported to [facility]. 01/16/2025 11:2 3 AM EST 01/16/2025 6:21 PM EST Generic External Data Provider LAB MICROBIOLOGY - GENERAL ORDERABLES Final Result Performing Organization Address [facility] Co de Phone Number [facility] [address] [place] [phone] * Lyme Disease Ab with Reflex to Blot (IgG, IgM) (01/15/2025 2:33 PM EST) Lyme Antibody Screen <0.90 index [facility] Comment:Index Interpretation ----- < 0.90 [...] when erythemamigrans is apparent.THIS TEST WAS PERFORMED AT:[facility] [place] [id number] MALDONADO MD Lyme Blot [facility] 01/15/2025 2:33 PM EST 01/15/2025 2:33 PM EST Generic External Data Provider LAB BLOOD ORDERAB LES Final Result Performing Organization Address [facility]/ZIP Co de Phone Number [facility] [address] [place] [phone] * Sed Rate by Lauren Kirby (01/15/2025 2:33 PM EST) Erythrocyte Sedimentation Rate 2 0 - 20 MM/HR [facility] Comment:Patients with polycy themia and many hemoglobin abnormalitiesmay have depressed sed rates whereas patients with anemiamay have elevated sed rates. 01/15/2025 2:33 PM EST 01/15/2025 2:33 PM EST Generic External Data Provider LAB BLOOD ORDERAB LES Final Result Performing Organization Address [facility] de Phone Number [facility] [address] [place] [phone] * (ABNORMAL) Basic Metabolic Panel (01/15/2025 2:33 PM EST) Sodium 138 135 - 145 mmol/L [facility] Potassium 3.6 3.3 - 5.1 mmol/L [facility] Chloride 102 96 - 108 mmol/L [facility] Carbon Dioxide 30(H) 22 - 29 mmol/L [facility] Anion Gap 10(L) 12 - 20 [facility] Urea Nitrogen (BUN) 10 9 - 16 mg/dL [facility] Creatinine, Serum 0.70 0.5 - 1.4 mg/dL [facility] Estimated Glomerular Filt Rate >60 [facility] Comment:Chronic Kidney Disea se: Estimated GFR < 60 mL/min/1.86j9Syygpz Kidney Disease: Estimated GFR < 15 mL/min/1.73m2 Glucose 77 60 - 115 mg/dL [facility] Calcium 8.9 8.4 - 10.2 mg/dL [facility] 01/15/2025 2:33 PM EST 01/15/2025 2:33 PM EST Generic External Data Provider LAB BLOOD ORDERAB LES Final Result Performing Organization Address [facility] Co de Phone Number [facility] [address] [place] [phone] * (ABNORMAL) Urine Protein, Total, Random without Creatinine (01/15/2025 2:30 PM EST) Protein, Total, Random Urine 13(H) <12 mg/dL [facility] 01/15/2025 2:30 PM EST 01/15/2025 2:57 PM EST us Generic External Data Provider LAB URINE ORDERAB LES Final Result Performing Organization Address City/[facility]/ZIP Co de Phone Number [facility] [address] [place] [phone] * Creatinine, Random Urine (01/15/2025 2:30 PM EST) Creatinine, Urine 132.63 mg/dL [facility] 01/15/2025 2:30 PM EST 01/15/2025 2:57 PM EST Generic External Data Provider LAB URINE ORDERAB LES Final Result Performing Organization Address [facility] Co de Phone Number [facility] [address] [place] [phone] * (ABNORMAL) Urinalysis Complete (01/15/2025 2:30 PM EST) Color Urine Dark Yellow [facility] Appearance Urine Clear [facility] PH 6.0 5.0 - 9.0 [facility] Glucose Urine UA Negative Negative mg/dL [facility] Urine Blood Trace(A) Negative [facility] Specific [place] - Urine 1.025 1.005 - 1.025 [facility] Urine Protein Negative Neg-Trace mg/dL [facility] Urine Ketones Negative Negative mg/dL [facility] Nitrite Urine Negative Negative [facility] Leukocyte Esterase Urine Small (1+)(A) Negative [facility] RBC Urine 3-5(A) 0 - 2 /HPF [facility] Urine WBC 0-5 0 - 5 /HPF [facility] Urine Squamous Epithelial Cell 11-20 0 - 2 /HPF [facility] Urine Bacteria Trace None Seen [facility] Hyaline Casts, Urine 0-2 0 - 2 /LPF [facility] 01/15/2025 2:30 PM EST 01/15/2025 2:57 PM EST us Generic External Data Provider LAB URINE ORDERAB LES Final Result Performing Organization Address City/State/[facility] Co de Phone Number [facility] [address] [place] [phone] * NM heart perfusion SPECT stress and rest (12/19/2024 9:35 AM EDT) Anatomical Region Laterality Modality Body Nuclear Medicine 12/19/2024 9:35 AM EDT Narrative 12/24/2024 12:28 PM EDT [address] [address] Nuclear Medicine Report Signed Patient: Zoey Walsh MR#: [id number] 656 : 1955 Acct:[id number] Age/Sex: 69 / F ADM Date: 12/19/24 Loc: .[facility] Attending Dr: Gilberto Villalobos MD Ordering Physician: Gilberto Villalobos MD Date of Service: 12/19/24 Procedure(s): NM kathleen perf SPECT rest str Accession Number(s): [id number] cc: Charisma Stinson MD; Gilberto Villalobos MD [...] 12/24/24 1225 DD/ 0935 TD/TT: 12/20/24 1130 Furniture Stainer: Procedure Note Donotuseinterpreter, Image - 12/24/[address] [address] Nuclear Medicine Report Signed Patient: Zoey Walsh JMR#: [id number] : 8Acct:[id number] Age/Sex: 69 / FADM Date: 12/19/24 Loc: HO.CARD Attending Dr: Gilberto Villalobos MD Ordering Physician: Gilberto Villalobos MD Date of Service: 12/19/24 Procedure(s): NM kathleen perf SPECT rest str Accession Number(s): [id number] cc: Charisma Stinson MD; Gilberto Villalobos MD [...] 12/24/24 1225 DD/ 0935 TD/TT: 12/20/24 1130 Furniture Stainer: [facility] External Provider IMG NM PROCEDURES Final Result * BI Mammogram Screening Tomosynthesis Bilateral (11/22/2023 11:30 AM EDT) Anatomical Region Laterality Modality Breast Bilateral Mammography 11/22/2023 11:3 0 AM EDT Narrative 12/06/2023 10:24 AM EDT [facility] [address] [place] [address] Mammography Report Signed Patient: Zoey Walsh MR#: [id number] [id number] : 1955 Acct:[id number] Age/Sex: 68 / F ADM Date: 11/22/23 Loc: HO.MAMMO Attending Dr: Charisma Stinson MD Ordering Physician: Charisma Stinson MD Results: 2Be nign Findings Date of Service: 11/22/23 Follow Up: 1 Year From Orig ina Mammogram Procedure(s): MM tomosynthesis screening BI Accession Number(s): [id number] cc: Charisma Stinson MD EXAMINATION: MM SCREENING [...] 12/06/23 1021 DD/ 1130 TD/TT: 11/22/23 1144 Furniture Stainer: Procedure Note Donotuseinterpreter, Image - 12/06/2023 [place] [facility] [address] [place] [address] Mammography Report Signed Patient: Zoey Walsh JMR#: [id number] 656 : 8Acct:[id number] Age/Sex: 68 / FADM Date: 11/22/23 Loc: HO.MAMMO Attending Dr: Charisma Stinson MD Ordering Physician: Charisma Stinson MDResults: 2Be nign Findings Date of Service: 11/22/23Follow Up: 1 Year From Orig inal Mammogram Procedure(s): MM tomosynthesis screening BI Accession Number(s): [id number] cc: Charisma Stinson MD EXAMINATION: MM SCREENING [...] 12/06/23 1021 DD/ 1130 TD/TT: 11/22/23 1144 Furniture Stainer: us Charisma Stinson MD IMG BI PROCEDURES [...] along with historic and current clinical information. Assistant Tennis Professional : SEE COMMENT [facility] Comment: KN, CT(ASCP) CT screening location: [place] [address] Interpretation/R esult: Negative for intraepithelial lesion or malignancy. [facility] LMP: NONE GIVEN [facility] Prev. BX: NONE [facility]IVEN [facility] Prev. PAP: NONE [facility]IVEN [facility] SOURCE: None given [facility] Statement Of Adequacy: SEE COMMENT [facility] Comment: Satisfactory for evaluation. Endocervical/transformation zone component present. 06/30/2020 11:1 9 AM EDT us Liliana Zuñiga MD LAB PATHOLOGY ORDERABLES Final R esult [facility] [address] from Last 3 Months or Most Recently Relevant to Health Maintenance Insurance , [address] [place] [address] DENTAL - HSN FULL (MEDICAID)
--- OUTSIDE RECORDS SUMMARY | 2025-02-25 14:43 | XMS_ITS | Encounter Summary ---
Author Organization [employer] Address [address] [facility] 7 [place] [address] Care Team Providers Care Elementary Reading Tutor Name Role Phone Unavailable Primary Care Provider Unavailabl e Reason for Visit * Reason Comments Med Refill Encounter Details Date Type Department Care Team ([facility] Contact Info) Description 11/21/2024 Refill [facility] CHC MED & PEDS [address] [place] [address] Charisma Stinson MD 505 [place] [address] Social History Tobacco Use Types Packs/Day Years [...] [facility] AD[facility] [address] [place] [address] Be Arnold 505 [place] [address] 04/15/2025 12:45 PM EST Office Visit [facility] ADULT DENTAL [address] [place] [address] Kary Reyes documented as of this encounter Visit Diagnoses Not on filedocumented in this encounter Additional Health Concerns Assessment Noted Time PHQ-9 Depression Total Score: 2 03/24/19 23 9:26 AM EST documented as of this encounter
--- OUTSIDE RECORDS SUMMARY | 2025-02-25 14:43 | XMS_ITS | Encounter Summary ---
Author Organization [employer] Address [address] [place] [address] 7 [place] [address] Care Team Providers Care Analytics Consultant Name Role Phone Charisma Stinson MD Primary Care Provider [phone] Encounter Details Date Type Department Care Team (Late Contact Info) Description 02/20/2023 Abstract [facility] ADULT [facility] [address] [place] [address] Yordan Mcgowan DDS [address] [place] [address] Social History Tobacco Use Types Packs/Day Years [...] [facility] [address] [place], [place] [phone] Be Arnold 505 [place], [place] [phone] 04/15/2025 12:45 PM EST Office Visit [facility] ADULT [facility] [address] [place] [address] Kary Reyes documented as of this encounter Visit Diagnoses Not on filedocumented in this encounter Additional Health Concerns Assessment Noted Time PHQ-9 Depression Total Score: 2 03/24/19 23 9:26 AM EST documented as of this encounter Care Teams Analytics Consultant Relationship Specialty Start Date End Date Charisma Stinson MD [address] [place] [address] PCP - General Family Medicine 03/13/18 09/05/24 documented as of this encounter
--- OUTSIDE RECORDS SUMMARY | 2025-02-25 14:43 | XMS_ITS | Encounter Summary ---
Author Organization [employer] Address [address] [place] [address] 7 [place] [address] Care Team Providers Care Protective Service Specialist Name Role Phone Unavailable Primary Care Provider Unavailabl e Reason for Visit * Reason Comments Med Refill Encounter Details Date Type Department Care Team ([facility] Contact Info) Description 12/16/2024 Refill [facility] CHC MED & PEDS [address] [place] [address] Charisma Stinson MD [address] [place] [address] Gastroesophageal reflux disease without esophagitis Social History [...] 8:00 AM EST Office Visit [facility] ADULT DENTAL [address] [place] [address] Be Arnold [address] [place] [address] 04/15/2025 12:45 PM EST Office Visit [facility] ADULT DENTAL [address] [place] [address] Kary Reyes documented as of this encounter Visit Diagnoses Diagnosis Gastroesophageal reflux disease without esophagitis Esophageal reflux documented in this encounter Additional Health Concerns Assessment Noted Time PHQ-9 Depression Total Score: 2 03/24/19 23 9:26 AM EST documented as of this encounter
--- OUTSIDE RECORDS SUMMARY | 2025-02-25 14:43 | XMS_ITS | Encounter Summary ---
Author Organization [employer] Address [address] [place] [address] 7 [place] [address] Care Team Providers Care Medical Technologist Blood Bank Name Role Phone Unavailable Primary Care Provider Unavailabl e Reason for Visit * Reason Comments Med Refill Encounter Details Date Type Department Care Team ([facility] Contact Info) Description 10/10/2024 Refill [facility] CHC MED & PEDS [address] [place] [address] Charisma Stinson MD [address] [place] [address] Moderate persistent asthma, unspecified whether complicated Social [...] [facility] ADULT [facility] [address] [place] [address] Be Arnold [address] [place] [address] 04/15/2025 12:45 PM EST Office Visit [facility] ADULT DENTAL [address] [place] [address] Kary Reyes documented as of this encounter Visit Diagnoses Diagnosis Moderate persistent asthma, unspecified whether complicated documented in this encounter Additional Health Concerns Assessment Noted Time PHQ-9 Depression Total Score: 2 03/24/19 23 9:26 AM EST documented as of this encounter
--- OUTSIDE RECORDS SUMMARY | 2025-02-25 14:44 | XMS_ITS | Encounter Summary ---
Author Organization [employer] Address [address] [place] [address] 7 [place] [address] Care Team Providers Care Child Development Assistant Name Role Phone Charisma Stinson MD Primary Care Provider Encounter Details Date Type Department Care Team (Latest Contact Info) Description 03/19/2020 Abstract [facility] CONVERSIONS Dental, Provider, DDS Social [...] Description 03/19/2025 8:00 AM EST Office Visit [facility] ADULT DENTAL [address] [place] [address] Bryon Arnoldio [address] [place] [address] 04/15/2025 12:45 PM EST Office Visit [facility] ADULT DENTAL [address] [place] [address] Kary Reyes documented as of this encounter Visit Diagnoses Not on filedocumented in this encounter Care Teams Child Development Assistant Relationship Specialty Start Date End Date Charisma Stinson MD [address] [place] [address] PCP - General Family Medicine 03/13/18 09/05/24 documented as of this encounter
--- OUTSIDE RECORDS SUMMARY | 2025-02-25 14:44 | XMS_ITS | Encounter Summary ---
Author Organization [employer] Address [address] [facility] 7t [place] [address] Care Team Providers Care Motorcycle Racer Name Role Phone Unavailable Primary Care Provider Unavailabl e Reason for Visit * Reason Onset Date Comments DR MAURICE 01/29/2025 Encounter Details Date Type Department Care Team ([facility] st Contact Info) Description 01/29/2025 Telephone [facility] ADULT DENTAL [address] [place] [address] Lorena Welsh DDS [address] [place] [address] DR MAURICE Social History Tobacco Use Types [...] 03/19/2025 8:00 AM EST Office Visit [facility] ADULT [facility] [address] [place] [address] Be Arnold [address] [place] [address] 04/15/2025 12:45 PM EST Office Visit [facility] ADULT DENTAL [address] [place] [address] Kary Reyes documented as of this encounter Visit Diagnoses Not on filedocumented in this encounter Additional Health Concerns Assessment Noted Time PHQ-9 Depression Total Score: 2 03/24/19 23 9:26 AM EST documented as of this encounter
--- OUTSIDE RECORDS SUMMARY | 2025-02-25 14:44 | XMS_ITS | Encounter Summary ---
Author Organization [employer] Address [address] [place] [address] 7 [place] [address] Care Team Providers Care Senior Examiner Name Role Phone Charisma Stinson MD Primary Care Provider [phone] Encounter Details Date Type Department Care Team (Latest Contact Info) Description 04/18/2018 Abstract [facility] CONVERSIONS Dental, [...] 8:00 AM EST Office Visit [facility] ADULT DENTAL [address] [place] [address] Be Arnold [address] [place] [address] 04/15/2025 12:45 PM EST Office Visit [facility] ADULT DENTAL [address] [place] [address] Kary Reyes documented as of this encounter Visit Diagnoses Not on filedocumented in this encounter Care Teams Senior Examiner Relationship Specialty Start Date End Date Charisma Stinson MD [address] [place] [address] PCP - General Family Medicine 03/13/18 09/05/24 documented as of this encounter
--- OUTSIDE RECORDS SUMMARY | 2025-02-25 14:44 | XMS_ITS | Encounter Summary ---
Author Organization [employer] Address [address] [facility] 7 [place] [address] Care Team Providers Care Gantry Rigger Name Role Phone Unavailable Primary Care Provider Unavailabl e Reason for Visit * Reason Comments Med Refill Encounter Details Date Type Department Care Team ([facility] Contact Info) Description 02/08/2025 Refill [facility] CH[facility] MED & PEDS [address] [place] [address] Charisma Stinson MD [address] [place] [address] Social History Tobacco Use Types Packs/Day Years [...] [facility] [address] [place] [address] Be Arnold [address] [place] [address] 04/15/2025 12:45 PM EST Office Visit [facility] AD[facility] [address] [place] [address] Kary Reyes documented as of this encounter Visit Diagnoses Not on filedocumented in this encounter Additional Health Concerns Assessment Noted Time PHQ-9 Depression Total Score: 2 03/24/19 23 9:26 AM EST documented as of this encounter
--- OUTSIDE RECORDS SUMMARY | 2025-02-25 14:44 | XMS_ITS | Encounter Summary ---
Author Organization [employer] Address [address] [place] [address] 7 [place] [address] Care Team Providers Care Paper Spooler Name Role Phone Charisma Stinson MD Primary Care Provider [phone] Encounter Details Date Type Department Care Team (Late Contact Info) Description 01/16/2023 Abstract [facility] MEDICINE [address] [place], [place] [phone] Charisma Stinson MD [address] [place], [place] [phone] Social History Tobacco Use Types Packs/Day Years [...] Description 03/19/2025 8:00 AM EST Office Visit [facility] CHC ADULT DENTAL [address] [place], [place] [phone] Be Arnold [address] [place], [place] [phone] 04/15/2025 12:45 PM EST Office Visit [facility] ADULT DENTAL [address] [place] [address] Kary Reyes documented as of this encounter Visit Diagnoses Not on filedocumented in this encounter Additional Health Concerns Assessment Noted Time PHQ-9 Depression Total Score: 2 03/24/19 23 9:26 AM EST documented as of this encounter Care Teams Paper Spooler Relationship Specialty Start Date End Date Charisma Stinson MD [address] [place] [address] PCP - General Family Medicine 03/13/18 09/05/24 documented as of this encounter
--- OUTSIDE RECORDS SUMMARY | 2025-02-25 14:44 | XMS_ITS | Encounter Summary ---
Author Organization [employer] Address [address] [place] [address] 7 [place] [address] Care Team Providers Care Solderer Electronic Name Role Phone Charisma Stinson MD Primary Care Provider [phone] Encounter Details Date Type Department Care Team (Latest Contact Info) Description 12/13/2021 Abstract [facility] CONVERSIONS Dental, Provider, DDS Social [...] Upcoming Encounters Date Type Department Care Team ( st Contact Info) Description 03/19/2025 8:00 AM EST Office Visit [facility] ADULT DENTAL [address] [place] [address] Bryon Arnoldio 505 [place] [address] 04/15/2025 12:45 PM EST Office Visit [facility] ADULT DENTAL [address] [place] [address] Kary Reyes documented as of this encounter Visit Diagnoses Not on filedocumented in this encounter Care Teams Solderer Electronic Relationship Specialty Start Date End Date Charisma Stinson MD [address] [place] [address] PCP - General Family Medicine 03/13/18 09/05/24 documented as of this encounter
--- OUTSIDE RECORDS SUMMARY | 2025-02-25 14:44 | XMS_ITS | Encounter Summary ---
Author Organization [employer] Address [address] [facility] 7 [place] [address] Care Team Providers Care Floor Covering Layer Name Role Phone Charisma Stinson MD Primary Care Provider [phone] Reason for Visit * Reason Onset Date Comments Results 06/22/2023 Appointment Request 06/22/2023 Encounter Details Date Type Department Care Team ([facility] st Contact Info) Description 06/22/2023 Telephone [facility] MEDICINE [address] [place] [address] Charisma Stinson MD [address] [place] [address] Results; Appointment Request Social History Tobacco Use [...] abdomen complete Date when done: 06/19 Facility: [facility] Please contact pt at [phone] documented in this encounter Plan of Treatment Upcoming Encounters Date Type Department Care Team (Late st Contact Info) Description 03/19/2025 8:00 AM EST Office Visit [facility] ADULT DENTAL [address] [place] [address] Be Arnold [address] [place] [address] 04/15/2025 12:45 PM EST Office Visit [facility] ADULT DENTAL [address] [place] [address] Kary Reyes documented as of this encounter Visit Diagnoses Not on filedocumented in this encounter Additional Health Concerns Assessment Noted Time PHQ-9 Depression Total Score: 2 03/24/19 23 9:26 AM EST documented as of this encounter Care Teams Floor Covering Layer Relationship Specialty Start Date End Date Charisma Stinson MD [address] [place] [address] PCP - General Family Medicine 03/13/18 09/05/24 documented as of this encounter
== END 2025-02-25 11:42 | disposition home or self-care (01) ==
LOC: HO.HGI 11:07
PROVIDERS: PCP Pediatrics; Visit Provider Nurse Practitioner Family
DX: K21.9 Gastro-esophageal reflux disease without esophagitis (principal); K76.0 Fatty (change of) liver, not elsewhere classified; K57.31 Diverticulosis of large intestine without perforation or abscess with bleeding; K44.9 Diaphragmatic hernia without obstruction or gangrene; K58.2 Mixed irritable bowel syndrome
CPT/HCPCS: 99213

== ENCOUNTER → 2025-02-25 11:07 | Outpatient (BNVA) | payer MEDICARE, MEDICAID, SELFPAY | PROVIDERS: PCP Pediatrics; Visit Provider Nurse Practitioner Family | DX: K21.9 Gastro-esophageal reflux disease without esophagitis (principal); K76.0 Fatty (change of) liver, not elsewhere classified; K57.31 Diverticulosis of large intestine without perforation or abscess with bleeding; K44.9 Diaphragmatic hernia without obstruction or gangrene; K58.2 Mixed irritable bowel syndrome; Z79.899 Other long term (current) drug therapy | CPT/HCPCS: 99212 ==

== ENCOUNTER 2025-02-26 09:22 | Outpatient (REF) | payer MEDICARE, MEDICAID, SELFPAY ==
--- OUTSIDE RECORDS SUMMARY | 2025-02-26 10:39 | XMS_ITS | Encounter Summary ---
Author Organization [employer] Address [address] [facility] 7 [place] [address] Care Team Providers Care Forming Roll Operator Heavy Duty Name Role Phone Unavailable Primary Care Provider Unavailabl e Reason for Visit * Reason Comments Med Refill Encounter Details Date Type Department Care Team ([facility] Contact Info) Description 12/16/2024 Refill [facility] CHC MED & PEDS [address] [place] [address] Charisma Stinson MD [address] [place] [address] Gastroesophageal reflux disease without esophagitis Social History [...] Description 03/19/2025 8:00 AM EST Office Visit [facility] ADULT DENTAL [address] [place] [address] Be Arnold [address] [place] [address] 04/15/2025 12:45 PM EST Office Visit [facility] ADULT DENTAL [address] [place] [address] Kary Reyes documented as of this encounter Visit Diagnoses Diagnosis Gastroesophageal reflux disease without esophagitis Esophageal reflux documented in this encounter Additional Health Concerns Assessment Noted Time PHQ-9 Depression Total Score: 2 03/24/19 23 9:26 AM EST documented as of this encounter
--- OUTSIDE RECORDS SUMMARY | 2025-02-26 10:39 | XMS_ITS | Encounter Summary ---
Author Organization [employer] Address [address] [place] [address] 7 [place] [address] Care Team Providers Care Wedding Transportation Driver Name Role Phone Unavailable Primary Care Provider Unavailabl e Reason for Visit * Reason Comments Med Refill Encounter Details Date Type Department Care Team ([facility] Contact Info) Description 10/10/2024 Refill [facility] CHC MED & PEDS [address] [place] [address] Charisma Stinson MD [address] [place] [address] Moderate persistent asthma, unspecified whether complicated Social [...] Description 03/19/2025 8:00 AM EST Office Visit [facility] ADULT DENTAL [address] [place] [address] Be Arnold [address] [place] [address] 04/15/2025 12:45 PM EST Office Visit [facility] ADULT DENTAL [address] [place] [address] Kary Reyes documented as of this encounter Visit Diagnoses Diagnosis Moderate persistent asthma, unspecified whether complicated documented in this encounter Additional Health Concerns Assessment Noted Time PHQ-9 Depression Total Score: 2 03/24/19 23 9:26 AM EST documented as of this encounter
--- OUTSIDE RECORDS SUMMARY | 2025-02-26 10:39 | XMS_ITS | Continuity of Care Document ---
Author Organization [place] - [facility], [facility] Address [address] [place] [address] Care Team Providers Care Director Voice Name Role Phone WILLY ARAUJO Primary Care Provider Assessment Encounter Date Assessment Date Assessment LastModified by Organization Details LastModified Time 02/05/2025 02/05/2025 69-year-old female presents for cerumen removal. Cerumen impaction removed bilaterally. Bilateral tympanic membranes are intact with aerated middle ear spaces. She will follow-up in 6 months for cerumen removal, or sooner with concerns. [email or web address] Not available 02/05/2025 16:48:47 Plan of Treatment Reminders Order Date Submit Date Provider Last Modified By Organization Details Last Modified Time Details Appointments Establish ed 15 2025 03:45P M RAFAEL HANCOCK PA-C Not available Not available Not available Establish ed 15 2025 01:00P M KALPANA [...] Recorded Time Finding of resonance of voice 382247975 Active 2014 Other voice and resonance disorders ; Note: Date Diagnosed : 5 2:46 PM (R49.8) Not Available [facility] 4 02:47:55 Gastroeso phageal reflux disease without esophagit is 486559269 Active 2014 Gastro-es ophageal reflux disease without esophagit is; Note: Date Diagnosed : 5 2:46 PM (K21.9) Not Available [facility] 4 02:47:53 Allergic rhinitis 78476720 Active 2015 Allergic rhinitis, unspecifi ed; Note: Date Diagnosed : 08/06/2015 2:15 PM (J30.9) Not Available [facility] 4 02:47:57 Dysphonia 42347421 Active 2015 Dysphonia ; Note: Date Diagnosed : 08/16/2015 7:21 PM (R49.0) Not Available [facility] 4 02:48:01 Impacted cerumen of bilateral ears 83672072533 42909 Active 2018 Impacted cerumen, bilateral ; Note: Date Diagnosed : 11/08/2018 9:42 AM (H61.23) Not Available [facility] 4 02:47:59 Impacted cerumen 45392130 Active 2018 Impacted cerumen; Note: Date Diagnosed : 11/21/2018 11:38 AM (380.4) Not Available [facility] 4 02:47:56 Sensorine ural hearing loss of bilateral ears 852112530 Active 2018 Sensorine ural hearing loss, bilateral ; Note: Date Diagnosed : 01/16/2019 10:17 AM (H90.3) Not Available [facility] 4 02:47:59 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; Note: Date Diagnosed : 2019 11:29 AM (J38.2) Not Available [facility] 4 02:48:01 Dysphagia 02969162 Active 2019 Other dysphagia ; Note: Date Diagnosed : 2019 11:29 AM (R13.19) Not Available [facility] 4 02:48:01 Acute pharyngit is 565947197 Active 2020 Sore throat (acute) NOS; Note: Date Diagnosed : 10/01/2020 4:50 PM (J02.9) Not Available [facility] 4 02:47:56 Abnormal weight loss 242033743 Active 2020 Abnormal weight loss; Note: Date Diagnosed : 10/01/2020 4:50 PM (R63.4) Not Available [facility] 4 02:47:57 Problem Notes None recorded. Procedures Surgical History Date Name Laterality Status Provider Name and Address Organization Details Recorded Time 5 Cerumen removal without microscope bilat completed CRISTINA DE JESUS PA-C [address] [place] [address],[address], [address], [facility] 02/05/2025 16:48:28 5 Comp Audio with Tymps - 04054 & 26953 completed THANIA ARROYO [address] [place] [address],[address], [address], [facility] 09/06/2024 11:30:22 5 Cerumen removal without microscope bilat completed CRISTINA DE JESUS PA-C [address] [place] [address],[address], [address], [facility] 03/14/2024 12:19:25 Imaging Results None recorded. Procedure Notes None recorded. Medical Equipment None Reported. Allergies Allergen ID Allergen Name Allergen Category Reaction Reaction Severity Criticality Documentation Date Start Date Code Code System Note Provider Name and Address Organization Details Recorded Time 220296 mite extract Not available Not available Not available Not available 02/05/20252022 52572 3 RxNorm Not Available [employer] - One Month 5 04:04:23 840387 redtop grass pollen extract medicatio n Not available Not available Not available 02/05/20252022 69653 0 RxNorm Not Available [employer] 5 04:04:23 Medications Name Sig Start Date [...] mg tablet 10/19 completed Medicati on ID: 92138 Du ration Value: 5 Reason: () Brand Name: placidoithrom ycin Sen d Method: E-Prescr ibed Sub s Allowed: subs OK Speci al Instruct ion: take 2 tablets by mouth today then take 1 tablet DAILY FOR 4 DAYS Med icationG enericNa me: azithrom ycin Not Available Not Available Not Available ranitidin e 300 mg tablet 11/26 completed Medicati on ID: 40666 Du ration Value: 30 Reason: () Brand [...] gram tablet 03/13 completed Medicati on ID: [id number] D uration Value: 90 Brand Name: sucralfa te Send Method: E-Prescr ibed Sub s Allowed: subs OK Speci al Instruct ion: take 1 tablet by mouth three times a day ON AN EMPTY STOMACH 1 HOUR BE FORE MEALS AND AT BEDTIME Medicati onGeneri cName: sucralfa te Not Available Not Available Not Available prednison e 20 mg tablet 10/19 completed Medicati on ID: 44538 Du ration Value: 4 Reason: () Brand [...] by mouth 03/13 completed Medicati on ID: [id number] P venturarilisa d By Name: Toi Rodriguez MD Brand Name: ranitidi ne HCl Send Method: E-Prescr ibed Sub s Allowed: subs OK Medic ationGen ericName : ranitidi ne HCl Not Available Not Available Not Available Guaifenes in AC 10 mg-100 mg/5 mL oral liquid 10/19 completed Medicati on ID: 38110 Du ration Value: 1 Reason: () Brand [...] by mouth 11/26 completed Medicati on ID: 475556 D uration Value: 30 Prescri bed By [...] mg tablet 03/13 completed Medicati on ID: 16782 Du ration Value: 30 Brand Name: loratajael ne Send Method: E-Prescr ibed Sub s [...] IM syringe 10/19 completed Medicati on ID: 12603 Du ration Value: 1 Reason: () Brand [...] Updated DateTime 02/05/2025 154.94 cm 22.7 kg/m2 91623.08 g Nydia Bain [place] - [facility] 02/05/2025 15:57:03 Social History Question Answer Notes LastModified by Organizat ion Details LastModified Time Tobacco Smoking Status Former Smoker Nydia fitzgerald [place] - [facility] 02/05/2025 15:48:49 What Type Of Safety Inspector Do You Use? None [email or web address] Information not available 02/05/2025 When Did You Quit Smoking? 16+yearssinc elastcigaret te Information not available 02/05/2025 What Is Your Current Pack Years? 10packyears [email or web address] Information not available 02/05/2025 Do You Have Any Pets? No [email or web address] Information not available 02/05/2025 At What Age Did You Start Smoking Tobacco? 13 [email or web address] Information not available 02/05/2025 Are You Passively Exposed To Smoke? No [email or web address] Information not available 02/05/2025 Are There Any Smokers In Your House? No [email or web address] Information not available 02/05/2025 How Much Tobacco Do You Smoke? No Information not available 02/05/2025 How Many Years Have You Smoked Tobacco? 7 [email or web address] Information not available 02/05/2025 Sex: Unknown Functional Status Question Answer Note LastModified by Organization Details LastModified Time Do you use any illicit or recreational drugs? No [email or web address] Information not available 02/05/2025 Do you or have you ever used any other forms of tobacco or nicotine? No [email or web address] Information not available 02/05/2025 What is your level of alcohol consumption? None [email or web address] Information not available 02/05/2025 What type of noise exposure are you exposed to? noExposureToExcessiveNoise [email or web address] Infor mation not available 02/05/2025 Mental Status None recorded. Family History Nothing Reported. Medical History Condition Response Allergies/Hayfever Y Heart Problems N Anxiety N Tonsil Infections N Emphysema N Migraines N Thyroid Problems N COPD N Depression Y Developmental Delay N Glaucoma N Nasal or Sinus Problems N Anemia N Immune System Disorder N Anesthesia Complications N Heart Attack (OR) N Other Skin Condition N Diabetes N Rhinitis N Bleeding Disorder N Food Allergy N Hearing Loss N Arthritis Y Hyperlipidemia Y Cancer Y Stroke N Dementia N Nasal polyps N Asthma Y Sleep Disorder N High Cholesterol Y GERD/Reflux Y Liver Disease N Headaches N Fibromyalgia Y Hypertension N Speech Delay N Kidney Disease Y Gynecological HistoryNo gynecological history recorded. Obstetrics History GPAL:G 0 P 0 0 0 0 Past Encounters Encounter ID Performer Location Encounter Start Date Encounter Closed Date Diagnosis/Indication Diagnosis SNOMED-CT Code Diagnosis ICD10 Code Diagnosis IMO Codes Diagnosis Note [id number] CRISTINA DE JESUS PA-C [facility] [address] [address] 02/05/2025 15:11:36 02/05/2025 16:13:40 Impacted cerumen of bilateral ears [id number] 057722 H61.23 Health Concerns Section Related Observation LastModified by Organization Detai ls LastModified Time None Recorded Concern Status LastModified by Organization Details LastModified Time None Recorded Payers Encounter Date Sequence Insurance Name Policy Number Policy Goodwin Covered Member ID Goodwin Member ID Guarantor Name 02/05/2025 1 [employer] - MEDICARE ADVANTAGE PLAN (MEDICARE REPLACEMENT HMO) [id number] Zoey Walsh [id number] Zoey Walsh 02/05/2025 2 [place] [facility] Zoey Erwin Jillian [id number] Zoey Walsh Notes Date Note Type Note Provider Name and Address Organization Details Recorded Time 02/05/2025 text/html ROS as noted in the HPI 69-year-old female presents for an ear cleaning. No otologic concerns today. Recently diagnosed with left sided TMJ and started physical therapy. ELODIA FIGUEROA MD [address] [place] [address], [place], [address], [facility] - [facility] 02/05/2025 17:04:36 OBGyn Episode No OBEpisode recorded.
--- OUTSIDE RECORDS SUMMARY | 2025-02-26 10:39 | XMS_ITS | Clinical Summary ---
Author Organization [employer] Address [address] [place] [address] [address] [place] [address] Care Team Providers Care Ice Cream Maker Name Role Phone Unavailable Primary Care Provider [...] Type Department Care Team Description 02/08/2025 Refill [facility] [address] [place] [address] Charisma Stinson MD 01/29/2025 11:30 AM EST Office Visit [facility] ADULT DENTAL [address] [place] [phone] Rose-Venegas, Lorena, DDS Arthralgia of left temporomandibular joint (Primary Dx) 01/29/2025 Telephone [facility] [address] [place] [address] ACOSTA 01/22/2025 8:00 AM EST Office Visit [facility] [address] [place] [address] Clayton, Be 01/21/2025 11:30 AM EST Office Visit [facility] [address] [place] [address] Clayton, Be 01/16/2025 Orders Only GENERIC EXTERNAL DATA DEPARTMENT Provider, Generic External Data 01/15/2025 Orders Only GENERIC EXTERNAL DATA DEPARTMENT Provider, Generic External Data 12/19/2024 Orders Only [facility] External Provider, [facility] 12/16/2024 Refill [facility] MED & PEDS [address] [place] [address] Charisma Stinson MD Gastroesophageal reflux disease without esophagitis 12/10/2024 1:30 PM EDT Office Visit [facility] ADULT [facility] [address] [place] [address] Gemma Arnoldricio from Last 3 Months Social [...] 03/19/2025 8:00 AM EST Office Visit [facility] AD[facility] [address] [place] [address] Be Arnold [address] [place] [address] 04/15/2025 12:45 PM EST Office Visit [facility] ADULT [facility] [address] [place] [address] Kary Reyes Health Maintenance Due Date Last Done Comments CT Colonography 1957 FIT DNA/Cologuard 1957 FIT 1957 FOBT 1955 Sigmoidoscopy 1957 Alcohol/Substance Use Screening 1969 Hepatitis C Screening 1975 Hepatitis A Vaccines (1 of 2 - Risk 2-dose series) 1976 Depression Screening 03/24/2023 03/24/2022, 03/24/19 SDOH Screening [...] age to complete this topic HPV/Cotest Discontinued IPV Vaccines Aged Out No longer eligi [...] AM EST) Influenza A PCR NEGATIVE Negative [facility] Influenza B PCR NEGATIVE Negative [facility] Resp Syncy Virus RNA Qual PCR NEGATIVE Negative [facility] SARS COV2 PCR NEGATIVE Negative [facility] Comment:All test results mus t be [...] use by authorized laboratories.Testing performed on the [employer] GeneXpert utilizingreal-time RT-PCR.All SARS CoV2 and positive influenza A/B results arereported to [facility]. 01/16/2025 11:2 3 AM EST 01/16/2025 6:21 PM EST Generic External Data Provider LAB MICROBIOLOGY - GENERAL ORDERABLES Final Result Performing Organization Address [facility] Co de Phone Number [facility] [address] [place] [phone] * Lyme Disease Ab with Reflex to Blot (IgG, IgM) (01/15/2025 2:33 PM EST) Lyme Antibody Screen <0.90 index [facility] Comment:Index Interpretation ----- < 0.90 [...] when erythemamigrans is apparent.THIS TEST WAS PERFORMED AT:[facility] [place] [phone] MALDONADO MD Lyme Blot [facility] 01/15/2025 2:33 PM EST 01/15/2025 2:33 PM EST Generic External Data Provider LAB BLOOD ORDERAB LES Final Result Performing Organization Address [facility]/ZIP Co de Phone Number [facility] [address] [place] [phone] * Sed Rate by Lauren Kirby (01/15/2025 2:33 PM EST) Erythrocyte Sedimentation Rate 2 0 - 20 MM/HR [facility] Comment:Patients with polycy themia and many hemoglobin abnormalitiesmay have depressed sed rates whereas patients with anemiamay have elevated sed rates. 01/15/2025 2:33 PM EST 01/15/2025 2:33 PM EST Generic External Data Provider LAB BLOOD ORDERAB LES Final Result Performing Organization Address [facility] de Phone Number [facility] [address] [place] [phone] * (ABNORMAL) Basic Metabolic Panel (01/15/2025 2:33 PM EST) Sodium 138 135 - 145 mmol/L [facility] Potassium 3.6 3.3 - 5.1 mmol/L [facility] Chloride 102 96 - 108 mmol/L [facility] Carbon Dioxide 30(H) 22 - 29 mmol/L [facility] Anion Gap 10(L) 12 - 20 [facility] Urea Nitrogen (BUN) 10 9 - 16 mg/dL [facility] Creatinine, Serum 0.70 0.5 - 1.4 mg/dL [facility] Estimated Glomerular Filt Rate >60 [facility] Comment:Chronic Kidney Disea se: Estimated GFR < 60 mL/min/1.69v0Overon Kidney Disease: Estimated GFR < 15 mL/min/1.73m2 Glucose 77 60 - 115 mg/dL [facility] Calcium 8.9 8.4 - 10.2 mg/dL [facility] 01/15/2025 2:33 PM EST 01/15/2025 2:33 PM EST Generic External Data Provider LAB BLOOD ORDERAB LES Final Result Performing Organization Address [facility] Co de Phone Number [facility] [address] [place] [phone] * (ABNORMAL) Urine Protein, Total, Random without Creatinine (01/15/2025 2:30 PM EST) Protein, Total, Random Urine 13(H) <12 mg/dL [facility] 01/15/2025 2:30 PM EST 01/15/2025 2:57 PM EST us Generic External Data Provider LAB URINE ORDERAB LES Final Result Performing Organization Address City/[facility]/ZIP Co de Phone Number [facility] [address] [place] [phone] * Creatinine, Random Urine (01/15/2025 2:30 PM EST) Creatinine, Urine 132.63 mg/dL [facility] 01/15/2025 2:30 PM EST 01/15/2025 2:57 PM EST Generic External Data Provider LAB URINE ORDERAB LES Final Result Performing Organization Address [facility] Co de Phone Number [facility] [address] [place] [phone] * (ABNORMAL) Urinalysis Complete (01/15/2025 2:30 PM EST) Color Urine Dark Yellow [facility] Appearance Urine Clear [facility] PH 6.0 5.0 - 9.0 [facility] Glucose Urine UA Negative Negative mg/dL [facility] Urine Blood Trace(A) Negative [facility] Specific Alkol - Urine 1.025 1.005 - 1.025 [facility] Urine Protein Negative Neg-Trace mg/dL [facility] Urine Ketones Negative Negative mg/dL [facility] Nitrite Urine Negative Negative [facility] Leukocyte Esterase Urine Small (1+)(A) Negative [facility] RBC Urine 3-5(A) 0 - 2 /HPF [facility] Urine WBC 0-5 0 - 5 /HPF [facility] Urine Squamous Epithelial Cell 11-20 0 - 2 /HPF [facility] Urine Bacteria Trace None Seen [facility] Hyaline Casts, Urine 0-2 0 - 2 /LPF [facility] 01/15/2025 2:30 PM EST 01/15/2025 2:57 PM EST us Generic External Data Provider LAB URINE ORDERAB LES Final Result Performing Organization Address City/State/[facility] Co de Phone Number [facility] [address] [place] [phone] * NM heart perfusion SPECT stress and rest (12/19/2024 9:35 AM EDT) Anatomical Region Laterality Modality Body Nuclear Medicine 12/19/2024 9:35 AM EDT Narrative 12/24/2024 12:28 PM EDT [address] [address] Nuclear Medicine Report Signed Patient: Zoey Walsh MR#: [id number] 656 : 1955 Acct:[id number] Age/Sex: 69 / F ADM Date: 12/19/24 Loc: .[facility] Attending Dr: Gilberto Villalobos MD Ordering Physician: Gilberto Villalobos MD Date of Service: 12/19/24 Procedure(s): NM kathleen perf SPECT rest str Accession Number(s): [id number] cc: Charisma Stinson MD; Gilberto Villalobos MD [...] 12/24/24 1225 DD/ 0935 TD/TT: 12/20/24 1130 Photographic Technician: Procedure Note Donotuseinterpreter, Image - 12/24/[address] [address] Nuclear Medicine Report Signed Patient: Zoey Walsh JMR#: [id number] 656 : 8Acct:[id number] Age/Sex: 69 / FADM Date: 12/19/24 Loc: HO.CARD Attending Dr: Gilberto Villalobos MD Ordering Physician: Gilberto Villalobos MD Date of Service: 12/19/24 Procedure(s): NM kathleen perf SPECT rest str Accession Number(s): [id number] cc: Charisma Stinson MD; Gilberto Villalobos MD [...] 12/24/24 1225 DD/ 0935 TD/TT: 12/20/24 1130 Photographic Technician: [facility] External Provider IMG NM PROCEDURES Final Result * BI Mammogram Screening Tomosynthesis Bilateral (11/22/2023 11:30 AM EDT) Anatomical Region Laterality Modality Breast Bilateral Mammography 11/22/2023 11:3 0 AM EDT Narrative 12/06/2023 10:24 AM EDT [facility] [address] [place] [address] Mammography Report Signed Patient: Zoey Walsh MR#: [id number] 656 : 1955 Acct:[id number] Age/Sex: 68 / F ADM Date: 11/22/23 Loc: HO.MAMMO Attending Dr: Charisma Stinson MD Ordering Physician: Charisma Stinson MD Results: 2Be nign Findings Date of Service: 11/22/23 Follow Up: 1 Year From Orig ina Mammogram Procedure(s): MM tomosynthesis screening BI Accession Number(s): [id number] cc: Charisma Stinson MD EXAMINATION: MM SCREENING [...] 12/06/23 1021 DD/ 1130 TD/TT: 11/22/23 1144 Photographic Technician: Procedure Note Donotuseinterpreter, Image - 12/06/2023 [place] [facility] [address] [place] [address] Mammography Report Signed Patient: Zoey Walsh JMR#: [id number] 656 : 8Acct:[id number] Age/Sex: 68 / FADM Date: 11/22/23 Loc: HO.MAMMO Attending Dr: Charisma Stinson MD Ordering Physician: Charisma Stinson MDResults: 2Be nign Findings Date of Service: 11/22/23Follow Up: 1 Year From Orig inal Mammogram Procedure(s): MM tomosynthesis screening BI Accession Number(s): [id number] cc: Charisma Stinson MD EXAMINATION: MM SCREENING [...] 12/06/23 1021 DD/ 1130 TD/TT: 11/22/23 1144 Photographic Technician: us Charisma Stinson MD IMG BI [...] along with historic and current clinical information. Home Health Cna : SEE COMMENT [facility] Comment: KN, CT(ASCP) CT screening location: [place] [address] Interpretation/R esult: Negative for intraepithelial lesion or [...] R esult [facility] [address] from Last 3 Months or Most Recently Relevant to Health Maintenance Insurance , [address] [place] [address] DENTAL - HSN FULL (MEDICAID)
--- OUTSIDE RECORDS SUMMARY | 2025-02-26 10:39 | XMS_ITS | Encounter Summary ---
Author Organization [employer] Address [address] [facility] [address] [place] [address] Care Team Providers Care Reversal Print Inspector Name Role Phone Charisma Stinson MD Primary Care Provider [phone] Reason for Visit * Reason Onset Date Comments Triage 08/05/2022 Encounter Details Date Type Department Care Team ([facility] Contact Info) Description 08/05/2022 Telephone [facility] [address] [place], [place] [phone] Charisma Stinson MD [address] [place] [address] Triage Social History Tobacco Use Types Packs/Day [...] accepted this outcome Please contact pt at [phone] documented in this encounter Plan of Treatment Upcoming Encounters Date Type Department Care Team (Late st Contact Info) Description 03/19/2025 8:00 AM EST Office Visit [facility] ADULT D[facility] [address] [place] [address] Be Arnold [address] [place] [address] 04/15/2025 12:45 PM EST Office Visit [facility] ADULT [facility] [address] [place] [address] Kary Reyes documented as of this encounter Visit Diagnoses Not on filedocumented in this encounter Additional Health Concerns Assessment Noted Time PHQ-9 Depression Total Score: 2 03/24/19 23 9:26 AM EST documented as of this encounter Care Teams Reversal Print Inspector Relationship Specialty Start Date End Date Charisma Stinson MD [address] [place] [address] PCP - General Family Medicine 03/13/18 09/05/24 documented as of this encounter
--- OUTSIDE RECORDS SUMMARY | 2025-02-26 10:39 | XMS_ITS | Data Portability ---
Author Organization [place] - [facility], Allergy Address [address] [address] Care Team Providers Care Button Station Worker Name Role Phone YVONNENELLANEREIDA DexterWILLY Primary Care Provider Assessment Encounter Date Assessment Date Assessment LastModified by Organization Details LastModified Time 03/14/2024 03/14/2024 68-year-old female presents for cerumen removal. Cerumen impaction removed bilaterally. Bilateral tympanic membranes are intact with aerated middle ear spaces. Updated audiometric testing was offered today, but patient declined. She will follow-up in 6 months for cerumen removal, or sooner with concerns. [email or web address] Not available 03/14/2024 12:19:57 02/05/2025 02/05/2025 69-year-old female presents for cerumen removal. Cerumen impaction removed bilaterally. Bilateral tympanic membranes are intact with aerated middle ear spaces. She will follow-up in 6 months for cerumen removal, or sooner with concerns. Not available 02/05/2025 16:48:47 Plan of Treatment [...] By Organization Details Last Modified Time 09/06/2024 [id number] Reviewed results with patient. She is pleased that there are no significant changes in her hearing. CC of hearing test given to patient. [email or web address] Not available 09/06/2024 11:32:59 Reason for Referral None Reported. Results Created Date Observation Date Name Description Value Unit Range Abnormal Flag Note LastModifiedBy Organization Detail LastModifiedTime 09/07/19 25 audio gram No observ ation record ed. Not Available 08/12 11:42:12 Result Notes None recorded. Problems Name Problem SNOMED Code Status Onset Date Resolution Date Notes Provider Name and Address Organization Details Recorded Time Finding of resonance of voice 640427034 Active 2014 Other voice and resonance disorders ; Note: Date Diagnosed : 5 2:46 PM (R49.8) Not Available [facility] 4 02:47:55 Gastroeso phageal reflux disease without esophagit is 695374649 Active 2014 Gastro-es ophageal reflux disease without esophagit is; Note: Date Diagnosed : 5 2:46 PM (K21.9) Not Available [facility] 4 02:47:53 Allergic rhinitis 66890929 Active 2015 Allergic rhinitis, unspecifi ed; Note: Date Diagnosed : 08/06/2015 2:15 PM (J30.9) Not Available [facility] 4 02:47:57 Dysphonia 46822601 Active 2015 Dysphonia ; Note: Date Diagnosed : 08/16/2015 7:21 PM (R49.0) Not Available [facility] 4 02:48:01 Impacted cerumen of bilateral ears 75682853786 79234 Active 2018 Impacted cerumen, bilateral ; Note: Date Diagnosed : 11/08/2018 9:42 AM (H61.23) Not Available [facility] 4 02:47:59 Impacted cerumen 27204803 Active 2018 Impacted cerumen; Note: Date Diagnosed : 11/21/2018 11:38 AM (380.4) Not Available [facility] 4 02:47:56 Sensorine ural hearing loss of bilateral ears 750291078 Active 2018 Sensorine ural hearing loss, bilateral ; Note: Date Diagnosed : 01/16/2019 10:17 AM (H90.3) Not Available [facility] 4 02:47:59 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; Note: Date Diagnosed : 2019 11:29 AM (J38.2) Not Available [facility] 4 02:48:01 Dysphagia 02892105 Active 2019 Other dysphagia ; Note: Date Diagnosed : 2019 11:29 AM (R13.19) Not Available [facility] 4 02:48:01 Acute pharyngit is 426610563 Active 2020 Sore throat (acute) NOS; Note: Date Diagnosed : 10/01/2020 4:50 PM (J02.9) Not Available [facility] 4 02:47:56 Abnormal weight loss 294975090 Active 2020 Abnormal weight loss; Note: Date Diagnosed : 10/01/2020 4:50 PM (R63.4) Not Available [facility] 4 02:47:57 Problem Notes None recorded. Procedures Surgical History Date Name Laterality Status Provider Name and Address Organization Details Recorded Time 5 Cerumen removal without microscope bilat completed CRISTINA DE JESUS PA-C [address], [address], [facility] - [facility] 02/05/2025 16:48:28 5 Comp Audio with Tymps - 86800 & 11550 completed THANIA ARROYO 100 [facility],[address], [address], [facility] - [facility] 09/06/2024 11:30:22 5 Cerumen removal without microscope bilat completed CRISTINA DE JESUS PA-C 100 [facility],[address], [address], [facility] - [facility] 03/14/2024 12:19:25 Imaging Results None recorded. Procedure Notes None recorded. Medical Equipment None Reported. Allergies Allergen ID Allergen Name Allergen Category Reaction Reaction Severity Criticality Documentation Date Start Date Code Code System Note Provider Name and Address Organization Details Recorded Time 540086 mite extract Not available Not available Not available Not available 02/05/20252022 23995 3 RxNorm Not Available [employer] - prod 5 04:04:23 750090 redtop grass pollen extract medicatio n Not available Not available Not available 02/05/20252022 59654 0 RxNorm Not Available [employer] - prod 5 04:04:23 Medications [...] mg tablet 10/19 completed Medicati on ID: [id number] Du ration Value: 5 Reason: () Brand Name: cari ycin Sen d Method: E-Prescr ibed Sub s Allowed: subs OK Speci al Instruct ion: take 2 tablets by mouth today then take 1 tablet DAILY FOR 4 DAYS Med icationG enericNa me: azithrom ycin Not Available Not Available Not Available ranitidin e 300 mg tablet 11/26 completed Medicati on ID: 80650 Du ration Value: 30 Reason: () Brand [...] gram tablet 03/13 completed Medicati on ID: [id number] D uration Value: 90 Brand Name: sucralfa te Send Method: E-Prescr ibed Sub s Allowed: subs OK Speci al Instruct ion: take 1 tablet by mouth three times a day ON AN EMPTY STOMACH 1 HOUR BE FORE MEALS AND AT BEDTIME Medicati onGeneri cName: sucralfa te Not Available Not Available Not Available prednison e 20 mg tablet 10/19 completed Medicati on ID: 46280 Du ration Value: 4 Reason: () Brand [...] by mouth 03/13 completed Medicati on ID: [id number] Yuridia valladares By Name: Toi Rodriguez MD Brand Name: ranitidi ne HCl Send Method: E-Prescr ibed Sub s Allowed: subs OK Medic ationGen ericName : ranitidi ne HCl Not Available Not Available Not Available Guaifenes in AC 10 mg-100 mg/5 mL oral liquid 10/19 completed Medicati on ID: 35537 Du ration Value: 1 Reason: () Brand Name: Shayla awan AC Send Method: E-Prescr ibed Sub s Allowed: subs OK Speci al Instruct ion: take 10 millilit ers by mouth every 4 hours if needed M edrimatio nGeneric Name: Shayla awan AC Not Available Not [...] by mouth 11/26 completed Medicati on ID: [id number] D uration Value: 30 Prescri bed By [...] mg tablet 03/13 completed Medicati on ID: 59139 Du ration Value: 30 Brand Name: loratadi [...] IM syringe 10/19 completed Medicati on ID: 00364 Du ration Value: 1 Reason: () Brand [...] Updated DateTime 08/02/2024 154.94 cm 22.7 kg/m2 47562.08 g Rosmery Figueroa [place] - [facility] 08/02/2024 11:36:17 Date Recorded Body height Body mass index (BMI) Body weight Provider Name and Address Organization Details Last Updated DateTime 02/05/2025 154.94 cm 22.7 kg/m2 21452.08 g Nydia Odell [place] - [facility] 02/05/2025 15:57:03 Social History Question Answer Notes LastModified by Organizat ion Details LastModified Time Tobacco Smoking Status Former Smoker Nydia Garciagen fitzgerald [place] - [facility] 02/05/2025 15:48:49 What Type Of Cigar Packing Examiner Do You Use? None [email or web address] Information not available 02/05/2025 When Did You Quit Smoking? 16+yearssinc elastcigaret te [email or web address] Information not available 02/05/2025 What Is Your Current Pack Years? 10packyears [email or web address] Information not available 02/05/2025 Do You Have Any Pets? No Information not available 02/05/2025 At What Age Did You Start Smoking Tobacco? 13 [email or web address] Information not available 02/05/2025 Are You Passively Exposed To Smoke? No [email or web address] Information not available 02/05/2025 Are There Any Smokers In Your House? No [email or web address] Information not available 02/05/2025 How Much Tobacco Do You Smoke? No [email or web address] Information not available 02/05/2025 How Many Years Have You Smoked Tobacco? 7 [email or web address] Information not available 02/05/2025 Sex: Unknown Functional Status Question Answer Note LastModified by Organization Details LastModified Time Do you use any illicit or recreational drugs? No [email or web address] Information not available 02/05/2025 Do you or have you ever used any other forms of tobacco or nicotine? No Information not available 02/05/2025 What is your level of alcohol consumption? None Information not available 02/05/2025 What type of noise exposure are you exposed to? noExposureToExcessiveNoise [email or web address] Infor mation not available 02/05/2025 Mental Status None recorded. Family History Nothing Reported. Medical History Condition Response Allergies/Hayfever Y Heart Problems N Anxiety N Tonsil Infections N Emphysema N Migraines N Thyroid Problems N COPD N Depression Y Developmental Delay N Glaucoma N Nasal or Sinus Problems N Anemia N Immune System Disorder N Anesthesia Complications N Heart Attack (VT) N Other Skin Condition N Diabetes N [...] ICD10 Code Diagnosis IMO Codes Diagnosis Note [id number] CRISTINA DE JESUS PA-C [facility] [address] [address] 03/14/2024 11:23:37 03/14/2024 12:18:10 Impacted cerumen of bilateral ears 9382648765 708526 H61.23 [id number] TIFFANY BRENNER MD [facility] [address] [address] 08/02/2024 11:26:27 08/02/2024 11:45:51 Impacted cerumen of bilateral ears 8972289073 954475 H61.23 Cerumen was removed and tolerated well. She still feels a little blockage. No middle ear effusion. Her last audiogram was in 2019 showing moderate HF loss. I recommende d updated testing at her next cleaning. [id number] TIFFANY BRENNER MD [facility] [address] [address] 09/06/2024 10:45:28 09/06/2024 11:41:05 Sensorineural hearing loss of bilateral ears 140076925 H90.3 Audiologic al evaluation results: Right ear: Normal through 2 kHz sloping to severe sensorineu ral hearing loss with excellent word recognitio n. Left ear: Normal through 2 kHz sloping to moderately severe sensorineu ral hearing loss with excellent word recognitio n. Tympanomet ry: Right Ear:Type A Left Ear:Type A [id number] CRISTINA DE JESUS PA-C [facility] [address] [address] 02/05/2025 15:11:36 02/05/2025 16:13:40 Impacted cerumen of bilateral ears 9416077270 025173 H61.23 Health Concerns Section Related Observation LastModified by Organization Detai ls LastModified Time None Recorded Concern Status LastModified by Organization Details LastModified Time None Recorded Advance Directives Directive None Recorded Payers Insurance Date Sequence Insurance Name Policy Number Policy Goodwin Covered Member ID Goodwin Member ID Guarantor Name 02/05/2025 1 [facility] - DOS ON OR AFTER 2022 - MEDICARE ADVANTAGE [place] (MEDICARE REPLACEMENT/AD VANTAGE - PPO) Zoey Erwin Jillian [id number] Zoey Erwin Jillian 02/10/2025 1 [facility] - MEDICARE ADVANTAGE PLAN (MEDICARE REPLACEMENT HMO) [id number] Zoey Erwin Yaima Walsh [id number] Zoey Yaima Jillian 02/10/2025 2 [place] [facility] Zoey Erwin Jillian [id number] Zoey Walsh Notes Date Note Type Note Provider Name and Address Organization Details Recorded Time 03/14/2024 text/html ROS as noted in the [facility] 68-year-old female presents for an ear cleaning. Feels like ears are blocked and hearing is decreased bilaterally. Denies otalgia and otorrhea. STEVEN WOO MD [address] [place] [address], [address], [facility] 03/14/2024 17:35:24 08/02/2024 text/html ROS as noted in the [facility] 69-year-old female presents for an ear cleaning. Feels like ears are blocked. Feels she gets a better cleaning with the suction. TIFFANY BRENNER MD [address] [place] [address],[address], [address], [facility] 08/02/2024 11:46:11 02/05/2025 text/html ROS as noted in the [facility] 69-year-old female presents for an ear cleaning. No otologic concerns today. Recently diagnosed with left sided TMJ and started physical therapy. ELODIA FIGUEROA MD [address] [place] [address],[address], [address], [facility] 02/05/2025 17:04:36 OBGyn Episode No OBEpisode recorded.
--- OUTSIDE RECORDS SUMMARY | 2025-02-26 10:40 | XMS_ITS | Encounter Summary ---
Author Organization [employer] Address 75 [facility] 7 [place] [address] Care Team Providers Care Yard Coupler Name Role Phone Unavailable Primary Care Provider Unavailabl e Reason for Visit * Reason Comments Med Refill Encounter Details Date Type Department Care Team ([facility] Contact Info) Description 11/21/2024 Refill [facility] CH[facility] MED & PEDS [address] [place] [address] Charisma Stinson MD 505 [place] [address] Social History Tobacco Use Types Packs/Day Years [...] Description 03/19/2025 8:00 AM EST Office Visit [facility] ADULT DENTAL [address] [place] [address] Be Arnold 505 [place] [address] 04/15/2025 12:45 PM EST Office Visit [facility] ADULT DENTAL [address] [place] [address] Kary Reyes documented as of this encounter Visit Diagnoses Not on filedocumented in this encounter Additional Health Concerns Assessment Noted Time PHQ-9 Depression Total Score: 2 03/24/19 23 9:26 AM EST documented as of this encounter
--- OUTSIDE RECORDS SUMMARY | 2025-02-26 10:40 | XMS_ITS | Encounter Summary ---
Author Organization [employer] Address [address] [place] [address] 7 [place] [address] Care Team Providers Care Daily Sales Audit Clerk Name Role Phone Unavailable Primary Care Provider Unavailabl e Reason for Visit * Reason Comments Med Refill Encounter Details Date Type Department Care Team ([facility] Contact Info) Description 10/15/2024 Refill [facility] CHC MED & PEDS [address] [place] [address] Charisma Stinson MD 505 [place] [address] Mixed hyperlipidemia Social History Tobacco Use Types [...] t he electric, gas, oil or water [email or web address] threatened to shut off services in your [...] Description 03/19/2025 8:00 AM EST Office Visit [facility] ADULT DENTAL [address] [place] [address] Be Arnold [address] [place] [address] 04/15/2025 12:45 PM EST Office Visit [facility] ADULT DENTAL [address] [place] [address] Kary Reyes documented as of this encounter Visit Diagnoses Diagnosis Mixed hyperlipidemia documented in this encounter Additional Health Concerns Assessment Noted Time PHQ-9 Depression Total Score: 2 03/24/19 23 9:26 AM EST documented as of this encounter
--- OUTSIDE RECORDS SUMMARY | 2025-02-26 10:40 | XMS_ITS | Encounter Summary ---
Author Organization [employer] Address 75 [facility] 7 [place] [address] Care Team Providers Care Data Analysis Assistant Name Role Phone Unavailable Primary Care Provider Unavailabl e Reason for Visit * Reason Comments Med Refill Encounter Details Date Type Department Care Team ([facility] Contact Info) Description 10/11/2024 Refill [facility] CHC MED & PEDS [address] [place] [address] Charisma Stinson MD [address] [place] [address] Mixed hyperlipidemia Social History Tobacco Use Types [...] t he electric, gas, oil or water [employer] threatened to shut off services in your [...] 03/19/2025 8:00 AM EST Office Visit [facility] ADULT DENTAL [address] [place] [address] Be Arnold [address] [place] [address] 04/15/2025 12:45 PM EST Office Visit [facility] ADULT DENTAL [address] [place] [address] Kary Reyes documented as of this encounter Visit Diagnoses Diagnosis Mixed hyperlipidemia documented in this encounter Additional Health Concerns Assessment Noted Time PHQ-9 Depression Total Score: 2 03/24/19 23 9:26 AM EST documented as of this encounter
--- OUTSIDE RECORDS SUMMARY | 2025-02-26 10:40 | XMS_ITS | Encounter Summary ---
Author Organization [employer] Address [address] [place] [address] 7 [place] [address] Care Team Providers Care Regional Sales Representative Name Role Phone Charisma Stinson MD Primary Care Provider [phone] Encounter Details Date Type Department Care Team (Latest Contact Info) Description 12/13/2021 Abstract [facility] CONVERSIONS Dental, Provider, DDS Social [...] [facility] ADULT DENTAL [address] [place] [address] Bryon Arnoldio 505 [place] [address] 04/15/2025 12:45 PM EST Office Visit [facility] ADULT DENTAL [address] [place] [address] Kary Reyes documented as of this encounter Visit Diagnoses Not on filedocumented in this encounter Care Teams Regional Sales Representative Relationship Specialty Start Date End Date Charisma Stinson MD 505 [place] [address] PCP - General Family Medicine 03/13/18 09/05/24 documented as of this encounter
--- OUTSIDE RECORDS SUMMARY | 2025-02-26 10:40 | XMS_ITS | Encounter Summary ---
Author Organization [employer] Address [address] [place] [address] 7 [place] [address] Care Team Providers Care Wood Boatbuilder Name Role Phone Charisma Stinson MD Primary Care Provider [phone] Encounter Details Date Type Department Care Team (Latest Contact Info) Description 03/19/[address] [facility] [...] 8:00 AM EST Office Visit [facility] ADULT DENTAL [address] [place] [address] Bryon Arnoldio 505 [place] [address] 04/15/2025 12:45 PM EST Office Visit [facility] ADULT DENTAL [address] [place] [address] Kary Ryees documented as of this encounter Visit Diagnoses Not on filedocumented in this encounter Care Teams Wood Boatbuilder Relationship Specialty Start Date End Date Charisma Stinson MD 505 [place] [address] PCP - General Family Medicine 03/13/18 09/05/24 documented as of this encounter
--- OUTSIDE RECORDS SUMMARY | 2025-02-26 10:40 | XMS_ITS | Encounter Summary ---
Author Organization [employer] Address 75 [facility] 7 [place] [address] Care Team Providers Care Microsoft Developer Name Role Phone Unavailable Primary Care Provider Unavailabl e Reason for Visit * Reason Comments Med Refill Encounter Details Date Type Department Care Team ([facility] Contact Info) Description 02/08/2025 Refill [facility] CHC MED & PEDS [address] [place] [address] Charisma Stinson MD 505 [place] [address] Social History Tobacco Use Types Packs/Day Years [...] Description 03/19/2025 8:00 AM EST Office Visit [facility] ADULT DENTAL 505 [place] [address] Be Arnold [address] [place] [address] 04/15/2025 12:45 PM EST Office Visit [facility] ADULT DENTAL [address] [place] [address] Kary Reyes documented as of this encounter Visit Diagnoses Not on filedocumented in this encounter Additional Health Concerns Assessment Noted Time PHQ-9 Depression Total Score: 2 03/24/19 23 9:26 AM EST documented as of this encounter
--- OUTSIDE RECORDS SUMMARY | 2025-02-26 10:40 | XMS_ITS | Encounter Summary ---
Author Organization [employer] Address 75 [facility] 7t [place] [address] Care Team Providers Care Tube Cleaner Name Role Phone Charisma Stinson MD Primary Care Provider [phone] Reason for Visit * Reason Onset Date Comments more medication 01/27/2023 Encounter Details Date Type Department Care Team ([facility] Contact Info) Description 01/27/2023 Telephone [facility] CHC ADULT DENTAL [address] [place] [address] Yordan Mcgowan DDS [address] [place] [address] more medication Social History Tobacco Use Types [...] Visit [facility] ADULT DENTAL 505 [place] [address] Clayton Be [address] [place] [address] 04/15/2025 12:45 PM EST Office Visit [facility] ADULT DENTAL [address] [place] [address] Kary Reyes documented as of this encounter Visit Diagnoses Not on filedocumented in this encounter Additional Health Concerns Assessment Noted Time PHQ-9 Depression Total Score: 2 03/24/19 23 9:26 AM EST documented as of this encounter Care Teams Tube Cleaner Relationship Specialty Start Date End Date Charisma Stinson MD 505 [place] [address] PCP - General Family Medicine 03/13/18 09/05/24 documented as of this encounter
--- OUTSIDE RECORDS SUMMARY | 2025-02-26 10:40 | XMS_ITS | Encounter Summary ---
Author Organization [employer] Address [address] [place] [address] 7 [place] [address] Care Team Providers Care Professional Bass Fisherman Name Role Phone Charisma Stinson MD Primary Care Provider [phone] Encounter Details Date Type Department Care Team (Late Contact Info) Description 02/20/2023 Abstract [facility] ADULT DENTAL [address] [place] [address] Yordan Mcgowan DDS [address] [place] [address] Social History Tobacco Use Types Packs/Day Years [...] 8:00 AM EST Office Visit [facility] ADULT DENTAL [address] [place], [place] [phone] Be Arnold 505 [place], [place] [phone] 04/15/2025 12:45 PM EST Office Visit [facility] ADULT DENTAL [address] [place] [address] Kary Reyes documented as of this encounter Visit Diagnoses Not on filedocumented in this encounter Additional Health Concerns Assessment Noted Time PHQ-9 Depression Total Score: 2 03/24/19 23 9:26 AM EST documented as of this encounter Care Teams Professional Bass Fisherman Relationship Specialty Start Date End Date Charisma Stinson MD [address] [place] [address] PCP - General Family Medicine 03/13/18 09/05/24 documented as of this encounter
--- OUTSIDE RECORDS SUMMARY | 2025-02-26 10:40 | XMS_ITS | Encounter Summary ---
Author Organization [employer] Address [address] [place] [address] 7 [place] [address] Care Team Providers Care Swabber Name Role Phone Charisma Stinson MD Primary Care Provider [phone] Encounter Details Date Type Department Care Team (Late Contact Info) Description 02/08/2023 Abstract [facility] ADULT DENTAL [address] [place] [address] Yordan Mcgowan DDS [address] [place] [address] Social History Tobacco Use Types Packs/Day Years [...] Visit [facility] ADULT DENTAL [address] [place], [place] [phone] Be Arnold 505 [place], [place] [phone] 04/15/2025 12:45 PM EST Office Visit [facility] ADULT DENTAL [address] [place] [address] Kary Reyes documented as of this encounter Visit Diagnoses Not on filedocumented in this encounter Additional Health Concerns Assessment Noted Time PHQ-9 Depression Total Score: 2 03/24/19 23 9:26 AM EST documented as of this encounter Care Teams Swabber Relationship Specialty Start Date End Date Charisma Stinson MD 505 [place] [address] PCP - General Family Medicine 03/13/18 09/05/24 documented as of this encounter
--- OUTSIDE RECORDS SUMMARY | 2025-02-26 10:40 | XMS_ITS | Encounter Summary ---
Author Organization [employer] Address [address] 7 [place] [address] Care Team Providers Care Finance And Administration Manager Name Role Phone Charisma Stinson MD Primary Care Provider [phone] Reason for Visit * Reason Onset Date Comments Results 06/22/2023 Appointment Request 06/22/2023 Encounter Details Date Type Department Care Team ([facility] st Contact Info) Description 06/22/2023 Telephone [facility] MEDICINE [address] [place] [address] Charisma Stinson MD [address] [place] [address] Results; Appointment Request Social History Tobacco Use [...] abdomen complete Date when done: 06/19 Facility: [facility] Please contact pt at [phone] documented in this encounter Plan of Treatment Upcoming Encounters Date Type Department Care Team (Late st Contact Info) Description 03/19/2025 8:00 AM EST Office Visit [facility] ADULT D[facility]AL [address] [place] [address] Be Arnold [address] [place] [address] 04/15/2025 12:45 PM EST Office Visit [facility] ADULT D[facility]AL [address] [place] [address] Kayr Reyes documented as of this encounter Visit Diagnoses Not on filedocumented in this encounter Additional Health Concerns Assessment Noted Time PHQ-9 Depression Total Score: 2 03/24/19 23 9:26 AM EST documented as of this encounter Care Teams Finance And Administration Manager Relationship Specialty Start Date End Date Charisma Stinson MD [address] [place] [address] PCP - General Family Medicine 03/13/18 09/05/24 documented as of this encounter
--- OUTSIDE RECORDS SUMMARY | 2025-02-26 10:40 | XMS_ITS | Encounter Summary ---
Author Organization [employer] Address [address] [facility] 7t [place] [address] Care Team Providers Care Landscape Crew Member Name Role Phone Unavailable Primary Care Provider Unavailabl e Reason for Visit * Reason Onset Date Comments DR MAURICE 01/29/2025 Encounter Details Date Type Department Care Team ([facility] st Contact Info) Description 01/29/2025 Telephone [facility] ADULT DENTAL [address] [place] [address] Lorena Welsh DDS [address] [place] [address] DR MAURICE Social History Tobacco Use Types [...] 8:00 AM EST Office Visit [facility] ADULT DENTAL [address] [place] [address] Be Arnold [address] [place] [address] 04/15/2025 12:45 PM EST Office Visit [facility] ADULT DENTAL [address] [place] [address] Kary Reyes documented as of this encounter Visit Diagnoses Not on filedocumented in this encounter Additional Health Concerns Assessment Noted Time PHQ-9 Depression Total Score: 2 03/24/19 23 9:26 AM EST documented as of this encounter
--- OUTSIDE RECORDS SUMMARY | 2025-02-26 10:40 | XMS_ITS | Encounter Summary ---
Author Organization [employer] Address [address] [place] [address] 7 [place] [address] Care Team Providers Care Anesthesiology Crna Name Role Phone Charisma Stinson MD Primary Care Provider [phone] Encounter Details Date Type Department Care Team (Latest Contact Info) Description 04/18/2018 Abstract [facility] CONVERSIONS Dental, Provider, DDS Social [...] 03/19/2025 8:00 AM EST Office Visit [facility] ADULT DENTAL [address] [place] [address] Be Arnold [address] [place] [address] 04/15/2025 12:45 PM EST Office Visit [facility] ADULT DENTAL [address] [place] [address] Kary Reyes documented as of this encounter Visit Diagnoses Not on filedocumented in this encounter Care Teams Anesthesiology Crna Relationship Specialty Start Date End Date Charisma Stinson MD [address] [place] [address] PCP - General Family Medicine 03/13/18 09/05/24 documented as of this encounter
--- OUTSIDE RECORDS SUMMARY | 2025-02-26 10:40 | XMS_ITS | Clinical Summary ---
Author Organization [facility] Address [address] [place] [phone] Phone Care Team Providers Care Facilities Custodian Name Role Phone Charisma Stinson MD Primary Care Provider [phone] Richar Doyle DDS Unavailable [phone] Encounters Date Type Department Care Team Description 01/29/2025 Transcribe Orders [facility] Referral Management [address] [place] [address] Rose-Acost a, Lorena, DDS Arthralgia of temporomandibular [...] Upcoming Encounters Date Type Department Care Team ([facility] st Contact Info) Description 05/28/2026 4:00 PM EDT Office Visit [facility] [address] [place] [address] Richar Doyle, DDAraceli [address], [id number] [place] [address] [email or web address] Health Maintenance Due Date Last Done Comments [...] topic Medical Devices Not on file Insurance [facility] Member Subscriber Plan / Payer (Ef fective 2025-Present) Name:Zoey Walsh Relation to Subscriber:Self Name:Jillian Zoey Payer ID:[id number] Group ID:Not on file Type:Medicaid Address: [address] [id number] [employer] [place] [employer] POS PPO REPLACEMENT [facility] [employer] [place] [employer] POS PPO REPLACEMENT [facility] [place] [place], [place] [id number] B Member Subscriber Plan / Payer (Ef fective 2025-Present) Name:Zoey Walsh Relation to Subscriber:Self Name:Zoey Walsh Payer ID:[id number] Group ID:Not on file Type:Medicaid Address: [address] [id number] [employer] [place] [employer] POS PPO REPLACEMENT [facility] [employer] [place] [employer] POS PPO REPLACEMENT [facility] Member Subscriber Plan / Payer (Ef fective 2025-Present) Name:Zoey Walsh Relation to Subscriber:Self Name:Zoey Walsh Payer ID:[id number] Group ID:Not on file Type:Medicaid Address: [address] [id number] [employer] [place] [employer] POS PPO REPLACEMENT [facility] Member Subscriber Plan / Payer (Ef fective 2025-Present) Name:DanielmaryjoAmie alanisn Relation to Subscriber:Self Name:Amie Walshn Payer ID:[id number] Group ID:Not on file Type:Medicaid Address: [address] [id number] [employer] [place] [employer] POS PPO REPLACEMENT Care Teams Facilities Custodian Relationship Specialty Start Date End Date Charisma Stinson MD [address] [place] [address] PCP - General Pediatrics 04/22/15 Richar Doyle DDS [address], [id number] [place] [address] [email or web address] 01/29/25 Additional Source Comments The information contained in this document represents components of the legal health record. It is not the complete legal health record.[facility]
--- OUTSIDE RECORDS SUMMARY | 2025-02-26 10:40 | XMS_ITS | Encounter Summary ---
Author Organization [employer] Address [address] [place] [address] 7 [place] [address] Care Team Providers Care Merchandise Buyer Name Role Phone Charisma Stinson MD Primary Care Provider [phone] Encounter Details Date Type Department Care Team (Late Contact Info) Description 01/16/2023 Abstract [facility] MEDICINE [address] [place], [place] [phone] Charisma Stinson MD [address] [place], [place] [phone] Social History Tobacco Use Types Packs/Day Years [...] Description 03/19/2025 8:00 AM EST Office Visit [facility] ADULT DENTAL [address] [place], [place] [phone] Be Arnold [address] [place], [place] [phone] 04/15/2025 12:45 PM EST Office Visit [facility] ADULT D[facility]AL [address] [place] [address] Kary Reyes documented as of this encounter Visit Diagnoses Not on filedocumented in this encounter Additional Health Concerns Assessment Noted Time PHQ-9 Depression Total Score: 2 03/24/19 23 9:26 AM EST documented as of this encounter Care Teams Merchandise Buyer Relationship Specialty Start Date End Date Charisma Stinson MD [address] [place] [address] PCP - General Family Medicine 03/13/18 09/05/24 documented as of this encounter
--- OUTSIDE RECORDS SUMMARY | 2025-02-26 10:40 | XMS_ITS | Encounter Summary ---
Author Organization [employer] Address [address] [place] [address] 7 [place] [address] Care Team Providers Care Business Analyst Sales Operations Name Role Phone Charisma Stinson MD Primary Care Provider [phone] Encounter Details Date Type Department Care Team (Late Contact Info) Description 01/13/2023 Abstract [facility] ADULT DENTAL [address] [place] [address] Yordan Mcgowan DDS [address] [place] [address] Social History Tobacco Use Types Packs/Day Years [...] 8:00 AM EST Office Visit [facility] ADULT DENTAL [address] [place], [place] [phone] Be rAnold [address] [place], [place] [phone] 04/15/2025 12:45 PM EST Office Visit [facility] ADULT DENTAL [address] [place] [address] Kary Reyes documented as of this encounter Visit Diagnoses Not on filedocumented in this encounter Additional Health Concerns Assessment Noted Time PHQ-9 Depression Total Score: 2 03/24/19 23 9:26 AM EST documented as of this encounter Care Teams Business Analyst Sales Operations Relationship Specialty Start Date End Date Charisma Stinson MD [address] [place] [address] PCP - General Family Medicine 03/13/18 09/05/24 documented as of this encounter
[2025-02-26 11:40] LABS: Alanine Aminotransferase 38 U/L (0-31); Albumin Level 4.7 g/dL (3.5-5.0); Alkaline Phosphatase 80 U/L (39-117); Aspartate Amino Transferase 39 U/L (5-31); Cholesterol 139 mg/dL (<200); HDL Cholesterol 58 mg/dL (>40); Total Protein 6.8 g/dL (6.5-8.0); Triglycerides 54 mg/dL (<150)
== END 2025-02-26 09:23 | disposition home or self-care (01) ==
LOC: HO.LAB 09:22
PROVIDERS: Visit Provider Nurse Practitioner Family
DX: I25.10 Atherosclerotic heart disease of native coronary artery without angina pectoris (principal); R74.01 Elevation of levels of liver transaminase levels
CPT/HCPCS: 36415; 80061; 80076